=== PATIENT | male | born 1980 | race Caucasian/White ===

== ENCOUNTER 2017-02-17 16:31 | Inpatient (IN) ==
[2017-02-17] MEDS ORDERED: NITROGLYCERIN 1 GM OINT.TOP TD ONE (17:23)
--- NOTE | 2017-02-17 17:31 | Emergency Department Note ---
SOB HPI - General Source: patient Mode of arrival: ambulatory Limitations: no limitations - History of Present Illness Associated symptoms: Reports: cough. Denies: chest pain, pain with inspiration , fever, lower extremity pain, nausea/vomiting, syncope Treatment prior to arrival: none <Marianela Corea - Last Filed: 02/17/17 17:29> <Cortez Moore - Last Filed: 02/17/17 18:30> - General Chief Complaint: Shortness of Breath/Dyspnea Stated Complaint: Shortness of breath Time Seen by Provider: 02/17/17 16:36 - History of Present Illness 36-year-old male presents with shortness of breath for 2-3 weeks. Also reports a 25 pound weight gain over the last 3 weeks. States he thinks he may be in congestive heart failure. Has had an episode similar to this and what she was in congestive heart failure. He is a known brittle diabetic. He also has a history of renal failure. States his last labs were checked back in November. No recent lab work no fever or chills. He does report a productive cough with greenish sputum at times. This has been going on for several weeks as well. No fever or chills. No nausea, vomiting, or diarrhea. Sitting or laying does not seem to make a difference in his breathing. He does get more short of breath with any exertion. States this is normal for him but it is much worse than normal usual over the last few weeks. No home treatments. (Marianela Corea) - Related Data Home Medications Medication Instructions Recorded Confirmed aspirin 81 mg chewable tablet 81 mg PO QDAY 05/27/15 01/05/17 cholecalciferol (vitamin D3) 5,000 5,000 unit PO QDAY cap 05/27/15 01/05/17 unit capsule cholestyramine (with sugar) 4 gram 4 g PO .QD each 05/27/15 01/05/17 oral powder lactase 4,500 unit tablet 4,500 unit PO QAC PRN 05/27/15 01/05/17 cyanocobalamin (vit B-12) 5,000 1,000 mcg SUBLINGUAL QDAY tab 06/18/15 01/05/17 mcg sublingual tablet salmon oil-omega-3 fatty acids 1,000 cap PO .QD cap 06/18/15 01/05/17 1,000 mg-200 mg capsule sitagliptin 100 mg tablet 100 mg PO QDAY 01/21/16 01/05/17 insulin aspart 100 unit/mL 50 unit SUB-Q TID ml 01/05/17 01/05/17 subcutaneous solution Previous Rx's Medication Instructions Recorded atorvastatin 20 mg tablet 20 mg PO QDAY #90 tab 06/18/15 blood pressure test kit-large cuff See Dose Instructions .ROUTE 06/18/15 .MEDSUPPLY #1 each True Metrix Glucose Meter See Dose Instructions .ROUTE 12/16/15 .MEDSUPPLY #1 each NS True Metrix Glucose Test Strip See Dose Instructions .ROUTE 12/16/15 .MEDSUPPLY #100 each NS insulin detemir 100 unit/mL 86 unit SUB-Q BID #50 ml 02/27/16 subcutaneous solution fluoxetine 40 mg capsule 40 mg PO DAILY #60 cap 03/30/16 insulin syringe-needle U-100 1 mL See Dose Instructions .ROUTE 04/09/16 31 gauge x 11/10" .MEDSUPPLY #200 each amlodipine 2.5 mg tablet 2.5 mg PO QDAY #30 tab 07/31/16 carvedilol 12.5 mg tablet 12.5 mg PO BID #180 tab 09/03/16 metolazone 2.5 mg tablet 2.5 mg PO QOD #15 tab 10/29/16 losartan 25 mg tablet 25 mg PO QDAY #30 tab 12/14/16 furosemide 40 mg tablet 40 mg PO BID 30 Days 01/06/17 Allergies Allergy/AdvReac Type Severity Reaction Status Date / Time Amoxicillin Allergy Unknown Swelling, Verified 02/17/17 16:34 Rash Review of Systems All systems ED: reviewed and negative except as stated. <Marianela Corea - Last Filed: 02/17/17 17:29> Past Medical History - Past Medical History Medical history: Reports: CHF, diabetes, hyperlipidemia, hypertension, renal disease, other (Morbid obesity,severe obstructive sleep apnea. Edema. Hyperkalemia.) Surgical history ED: Reports: other (Status post BKA, right leg) Psychiatric history: Reports: depression - Social History smoking status: Unknown if ever smoked Alcohol use: Reports: None Drug use: Reports: none <Marianela Corea - Last Filed: 02/17/17 17:29> Physical Exam - General Limitations: no limitations General appearance: alert, in no apparent distress, other (Speaking 4-5 words at a time) - Head Head exam: atraumatic, normocephalic, normal inspection - Eye Eye exam: Present: normal appearance. Absent: conjunctival injection - ENT ENT exam: normal exam, normal oropharynx, mucous membranes moist, TM's normal bilaterally, normal external ear exam - Neck Neck exam: Present: normal inspection, trachea midline. Absent: tenderness, lymphadenopathy - Chest Chest inspection: Present: normal inspection, symmetric chest wall rise - Respiratory Respiratory exam: Present: other (Breath sounds diminished in the bases bilaterally otherwise clear throughout). Absent: respiratory distress, wheezes , accessory muscle use - Cardiovascular Cardiovascular exam: Present: regular rate - Abdominal Exam Abdominal exam: Present: soft, normal bowel sounds, other (Morbid obesity). Absent: distention, tenderness, guarding - Extremities Exam Extremities exam: Present: other (Right below the knee amputation. The left foot does have 1+ edema with mild redness in the skin is dry and flaky. He states this is chronic.) - Neurological Exam Neurological exam: Present: alert, oriented X3 - Psychiatric Psychiatric exam: Present: normal affect, normal mood - Skin Skin exam: Present: warm, dry, intact, normal color <Marianela Corea - Last Filed: 02/17/17 17:29> Course <Marianela Corea - Last Filed: 02/17/17 17:29> <Cortez Moore - Last Filed: 02/17/17 18:30> - Reevaluation(s) Reevaluation #1: Seen with our practitioner. His lungs reveal basilar crackles, his O2 sats are borderline, he is requiring oxygen and labs are pending at this time. Impression CHF on the basis of morbid obesity, diabetes and cardiomyopathy. Blood pressure slightly improved with nitroglycerin. (Cortez Moore) Vital Signs Temperature 98.0 F 02/17/17 16:31 Pulse Rate 90 02/17/17 16:31 Respiratory Rate 24 H 02/17/17 16:31 Blood Pressure 161/92 02/17/17 16:31 Pulse Oximetry (%) 94 02/17/17 16:31 Temperature 98.0 F 02/17/17 16:31 Pulse Rate 90 02/17/17 16:31 Respiratory Rate 24 H 02/17/17 16:31 Blood Pressure 161/92 02/17/17 16:31 Pulse Oximetry (%) 88 L 02/17/17 17:03 Shortness of Breath/Dyspnea - Lab Data Lab results reviewed: Yes I reviewed the patient's lab results. Result diagrams: 02/17/17 17:07 02/17/17 17:07 - Radiology Data Radiology results reviewed: Yes I reviewed the patient's radiology results. <Marianela Corea - Last Filed: 02/17/17 17:29> - Lab Data Result diagrams: 02/17/17 17:07 02/17/17 17:07 <Cortez Moore - Last Filed: 02/17/17 18:30> - MDM Narrative Medical decision making narrative: Impression his CHF, cardiomyopathy. Hypoxemia secondary to hypertension. On his hospital admission, oxygen diuretics, diabetic management. Discussed with Dr. Yepez (Cortez Moore) - Lab Data Lab Results 02/17/17 02/17/17 02/17/17 Range/Units 17:07 17:07 17:07 WBC 8.0 (4.5-11.0) K/mcL RBC 4.54 (4.50-5.90) M/mcL Hgb 13.1 L (13.5-16.5) g/dL Hct 39.7 L (41.0-55.0) % MCV 87.6 (80.0-100.0) fL MCH 28.9 (26.0-34.0) pg MCHC 33.0 (31.0-36.0) g/dL RDW 14.5 (11.5-14.5) % Plt Count 132 L (140-440) K/mcL MPV 9.6 (7.4-10.4) fL Gran % 69.3 (38.0-78.0) % Lymph % (Auto) 14.9 L (15.5-49.0) % Powell % (Auto) 7.6 (1.0-12.0) % Eos % (Auto) 8.0 H (0.0-7.0) % Baso % (Auto) 0.2 (0.0-2.0) % Gran # 5.5 (1.8-8.0) K/mcL Lymph # (Auto) 1.2 L (1.5-4.8) K/mcL Powell # (Auto) 0.6 (0.1-0.9) K/mcL Eos # (Auto) 0.6 (0.0-0.7) K/mcL Baso # (Auto) 0 (0.0-0.3) K/mcL Sodium 138 (133-145) mmol/L Potassium 5.7 H (3.3-5.1) mmol/L Chloride 103 (96-108) mmol/L Carbon Dioxide 21 L (22-30) mmol/L Anion Gap 14.0 (8-16) BUN 31 H (6-20) mg/dl Creatinine 1.6 H (0.7-1.2) mg/dl GFR Calculation 54 Glucose 160 H (70-105) mg/dL Calcium 8.7 (8.6-10.4) mg/dl Total Bilirubin 0.2 (0.0-1.0) mg/dL AST 17 (0-37) U/l ALT 18 (0-40) U/l Alkaline Phosphatase 124 H (39-117) U/L Troponin T 0.02 (0-0.03) ng/ml NT-Pro-B Natriuret Pep 538.8 H (0-125) pg/ml Total Protein 6.9 (5.9-8.4) gm/dL Albumin 3.4 (3.2-5.2) gm/dL Globulin 3.5 (2.2-3.7) gm/dL Albumin/Globulin Ratio 1.0 (1.0-2.3) Disposition <Marianela Corea - Last Filed: 02/17/17 17:29> Pt seen by TOOL REPAIRER/PA only: No <Cortez Moore - Last Filed: 02/17/17 18:30> Clinical Impression: Hyperkalemia, Chronic kidney disease, stage III (moderate), Diabetes mellitus, type II, insulin dependent, Congestive heart failure Disposition: Xfer As Inpt ([facility]) Condition: Fair Referrals: Nery Santos MD [Primary Care Provider] -
[2017-02-17 17:32] LABS: Basophils # (Auto) 0 K/mcL (0.0-0.3); Basophils % (Auto) 0.2 % (0.0-2.0); Eosinophils # (Auto) 0.6 K/mcL (0.0-0.7); Granulocytes % (Auto) 69.3 % (38.0-78.0); Lymphocytes # (Auto) 1.2 K/mcL (1.5-4.8); Lymphocytes % (Auto) 14.9 % (15.5-49.0); Mean Cell Volume 87.6 fL (80.0-100.0); Mean Corpuscular Hemoglobin 28.9 pg (26.0-34.0); Monocytes # (Auto) 0.6 K/mcL (0.1-0.9); Monocytes % (Auto) 7.6 % (1.0-12.0); Platelet Count 132 K/mcL (140-440); RBC 4.54 M/mcL (4.50-5.90); Red Cell Distribution Width 14.5 % (11.5-14.5)
--- NOTE | 2017-02-17 17:33 | XRay Report ---
CLINICAL INFORMATION: Shortness of breath COMPARISON: 06/07/2015 FINDINGS: Film taken with portable technique and lordotic positioning and slight rotation accentuates the heart size which may be borderline enlarged. Pulmonary vessels are slightly distended. No definite edema. There is minor atelectasis in the right base. No effusions. IMPRESSION: Mild CHF or volume overload. Please correlate with serologic evidence of CHF Interpreted and Authenticated by: Daniele Landis 02/17/17
[2017-02-17 17:53] LABS: ALT/SGPT 18 U/l (0-40); Albumin 3.4 gm/dL (3.2-5.2); Alkaline Phosphatase 124 U/L (39-117); Blood Urea Nitrogen 31 mg/dl (6-20); proBNP 538.8 pg/ml (0-125)
--- NOTE | 2017-02-17 19:10 | Internal Med History&Physical ---
Medical - H&P: HPI Patient information: Note initiated : 02/17/17 at 7:05 pm Patient: Johnson Pedraza a 36 y/o M admitted on for Shortness of breath. History of present illness: Mr. Pedraza is a 36 year old with a history of type 2 diabetes, chronic kidney disease, heart failure, who notes that he has had increasing shortness of breath for the last 2-3 weeks, as well as a 25 pound weight gain, and worsening dyspnea on exertion. Dyspnea increased markedly over the last 2-3 days. The patient does not notice orthopnea, but wears BiPAP at night. He says he has been coughing clear phlegm up for the last 2-3 days. His chest is felt a little tight. ER evaluation is suggestive of CHF exacerbation. Otherwise he denies fever or chills, headaches or dizziness, new eye or ear symptoms, sore throat, swollen glands, overt chest pain or palpitations, abdominal pain, vomiting or constipation. He does have somewhat chronic intermittent diarrhea. He denies dysuria. Medical History Abnormal ANCA test Congestive heart failure (Acute) Micturition syncope (Acute) Chronic kidney disease, stage III (moderate) (Chronic) most recent s.creat is 1.6 which equals to egfr of 54ml/min per CKD EPI equation s.creat was 1.2 in 02/2015, it seems to be fluctuating between 1.6-1.8 for the last few mths He has overt proteinuria he does have atypical ANCA titer that is positive, I will repeat this and we will refer to rheumatology if persistent Depression (Chronic) 2012 Edema (Chronic) Hyperkalemia (Chronic) Hyperlipidemia (Chronic) Hypertension, essential (Chronic) Hypertensive renal disease (Chronic) Morbid obesity (Chronic) Diabetes mellitus type 1 (Inactive) 1999 Surgical History Amputation of right lower extremity below knee (Chronic) 2012 H/O amputation of lesser toe (Chronic) 2010 middle left toe Medication List Clindamycin 300 mg p.o. every 6 hours, was started today by his dentist amlodipine 2.5 mg/Benzapril 10 mg 1 daily aspirin 81 mg PO QDAY? atorvastatin 20 mg PO QDAY carvedilol 12.5 mg PO BID cholecalciferol (vitamin D3) 5,000 units PO QDAY cholestyramine (with sugar) 4 grams PO .QD cyanocobalamin (vit B-12) 1,000 mcg Sublingual QDAY fluoxetine 40 mg PO DAILY furosemide 40 mg PO BID 30 days insulin aspart (Novolog) 50 units Sub-Q TID insulin detemir 86 units (0.86 mL) Sub-Q BID lactase 4,500 units PO QAC PRN losartan 25 mg PO QDAY metolazone 2.5 mg PO QOD? salmon oil-omega-3 fatty acids 1,000-200 mg 1,000 caps PO .QD sitagliptin (Januvia) 100 mg PO QDAY Hesperus 5/325 1-2 every 4 hours as needed Allergies/Adverse Reactions Amoxicillin Allergy (Unknown, Verified 09/23/16 07:57) Swelling, Rash silver, topical Family History Mother Arthritis Seizure Disorder of thyroid Father Diabetes mellitus Essential hypertension Myocardial Infarction Cerebrovascular accident (CVA) Sister Migraine Disorder of thyroid Social History marital status: single smoking status: Never smoker alcohol intake frequency: does not drink substance use type: does not use Medical - H&P: Meds Home Medications Medication Instructions Recorded Confirmed Type cholestyramine (with sugar) 4 gram 4 g PO .QD each 05/27/15 02/17/17 History oral powder atorvastatin 20 mg tablet 20 mg PO QDAY #90 tab 06/18/15 02/17/17 Rx sitagliptin 100 mg tablet 100 mg PO QDAY 01/21/16 02/17/17 History insulin detemir 100 unit/mL 86 unit SUB-Q BID #50 ml 02/27/16 02/17/17 Rx subcutaneous solution fluoxetine 40 mg capsule 40 mg PO DAILY #60 cap 03/30/16 02/17/17 Rx carvedilol 12.5 mg tablet 12.5 mg PO BID #180 tab 09/03/16 02/17/17 Rx losartan 25 mg tablet 25 mg PO QDAY #30 tab 12/14/16 02/17/17 Rx insulin aspart 100 unit/mL 50 unit SUB-Q TID ml 01/05/17 02/17/17 History subcutaneous solution furosemide 40 mg tablet 40 mg PO BID 30 Days 01/06/17 02/17/17 Rx Clindamycin HCl 300 mg PO Q6H 02/17/17 02/17/17 History HYDROcodone/APAP 5/325MG [Hesperus 1 - 2 tab PO Q4HP PRN 02/17/17 02/17/17 History 5/325Mg] amLODIPine BESYLATE/BENAZEPRIL 1 each PO DAILY 02/17/17 02/17/17 History [Amlodipine-Benazepril 2.5-10] Allergies Allergy/AdvReac Type Severity Reaction Status Date / Time Amoxicillin Allergy Unknown Swelling, Verified 02/17/17 16:34 Rash Medical - H&P: Exam - Constitutional Vitals: Temp Pulse Resp BP Pulse Ox 98.0 F 90 24 H 161/92 88 L 02/17/17 16:31 02/17/17 16:31 02/17/17 16:31 02/17/17 16:31 02/17/17 17:03 On exam, this is a very pleasant, morbidly obese, white male in no acute distress. O2 saturation was 88% on room air, and 95% on 2 L nasal cannula. Blood pressure 143/103 Head: Normocephalic, atraumatic. Eyes: PERRLA, EOMI, anicteric. Ears: TMs and canals are clear. Pharynx: Is markedly crowded. Dentition is poor, with numerous cavities. Posterior pharynx is not well seen. Neck: Has a very thick circumference. No JVD, thyromegaly, bruits, lymphadenopathy is noted. Cardiac exam: Shows regular rate and rhythm with normal S1 and S2, without murmurs rubs or gallops. Lungs: Appear clear to auscultation, with rare crackles. No accessory muscle use is noted. No wheezes or rhonchi are noted. Abdomen: Is very large and protuberant, with large pannus. There is no obvious mass. There is no obvious tenderness, guarding, rebound. Extremities: There is a right lower extremity BKA, stump appears to be in good condition. Left lower extremity: Shows a very callused foot with dry scaly skin, and some of the calluses are cracked. There is some areas of redness as well, and possible tinea pedis. neurologic exam: Is grossly nonfocal. Medical - H&P: Reslt - Labs CBC & Chem 7: 02/17/17 17:07 02/17/17 17:07 Labs: Short CBC 02/17/17 Range/Units 17:07 WBC 8.0 (4.5-11.0) K/mcL Hgb 13.1 L (13.5-16.5) g/dL Hct 39.7 L (41.0-55.0) % Plt Count 132 L (140-440) K/mcL BMP 02/17/17 17:07 Sodium 138 Potassium 5.7 H Chloride 103 Carbon Dioxide 21 L BUN 31 H Creatinine 1.6 H Glucose 160 H Calcium 8.7 Cardiac Enzymes 02/17/17 Range/Units 17:07 Troponin T 0.02 (0-0.03) ng/ml Liver Function 02/17/17 Range/Units 17:07 Total Bilirubin 0.2 (0.0-1.0) mg/dL AST 17 (0-37) U/l ALT 18 (0-40) U/l Alkaline Phosphatase 124 H (39-117) U/L Albumin 3.4 (3.2-5.2) gm/dL BNP is elevated at 538 Troponin is normal at 0.02 next Chest x-ray shows mild CHF, and borderline cardiomegaly. EKG shows normal sinus rhythm at a rate of about 90, left axis deviation, but otherwise appears normal without obvious acute ischemia. January 31, 2016: Echocardiogram: Suboptimal study. Mild to moderate four- chamber enlargement with mild concentric LVH and mild global LV systolic dysfunction. Ejection fraction 45-50%. Medical - H&P: A/P (1) Diabetes mellitus, type II, insulin dependent Current visit: Yes Status: Chronic (2) Severe obstructive sleep apnea Current visit: No Status: Chronic (3) Congestive heart failure Current visit: Yes Status: Acute (4) Hypertensive renal disease Problem details: Current visit: No Status: Chronic (5) Morbid obesity Current visit: No Status: Chronic - Narrative A/P Narrative: #1. Cardiac. -Patient presents with increasing shortness of breath and edema, consistent with CHF exacerbation. He reports a 20 pound weight gain. Admit to telemetry. IV Lasix for diuresis. Monitor electrolytes. Continue benazepril, amlodipine, losartan, Lasix, Coreg D-dimer is elevated. I will need to verify with nephrology whether we should consider doing a lung scan to rule out PE. 2. Pulmonary. -Obstructive sleep apnea. Resume at bedtime BiPAP 3. Endocrine. -Type 2 diabetes. Accu-Cheks and insulin sliding scale. Continue sitagliptin, insulin detemir, Humalog with meals. Continue atorvastatin, losartan. Patient should probably also be on aspirin. 4. Psychiatric. Depression. Continue fluoxetine. 5. CODE STATUS: Full code. Patient reports his mother, Nicholas, will act as his POA 6. DVT prophylaxis: Subcu heparin. 7. Renal. Continue follow-up with nephrology. Continue current blood pressure medications. Work on diabetes control, weight control, treat sleep apnea. Monitor renal function. Consult nephrology if this does not improve. 8. Hypertension. Continue amlodipine and Benzapril, losartan, Lasix, Coreg . 9. Chronic pain. Continue Hesperus as needed. 10. Hyperlipidemia. Continue cholestyramine 11. Infectious disease. Patient's dentist just started him on clindamycin, presumably for tooth infection. He has chronically poor dentition, and she is discussing referral to an oral surgeon with him. This visit took approximately 60 minutes, to review the patient's old records, review his case with the ER MD, review current test results, interview and examine him, and write orders.
[2017-02-17] MEDS ORDERED: ALBUTEROL SULFATE 2.5 MG/3 ML NEBULIZER NEB PRN (19:43)
[2017-02-17] MEDS ORDERED: NITROGLYCERIN 0.4 MG TAB.SUBL SL PRN (19:43)
[2017-02-17] MEDS ORDERED: DEXTROSE 50% 50 ML VIAL IV PRN (19:43)
[2017-02-17] MEDS ORDERED: ONDANSETRON 4 MG/2 ML VIAL IV PRN (19:43)
[2017-02-17] MEDS ORDERED: DOCUSATE SODIUM 100 MG CAPSULE PO PRN (19:43)
[2017-02-17] MEDS ORDERED: MAGNESIUM HYDROXIDE 30 ML ORAL.SUSP PO PRN (19:43)
[2017-02-17] MEDS ORDERED: DEXTROSE 31 GM ORAL.SUSP PO PRN (19:43)
[2017-02-17] MEDS ORDERED: ACETAMINOPHEN 325 MG TABLET PO PRN (19:43)
[2017-02-17] MEDS ORDERED: NALOXONE HCL 0.4 MG/ML VIAL IV PRN (19:43)
[2017-02-17] MEDS: CLINDAMYCIN 150 MG CAPSULE PO SCH (22:25)
[2017-02-17] MEDS: INSULIN LISPRO 1 UNIT/0.01 ML UNIT SQ SCH (22:26)
[2017-02-17] MEDS: HEPARIN 5,000 UNIT/ML VIAL SQ SCH (22:26)
[2017-02-17] MEDS: INSULIN GLARGINE, HUMAN 1 UNIT/0.01 ML SQ SCH (22:26)
[2017-02-17] MEDS: ATORVASTATIN 20 MG TABLET PO SCH (22:27)
[2017-02-17] MEDS: FUROSEMIDE 100 MG/10 ML VIAL IV SCH (22:27)
[2017-02-18 05:03] LABS: Basophils # (Auto) 0 K/mcL (0.0-0.3); Basophils % (Auto) 0.2 % (0.0-2.0); Eosinophils # (Auto) 0.6 K/mcL (0.0-0.7); Eosinophils % (Auto) 7.2 % (0.0-7.0); Granulocytes % (Auto) 65.6 % (38.0-78.0); Lymphocytes # (Auto) 1.5 K/mcL (1.5-4.8); Lymphocytes % (Auto) 17.3 % (15.5-49.0); Mean Cell Volume 87.9 fL (80.0-100.0); Mean Corpuscular HGB Conc 32.6 g/dL (31.0-36.0); Mean Corpuscular Hemoglobin 28.7 pg (26.0-34.0); Monocytes # (Auto) 0.8 K/mcL (0.1-0.9); Monocytes % (Auto) 9.7 % (1.0-12.0); Platelet Count 135 K/mcL (140-440); RBC 4.61 M/mcL (4.50-5.90)
[2017-02-18 05:20] LABS: ALT/SGPT 17 U/l (0-40); Albumin 3.4 gm/dL (3.2-5.2); Alkaline Phosphatase 121 U/L (39-117); Bilirubin,Direct < 0.2 mg/dL (0.0-0.3); Blood Urea Nitrogen 31 mg/dl (6-20); Gamma Glutamyl Transpeptidase 34 U/L (8-61); Magnesium 1.9 mg/dL (1.6-2.5); Uric Acid 9.5 mg/dL (2.5-8.0)
[2017-02-18] MEDS: INSULIN LISPRO 1 UNIT/0.01 ML UNIT SQ SCH ×7 (07:58→20:50)
[2017-02-18] MEDS: CHOLESTYRAMINE/ASPARTAME 4 GM POWD.PACK PO SCH (07:59)
[2017-02-18] MEDS: INSULIN GLARGINE, HUMAN 1 UNIT/0.01 ML SQ SCH ×2 (07:59→20:49)
[2017-02-18] MEDS: CARVEDILOL 12.5 MG TABLET PO SCH ×2 (07:59→17:13)
[2017-02-18] MEDS ORDERED: [UNRECOGNIZED DRUG - OTHER] PO SCH (09:00)
[2017-02-18] MEDS ORDERED: AMLODIPINE BESYLATE PO SCH (09:00)
[2017-02-18] MEDS ORDERED: BENAZEPRIL PO SCH (09:00)
[2017-02-18] MEDS: FUROSEMIDE 100 MG/10 ML VIAL IV SCH ×2 (09:39→20:48)
[2017-02-18] MEDS: HEPARIN 5,000 UNIT/ML VIAL SQ SCH ×2 (09:39→20:49)
[2017-02-18] MEDS: CLINDAMYCIN 150 MG CAPSULE PO SCH ×4 (09:40→20:49)
[2017-02-18] MEDS: LOSARTAN 25 MG TABLET PO SCH (09:41)
[2017-02-18] MEDS: sitaGLIPtin 100 MG TABLET PO SCH (09:41)
[2017-02-18] MEDS: amLODIPine 5 MG TABLET PO SCH (09:41)
[2017-02-18] MEDS: FLUoxetine HCL 20 MG CAPSULE PO SCH (09:41)
[2017-02-18] MEDS: LISINOPRIL 10 MG TABLET PO SCH (09:41)
--- NOTE | 2017-02-18 11:02 | Internal Med Progress Note ---
Medical - PN: Subj Patient information: Note initiated : 02/18/17 at 11:02 am Patient: Johnson Pedraza 36 y/o M admitted on 02/17/17 for Shortness of Breath/ CHF Exacerbation. Interval history: February 17, 2017: History of present illness: Mr. Pedraza is a 36 year old with a history of type 2 diabetes, chronic kidney disease, heart failure, who notes that he has had increasing shortness of breath for the last 2-3 weeks, as well as a 25 pound weight gain, and worsening dyspnea on exertion. Dyspnea increased markedly over the last 2-3 days. The patient does not notice orthopnea, but wears BiPAP at night. He says he has been coughing clear phlegm up for the last 2-3 days. His chest is felt a little tight. ER evaluation is suggestive of CHF exacerbation. Otherwise he denies fever or chills, headaches or dizziness, new eye or ear symptoms, sore throat, swollen glands, overt chest pain or palpitations, abdominal pain, vomiting or constipation. He does have somewhat chronic intermittent diarrhea. He denies dysuria. February 18: Today, the patient says he feels a little bit better. He thinks he has a little bit less dyspnea with exertion, but is a bit equivocal. He denies current fever or chills, cough, chest pain or palpitations. He has mild dyspnea with minimal exertion. He denies abdominal pain, nausea or vomiting, diarrhea or constipation or dysuria. He admits he does not get a great deal of exercise. 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 He has never looked into doing upper body workouts at the gym, or exercising in a pool. He also has never discussed gastric bypass with anyone, in spite of his numerous illnesses related to morbid obesity. - Constitutional Vitals: Vital Signs Temp Pulse Resp BP Pulse Ox 99.2 F H 82 22 142/97 94 02/18/17 04:00 02/18/17 04:00 02/18/17 04:00 02/18/17 04:00 02/18/17 04:00 Period Temp Pulse Resp BP Sys/Harris Pulse Ox Last 24 Hr 98.0 F-99.2 F 82-87 18-29 142-143/86-103 92-96 Intake and Output 02/17/17 02/18/17 02/18/17 21:59 05:59 13:59 Intake Total 200 / 200 Output Total 1550 / 1550 Balance -1350 / -1350 Weight 411 lb 6.4 oz Intake & Output: Intake & Output 02/17/17 02/18/17 02/18/17 21:59 05:59 13:59 Intake Total 200 / 200 Output Total 1550 / 1550 Balance -1350 / -1350 Weight 411 lb 6.4 oz Intake: Oral 200 / 200 Output: Void Amount 1550 / 1550 Blood pressures ranging from 145-150/92-101. O2 saturations 98% on room air Intake and output shows he has diuresed about 1350 mL overnight. Neck is supple without obvious JVD. Cardiac exam shows regular rate and rhythm. Lungs have decreased breath sounds at the bases, but otherwise no obvious rales , rhonchi, wheezes. Abdomen remains markedly obese, but soft and nontender. Extremities show just a trace edema. Right BKA stump looks fine. Left foot is heavily callused, and has some rash around the lateral edges of his foot as well. Neurologic exam is grossly nonfocal. Medical - PN: Obj Da - Labs CBC & Chem 7: 02/18/17 03:44 02/18/17 03:44 Labs: Abnormal Lab Results 02/18/17 02/18/17 03:44 03:44 Hgb 13.2 L Hct 40.5 L RDW 15.0 H Plt Count 135 L Eos % (Auto) 7.2 H Potassium 5.4 H BUN 31 H Creatinine 1.5 H Glucose 244 H Uric Acid 9.5 H Alkaline Phosphatase 121 H Triglycerides 359 H February 17: BNP is elevated at 538 Troponin is normal at 0.02 CBC shows a white blood cell count of 8000, hemoglobin 13, hematocrit 39.7, platelets 132,000, differential shows 1200 lymphocytes, normal granulocyte count Chemistry panel: Sodium 138, potassium 5.7, chloride 103, CO2 21, BUN 31, creatinine 1.6, glucose 160, hemoglobin A1c 9% Chest x-ray shows mild CHF, and borderline cardiomegaly. EKG shows normal sinus rhythm at a rate of about 90, left axis deviation, but otherwise appears normal without obvious acute ischemia. January 31, 2016: Echocardiogram: Suboptimal study. Mild to moderate four- chamber enlargement with mild concentric LVH and mild global LV systolic dysfunction. Ejection fraction 45-50%. Meds: Medications Acetaminophen (Tylenol) 650 mg PO Q6HP PRN PRN Reason: PAIN/FEVER > 101 Hydrocodone Bitart/Acetaminophen (Pavo 5/325mg) 1 - 2 tab PO Q4HP PRN PRN Reason: Pain Albuterol Sulfate (Ventolin) 2.5 mg NEB Q4HRT PRN PRN Reason: Shortness Of Breath Or Wheezing Amlodipine Besylate (Norvasc) 2.5 mg PO DAILY [facility] Last Admin: 02/18/17 09:41 Dose: 2.5 mg Atorvastatin Calcium (Lipitor) 20 mg PO HS [facility] Last Admin: 02/17/17 22:27 Dose: 20 mg Carvedilol (Coreg) 12.5 mg PO BIDCC [facility] Last Admin: 02/18/17 07:59 Dose: 12.5 mg Cholestyramine Resin (Questran Light) 4 gm PO DAILY@0700 [facility] Last Admin: 02/18/17 07:59 Dose: 4 gm Clindamycin HCl (Cleocin) 300 mg PO QID [facility] Last Admin: 02/18/17 09:40 Dose: 300 mg Dextrose (Dextrose 50%) 0 ml IV UD PRN PRN Reason: Hypoglycemia Diagnostic Test (Pha) (Accu-Chek) 1 each FS ACHS [facility] Last Admin: 02/18/17 07:57 Dose: 1 each Docusate Sodium (Colace) 100 mg PO BID PRN PRN Reason: Constipation Fluoxetine HCl (Prozac) 40 mg PO DAILY [facility] Last Admin: 02/18/17 09:41 Dose: 40 mg Furosemide (Lasix) 60 mg IV Q12 [facility] Last Admin: 02/18/17 09:39 Dose: 60 mg Glucose (Insta-Glucose) 15 gm PO PRN PRN PRN Reason: Hypoglycemia Heparin Sodium (Porcine) (Heparin) 5,000 unit SQ Q12 [facility] Last Admin: 02/18/17 09:39 Dose: 5,000 unit Insulin Glargine (Lantus) 89 unit SQ BID [facility] Last Admin: 02/18/17 07:59 Dose: 89 unit Insulin Human Lispro (Humalog) 0 unit SQ ACHS [facility] PRN Reason: Protocol Last Admin: 02/18/17 07:59 Dose: 4 unit Insulin Human Lispro (Humalog) 50 unit SQ TIDAC [facility] Last Admin: 02/18/17 07:58 Dose: 50 unit Lisinopril (Zestril) 10 mg PO DAILY [facility] Last Admin: 02/18/17 09:41 Dose: 10 mg Losartan Potassium (Cozaar) 25 mg PO QDAY [facility] Last Admin: 02/18/17 09:41 Dose: 25 mg Magnesium Hydroxide (Milk Of Magnesia) 30 ml PO DAILYP PRN PRN Reason: Constipation Naloxone HCl (Narcan) 0.1 mg IV Q2MIN PRN PRN Reason: Opiate Reversal Nitroglycerin (Nitrostat) 0.4 mg SL Q5M PRN PRN Reason: Chest Pain Ondansetron HCl (Zofran) 4 mg IV Q4HP PRN PRN Reason: Nausea And Vomiting Sitagliptin Phosphate (Januvia) 100 mg PO QDAY [facility] Last Admin: 02/18/17 09:41 Dose: 100 mg Medical - PN: A/P - Time Spent With Patient Total time spent is greater than 50% in coordination of care (as documented) at patient's floor/unit and/or counseling patient: Greater than 35 minutes (1) Diabetes mellitus, type II, insulin dependent Status: Chronic Current Visit: Yes (2) Severe obstructive sleep apnea Status: Chronic Current Visit: No (3) Congestive heart failure Status: Acute Current Visit: Yes (4) Hypertensive renal disease Problem details: Status: Chronic Current Visit: No (5) Morbid obesity Status: Chronic Current Visit: No - Narrative A/P Narrative: #1. Cardiac. -Patient presents with increasing shortness of breath and edema, consistent with CHF exacerbation. He reports a 20 pound weight gain. Admitted to telemetry. IV Lasix for diuresis. Monitor electrolytes. He is responding nicely to IV Lasix. Continue benazepril, amlodipine, losartan, Lasix, Coreg D-dimer is elevated. I will need to verify with nephrology whether we should consider doing a lung scan to rule out PE. 2. Pulmonary. -Obstructive sleep apnea. Resume at bedtime BiPAP 3. Endocrine. -Type 2 diabetes. This appears poorly controlled. Accu-Cheks today are ranging from 81-284. Hemoglobin A1c is quite elevated. Accu-Cheks and insulin sliding scale. Continue sitagliptin, insulin detemir, Humalog with meals. Continue atorvastatin, losartan. Patient should probably also be on aspirin. This patient definitely needs to work on exercise and weight loss. -His remaining foot is heavily callused, and at increased risk for diabetes complications. I have requested a podiatry consult with Dr. Fabian. 4. Psychiatric. Depression. Continue fluoxetine. 5. CODE STATUS: Full code. Patient reports his mother, Nicholas, will act as his POA 6. DVT prophylaxis: Subcu heparin. 7. Renal. Continue follow-up with nephrology. Continue current blood pressure medications. Work on diabetes control, weight control, treat sleep apnea. Monitor renal function. Consult nephrology if this does not improve. 8. Hypertension. Continue amlodipine and Benzapril, losartan, Lasix, Coreg . 9. Chronic pain. Continue Pavo as needed. 10. Hyperlipidemia. Continue cholestyramine 11. Infectious disease. Patient's dentist just started him on clindamycin, presumably for tooth infection. He has chronically poor dentition, and she is discussing referral to an oral surgeon with him. He does have low-grade fevers overnight. Continue clindamycin. He will need to follow-up with his dentist as soon as possible after discharge. 12. Morbid obesity. The patient says no one has ever discussed possible gastric bypass surgery with him, but clearly that is something he should consider. Due to his extreme obesity, he has developed sleep apnea, chronic heart disease, chronic kidney disease, and poor diabetes control. He should work more closely with the dietitian, to achieve weight loss and glucose control. He should be referred to a gastric surgeon to discuss the possibility of weight loss surgery. He should find a way to exercise. We discussed exploring options at the aquatic center, as he can either take classes such as water aerobics, or just walk in a pool for an hour a day, to increase his calorie burn. Approximately 40 minutes was spent today, reviewing patient's test results, interviewing and examining him, reviewing plan of care with staff, and writing orders. Medical - PN: Qual - VTE Deep Vein Thrombosis/Pulmonary Embolism Present on Admission: No
--- NOTE | 2017-02-18 12:40 | EKG Interpretations ---
EKG DATE: 02/17/2017 at 4:44 p.m. INTERPRETATION: 1. Normal sinus rhythm. 2. Slow R-wave progression across the precordial leads. 3. No prior tracing for comparison. RMF:[email or web address] Job ID: [id number] Doc ID: [id number] Matt Villareal DO
[2017-02-18] MEDS: HYDROcodone/APAP 5/325MG TABLET PO PRN ×2 (14:09→18:38)
[2017-02-18] MEDS: ATORVASTATIN 20 MG TABLET PO SCH (20:49)
[2017-02-19] MEDS: HYDROcodone/APAP 5/325MG TABLET PO PRN (02:47)
[2017-02-19 05:51] LABS: Basophils # (Auto) 0 K/mcL (0.0-0.3); Basophils % (Auto) 0.5 % (0.0-2.0); Eosinophils # (Auto) 0.8 K/mcL (0.0-0.7); Eosinophils % (Auto) 8.6 % (0.0-7.0); Granulocytes % (Auto) 64.1 % (38.0-78.0); Lymphocytes # (Auto) 1.8 K/mcL (1.5-4.8); Lymphocytes % (Auto) 18.8 % (15.5-49.0); Mean Cell Volume 87.9 fL (80.0-100.0); Mean Corpuscular HGB Conc 32.9 g/dL (31.0-36.0); Mean Corpuscular Hemoglobin 28.9 pg (26.0-34.0); Monocytes # (Auto) 0.7 K/mcL (0.1-0.9); Platelet Count 156 K/mcL (140-440); RBC 4.79 M/mcL (4.50-5.90); Red Cell Distribution Width 15.1 % (11.5-14.5)
[2017-02-19 06:18] LABS: ALT/SGPT 20 U/l (0-40); Albumin 3.7 gm/dL (3.2-5.2); Albumin/Globulin Ratio 1.1 (1.0-2.3); Alkaline Phosphatase 128 U/L (39-117); Bilirubin,Direct < 0.2 mg/dL (0.0-0.3); Blood Urea Nitrogen 35 mg/dl (6-20); Gamma Glutamyl Transpeptidase 33 U/L (8-61); Magnesium 1.8 mg/dL (1.6-2.5); Uric Acid 10.5 mg/dL (2.5-8.0)
[2017-02-19] MEDS: CHOLESTYRAMINE/ASPARTAME 4 GM POWD.PACK PO SCH (07:55)
[2017-02-19] MEDS: CARVEDILOL 12.5 MG TABLET PO SCH (07:55)
[2017-02-19] MEDS: INSULIN GLARGINE, HUMAN 1 UNIT/0.01 ML SQ SCH (08:06)
[2017-02-19] MEDS: INSULIN LISPRO 1 UNIT/0.01 ML UNIT SQ SCH ×4 (08:07→11:36)
[2017-02-19] MEDS ORDERED: FUROSEMIDE 20 MG TABLET PO SCH (09:00)
[2017-02-19] MEDS: sitaGLIPtin 100 MG TABLET PO SCH (09:21)
[2017-02-19] MEDS: FLUoxetine HCL 20 MG CAPSULE PO SCH (09:21)
[2017-02-19] MEDS: CLINDAMYCIN 150 MG CAPSULE PO SCH ×2 (09:21→13:18)
[2017-02-19] MEDS: amLODIPine 5 MG TABLET PO SCH (09:22)
[2017-02-19] MEDS: LISINOPRIL 10 MG TABLET PO SCH (09:22)
[2017-02-19] MEDS: HEPARIN 5,000 UNIT/ML VIAL SQ SCH (09:22)
[2017-02-19] MEDS: LOSARTAN 25 MG TABLET PO SCH (09:23)
--- NOTE | 2017-02-19 09:51 | Orthopedic Consult Note ---
History of Present Illness - HPI Patient information: Note initiated : 02/19/17 at 9:49 am Service Date, if different from initiated Date: [] Patient: Johnson Pedraza 36 y/o M admitted on 02/17/17 for Shortness of Breath/ CHF Exacerbation. Chief Complaint: [] Consult date: 02/19/17 Requesting physician: Catalina Cornelius Consult reason: other (severe foot infection with callusing and fissuring of the left extremity) Review of Systems Constitutional: fatigue, lethargy, weakness Nose, mouth and throat: neck pain Breasts: no as per HPI, no change in shape, no mass, no pain, no nipple discharge, no skin changes, no swelling, no other Cardiovascular: dyspnea on exertion, leg edema, leg ulcers, pedal edema Respiratory: dyspnea Musculoskeletal: left: ankle pain, ankle stiffness, ankle swelling, foot pain, foot stiffness, foot swelling, knee pain, knee stiffness, knee swelling Integumentary: erythema, non-healing lesions, pruritus, rash, skin ulcer, wounds Medications and Allergies Home Medications Medication Instructions Recorded Confirmed Type cholestyramine (with sugar) 4 gram 4 g PO .QD each 05/27/15 02/17/17 History oral powder atorvastatin 20 mg tablet 20 mg PO QDAY #90 tab 06/18/15 02/17/17 Rx sitagliptin 100 mg tablet 100 mg PO QDAY 01/21/16 02/17/17 History insulin detemir 100 unit/mL 86 unit SUB-Q BID #50 ml 02/27/16 02/17/17 Rx subcutaneous solution fluoxetine 40 mg capsule 40 mg PO DAILY #60 cap 03/30/16 02/17/17 Rx carvedilol 12.5 mg tablet 12.5 mg PO BID #180 tab 09/03/16 02/17/17 Rx losartan 25 mg tablet 25 mg PO QDAY #30 tab 12/14/16 02/17/17 Rx insulin aspart 100 unit/mL 50 unit SUB-Q TID ml 01/05/17 02/17/17 History subcutaneous solution furosemide 40 mg tablet 40 mg PO BID 30 Days 01/06/17 02/17/17 Rx Clindamycin HCl 300 mg PO Q6H 02/17/17 02/17/17 History HYDROcodone/APAP 5/325MG [[place] 1 - 2 tab PO Q4HP PRN 02/17/17 02/17/17 History 5/325Mg] amLODIPine BESYLATE/BENAZEPRIL 1 each PO DAILY 02/17/17 02/17/17 History [Amlodipine-Benazepril 2.5-10] Allergies Allergy/AdvReac Type Severity Reaction Status Date / Time Amoxicillin Allergy Intermediate Swelling, Verified 02/17/17 21:37 Rash Physical Examination - Ankle & Foot left Ankle appearance: swelling, erythema, abrasion Assessment and Plan (1) Diabetes mellitus, type II, insulin dependent skin infection type II diabetic, likely fungal/bacterial infection. We'll try antifungals with minor debridement of skin during stay in hospital Status: Chronic Priority: Medium
--- NOTE | 2017-02-19 11:41 | Discharge Summary ---
Medical - DS: Prov Patient information: Note initiated : 02/19/17 at 11:41 am Patient: Johnson Pedraza 36 y/o M admitted on 02/17/17 for Shortness of Breath/ CHF Exacerbation. Date of admission: 02/17/17 19:33 Discharge date: 02/19/17 Primary care physician: Neyr Santos Admitting clinician: Catalina Cornelius Consults: 02/18/17 17:09 Consult to Physician [CONS] Routine Comment: Consulting Provider: Miguel Fabian Reason For Exam: Physician to Consult Attending physician on discharge: Catalina Cornelius Medical - DS: Meds - Discharge Medications Prescriptions: Furosemide [Lasix] 60 mg PO BID #60 tablet Active and Home Medications: Discharge medications: Increase Lasix to 60 mg twice a day Weigh daily, and go back to 40 mg twice daily once her weight is back to the baseline of around 400 pounds. (20 pounds less than current) cholestyramine (with sugar) 4 gram oral powder 4 g PO .QD each ] atorvastatin 20 mg tablet 20 mg PO QDAY sitagliptin 100 mg tablet 100 mg PO QDAY insulin detemir 86 unit SUB-Q BID fluoxetine 40 mg capsule 40 mg PO DAILY carvedilol 12.5 mg tablet 12.5 mg PO BID losartan 25 mg tablet 25 mg PO QDAY insulin aspart 50 unit SUB-Q TID CC Clindamycin HCl 300 mg PO Q6H 02/17/17 HYDROcodone/APAP 5/325MG [[place] 5/325Mg] 1 - 2 tab PO Q4HP PRN amLODIPine BESYLATE/BENAZEPRIL [Amlodipine-Benazepril 2.5-10] 1 each PO DAILY Previous home Medications: cholestyramine (with sugar) 4 gram oral powder 4 g PO .QD each 05/27/15 [ History Confirmed 02/17/17 Last Taken Unknown] atorvastatin 20 mg tablet 20 mg PO QDAY #90 tab 06/18/15 [Rx Confirmed 02/17/17 Last Taken Unknown] sitagliptin 100 mg tablet 100 mg PO QDAY 01/21/16 [History Confirmed 02/17/17 Last Taken Unknown] insulin detemir 100 unit/mL subcutaneous solution 86 unit SUB-Q BID #50 ml 02/26 [Rx Confirmed 02/17/17 Last Taken Unknown] fluoxetine 40 mg capsule 40 mg PO DAILY #60 cap 03/30/16 [Rx Confirmed 02/17/17 Last Taken Unknown] carvedilol 12.5 mg tablet 12.5 mg PO BID #180 tab 09/03/16 [Rx Confirmed Last Taken Unknown] losartan 25 mg tablet 25 mg PO QDAY #30 tab 12/14/16 [Rx Confirmed 02/17/17 Last Taken Unknown] insulin aspart 100 unit/mL subcutaneous solution 50 unit SUB-Q TID ml 01/05/17 [History Confirmed 02/17/17 Last Taken Unknown] furosemide 40 mg tablet 40 mg PO BID 30 Days 01/06/17 [Rx Confirmed 02/17/17 Last Taken Unknown] Clindamycin HCl 300 mg PO Q6H 02/17/17 [History Confirmed 02/17/17 Last Taken Unknown] HYDROcodone/APAP 5/325MG [[place] 5/325Mg] 1 - 2 tab PO Q4HP PRN 02/17/17 [ History Confirmed 02/17/17 Last Taken Unknown] amLODIPine BESYLATE/BENAZEPRIL [Amlodipine-Benazepril 2.5-10] 1 each PO DAILY [History Confirmed 02/17/17 Last Taken Unknown] Medical - DS: Hosp Hospital course: Mr. Pedraza is a 36 year old M February 17, 2017: History of present illness: Mr. Pedraza is a 36 year old with a history of type 2 diabetes, chronic kidney disease, heart failure, who notes that he has had increasing shortness of breath for the last 2-3 weeks, as well as a 25 pound weight gain, and worsening dyspnea on exertion. Dyspnea increased markedly over the last 2-3 days. The patient does not notice orthopnea, but wears BiPAP at night. He says he has been coughing clear phlegm up for the last 2-3 days. His chest is felt a little tight. ER evaluation is suggestive of CHF exacerbation. Otherwise he denies fever or chills, headaches or dizziness, new eye or ear symptoms, sore throat, swollen glands, overt chest pain or palpitations, abdominal pain, vomiting or constipation. He does have somewhat chronic intermittent diarrhea. He denies dysuria. February 18: Today, the patient says he feels a little bit better. He thinks he has a little bit less dyspnea with exertion, but is a bit equivocal. He denies current fever or chills, cough, chest pain or palpitations. He has mild dyspnea with minimal exertion. He denies abdominal pain, nausea or vomiting, diarrhea or constipation or dysuria. He admits he does not get a great deal of exercise. 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 He has never looked into doing upper body workouts at the gym, or exercising in a pool. He also has never discussed gastric bypass with anyone, in spite of his numerous illnesses related to morbid obesity. February 19: Hospital course: The patient has been receiving 60 mg of Lasix IV every 12 hours. He diuresed 1350 mL on day 1, and 2800 mL on day 2. He feels his shortness of breath is improved, and that we can probably continue further diuresis at home. otherwise, he denies fever chills, headaches or dizziness, chest pain or palpitations, abdominal pain, nausea or vomiting, dysuria. He does have chronic intermittent diarrhea. Exam: Neck is supple without obvious JVD. Cardiac exam shows regular rate and rhythm. Lungs have decreased breath sounds at the bases, but otherwise no obvious rales , rhonchi, wheezes. Abdomen remains markedly obese, but soft and nontender. Extremities show just a trace edema. Right BKA stump looks fine. Left foot is heavily callused, and has some rash around the lateral edges of his foot as well. Neurologic exam is grossly nonfocal. A/P Narrative: #1. Cardiac. -Patient presents with increasing shortness of breath and edema, consistent with CHF exacerbation. He reports a 20 pound weight gain. Admitted to telemetry. Patient is diuresed at least 4 L so far, and symptoms are improved. We have changed him to oral Lasix, 60 mg twice a day. He is asked to weigh himself every morning, after voiding, and keep a weight diary. He is to take this with him to every follow-up appointment. Continue benazepril, amlodipine, losartan, Lasix, Coreg 2. Pulmonary. -Obstructive sleep apnea. Resume at bedtime BiPAP 3. Endocrine. -Type 2 diabetes. This appears poorly controlled. Accu-Cheks today are ranging from 81-203. Hemoglobin A1c is quite elevated. The patient did have one pre-dinner glucose of 81, so his 50 units of lisinopril was held at that time. He is advised to check glucose before every meal and at bedtime, and to adjust his insulin dose downward, or hold until after the meal, if blood glucose is less than 100. Continue sitagliptin, insulin detemir, Humalog with meals. Continue atorvastatin, losartan. Patient should probably also be on aspirin. This patient definitely needs to work on exercise and weight loss. -His remaining foot is heavily callused, and at increased risk for diabetes complications. Dr. Fabian of podiatry saw him, and thinks that his left foot likely has chronic bacterial and fungal infection. He suggested minor debridement and ongoing antifungal cream to keep the foot and callus soft. He should follow-up with podiatry and dermatology as an outpatient. 4. Psychiatric. Depression. Continue fluoxetine. 5. CODE STATUS: Full code. Patient reports his mother, Nicholas, will act as his POA 6. DVT prophylaxis: Subcu heparin. 7. Renal. Continue follow-up with nephrology. Continue current blood pressure medications. Work on diabetes control, weight control, treat sleep apnea. Monitor renal function. 8. Hypertension. Continue amlodipine and Benzapril, losartan, Lasix, Coreg . 9. Chronic pain. Continue [place] as needed. 10. Hyperlipidemia. Continue cholestyramine 11. Infectious disease. Patient's dentist just started him on clindamycin, presumably for tooth infection. He has chronically poor dentition, and she is discussing referral to an oral surgeon with him. He does have low-grade fevers overnight. Continue clindamycin. He will need to follow-up with his dentist as soon as possible after discharge. 12. Morbid obesity. The patient says no one has ever discussed possible gastric bypass surgery with him, but clearly that is something he should consider. Due to his extreme obesity, he has developed sleep apnea, chronic heart disease, chronic kidney disease, and poor diabetes control. He should work more closely with the dietitian, to achieve weight loss and glucose control. He should be referred to a gastric surgeon to discuss the possibility of weight loss surgery. He should find a way to exercise. We discussed exploring options at the aquatic center, as he can either take classes such as water aerobics, or just walk in a pool for an hour a day, to increase his calorie burn. Today's visit is taken approximately 40 minutes, to review his test results, interview and examine him, review plan of care with nursing staff and with our team, and write orders. Discharge diagnosis: CHF exacerbation. Morbid obesity. Type 2 diabetes. - Time Spent with Patient Total time spent providing and/or coordinating discharge services: Medical - DS: Exam - Constitutional Vitals: Vital Signs Temp Pulse Pulse Resp BP BP Pulse Ox 02/19/17 08:00 97.5 F 16 120/77 94 02/19/17 03:52 97.4 F 73 18 132/86 93 02/19/17 00:00 97.0 F 70 22 127/83 94 02/18/17 23:12 78 20 93 02/18/17 20:00 97.9 F 77 18 120/82 92 02/18/17 16:00 97.8 F 83 22 145/101 98 02/18/17 12:00 97.5 F 74 18 150/96 91 Intake and Output 02/18/17 02/19/17 02/19/17 21:59 05:59 13:59 Intake Total 710 / 710 720 / 720 Output Total 3301 / 3301 950 / 950 Balance -2591 / -2591 -230 / -230 Intake: Oral 710 / 710 720 / 720 Output: Void Amount 3300 / 3300 950 / 950 # of times incontinent of 1 / 1 urine Other: Meal Lunch Percent of Meal Consumed 100% # Voids 3 # Bowel Movements 1 Weight 388 lb 14.4 oz Medical - DS: Data Labs on day of discharge: Labs from last 24 hours 02/19/17 02/19/17 03:33 03:33 WBC 9.3 RBC 4.79 Hgb 13.8 Hct 42.1 MCV 87.9 MCH 28.9 MCHC 32.9 RDW 15.1 H Plt Count 156 MPV 10.6 H Gran % 64.1 Lymph % (Auto) 18.8 Dickenson % (Auto) 8.0 Eos % (Auto) 8.6 H Baso % (Auto) 0.5 Gran # 6.0 Lymph # (Auto) 1.8 Dickenson # (Auto) 0.7 Eos # (Auto) 0.8 H Baso # (Auto) 0 Sodium 138 Potassium 4.3 Chloride 99 Carbon Dioxide 25 Anion Gap 14.0 BUN 35 H Creatinine 1.7 H GFR Calculation 50 Glucose 156 H Uric Acid 10.5 H Calcium 9.0 Phosphorus 4.4 Magnesium 1.8 Total Bilirubin 0.4 Direct Bilirubin < 0.2 GGT 33 AST 22 ALT 20 Alkaline Phosphatase 128 H Lactate Dehydrogenase 236 Total Protein 7.2 Albumin 3.7 Globulin 3.5 Albumin/Globulin Ratio 1.1 Triglycerides 384 H February 17: BNP is elevated at 538 Troponin is normal at 0.02 CBC shows a white blood cell count of 8000, hemoglobin 13, hematocrit 39.7, platelets 132,000, differential shows 1200 lymphocytes, normal granulocyte count Chemistry panel: Sodium 138, potassium 5.7, chloride 103, CO2 21, BUN 31, creatinine 1.6, glucose 160, hemoglobin A1c 9% Chest x-ray shows mild CHF, and borderline cardiomegaly. EKG shows normal sinus rhythm at a rate of about 90, left axis deviation, but otherwise appears normal without obvious acute ischemia. January 31, 2016: Echocardiogram: Suboptimal study. Mild to moderate four- chamber enlargement with mild concentric LVH and mild global LV systolic dysfunction. Ejection fraction 45-50%. Medical - DS: A/P - Patient/Caregiver Discharge Instructions Activity: increase activity as tolerated Diet: Renal/Consistent Carbs Additional Instructions: 1. Congestive heart failure. Please increase your furosemide/Lasix from 40 mg to 60 mg twice a day. Please weigh yourself every morning, after emptying your bladder, and keep a weight diary. Please take this to all doctor's appointments. Notify your doctor, once you have lost the 20 pounds that you gained recently. Please follow-up with either your primary care physician or your division toll wire chief this coming week, so they can recheck labs in weight. 2. Morbid obesity. Your weight is clearly impacting your overall health, the status of your diabetes, your heart and your kidneys. Please discuss with your primary care physician whether it would be appropriate to refer you to a gastric surgeon to consider gastric bypass or other weight loss surgery. 3. Left foot chronic infection. Please follow-up with podiatry and/or dermatology. 4. Possible tooth infection. Continue clindamycin, and ordered by her dentist. Follow-up with an oral surgeon to consider removal of your bad teeth. #5. Diabetes. Please be sure to check your blood sugars before meals and bedtime. Hold your mealtime insulin, or decrease dose, her blood glucoses that are much less than 100, or at least check your blood sugar again an hour after meal. Consider taking a baby aspirin each day, to lower your risk of heart attack and stroke. Discharge medications: Increase Lasix to 60 mg twice a day Weigh daily, and go back to 40 mg twice daily once her weight is back to the baseline of around 400 pounds. (20 pounds less than current) cholestyramine (with sugar) 4 gram oral powder 4 g PO .QD each ] atorvastatin 20 mg tablet 20 mg PO QDAY sitagliptin 100 mg tablet 100 mg PO QDAY insulin detemir 86 unit SUB-Q BID fluoxetine 40 mg capsule 40 mg PO DAILY carvedilol 12.5 mg tablet 12.5 mg PO BID losartan 25 mg tablet 25 mg PO QDAY insulin aspart 50 unit SUB-Q TID CC Clindamycin HCl 300 mg PO Q6H 02/17/17 HYDROcodone/APAP 5/325MG [[place] 5/325Mg] 1 - 2 tab PO Q4HP PRN amLODIPine BESYLATE/BENAZEPRIL [Amlodipine-Benazepril 2.5-10] 1 each PO DAILY Prescriptions: Furosemide [Lasix] 60 mg PO BID #60 tablet - Problem Maintenance (1) Diabetes mellitus, type II, insulin dependent Status: Chronic (2) Severe obstructive sleep apnea Status: Chronic (3) Congestive heart failure Status: Acute (4) Hypertensive renal disease Status: Chronic Comment: (5) Morbid obesity Status: Chronic - Follow up Plan Follow up with: Nery Santos MD [Primary Care Provider] - 02/23/17 9:45 am Disposition: Home, Self-Care Prognosis: Good Rehab Potential: Good Overall status at discharge: patient is progressing back to baseline Medical - DS: Qual - VTE Deep Vein Thrombosis/Pulmonary Embolism Present on Admission: No
== END 2017-02-19 14:20 | disposition home or self-care (01) | DRG 292 ==
LOC: ED 16:31 → ICU 19:33
PROVIDERS: ADMIT Internal Medicine; ATTEND Internal Medicine

== ENCOUNTER 2017-04-21 09:03 | Inpatient (IN) ==
[2017-04-21] MEDS ORDERED: FUROSEMIDE 100 MG/10 ML VIAL IV ONE (09:19)
[2017-04-21] MEDS ORDERED: ALBUTEROL SULFATE 5 MG/ML NEB SOLUTION BOTTLE NEB ONE ×2 (09:19→09:40)
[2017-04-21] MEDS ORDERED: CALCIUM CHLORIDE 1,000 MG/10 ML SYRINGE IV ONE (09:19)
[2017-04-21] MEDS ORDERED: DEXTROSE 50% 50 ML VIAL IV ONE ×2 (09:19→14:45)
[2017-04-21] MEDS ORDERED: INSULIN REGULAR, HUMAN 1 UNIT/0.01 ML UNIT IV ONE ×2 (09:19→14:31)
[2017-04-21] MEDS ORDERED: 0.9 % SODIUM CHLORIDE 1,000 ML IV ONE ×2 (09:37→13:01)
[2017-04-21] MEDS ORDERED: SODIUM POLYSTYRENE SULFONATE 15 GM/60 ML SUSPENSION ONE (09:40)
--- NOTE | 2017-04-21 09:52 | Emergency Department Note ---
Recheck HPI - General Source: patient, RN notes reviewed Mode of arrival: other <Raj Mendez - Last Filed: 04/21/17 11:19> - General Source: patient, old records reviewed Mode of arrival: other Limitations: no limitations <Paulie Mejia - Last Filed: 04/21/17 13:04> - General Chief Complaint: Recheck/Abnormal Lab/Rx Stated Complaint: Elevated potassium Time Seen by Provider: 04/21/17 09:17 - History of Present Illness HPI Narrative: This is a 37 year old male that is coming into the ER today for abnormally high pottasium levels and a registered elevated heart rate ranging from 140s to 150s. He originally came to [facility] yesterday to be schedule for debridement and lavage of his right foot with which he is also taking antibiotics for. Patient denies fever, chills, chest pain, shortness of breath, loss of vision, nausea, or vomiting. He does state he is having diarrhea, loose stools. No blood. Patient does have a complex medical hx. Since he was 18 years old he has been diagnosed with diabetes. He is being [place] Alexy vance [facility] has a left amputation below he left knee and toes amputated from his left foot. Currently he is being seen by Dr. Mcknight for his foot related issues. Patient has a known history of kidney disease for a least 2-3 years and is currently seeing a property investor. (Raj Mendez) 37-year-old type II diabetic with above-noted history. Additional history is that he sees Dr. Delgado here for nephrology-baseline creatinine around 1.9-2. Brought over from preop secondary to elevated potassium. Asymptomatic. Current antibiotics include ertapenem and daptomycin (Paulie Mejia) - Related Data Home Medications Medication Instructions Recorded Confirmed cholestyramine (with sugar) 4 gram 4 g PO .QD each 05/27/15 04/20/17 oral powder sitagliptin 100 mg tablet 100 mg PO QDAY 01/21/16 04/20/17 amLODIPine BESYLATE/BENAZEPRIL 1 each PO DAILY 02/17/17 04/21/17 [Amlodipine-Benazepril 2.5-10] Insulin Aspart [Novolog] 100 units SQ PRN PRN 04/20/17 04/20/17 Insulin Detemir [Levemir] 86 units SQ BID 04/20/17 04/20/17 DAPTOmycin [Cubicin] mg IV DAILY 04/21/17 Ertapenem [INVanz] gm IV Q24H 04/21/17 Previous Rx's Medication Instructions Recorded fluoxetine 40 mg capsule 40 mg PO DAILY #60 cap 03/30/16 carvedilol 12.5 mg tablet 12.5 mg PO BID #180 tab 09/03/16 Accu-Chek 1 each FS ACHS strip 02/19/17 Acetaminophen [Tylenol] 650 mg PO Q6HP PRN tablet 02/19/17 Furosemide [Lasix] 60 mg PO BID #60 tablet 02/19/17 Allergies Allergy/AdvReac Type Severity Reaction Status Date / Time Amoxicillin Allergy Intermediate Swelling, Verified 04/21/17 09:07 Rash Review of Systems All systems ED: reviewed and negative except as stated. <Paulie Mejia - Last Filed: 04/21/17 13:04> Past Medical History - Past Medical History Medical history: Reports: CHF, diabetes, hyperlipidemia, hypertension, renal disease, other Surgical history ED: Reports: orthopedic, other Psychiatric history: Reports: depression - Social History smoking status: Never smoker Alcohol use: Reports: None Drug use: Reports: none <Raj Mendez - Last Filed: 04/21/17 11:19> - Past Medical History Attestation: Yes: The following information was validated with the patient. Medical history: Reports: diabetes (Type II), other Surgical history ED: Reports: orthopedic, other (Right below-knee amputation, left lateral two toe amputation) Psychiatric history: Reports: depression - Social History smoking status: Never smoker <Paulie Mejia - Last Filed: 04/21/17 13:04> Physical Exam - General Limitations: physical limitation General appearance: alert, obese - Head Head exam: atraumatic, normocephalic - Eye Eye exam: Present: normal appearance, PERRL, EOMI - ENT ENT exam: normal exam - Neck Neck exam: Present: normal inspection - Chest Chest inspection: Present: normal inspection, symmetric chest wall rise - Respiratory Respiratory exam: Present: normal lung sounds bilaterally - Cardiovascular Cardiovascular exam: Present: regular rate, normal heart sounds - Abdominal Exam Abdominal exam: Present: soft - Expanded Lower Extremity Exam Lower leg exam: Present: other (right amputation below the knee. left amputation of digits on the left foot. left foot crusted, edematous) Foot/toe exam: Present: amputation (amputation of 4th and 5th left digits) - Back Exam Back exam: Present: normal inspection - Neurological Exam Neurological exam: Present: alert, oriented X3 - Skin Skin exam: Present: warm, intact <Raj Mendez - Last Filed: 04/21/17 11:19> <Paulie Mejia - Last Filed: 04/21/17 13:04> O2 saturation remained above 90% blood pressure was WNL Pulse on monitor revealed tachycardia but physical exam and EKG findings presented normal parameters. (Raj Mendez) Obese male in no acute distress resting comfortably able to answer questions appropriately. Poor hygiene. Normocephalic atraumatic. Conjunctive are clear sclerae nonicteric. No nasal discharge or congestion. Oropharynx pink and moist. Neck is supple without lymphadenopathy thyromegaly. Heart is regular rate and rhythm no murmur appreciated. Lungs clear to auscultation bilaterally without wheezes rales rhonchi or respiratory distress. Abdomen soft nontender nondistended. Right below the knee amputation. Lateral to toe amputation on the left. There is some discoloration of the bandage from this area as well. I did not actually look at his wound site as he is previously been diagnosed with osteomyelitis and has known need for debridement already scheduled by Dr. Zamora. There is some flaky desquamation going on at that right foot as well. Alert oriented. No dysarthria ataxia or tremor. (Paulie Mejia) Vital Signs Temperature 97.8 F 04/21/17 09:04 Pulse Rate 132 H 04/21/17 09:04 Respiratory Rate 15 04/21/17 09:04 Blood Pressure 114/60 04/21/17 09:04 Pulse Oximetry (%) 97 04/21/17 09:04 Temperature 97.8 F 04/21/17 09:04 Pulse Rate 84 04/21/17 12:47 Respiratory Rate 22 04/21/17 12:23 Blood Pressure 110/74 04/21/17 12:46 Pulse Oximetry (%) 95 04/21/17 12:47 Recheck/Abnormal Lab/Rx - Lab Data Result diagrams: 04/21/17 09:21 04/21/17 09:21 <YovaniRaj marcus - Last Filed: 04/21/17 11:19> - Lab Data Lab results reviewed: Yes I reviewed the patient's lab results. Result diagrams: 04/21/17 09:21 04/21/17 09:21 - Radiology Data Radiology results reviewed: Yes I reviewed the patient's radiology results. - EKG Data EKG attestation: Yes I reviewed and interpreted this EKG. <Paulie Mejia - Last Filed: 04/21/17 13:04> - Lab Data Lab Results 04/21/17 04/21/17 04/21/17 Range/Units 09:21 09:21 09:21 WBC 8.6 (4.5-11.0) K/mcL RBC 3.96 L (4.50-5.90) M/mcL Hgb 10.9 L (13.5-16.5) g/dL Hct 33.4 L (41.0-55.0) % POC Hct (41.0-55.0) % MCV 84.3 (80.0-100.0) fL MCH 27.7 (26.0-34.0) pg MCHC 32.8 (31.0-36.0) g/dL RDW 15.3 H (11.5-14.5) % Plt Count 106 L (140-440) K/mcL MPV 10.0 (7.4-10.4) fL Gran % 71.6 (38.0-78.0) % Lymph % (Auto) 16.2 (15.5-49.0) % [place] % (Auto) 6.5 (1.0-12.0) % Eos % (Auto) 5.2 (0.0-7.0) % Baso % (Auto) 0.5 (0.0-2.0) % Gran # 6.2 (1.8-8.0) K/mcL Lymph # (Auto) 1.4 L (1.5-4.8) K/mcL [place] # (Auto) 0.6 (0.1-0.9) K/mcL Eos # (Auto) 0.4 (0.0-0.7) K/mcL Baso # (Auto) 0 (0.0-0.3) K/mcL VBG Lactic Acid (0.5-2.2) mmol/L POC Sodium (133-145) mmol/L Sodium 138 (133-145) mmol/L POC Potassium (3.3-5.1) mmol/L Potassium 6.9 H* (3.3-5.1) mmol/L POC Chloride (96-108) mmol/L Chloride 105 (96-108) mmol/L Carbon Dioxide 21 L (22-30) mmol/L POC Total CO2 (22-30) mmol/L Anion Gap 12.0 (8-16) POC BUN (6-20) mg/dl BUN 62 H (6-20) mg/dl Creatinine 3.5 H (0.7-1.2) mg/dl POC Creatinine (0.7-1.2) mg/dl GFR Calculation 21 Glucose 213 H (70-105) mg/dL POC Glucose (70-105) mg/dL Calcium 8.9 (8.6-10.4) mg/dl POC WB Ioniz Calcium (1.16-1.32) mmol/L Phosphorus 4.1 (2.7-4.5) mg/dL Magnesium 1.8 (1.6-2.5) mg/dL Total Bilirubin 0.3 (0.0-1.0) mg/dL AST 24 (0-37) U/l ALT 21 (0-40) U/l Alkaline Phosphatase 134 H (39-117) U/L NT-Pro-B Natriuret Pep 342.5 H (0-125) pg/ml Total Protein 6.8 (5.9-8.4) gm/dL Albumin 3.3 (3.2-5.2) gm/dL Globulin 3.5 (2.2-3.7) gm/dL Albumin/Globulin Ratio 0.9 L (1.0-2.3) Urine Color Urine Appearance Urine pH (5.0-9.0) Ur Specific [place] (1.000-1.035) Urine Protein (NEG) mg/dL Urine Glucose (UA) (NEG) mg/dL Urine Ketones (NEG) mg/dL Urine Occult Blood (<0.03) mg/dL Urine Nitrate (NEG) Urine Bilirubin (NEG) mg/dL Urine Urobilinogen (NEG) mg/dL Ur Leukocyte Esterase (NEG) /uL Urine RBC (0-1) /hpf Urine WBC (0-4) /hpf Ur Squamous Epith Cells (0-4) /hpf Ur Transition Epith Cell (0-2) /hpf Urine Bacteria (0) /hpf Hyaline Casts (0-2) /lpf Urine Mucus (0) /hpf Ur Culture Indicated? 04/21/17 04/21/17 04/21/17 Range/Units 11:05 11:21 11:54 WBC (4.5-11.0) K/mcL RBC (4.50-5.90) M/mcL Hgb (13.5-16.5) g/dL Hct (41.0-55.0) % POC Hct 34.0 L (41.0-55.0) % MCV (80.0-100.0) fL MCH (26.0-34.0) pg MCHC (31.0-36.0) g/dL RDW (11.5-14.5) % Plt Count (140-440) K/mcL MPV (7.4-10.4) fL Gran % (38.0-78.0) % Lymph % (Auto) (15.5-49.0) % [place] % (Auto) (1.0-12.0) % Eos % (Auto) (0.0-7.0) % Baso % (Auto) (0.0-2.0) % Gran # (1.8-8.0) K/mcL Lymph # (Auto) (1.5-4.8) K/mcL [place] # (Auto) (0.1-0.9) K/mcL Eos # (Auto) (0.0-0.7) K/mcL Baso # (Auto) (0.0-0.3) K/mcL VBG Lactic Acid 1.8 (0.5-2.2) mmol/L POC Sodium 142 (133-145) mmol/L Sodium (133-145) mmol/L POC Potassium 5.6 H (3.3-5.1) mmol/L Potassium (3.3-5.1) mmol/L POC Chloride 112 H (96-108) mmol/L Chloride (96-108) mmol/L Carbon Dioxide (22-30) mmol/L POC Total CO2 21 L (22-30) mmol/L Anion Gap (8-16) POC BUN 58 H (6-20) mg/dl BUN (6-20) mg/dl Creatinine (0.7-1.2) mg/dl POC Creatinine 3.8 H (0.7-1.2) mg/dl GFR Calculation Glucose (70-105) mg/dL POC Glucose 208 H (70-105) mg/dL Calcium (8.6-10.4) mg/dl POC WB Ioniz Calcium 1.29 (1.16-1.32) mmol/L Phosphorus (2.7-4.5) mg/dL Magnesium (1.6-2.5) mg/dL Total Bilirubin (0.0-1.0) mg/dL AST (0-37) U/l ALT (0-40) U/l Alkaline Phosphatase (39-117) U/L NT-Pro-B Natriuret Pep (0-125) pg/ml Total Protein (5.9-8.4) gm/dL Albumin (3.2-5.2) gm/dL Globulin (2.2-3.7) gm/dL Albumin/Globulin Ratio (1.0-2.3) Urine Color Straw Urine Appearance Clear Urine pH 5.0 (5.0-9.0) Ur Specific [place] 1.010 (1.000-1.035) Urine Protein Neg (NEG) mg/dL Urine Glucose (UA) 50 A (NEG) mg/dL Urine Ketones Neg (NEG) mg/dL Urine Occult Blood 0.2 A (<0.03) mg/dL Urine Nitrate Neg (NEG) Urine Bilirubin Neg (NEG) mg/dL Urine Urobilinogen Neg (NEG) mg/dL Ur Leukocyte Esterase Neg (NEG) /uL Urine RBC 12 H (0-1) /hpf Urine WBC < 1 (0-4) /hpf Ur Squamous Epith Cells 1 (0-4) /hpf Ur Transition Epith Cell < 1 (0-2) /hpf Urine Bacteria 0 (0) /hpf Hyaline Casts 5 H (0-2) /lpf Urine Mucus Few (0) /hpf Ur Culture Indicated? No - Radiology Data Chest x-ray 2 views of the chest showed no acute findings (Paulie Mejia) - EKG Data EKG results narrative: EKG #1 shows a rate of 76 with a long CO left axis deviation some mildly peaked T waves. His rhythm strip showed what look like bigeminy with tachycardia so repeated this EKG several minutes later thinking that perhaps his rhythm had changed. However EKG #2 essentially shows the same thing with a rate of 76-no evidence of ischemia (Paulie Mejia) Disposition <Raj Mendez - Last Filed: 04/21/17 11:19> Pt seen by AMBULANCE ASSISTANT/PA only: No <Paulie Mejia - Last Filed: 04/21/17 13:04> Clinical Impression: Hyperkalemia, Foot ulcer due to secondary DM, Acute kidney injury Summary: this is a stable presenting patient with elevated K levels. 1.) Order EKG 2.) Order Labs 3.) Order meds. 3.) Order IV fluids. Recheck patient. (Raj Mendez) Addendum to above by attending. Reviewed patient's previous labs on admission. As above we started IV fluids, ordered labs, x-ray and EKG. See studies noted above. Because of his hyperkalemia we immediately started the hyperglycemia protocol including calcium gluconate, Kayexalate, furosemide, albuterol-see orders. Because he is requiring both debridement of his osteomyelitis as well as hyperkalemia he will likely be admitted. After treatment is potassium went down to 5.6 from 6.9. However creatinine remained elevated-his urine was not indicative of a urinary tract infection D/w Dr. Liz, hospitalist-he agreed to accept patient for further inpatient evaluation and management. Dr. Delgado is already aware of this patient. Dr. Zamora is also already aware of this patient (Paulie Mejia) Disposition: Xfer As Inpt ([facility]) Condition: Serious Referrals: Nery Santos MD [Primary Care Provider] -
--- NOTE | 2017-04-21 10:38 | XRay Report ---
HISTORY: Reason for Exam:hyperkalemia FINDINGS: The lungs are clear normally expanded. The heart appears borderline enlarged on the AP view. There is a magnification on this projection. No pulmonary vascular congestion or pleural effusion are present. PICC line remains well-positioned. There has been no significant change since 04/20/17. IMPRESSION: Normal chest. Interpreted and Authenticated by: Travis العلي 04/21/17
[2017-04-21 11:05] LABS: ALT/SGPT 21 U/l (0-40); Albumin 3.3 gm/dL (3.2-5.2); Albumin/Globulin Ratio 0.9 (1.0-2.3); Alkaline Phosphatase 134 U/L (39-117); Basophils # (Auto) 0 K/mcL (0.0-0.3); Basophils % (Auto) 0.5 % (0.0-2.0); Blood Urea Nitrogen 62 mg/dl (6-20); Eosinophils # (Auto) 0.4 K/mcL (0.0-0.7); Eosinophils % (Auto) 5.2 % (0.0-7.0); Granulocytes % (Auto) 71.6 % (38.0-78.0); Lymphocytes # (Auto) 1.4 K/mcL (1.5-4.8); Lymphocytes % (Auto) 16.2 % (15.5-49.0); Magnesium 1.8 mg/dL (1.6-2.5); Mean Cell Volume 84.3 fL (80.0-100.0); Mean Corpuscular HGB Conc 32.8 g/dL (31.0-36.0); Mean Corpuscular Hemoglobin 27.7 pg (26.0-34.0); Monocytes # (Auto) 0.6 K/mcL (0.1-0.9); Monocytes % (Auto) 6.5 % (1.0-12.0); Platelet Count 106 K/mcL (140-440); RBC 3.96 M/mcL (4.50-5.90); Red Cell Distribution Width 15.3 % (11.5-14.5)
[2017-04-21 12:03] LABS: Appearance,Urine CLEAR; Bacteria,Urine 0 /hpf (0); Bilirubin,Urine NEG (NEG); Color,Urine STRAW; Glucose,Urine (UA) 50 mg/dL (NEG); Leukocyte Esterase,Urine NEG /uL (NEG); Mucus,Urine FEW /hpf (0); Nitrate,Urine NEG (NEG); Protein,Urine NEG (NEG); Urine Blood 0.2 mg/dL (<0.03); Urine Hyaline Cast 5 /lpf (0-2); Urine RBC 12 /hpf (0-1); Urine Squamous Epithelial Cell 1 /hpf (0-4); Urine Transitional Epi Cells < 1 /hpf (0-2); Urine WBC < 1 /hpf (0-4); Urobilinogen,Urine NEG (NEG)
[2017-04-21] MEDS ORDERED: ACETAMINOPHEN 325 MG TABLET PO PRN (14:31)
[2017-04-21] MEDS ORDERED: DEXTROSE 50% 50 ML SYRINGE IV ONE (14:31)
[2017-04-21] MEDS ORDERED: MAGNESIUM HYDROXIDE 30 ML ORAL.SUSP PO PRN (14:31)
[2017-04-21] MEDS ORDERED: IPRATROPIUM/ALBUTEROL 3 ML AMPUL.NEB NEB PRN (14:31)
[2017-04-21] MEDS ORDERED: NALOXONE HCL 0.4 MG/ML VIAL IV PRN (14:31)
[2017-04-21] MEDS ORDERED: HYDROcodone/APAP 5/325MG TABLET PO PRN (14:31)
[2017-04-21] MEDS ORDERED: ONDANSETRON 4 MG/2 ML VIAL IV PRN (14:31)
[2017-04-21] MEDS ORDERED: SODIUM POLYSTYRENE SULFONATE 15 GM/60 ML SUSPENSION PO ONE (14:31)
[2017-04-21] MEDS: 0.9 % SODIUM CHLORIDE 1,000 ML IV SCH ×3 (15:00→21:21)
--- NOTE | 2017-04-21 17:28 | Internal Med History&Physical ---
Medical - H&P: HPI Patient information: Note initiated : 04/21/17 at 5:18 pm Service Date, if different from initiated Date: [] Patient: Johnson Pedraza a 37 y/o M admitted on 04/21/17 for Elevated Potassium. Chief Complaint: [] History of present illness: Mr. Pedraza is a 37 year old Male with h/o Dm, CKd, presents to ER from same day surgery for abnormal labs patient has h/o DM and left left osteomyelitis, the patient was recently seen in [facility] and had an left 5th toe amputation on 25 march, he was later placed on daily daptomycin, levofloxacin, and invanz by a infectious disease nurse practioner for MSSA staph and strep. (I am not sure if subsequent cultures grew any other pathogen, but we are trying to obtain bone biopsy cultures) The patient also had pneumonia while in the hospital The patient after discharge noted that the site of wound was not improving and he was therefore seen in the wound clinic, Dr Hernandez had planned to take the patient for wound debridement in the OR however his lab was abnormal with creat of 3.0 and potassium of 6.9. The patient also had some peaked t waves in the ER , he was aggressively treated by ER physician and his K came down to 5.6, the patient was admitted to the hospital for further management The patient admits to some diarrhea and denies any other complaint. All systems: reviewed and no additional remarkable complaints except as stated ( as per HPI,) Medical - H&P: PMH Medical history: Medical History (Last Reviewed 01/05/17 @ 09:50 by Tiffany Delgado MD) Micturition syncope (Acute) Foot ulcer due to secondary DM (Acute) Acute kidney injury (Acute) Chronic kidney disease, stage III (moderate) (Acute) Abnormal ANCA test (Acute) Diabetes mellitus, type II, insulin dependent (Chronic) Severe obstructive sleep apnea (Chronic) Congestive heart failure (Acute) Hypertensive renal disease (Chronic) Edema (Chronic) Chronic kidney disease, stage III (moderate) (Chronic) Depression (Chronic) Morbid obesity (Chronic) Hypertension, essential (Chronic) Hyperlipidemia (Chronic) Hyperkalemia (Chronic) Diabetes mellitus type 1 (Inactive) Surgical history: Past Surgical History (Last Reviewed 01/05/17 @ 09:50 by Tiffany Delgado MD) H/O amputation of lesser toe (Chronic) Amputation of right lower extremity below knee (Chronic) Pertinent family history: Family History (Last Reviewed 01/05/17 @ 09:50 by Tiffany Delgado MD) Mother Arthritis Seizure Disorder of thyroid Father Diabetes mellitus Essential hypertension Myocardial Infarction Cerebrovascular accident (CVA) Sister Migraine Disorder of thyroid Medical - H&P: Meds Home Medications Medication Instructions Recorded Confirmed Type cholestyramine (with sugar) 4 gram 4 g PO .QD each 05/27/15 04/20/17 History oral powder sitagliptin 100 mg tablet 100 mg PO QDAY 01/21/16 04/20/17 History fluoxetine 40 mg capsule 40 mg PO DAILY #60 cap 03/30/16 04/20/17 Rx carvedilol 12.5 mg tablet 12.5 mg PO BID #180 tab 09/03/16 04/21/17 Rx amLODIPine BESYLATE/BENAZEPRIL 1 each PO DAILY 02/17/17 04/21/17 History [Amlodipine-Benazepril 2.5-10] Accu-Chek 1 each FS ACHS strip 02/19/17 04/20/17 Rx Acetaminophen [Tylenol] 650 mg PO Q6HP PRN tablet 02/19/17 04/20/17 Rx Furosemide [Lasix] 60 mg PO BID #60 tablet 02/19/17 04/20/17 Rx Insulin Aspart [Novolog] 100 units SQ PRN PRN 04/20/17 04/20/17 History Insulin Detemir [Levemir] 86 units SQ BID 04/20/17 04/20/17 History DAPTOmycin [Cubicin] mg IV DAILY 04/21/17 History Ertapenem [INVanz] gm IV Q24H 04/21/17 History Allergies Allergy/AdvReac Type Severity Reaction Status Date / Time Amoxicillin Allergy Intermediate Swelling, Verified 04/21/17 09:07 Rash Medical - H&P: Exam - Constitutional Vitals: Temp Pulse Resp BP Pulse Ox 97.9 F 78 18 109/63 97 04/21/17 16:00 04/21/17 16:00 04/21/17 16:00 04/21/17 16:00 04/21/17 16:00 Exam: GENERAL: The patient is a well-developed, well-nourished in no apparent distress. Is alert and oriented x3. VITAL SIGNS: Reviewed and as noted elsewhere. HEENT: Head is normocephalic and atraumatic. Extraocular muscles are intact. Pupils are equal, round, and reactive to light. Nares appeared normal. Mouth appears any without lesions. Mucous membranes are moist. NECK: Normal to inspection, Supple, No lymphadenopathy or thyromegaly. LUNGS: Air entry equal on both sides, no wheezing, crackles or rhonchi noted. No accessory muscles of respiration HEART: Regular rate and rhythm normal, S1 and S2 heard, no Gallop, S3 or Rub Noted, No Gross murmur heard. ABDOMEN: Soft, nontender, and nondistended. Positive bowel sounds. No hepatosplenomegaly was noted. EXTREMITIES: No cyanosis, clubbing, rash, lesions or edema. left BKA< right leg in bandage, absent 5th toe. NEUROLOGIC: Cranial nerves II through XII are grossly intact. Motor and Sensory System Grossly Intact PSYCHIATRIC: Normal affect, Normal Mood. Appropriate Behavior. SKIN: No ulceration or wounds noted, No jaundice, No rash noted. Medical - H&P: Reslt - Labs CBC & Chem 7: 04/21/17 09:21 04/21/17 09:21 Labs: Short CBC 04/21/17 Range/Units 09:21 WBC 8.6 (4.5-11.0) K/mcL Hgb 10.9 L (13.5-16.5) g/dL Hct 33.4 L (41.0-55.0) % Plt Count 106 L (140-440) K/mcL BMP 04/21/17 09:21 Sodium 138 Potassium 6.9 H* Chloride 105 Carbon Dioxide 21 L BUN 62 H Creatinine 3.5 H Glucose 213 H Calcium 8.9 Liver Function 04/21/17 Range/Units 09:21 Total Bilirubin 0.3 (0.0-1.0) mg/dL AST 24 (0-37) U/l ALT 21 (0-40) U/l Alkaline Phosphatase 134 H (39-117) U/L Albumin 3.3 (3.2-5.2) gm/dL Urine 04/21/17 Range/Units 11:21 Urine Color Straw Urine Appearance Clear Urine pH 5.0 (5.0-9.0) Ur Specific [place] 1.010 (1.000-1.035) Urine Protein Neg (NEG) mg/dL Urine Glucose (UA) 50 A (NEG) mg/dL Medical - H&P: A/P - Narrative A/P Narrative: A/P Acute Hyperkalemia Acute on chr renal failure Osteomyelitis of the left foot Anemia Thrombocytopenia Diabetes type 2 uncontrolled, on insulin congestive heart failure diarrhea Plan Admit to tele AGgresively treat K medically, kayexalate, insulin dextroes, repeat labs, iv fluids and lasix given in ER. check stool for cdiff Nephrology following Get urine studies and lytes and urine eosinophils renal sonogram IV invanz for mssa and strep infection, I do not see need for daptomycin or oral levofloxacin in thsi patient givne his culture repots. will obtain bone biopsy cultures clinical euvolemic anemia due to chr infection, no bleeding reported low platelets due to infection>? bone marrow suppression from antibiotics. DVT hep sq Full code Medical - H&P: Qual - Stroke Symptom Onset Unknown: No - VTE Deep Vein Thrombosis/Pulmonary Embolism Present on Admission: No Social History - Social History marital status: single - Tobacco smoking status: Never smoker - Alcohol alcohol intake frequency: does not drink - Substance use substance use type: does not use
[2017-04-21 17:44] LABS: ALT/SGPT 17 U/l (0-40); Alkaline Phosphatase 118 U/L (39-117); Bilirubin,Direct < 0.2 mg/dL (0.0-0.3); Blood Urea Nitrogen 53 mg/dl (6-20); Gamma Glutamyl Transpeptidase 26 U/L (8-61); Magnesium 1.6 mg/dL (1.6-2.5); Uric Acid 8.7 mg/dL (2.5-8.0)
--- NOTE | 2017-04-21 17:48 | Ultrasound Report ---
History: Renal failure Findings: The right kidney measures 6.0 x 6.1 x 12.7 cm and the left measures 5.6 x 6.1 x 12.6 cm. Renal parenchyma appears normal in thickness and echogenicity. There is no evidence of mass, cyst, calculus or hydronephrosis. Doppler shows good blood flow to both kidneys. Doppler also demonstrates flow of urine through both ureters into the bladder. The bladder is moderately distended and contains 583 cc of urine. There are unable to visualize prostate. Post void image was acquired. The spleen is moderately enlarged. Measures 17.7 cm length and has an estimated volume of 912 cc. The Splenomegaly is a new finding since the prior CT done on 08/15/15. Impression: Anatomically normal kidneys Moderate splenomegaly Interpreted and Authenticated by: Travis العلي 04/21/17
[2017-04-21] MEDS ORDERED: PHYTONADIONE 5 MG TABLET PO ONE (18:32)
--- NOTE | 2017-04-21 19:28 | Nephrology Consult Note ---
History of Present Illness - Reason for Consult Patient information: Note initiated : 04/21/17 at 7:19 pm Service Date, if different from initiated Date: [] Patient: Johnson Pedraza a 37 y/o M admitted on 04/21/17 for Elevated Potassium. Chief Complaint: [] Consult date: 04/21/17 hyperkalemia Requesting physician: Jose Liz - Chief Complaint hyperkalemia - History of Present Illness Patient is a 37 y/o pleasant white male with PMH of HTN, DM type 2, CKD and other medical issues who is admitted with hyperkalemia Patient was scheduled for elective procedure, debridement of his left LE wound, he was found to have severe hyperkalemia and worsening of his renal function and hence his procedure was cancelled and he was sent to ER. Patient recently was hospitalised at [facility] for PNA, LE wound and has been on multiple antibiotics including levofloxacin, daptomycin and invanz for his LE wound. He has been doing well since discharge he denies fever, chills no new GI symptoms, has chronic diarrhea no worsening LE edema states DM control has been good denies dizziness, SOB, CP no new urinary symptoms denies using NSAIDS patient had K of 6.9 when rechecked in ER, he was treated with hyperkalemia protocol and since then his K has improved Review of Systems All systems PM: reviewed and no additional remarkable complaints except as stated (as in HPI) Past History Past medical history: HTN DM type 2 CKD from diabetic kidney disease recurrent hyperkalemia morbid obesity ANTHONY dyslipidemia Atypical ANCA positive Past surgical history: right BKA Past family history: not pertinent Past social history: denies addictions lives with his family in [place] Medications and Allergies Home Medications Medication Instructions Recorded Confirmed Type cholestyramine (with sugar) 4 gram 4 g PO .QD each 05/27/15 04/20/17 History oral powder sitagliptin 100 mg tablet 100 mg PO QDAY 01/21/16 04/20/17 History fluoxetine 40 mg capsule 40 mg PO DAILY #60 cap 03/30/16 04/20/17 Rx carvedilol 12.5 mg tablet 12.5 mg PO BID #180 tab 09/03/16 04/21/17 Rx amLODIPine BESYLATE/BENAZEPRIL 1 each PO DAILY 02/17/17 04/21/17 History [Amlodipine-Benazepril 2.5-10] Accu-Chek 1 each FS ACHS strip 02/19/17 04/20/17 Rx Acetaminophen [Tylenol] 650 mg PO Q6HP PRN tablet 02/19/17 04/20/17 Rx Furosemide [Lasix] 60 mg PO BID #60 tablet 02/19/17 04/20/17 Rx Insulin Aspart [Novolog] 100 units SQ PRN PRN 04/20/17 04/20/17 History Insulin Detemir [Levemir] 86 units SQ BID 04/20/17 04/20/17 History DAPTOmycin [Cubicin] mg IV DAILY 04/21/17 History Ertapenem [INVanz] gm IV Q24H 04/21/17 History Allergies Allergy/AdvReac Type Severity Reaction Status Date / Time Amoxicillin Allergy Intermediate Swelling, Verified 04/21/17 09:07 Rash Exam - Vital Signs Vital signs: Temp Pulse Resp BP Pulse Ox 97.9 F 78 18 109/63 97 04/21/17 16:00 04/21/17 16:00 04/21/17 16:00 04/21/17 16:00 04/21/17 16:00 - General Appearance General appearance: obese, chronically ill EENT: mucous membranes moist Neck: no JVD Respiratory: clear Cardiology: no rub, no edema, normal S1, normal S2 Gastrointestinal: no tenderness Integumentary: no rash, warm and dry Neurologic: no focal deficit Musculoskeletal: no erythema, no cyanosis Psychiatric: mood/affect appropriate Results - Lab Results 04/21/17 09:21 04/21/17 16:50 Most recent lab results Calcium 8.3 mg/dl (8.6-10.4) L 04/21/17 16:50 Phosphorus 3.2 mg/dL (2.7-4.5) 04/21/17 16:50 Magnesium 1.6 mg/dL (1.6-2.5) 04/21/17 16:50 Assessment and Plan (1) Acute on chronic renal failure acute on chronic renal failure UA with no WBC, no proteinuria, only has microscopic hematuria which is chronic CK not elevated, dapto can cause rhabdomyolysis likely etiology is ATN from infection/sepsis and low normal BP, was hypotensive at presentation Renal function is improving with IVF Hyperkalemia has resolved with treatment would recommend holding ACEI/ARB dose meds to egfr avoid nephrotoxic meds will follow the work up already ordered by Dr Liz Thank you for giving me an opportunity to participate in Mr Pedraza's medical care , appreciate it Status: Acute (2) Hyperkalemia Status: Chronic
[2017-04-21] MEDS ORDERED: SODIUM POLYSTYRENE SULFONATE 15 GM/60 ML SUSPENSION PO SCH (21:00)
[2017-04-21] MEDS ORDERED: FAMOTIDINE 20 MG TABLET PO SCH (21:00)
[2017-04-21] MEDS: HEPARIN 5,000 UNIT/ML VIAL SQ SCH (21:15)
[2017-04-21] MEDS: ERTAPENEM 1 GM in 0.9 % SODIUM CHLORIDE 50 ML IV SCH (21:16)
[2017-04-22] MEDS: 0.9 % SODIUM CHLORIDE 1,000 ML IV SCH ×4 (01:33→17:37)
[2017-04-22 05:59] LABS: Appearance,Urine CLEAR; Bacteria,Urine 0 /hpf (0); Bilirubin,Urine NEG (NEG); Color,Urine YELLOW; Glucose,Urine (UA) 50 mg/dL (NEG); Leukocyte Esterase,Urine 25 /uL (NEG); Mucus,Urine FEW /hpf (0); Nitrate,Urine NEG (NEG); Protein,Urine NEG (NEG); Specific Gravity,Urine 1.015 (1.000-1.035); Urine Blood 0.03 mg/dL (<0.03); Urine Hyaline Cast 4 /lpf (0-2); Urine RBC < 1 /hpf (0-1); Urine Squamous Epithelial Cell 2 /hpf (0-4); Urine Transitional Epi Cells < 1 /hpf (0-2); Urine WBC 1 /hpf (0-4); Urobilinogen,Urine NEG (NEG)
[2017-04-22 06:00] LABS: Basophils # (Auto) 0 K/mcL (0.0-0.3); Basophils % (Auto) 0.6 % (0.0-2.0); Eosinophils # (Auto) 0.5 K/mcL (0.0-0.7); Granulocytes % (Auto) 57.8 % (38.0-78.0); Lymphocytes # (Auto) 1.9 K/mcL (1.5-4.8); Lymphocytes % (Auto) 27.4 % (15.5-49.0); Mean Cell Volume 84.8 fL (80.0-100.0); Mean Corpuscular HGB Conc 32.8 g/dL (31.0-36.0); Mean Corpuscular Hemoglobin 27.8 pg (26.0-34.0); Monocytes # (Auto) 0.5 K/mcL (0.1-0.9); Monocytes % (Auto) 7.2 % (1.0-12.0); Platelet Count 110 K/mcL (140-440); RBC 3.68 M/mcL (4.50-5.90); Red Cell Distribution Width 15.6 % (11.5-14.5)
[2017-04-22 06:19] LABS: ALT/SGPT 23 U/l (0-40); Albumin 3.2 gm/dL (3.2-5.2); Albumin/Globulin Ratio 1.1 (1.0-2.3); Alkaline Phosphatase 123 U/L (39-117); Bilirubin,Direct < 0.2 mg/dL (0.0-0.3); Blood Urea Nitrogen 51 mg/dl (6-20); Gamma Glutamyl Transpeptidase 28 U/L (8-61); Magnesium 1.6 mg/dL (1.6-2.5); Uric Acid 9.3 mg/dL (2.5-8.0)
--- NOTE | 2017-04-22 08:37 | General Surgery Consult Note ---
History of Present Illness Patient information: Note initiated : 04/22/17 at 8:31 am Service Date, if different from initiated Date: [] Patient: Johnson Pedraza 37 y/o M admitted on 04/21/17 for Elevated Potassium. Chief Complaint: [] Consult date: 04/22/17 Requesting physician: Jose Liz (Wound care ) History of present illness: Patient is well known to staff at this institution and wound clinic. Multiple medical problems, Morbid obesity, IDDM ,Right BKA and LEFT foot 5 th toe open amputation. Stalled open post operative wound and needs OR debridement, tissue biopsies including bone biopsy to rule out osteomyelitis. His scheduled surgery was cancelled yesterday, due to abnormal labs and deteriorating renal functions. Since admission, abnormal lab values have been corrected with treatment and patient was seen by drop hammer set up operator Dr. Delgado. I discussed this case with Dr. Liz, Hospitalist Physician, Will proceed with OR debridement today. Medications and Allergies Home Medications Medication Instructions Recorded Confirmed Type cholestyramine (with sugar) 4 gram 4 g PO .QD each 05/27/15 04/20/17 History oral powder sitagliptin 100 mg tablet 100 mg PO QDAY 01/21/16 04/20/17 History fluoxetine 40 mg capsule 40 mg PO DAILY #60 cap 03/30/16 04/20/17 Rx carvedilol 12.5 mg tablet 12.5 mg PO BID #180 tab 09/03/16 04/21/17 Rx amLODIPine BESYLATE/BENAZEPRIL 1 each PO DAILY 02/17/17 04/21/17 History [Amlodipine-Benazepril 2.5-10] Accu-Chek 1 each FS ACHS strip 02/19/17 04/20/17 Rx Acetaminophen [Tylenol] 650 mg PO Q6HP PRN tablet 02/19/17 04/20/17 Rx Furosemide [Lasix] 60 mg PO BID #60 tablet 02/19/17 04/20/17 Rx Insulin Aspart [Novolog] 100 units SQ PRN PRN 04/20/17 04/20/17 History Insulin Detemir [Levemir] 86 units SQ BID 04/20/17 04/20/17 History DAPTOmycin [Cubicin] mg IV DAILY 04/21/17 History Ertapenem [INVanz] gm IV Q24H 04/21/17 History Allergies Allergy/AdvReac Type Severity Reaction Status Date / Time Amoxicillin Allergy Intermediate Swelling, Verified 04/21/17 09:07 Rash Exam Temp Pulse Resp BP Pulse Ox 98.2 F 86 18 118/76 93 04/22/17 04:00 04/22/17 04:00 04/22/17 04:00 04/22/17 04:00 04/22/17 04:00 - General physical appearance well developed, no distress, no pain, other (Morbidly obese) - Eyes PERRL, normal ocular movement - ENT normal pinna, normal nares, normal mucosa, no hearing loss, no congestion - Head Head exam IM: Present: atraumatic, normal inspection, normocephalic - Neck no masses, no bruits, trachea midline, no lymphadectomy, no venous distension - Cardiovascular Cardiovascular exam IM: Present: normal rate and rhythm - Respiratory normal expansion, normal respiratory effort, clear to auscultation - Abdomen Abdomen: Present: soft, non tender, bowel sounds - Integumentary Present: other (OPEN wound left foot lateral aspect , s/p partial amputation 5 th toe) - Neurologic Present: other (NO acute neurological deficits. Moves all extremities. OPEN wound Left foot. Diabetic neuropathy. ) - Musculoskeletal Present: other (Right BKA and OPEn left foot post operative wound.Toe amputation , ) - Psychiatric Present: oriented to time, oriented to person, oriented to place, speech is normal, memory intact Results - Labs 04/22/17 04:56 04/22/17 04:56 Abnormal lab results 04/21/17 04/21/17 04/21/17 Range/Units 09:21 09:21 09:21 RBC 3.96 L (4.50-5.90) M/mcL Hgb 10.9 L (13.5-16.5) g/dL Hct 33.4 L (41.0-55.0) % POC Hct (41.0-55.0) % RDW 15.3 H (11.5-14.5) % Plt Count 106 L (140-440) K/mcL MPV (7.4-10.4) fL Lymph # (Auto) 1.4 L (1.5-4.8) K/mcL POC Potassium (3.3-5.1) mmol/L Potassium 6.9 H* (3.3-5.1) mmol/L POC Chloride (96-108) mmol/L Carbon Dioxide 21 L (22-30) mmol/L POC Total CO2 (22-30) mmol/L POC BUN (6-20) mg/dl BUN 62 H (6-20) mg/dl Creatinine 3.5 H (0.7-1.2) mg/dl POC Creatinine (0.7-1.2) mg/dl Glucose 213 H (70-105) mg/dL POC Glucose (70-105) mg/dL Uric Acid (2.5-8.0) mg/dL Calcium (8.6-10.4) mg/dl Alkaline Phosphatase 134 H (39-117) U/L NT-Pro-B Natriuret Pep 342.5 H (0-125) pg/ml Albumin (3.2-5.2) gm/dL Albumin/Globulin Ratio 0.9 L (1.0-2.3) Triglycerides (<150) mg/dl Urine Glucose (UA) (NEG) mg/dL Urine Occult Blood (<0.03) mg/dL Ur Leukocyte Esterase (NEG) /uL Urine RBC (0-1) /hpf Hyaline Casts (0-2) /lpf 04/21/17 04/21/17 04/21/17 Range/Units 11:05 11:21 16:50 RBC (4.50-5.90) M/mcL Hgb (13.5-16.5) g/dL Hct (41.0-55.0) % POC Hct 34.0 L (41.0-55.0) % RDW (11.5-14.5) % Plt Count (140-440) K/mcL MPV (7.4-10.4) fL Lymph # (Auto) (1.5-4.8) K/mcL POC Potassium 5.6 H (3.3-5.1) mmol/L Potassium (3.3-5.1) mmol/L POC Chloride 112 H (96-108) mmol/L Carbon Dioxide 21 L (22-30) mmol/L POC Total CO2 21 L (22-30) mmol/L POC BUN 58 H (6-20) mg/dl BUN 53 H (6-20) mg/dl Creatinine 2.9 H (0.7-1.2) mg/dl POC Creatinine 3.8 H (0.7-1.2) mg/dl Glucose 195 H (70-105) mg/dL POC Glucose 208 H (70-105) mg/dL Uric Acid 8.7 H (2.5-8.0) mg/dL Calcium 8.3 L (8.6-10.4) mg/dl Alkaline Phosphatase 118 H (39-117) U/L NT-Pro-B Natriuret Pep (0-125) pg/ml Albumin 3.0 L (3.2-5.2) gm/dL Albumin/Globulin Ratio (1.0-2.3) Triglycerides 224 H (<150) mg/dl Urine Glucose (UA) 50 A (NEG) mg/dL Urine Occult Blood 0.2 A (<0.03) mg/dL Ur Leukocyte Esterase (NEG) /uL Urine RBC 12 H (0-1) /hpf Hyaline Casts 5 H (0-2) /lpf 04/22/17 04/22/17 04/22/17 Range/Units 04:56 04:56 04:56 RBC 3.68 L (4.50-5.90) M/mcL Hgb 10.2 L (13.5-16.5) g/dL Hct 31.2 L (41.0-55.0) % POC Hct (41.0-55.0) % RDW 15.6 H (11.5-14.5) % Plt Count 110 L (140-440) K/mcL MPV 10.5 H (7.4-10.4) fL Lymph # (Auto) (1.5-4.8) K/mcL POC Potassium (3.3-5.1) mmol/L Potassium (3.3-5.1) mmol/L POC Chloride (96-108) mmol/L Carbon Dioxide (22-30) mmol/L POC Total CO2 (22-30) mmol/L POC BUN (6-20) mg/dl BUN 51 H (6-20) mg/dl Creatinine 2.5 H (0.7-1.2) mg/dl POC Creatinine (0.7-1.2) mg/dl Glucose 184 H (70-105) mg/dL POC Glucose (70-105) mg/dL Uric Acid 9.3 H (2.5-8.0) mg/dL Calcium 8.5 L (8.6-10.4) mg/dl Alkaline Phosphatase 123 H (39-117) U/L NT-Pro-B Natriuret Pep (0-125) pg/ml Albumin (3.2-5.2) gm/dL Albumin/Globulin Ratio (1.0-2.3) Triglycerides 262 H (<150) mg/dl Urine Glucose (UA) 50 A (NEG) mg/dL Urine Occult Blood 0.03 A (<0.03) mg/dL Ur Leukocyte Esterase 25 A (NEG) /uL Urine RBC (0-1) /hpf Hyaline Casts 4 H (0-2) /lpf Diabetes panel 04/21/17 04/21/17 04/22/17 Range/Units 09:21 16:50 04:56 Sodium 138 139 139 (133-145) mmol/L Potassium 6.9 H* 4.8 4.9 (3.3-5.1) mmol/L Chloride 105 108 107 (96-108) mmol/L Carbon Dioxide 21 L 21 L 22 (22-30) mmol/L BUN 62 H 53 H 51 H (6-20) mg/dl Creatinine 3.5 H 2.9 H 2.5 H (0.7-1.2) mg/dl Glucose 213 H 195 H 184 H (70-105) mg/dL Calcium 8.9 8.3 L 8.5 L (8.6-10.4) mg/dl AST 24 19 31 (0-37) U/l ALT 21 17 23 (0-40) U/l Alkaline Phosphatase 134 H 118 H 123 H (39-117) U/L Total Protein 6.8 6.1 6.2 (5.9-8.4) gm/dL Albumin 3.3 3.0 L 3.2 (3.2-5.2) gm/dL Triglycerides 224 H 262 H (<150) mg/dl Calcium panel 04/21/17 04/21/17 04/22/17 Range/Units 09:21 16:50 04:56 Calcium 8.9 8.3 L 8.5 L (8.6-10.4) mg/dl Phosphorus 4.1 3.2 3.8 (2.7-4.5) mg/dL Albumin 3.3 3.0 L 3.2 (3.2-5.2) gm/dL Pituitary panel 04/21/17 04/21/17 04/22/17 Range/Units 09:21 16:50 04:56 Sodium 138 139 139 (133-145) mmol/L Potassium 6.9 H* 4.8 4.9 (3.3-5.1) mmol/L Chloride 105 108 107 (96-108) mmol/L Carbon Dioxide 21 L 21 L 22 (22-30) mmol/L BUN 62 H 53 H 51 H (6-20) mg/dl Creatinine 3.5 H 2.9 H 2.5 H (0.7-1.2) mg/dl Glucose 213 H 195 H 184 H (70-105) mg/dL Calcium 8.9 8.3 L 8.5 L (8.6-10.4) mg/dl Adrenal panel 04/21/17 04/21/17 04/22/17 Range/Units 09:21 16:50 04:56 Sodium 138 139 139 (133-145) mmol/L Potassium 6.9 H* 4.8 4.9 (3.3-5.1) mmol/L Chloride 105 108 107 (96-108) mmol/L Carbon Dioxide 21 L 21 L 22 (22-30) mmol/L BUN 62 H 53 H 51 H (6-20) mg/dl Creatinine 3.5 H 2.9 H 2.5 H (0.7-1.2) mg/dl Glucose 213 H 195 H 184 H (70-105) mg/dL Calcium 8.9 8.3 L 8.5 L (8.6-10.4) mg/dl Total Bilirubin 0.3 0.2 0.3 (0.0-1.0) mg/dL AST 24 19 31 (0-37) U/l ALT 21 17 23 (0-40) U/l Alkaline Phosphatase 134 H 118 H 123 H (39-117) U/L Total Protein 6.8 6.1 6.2 (5.9-8.4) gm/dL Albumin 3.3 3.0 L 3.2 (3.2-5.2) gm/dL All other labs normal. Assessment and Plan (1) Sepsis affecting skin Assessment: Electrolyte imbalance corrected, Patient cleared for procedure. Plan: OR debridement, pulse lavage irrigation and tissue / bone biopsies. Spoke with patient at length about indication, risks , benefits and complications of the procedure and alternative treatments. All questions answered. Informed consent obtained for surgery / procedure. Status: Acute Priority: Medium
[2017-04-22] MEDS ORDERED: DEXTROSE 50% 50 ML VIAL IV PRN ×3 (09:45→15:33)
[2017-04-22] MEDS ORDERED: MAGNESIUM SULFATE 2 GM/50 ML BAG IV ONE (09:45)
[2017-04-22] MEDS ORDERED: DEXTROSE 31 GM ORAL.SUSP PO PRN ×3 (09:45→15:33)
[2017-04-22] MEDS: INSULIN LISPRO 1 UNIT/0.01 ML UNIT SQ SCH ×5 (10:05→20:59)
[2017-04-22] MEDS: HEPARIN 5,000 UNIT/ML VIAL SQ SCH ×2 (10:06→20:59)
--- NOTE | 2017-04-22 11:26 | Internal Med Progress Note ---
Medical - PN: Subj Patient information: Note initiated : 04/22/17 at 11:22 am Service Date, if different from initiated Date: [] Patient: Johnson Pedraza a 37 y/o M admitted on 04/21/17 for Elevated Potassium. Chief Complaint: [] Interval history: Mr. Pedraza is a 37 year old Male with h/o Dm, CKd, presents to ER from same day surgery for abnormal labs patient has h/o DM and left left osteomyelitis, the patient was recently seen in [facility] and had an left 5th toe amputation on 25 march, he was later placed on daily daptomycin, levofloxacin, and invanz by a infectious disease nurse practioner for MSSA staph and strep. (I am not sure if subsequent cultures grew any other pathogen, but we are trying to obtain bone biopsy cultures) The patient also had pneumonia while in the hospital The patient after discharge noted that the site of wound was not improving and he was therefore seen in the wound clinic, Dr Hernandez had planned to take the patient for wound debridement in the OR however his lab was abnormal with creat of 3.0 and potassium of 6.9. The patient also had some peaked t waves in the ER , he was aggressively treated by ER physician and his K came down to 5.6, the patient was admitted to the hospital for further management The patient admits to some diarrhea and denies any other complaint. April 22 Patient seen examined, no acute overnight events repeat labs are ok K improved patient has no compliaints to go for debridement by Dr Hernandez today On invanz only for now, given no e/o MRSA on cultures and no e/o pseudomonas, Discussed with Dr Hernandez the need for new set of cultures to guide antibiotic therapy. Discussed with patient need for good wound care and if needed placement to [facility] , patient not so keen on going up to LTAC Appreciate nehprology input, renal function in improving, renal sonogram is normal. Pertinent ROS: Denies headache, dizziness Denies chest pain, palpitations Denies cough or shortness of breath Denies abdominal pain, nausea or vomiting. - Constitutional Vitals: Vital Signs Temp Pulse Resp BP Pulse Ox 98.2 F 86 18 118/76 93 04/22/17 04:00 04/22/17 04:00 04/22/17 04:00 04/22/17 04:00 04/22/17 04:00 Period Temp Pulse Resp BP Sys/Harris Pulse Ox Last 24 Hr 97.8 F-98.7 F 78-102 16-23 95-119/61-77 90-97 Intake and Output 04/21/17 04/22/17 04/22/17 21:59 05:59 13:59 Intake Total 2200 / 2200 1170 / 1170 1000 / 1000 Output Total 700 / 700 Balance 2200 / 2200 470 / 470 1000 / 1000 Weight 379 lb 8 oz Intake & Output: Intake & Output 04/21/17 04/22/17 04/22/17 21:59 05:59 13:59 Intake Total 2200 / 2200 1170 / 1170 1000 / 1000 Output Total 700 / 700 Balance 2200 / 2200 470 / 470 1000 / 1000 Weight 379 lb 8 oz Intake: IV 2000 / 2000 1050 / 1050 1000 / 1000 Sodium Chloride 0.9% 1,000 ml @ 1000 / 1000 1000 / 1000 1000 / 1000 150 mls/hr IV .Q6H40M [facility] Rx#: [id number] INVanz 1 GM In Sodium Chloride 50 / 50 0.9% 50 ml @ 100 mls/hr IV Q24H [facility] Rx#:[id number] Oral 200 / 200 120 / 120 Output: Void Amount 700 / 700 Other: # Bowel Movements 1 Exam: Constitutional; Afebrile, cooperative, alert, not in distress. morbidly obese Eyes- No icterus, , No periorbital swelling Ears- Ext ear normal, hearing normal to conversation. Neck- Midline trachea, supple Respiratory system: Air Entry equal on both sides, No crackles or wheezing, no rhonchi. CVS- Rate rhythm regular, S1,S2 heard, no gallop, no rub. Abdomen- Soft nontender abdomen, no organomegaly, no tenderness, no guarding or rigidity, CHILD SPECIALIST- AOOx3, moving all extremities, no gross focal deficit noted. right bka, left 5th toe amputation (in dressing) Medical - PN: Obj Da - Labs CBC & Chem 7: 04/22/17 04:56 04/22/17 04:56 Labs: Abnormal Lab Results 04/22/17 04/22/17 04/22/17 04:56 04:56 04:56 RBC 3.68 L Hgb 10.2 L Hct 31.2 L POC Hct RDW 15.6 H Plt Count 110 L MPV 10.5 H Lymph # (Auto) POC Potassium Potassium POC Chloride Carbon Dioxide POC Total CO2 POC BUN BUN 51 H Creatinine 2.5 H POC Creatinine Glucose 184 H POC Glucose Uric Acid 9.3 H Calcium 8.5 L Alkaline Phosphatase 123 H NT-Pro-B Natriuret Pep Albumin Albumin/Globulin Ratio Triglycerides 262 H Urine Glucose (UA) 50 A Urine Occult Blood 0.03 A Ur Leukocyte Esterase 25 A Urine RBC Hyaline Casts 4 H 04/21/17 04/21/17 04/21/17 16:50 11:21 11:05 RBC Hgb Hct POC Hct 34.0 L RDW Plt Count MPV Lymph # (Auto) POC Potassium 5.6 H Potassium POC Chloride 112 H Carbon Dioxide 21 L POC Total CO2 21 L POC BUN 58 H BUN 53 H Creatinine 2.9 H POC Creatinine 3.8 H Glucose 195 H POC Glucose 208 H Uric Acid 8.7 H Calcium 8.3 L Alkaline Phosphatase 118 H NT-Pro-B Natriuret Pep Albumin 3.0 L Albumin/Globulin Ratio Triglycerides 224 H Urine Glucose (UA) 50 A Urine Occult Blood 0.2 A Ur Leukocyte Esterase Urine RBC 12 H Hyaline Casts 5 H 04/21/17 04/21/17 04/21/17 09:21 09:21 09:21 RBC 3.96 L Hgb 10.9 L Hct 33.4 L POC Hct RDW 15.3 H Plt Count 106 L MPV Lymph # (Auto) 1.4 L POC Potassium Potassium 6.9 H* POC Chloride Carbon Dioxide 21 L POC Total CO2 POC BUN BUN 62 H Creatinine 3.5 H POC Creatinine Glucose 213 H POC Glucose Uric Acid Calcium Alkaline Phosphatase 134 H NT-Pro-B Natriuret Pep 342.5 H Albumin Albumin/Globulin Ratio 0.9 L Triglycerides Urine Glucose (UA) Urine Occult Blood Ur Leukocyte Esterase Urine RBC Hyaline Casts Meds: Medications Acetaminophen (Tylenol) 650 mg PO Q6HP PRN PRN Reason: PAIN/FEVER > 101 Hydrocodone Bitart/Acetaminophen (Eustace 5/325mg) 1 tab PO Q4HP PRN PRN Reason: Pain Albuterol/Ipratropium (Duoneb) 3 ml NEB Q6HRT PRN PRN Reason: Shortness Of Breath Or Wheezing Dextrose (Dextrose 50%) 0 ml IV UD PRN PRN Reason: Hypoglycemia Diagnostic Test (Pha) (Accu-Chek) 1 each FS ACHS [facility] Last Admin: 04/22/17 09:57 Dose: 1 each Famotidine (Pepcid) 20 mg PO HS [facility] Last Admin: 04/21/17 21:15 Dose: 20 mg Glucose (Insta-Glucose) 15 gm PO PRN PRN PRN Reason: Hypoglycemia Heparin Sodium (Porcine) (Heparin) 5,000 unit SQ Q12 [facility] Last Admin: 04/22/17 10:06 Dose: Not Given Sodium Chloride (Sodium Chloride 0.9%) 1,000 mls @ 150 mls/hr IV .Q6H40M [facility] Stop: 04/22/17 17:10 Last Admin: 04/22/17 10:06 Dose: 150 mls/hr Ertapenem 1 gm/ Sodium (Chloride) 50 mls @ 100 mls/hr IV Q24H [facility] Last Infusion: 04/21/17 23:00 Dose: Infused Insulin Human Lispro (Humalog) 0 unit SQ ACHS [facility] PRN Reason: Protocol Last Admin: 04/22/17 10:05 Dose: Not Given Magnesium Hydroxide (Milk Of Magnesia) 30 ml PO DAILYP PRN PRN Reason: Constipation Naloxone HCl (Narcan) 0.1 mg IV Q2MIN PRN PRN Reason: Opiate Reversal Ondansetron HCl (Zofran) 4 mg IV Q4HP PRN PRN Reason: Nausea And Vomiting Medical - PN: A/P - Time Spent With Patient Total time spent is greater than 50% in coordination of care (as documented) at patient's floor/unit and/or counseling patient: - Narrative A/P Narrative: A/P Acute Hyperkalemia- resolved Acute on chr renal failure- creat trending down, ATN ? ua has few rbc but no protein, nephrology following, Renal sonogram neg, may need Urology consult as outpatient. CTIVP not done due to renal failruie Osteomyelitis of the left foot- s/p amputation, not sure if there is new focus of infection in the bone. I am not sure if we need intermediate card tender antibiotics if the osteomyelitis has been surgically removed by podiatry. Discussed with Dr Hernandez to determine if bone involvement is still present as well as repeat tissue cultures to guide antibiotic therapy. Given previous cx are neg for mrsa and pseudomonas, IV invanz should suffice. No indication for daptomycin/ levofloxacin. Anemia/ Thrombocytopenia: Hb stable, platelets stable, due infection , renal failure, chr diseae, monitor for now, outpatient workup. Diabetes type 2 uncontrolled, on insulin- monitor glucose. congestive heart failure- h/o right sided chf ? clinically euvolemic for now. diarrhea - cdiff neg, antibiotic associated. Ok to xfer to med surg status after the procedurel Morbid obesity- WIll need intervention to help loose weight, PCP to follow Medical - PN: Qual - Stroke Symptom Onset Unknown: No - VTE Deep Vein Thrombosis/Pulmonary Embolism Present on Admission: No
[2017-04-22] MEDS ORDERED: MIDAZOLAM 2 MG/2 ML VIAL IV ONE (12:20)
[2017-04-22] MEDS ORDERED: GENTAMICIN SULFATE 800 MG/20 ML VIAL IR ONE (12:33)
[2017-04-22] MEDS ORDERED: CLINDAMYCIN 600 MG/4 ML VIAL IR ONE (12:33)
[2017-04-22] MEDS ORDERED: BACITRACIN 50,000 UNIT VIAL IR ONE (12:33)
[2017-04-22] MEDS ORDERED: LIDOCAINE 1% 20 ML, BUPIVACAINE 0.5% 20 ML SQ ONE (13:11)
--- NOTE | 2017-04-22 13:30 | Brief Operative Note ---
Date of procedure: 04/22/17 Pre-op diagnosis: Sepsis DFU Hoffman 3 LEFT partial toe amputations Lateral foot Post-op diagnosis: same Procedure: OR Surgical Debridement, tissue cultures and bone biopsies. Pulse lavage irrigation Grafts/Implants: No Anesthesia: MAC Findings: DFU Hoffman 3, s/p Left lateral partial foot and metatarsal amputation Wound dimensions. 9 x 5 x 2 CM Tunnelling @ 6 O'clock for 5 CM Tunnelling @ 12 O'clock for 3 CM Tunnelling at 3 O'clock for 5 CM Complications: none Surgeon: Wilfrid Zamora Estimated blood loss (cc): 20 Specimens Removed/Pathology: other (Tissue cultures and Bone Biopsies for ruling out osteomyelitis.) Condition: stable Disposition: floor (OPeration was well tolerated.)
[2017-04-22] MEDS: ERTAPENEM 1 GM in 0.9 % SODIUM CHLORIDE 50 ML IV SCH (13:51)
[2017-04-22] MEDS ORDERED: HYDROcodone/APAP 5/325MG TABLET PO PRN ×2 (14:00→15:33)
[2017-04-22] MEDS ORDERED: ACETAMINOPHEN 325 MG TABLET PO PRN ×2 (14:00→15:33)
[2017-04-22] MEDS ORDERED: IPRATROPIUM/ALBUTEROL 3 ML AMPUL.NEB NEB PRN ×2 (14:00→15:33)
[2017-04-22] MEDS ORDERED: ONDANSETRON 4 MG/2 ML VIAL IV PRN ×2 (14:00→15:33)
[2017-04-22] MEDS ORDERED: MAGNESIUM HYDROXIDE 30 ML ORAL.SUSP PO PRN ×2 (14:00→15:33)
[2017-04-22] MEDS ORDERED: 0.9 % SODIUM CHLORIDE 1,000 ML IV SCH ×2 (14:00→15:33)
[2017-04-22] MEDS ORDERED: NALOXONE HCL 0.4 MG/ML VIAL IV PRN ×2 (14:00→15:33)
--- NOTE | 2017-04-22 16:41 | General Surgery Progress Note ---
Subjective Patient reports: feels better, other Narrative: Note initiated : 04/22/17 at 4:38 pm Service Date, if different from initiated Date: [] Patient: Johnson Pedraza a 37 y/o M admitted on 04/21/17 for Elevated Potassium/ Hyperkalemia, Osteomyelitis. Chief Complaint: []Post OP Note: Patient now in room 126, MedSurg Floor Resting comfortably. No complaints. Dressing left foot is CDI Objective Temp Pulse Resp BP Pulse Ox 97.9 F 72 18 110/81 93 04/22/17 11:31 04/22/17 11:31 04/22/17 11:31 04/22/17 11:31 04/22/17 11:31 AVSS No changes in SOLE / Dressings Left foot CDI - Additional Data Intake & Output - Last 24 hours: Intake & Output 04/20/17 04/21/17 04/22/17 04/23/17 05:59 05:59 05:59 05:59 Intake Total 4370 / 4370 1335 / 1335 Output Total 700 / 700 750 / 750 Balance 3670 / 3670 585 / 585 Weight 379 lb 8 oz - Labs 04/22/17 04:56 04/22/17 04:56 Diabetes panel 04/21/17 04/22/17 Range/Units 16:50 04:56 Sodium 139 139 (133-145) mmol/L Potassium 4.8 4.9 (3.3-5.1) mmol/L Chloride 108 107 (96-108) mmol/L Carbon Dioxide 21 L 22 (22-30) mmol/L BUN 53 H 51 H (6-20) mg/dl Creatinine 2.9 H 2.5 H (0.7-1.2) mg/dl Glucose 195 H 184 H (70-105) mg/dL Calcium 8.3 L 8.5 L (8.6-10.4) mg/dl AST 19 31 (0-37) U/l ALT 17 23 (0-40) U/l Alkaline Phosphatase 118 H 123 H (39-117) U/L Total Protein 6.1 6.2 (5.9-8.4) gm/dL Albumin 3.0 L 3.2 (3.2-5.2) gm/dL Triglycerides 224 H 262 H (<150) mg/dl Calcium panel 04/21/17 04/22/17 Range/Units 16:50 04:56 Calcium 8.3 L 8.5 L (8.6-10.4) mg/dl Phosphorus 3.2 3.8 (2.7-4.5) mg/dL Albumin 3.0 L 3.2 (3.2-5.2) gm/dL Pituitary panel 04/21/17 04/22/17 Range/Units 16:50 04:56 Sodium 139 139 (133-145) mmol/L Potassium 4.8 4.9 (3.3-5.1) mmol/L Chloride 108 107 (96-108) mmol/L Carbon Dioxide 21 L 22 (22-30) mmol/L BUN 53 H 51 H (6-20) mg/dl Creatinine 2.9 H 2.5 H (0.7-1.2) mg/dl Glucose 195 H 184 H (70-105) mg/dL Calcium 8.3 L 8.5 L (8.6-10.4) mg/dl Adrenal panel 04/21/17 04/22/17 Range/Units 16:50 04:56 Sodium 139 139 (133-145) mmol/L Potassium 4.8 4.9 (3.3-5.1) mmol/L Chloride 108 107 (96-108) mmol/L Carbon Dioxide 21 L 22 (22-30) mmol/L BUN 53 H 51 H (6-20) mg/dl Creatinine 2.9 H 2.5 H (0.7-1.2) mg/dl Glucose 195 H 184 H (70-105) mg/dL Calcium 8.3 L 8.5 L (8.6-10.4) mg/dl Total Bilirubin 0.2 0.3 (0.0-1.0) mg/dL AST 19 31 (0-37) U/l ALT 17 23 (0-40) U/l Alkaline Phosphatase 118 H 123 H (39-117) U/L Total Protein 6.1 6.2 (5.9-8.4) gm/dL Albumin 3.0 L 3.2 (3.2-5.2) gm/dL Assessment and Plan (1) Sepsis affecting skin Status: Acute Current Visit: Yes - Time Spent With Patient Total time spent is greater than 50% in coordination of care (as documented) at patient's floor/unit and/or counseling patient: Assessment: Satisfactory Post Operative Progress. Plan: Continue current treatment. less than 15 minutes
--- NOTE | 2017-04-22 16:46 | Operative Note ---
DATE OF OPERATION: 04/22/2017 PREOPERATIVE DIAGNOSES: Sepsis syndrome. Diabetic foot ulcer, Hoffman 3. Status post left partial foot amputation lateral anterior at the level of metatarsal base fifth toe and fourth toe. POSTOPERATIVE DIAGNOSES: Sepsis syndrome. Diabetic foot ulcer, Hoffman 3. Status post left partial foot amputation lateral anterior at the level of metatarsal base fifth toe and fourth toe. OPERATION: Surgical debridement, tissue cultures. Bone biopsies for ruling out osteomyelitis. Pulse lavage irrigation. ANESTHESIA: Local with MAC. SURGEON: Wilfrid Zamora M.D. WOUND DIMENSIONS: Hoffman 3 ulcer left anterior lateral foot wound dimensions 9 x 5 x 2 cm. Tunneling at 6 o'clock for 5 cm, tunneling at 12 o'clock for 3 cm, and tunneling at 3 o'clock for 5 cm. COMPLICATIONS: None. ESTIMATED BLOOD LOSS: About 20 mL. COUNTS: All counts of swabs, instruments and needles was reported to be correct. PROCEDURE NOTE: After obtaining informed consent, patient was taken to the operating room. Intravenous sedation analgesia was provided by the air deodorizer servicer. Timeout was called. The site was identified. The patient has had a previous right below knee amputation in the past. The left lower limb was widely cleaned, prepped and draped in the standard fashion. Preoperative photograph was taken. This patient's toenails are grossly dystrophic. This also is contributing to the patient's sepsis syndrome in a significant way. We first proceeded to debride the wound. We used a #7 sharp curet and the wound base was debrided. The wound edges and the soft callus around the margin was excised with sharp Metzenbaum scissors and a pickup with teeth. Later we used a 15 scalpel blade to further tangentially excise the wound margins until all the nonviable tissue was excised down to the level of the deep fascia and until healthy backbleeding was obtained from the surrounding tissues. At this point, a deep tissue sample was taken for culture and sensitivity. This was at the superior end of the wound at 6 o'clock position. A portion of the amputation site stump was also palpated and this bone biopsy was obtained with rongeur. It was sent separately in formalin for further tissue diagnosis and ruling out osteomyelitis. We now copiously irrigated this area with 3 liters of normal saline containing 50,000 units of bacitracin solution, 80 mg of gentamicin, and 600 mg of clindamycin solution. Towards completion the field was dry, and there was bright red bleeding noted from the wound edges and depth. Hemostasis was achieved with pressure and elevation. We applied a large Xeroform gauze at this site and reinforced this with AMD gauze and Kerlix bandage. The sharp, deformed, grossly dystrophic and onychogryphosis fungal toenails were trimmed. The space between the digits was also cleaned thoroughly. This whole field was dried. Dry gauze pieces were left between the toes. Later the whole dressing was held in place with Kerlix bandage, reinforced with ABD pad, Kerlix bandage, Coban and Alexei wrap in a spiral fashion from the forefoot up to the lower leg. This was a modified football dressing. Estimated blood loss was 20 mL. Count of all swabs, instruments and needles was reported to be correct. He recovered from operation uneventfully. He was taken back to his room in stable condition. Postoperatively, I saw this patient in his room at ICU. He is progressing well. I reviewed the postoperative orders with the nursing staff. VD:mellisa Job ID: [id number] Doc ID: [id number] Wilfrid Zamora MD
[2017-04-22] MEDS ORDERED: INSULIN LISPRO 1 UNIT/0.01 ML UNIT SQ SCH (17:00)
[2017-04-22] MEDS: FAMOTIDINE 20 MG TABLET PO SCH (20:59)
[2017-04-22] MEDS ORDERED: FAMOTIDINE 20 MG TABLET PO SCH (21:00)
[2017-04-22] MEDS ORDERED: HEPARIN 5,000 UNIT/ML VIAL SQ SCH (21:00)
[2017-04-23] MEDS: 0.9 % SODIUM CHLORIDE 1,000 ML IV SCH ×2 (05:54→20:32)
[2017-04-23] MEDS: INSULIN LISPRO 1 UNIT/0.01 ML UNIT SQ SCH ×4 (07:30→20:26)
[2017-04-23] MEDS ORDERED: ERTAPENEM 1 GM in 0.9 % SODIUM CHLORIDE 50 ML IV SCH (09:00)
[2017-04-23] MEDS: ERTAPENEM 1 GM in 0.9 % SODIUM CHLORIDE 50 ML IV SCH (09:28)
[2017-04-23] MEDS: HEPARIN 5,000 UNIT/ML VIAL SQ SCH ×2 (09:29→21:34)
[2017-04-23] MEDS ORDERED: CASPOFUNGIN ACETATE 70 MG in 0.9 % SODIUM CHLORIDE 250 ML IV ONE (11:20)
[2017-04-23] MEDS: INSULIN GLARGINE, HUMAN 1 UNIT/0.01 ML SQ SCH ×2 (12:05→20:25)
--- NOTE | 2017-04-23 13:15 | Surgical Pathology Report ---
HISTOLOGY SPECIMEN MICROSCOPIC DIAGNOSIS BONE, LEFT FIFTH TOE, AMPUTATION SITE, BIOPSY: -- LAMELLAR AND WOVEN BONE WITH REMOTE HEMORRHAGE AND FIBROPLASIA. (SEE COMMENT) -- NO EVIDENCE OF OSTEOMYELITIS. (ACP:sln) COMMENT: The patient's history of recently diagnosed chronic osteomyelitis involving the left fifth toe amputation is noted ([id number], 03/25/2017). The current biopsy has lamellar and woven bone with prominent fibroplasia and remote hemorrhage. No evidence of persistent osteomyelitis is identified. PROCEDURAL IMPRESSION Rule out osteomyelitis. GROSS DESCRIPTION Received in formalin labeled with the patient information, are four firm gonzales pieces of tissue from 0.3 to 1.0 cm. One has a small amount of attached possible skin that measures 0.5 x 0.3 x 0.1 cm. Entirely submitted - one cassette, following light decalcification. (SCB:[email or web address]) Electronically Signed by: Zaid العلي M.D.
--- NOTE | 2017-04-23 14:43 | Internal Med Progress Note ---
Medical - PN: Subj Patient information: Note initiated : 04/23/17 at 2:40 pm Service Date, if different from initiated Date: [] Patient: Johnson Pedraza a 37 y/o M admitted on 04/21/17 for Elevated Potassium/ Hyperkalemia, Osteomyelitis. Chief Complaint: [] Interval history: Mr. Pedraza is a 37 year old Male with h/o Dm, CKd, presents to ER from same day surgery for abnormal labs patient has h/o DM and left left osteomyelitis, the patient was recently seen in [facility] and had an left 5th toe amputation on 25 march, he was later placed on daily daptomycin, levofloxacin, and invanz by a infectious disease nurse practioner for MSSA staph and strep. (I am not sure if subsequent cultures grew any other pathogen, but we are trying to obtain bone biopsy cultures) The patient also had pneumonia while in the hospital The patient after discharge noted that the site of wound was not improving and he was therefore seen in the wound clinic, Dr Hernandez had planned to take the patient for wound debridement in the OR however his lab was abnormal with creat of 3.0 and potassium of 6.9. The patient also had some peaked t waves in the ER , he was aggressively treated by ER physician and his K came down to 5.6, the patient was admitted to the hospital for further management The patient admits to some diarrhea and denies any other complaint. April 22 Patient seen examined, no acute overnight events repeat labs are ok K improved patient has no compliaints to go for debridement by Dr Hernandez today On invanz only for now, given no e/o MRSA on cultures and no e/o pseudomonas, Discussed with Dr Hernandez the need for new set of cultures to guide antibiotic therapy. Discussed with patient need for good wound care and if needed placement to [facility] , patient not so keen on going up to LTAC Appreciate nehprology input, renal function in improving, renal sonogram is normal. April 23 Patient seen examined no acute overnight events glucose running high, but otherwise pt doing well pt has janett gabralta growing, from deep tissue culture, the patient bone and marrow biopsy pending. Patient is started on caspofungin The patient will need infectious disease consult to evaluate fungal infection of a Diabetic wound renal fucntion is improving but still not at baseline. patient needs IV ongoing IV fluids as well as microbiolgoy results to come back to determine the duration and type of antibiotics. Pertinent ROS: Denies headache, dizziness Denies chest pain, palpitations Denies cough or shortness of breath Denies abdominal pain, nausea or vomiting. - Constitutional Vitals: Vital Signs Temp Pulse Resp BP Pulse Ox 98.0 F 89 18 153/93 98 04/23/17 11:57 04/23/17 07:33 04/23/17 11:57 04/23/17 11:57 04/23/17 11:57 Period Temp Pulse Resp BP Sys/Harris Pulse Ox Last 24 Hr 97.1 F-98.3 F 82-89 16-22 106-153/67-93 92-100 Intake and Output 04/23/17 04/23/17 04/23/17 05:59 13:59 21:59 Intake Total 1571 / 1571 890 / 890 Output Total 101 / 101 Balance 1571 / 1571 789 / 789 Weight 375 lb 8 oz Patient Weight 04/24/17 05:59 Weight 375 lb 8 oz Intake & Output: Intake & Output 04/23/17 04/23/17 04/23/17 05:59 13:59 21:59 Intake Total 1571 / 1571 890 / 890 Output Total 101 / 101 Balance 1571 / 1571 789 / 789 Weight 375 lb 8 oz Intake: IV 921 / 921 50 / 50 Sodium Chloride 0.9% 1,000 ml @ 921 / 921 75 mls/hr IV .[id number] [facility] Rx#: [id number] INVanz 1 GM In Sodium Chloride 50 / 50 0.9% 50 ml @ 100 mls/hr IV DAILY [facility] Rx#:[id number] Oral 650 / 650 840 / 840 Output: Void Amount 100 / 100 # of times incontinent of urine 1 / Other: Meal 1/2 sandwich Lunch Percent of Meal Consumed 100% 100% Feeding Ability Independent Independent # Bowel Movements 1 Exam: Constitutional; Afebrile, cooperative, alert, not in distress. morbidly obese Eyes- No icterus, , No periorbital swelling Ears- Ext ear normal, hearing normal to conversation. Neck- Midline trachea, supple Respiratory system: Air Entry equal on both sides, No crackles or wheezing, no rhonchi. CVS- Rate rhythm regular, S1,S2 heard, no gallop, no rub. Abdomen- Soft nontender abdomen, no organomegaly, no tenderness, no guarding or rigidity, [employer]- AOOx3, moving all extremities, no gross focal deficit noted. Extremity: RIght leg amputation, left leg in dressing. Medical - PN: Obj Da - Labs CBC & Chem 7: 04/22/17 04:56 04/22/17 04:56 Labs: Abnormal Lab Results 04/22/17 04/22/17 04/22/17 09:10 04:56 04:56 RBC Hgb Hct POC Hct RDW Plt Count MPV Lymph # (Auto) PT 14.6 H POC Potassium Potassium POC Chloride Carbon Dioxide POC Total CO2 POC BUN BUN 51 H Creatinine 2.5 H POC Creatinine Glucose 184 H POC Glucose Uric Acid 9.3 H Calcium 8.5 L Alkaline Phosphatase 123 H NT-Pro-B Natriuret Pep Albumin Albumin/Globulin Ratio Triglycerides 262 H Urine Glucose (UA) 50 A Urine Occult Blood 0.03 A Ur Leukocyte Esterase 25 A Urine RBC Hyaline Casts 4 H 04/22/17 04/21/17 04/21/17 04:56 16:50 11:21 RBC 3.68 L Hgb 10.2 L Hct 31.2 L POC Hct RDW 15.6 H Plt Count 110 L MPV 10.5 H Lymph # (Auto) PT POC Potassium Potassium POC Chloride Carbon Dioxide 21 L POC Total CO2 POC BUN BUN 53 H Creatinine 2.9 H POC Creatinine Glucose 195 H POC Glucose Uric Acid 8.7 H Calcium 8.3 L Alkaline Phosphatase 118 H NT-Pro-B Natriuret Pep Albumin 3.0 L Albumin/Globulin Ratio Triglycerides 224 H Urine Glucose (UA) 50 A Urine Occult Blood 0.2 A Ur Leukocyte Esterase Urine RBC 12 H Hyaline Casts 5 H 04/21/17 04/21/17 04/21/17 11:05 09:21 09:21 RBC Hgb Hct POC Hct 34.0 L RDW Plt Count MPV Lymph # (Auto) PT POC Potassium 5.6 H Potassium 6.9 H* POC Chloride 112 H Carbon Dioxide 21 L POC Total CO2 21 L POC BUN 58 H BUN 62 H Creatinine 3.5 H POC Creatinine 3.8 H Glucose 213 H POC Glucose 208 H Uric Acid Calcium Alkaline Phosphatase 134 H NT-Pro-B Natriuret Pep 342.5 H Albumin Albumin/Globulin Ratio 0.9 L Triglycerides Urine Glucose (UA) Urine Occult Blood Ur Leukocyte Esterase Urine RBC Hyaline Casts 04/21/17 09:21 RBC 3.96 L Hgb 10.9 L Hct 33.4 L POC Hct RDW 15.3 H Plt Count 106 L MPV Lymph # (Auto) 1.4 L PT POC Potassium Potassium POC Chloride Carbon Dioxide POC Total CO2 POC BUN BUN Creatinine POC Creatinine Glucose POC Glucose Uric Acid Calcium Alkaline Phosphatase NT-Pro-B Natriuret Pep Albumin Albumin/Globulin Ratio Triglycerides Urine Glucose (UA) Urine Occult Blood Ur Leukocyte Esterase Urine RBC Hyaline Casts Meds: Medications Acetaminophen (Tylenol) 650 mg PO Q6HP PRN PRN Reason: PAIN/FEVER > 101 Hydrocodone Bitart/Acetaminophen ([place] 5/325mg) 1 tab PO Q4HP PRN PRN Reason: Pain Albuterol/Ipratropium (Duoneb) 3 ml NEB Q6HRT PRN PRN Reason: Shortness Of Breath Or Wheezing Dextrose (Dextrose 50%) 0 ml IV UD PRN PRN Reason: Hypoglycemia Diagnostic Test (Pha) (Accu-Chek) 1 each FS ACHS [facility] Last Admin: 04/23/17 11:43 Dose: 1 each Famotidine (Pepcid) 20 mg PO HS [facility] Last Admin: 04/22/17 20:59 Dose: 20 mg Glucose (Insta-Glucose) 15 gm PO PRN PRN PRN Reason: Hypoglycemia Heparin Sodium (Porcine) (Heparin) 5,000 unit SQ Q12 [facility] Last Admin: 04/23/17 09:29 Dose: 5,000 unit Heparin Sodium (Porcine) (Heparin Flush) 2 ml IV Q12 [facility] Ertapenem 1 gm/ Sodium (Chloride) 50 mls @ 100 mls/hr IV DAILY [facility] Last Infusion: 04/23/17 10:09 Dose: Infused Sodium Chloride (Sodium Chloride 0.9%) 1,000 mls @ 75 mls/hr IV .[id number] [facility] Stop: 04/24/17 09:29 Last Admin: 04/23/17 05:54 Dose: 75 mls/hr Caspofungin 50 mg/ Sodium (Chloride) 250 mls @ 250 mls/hr IV DAILY [facility] Insulin Glargine (Lantus) 40 unit SQ BID [facility] Last Admin: 04/23/17 12:05 Dose: 40 unit Insulin Human Lispro (Humalog) 0 unit SQ ACHS [facility] PRN Reason: Protocol Last Admin: 04/23/17 11:44 Dose: 4 unit Magnesium Hydroxide (Milk Of Magnesia) 30 ml PO DAILYP PRN PRN Reason: Constipation Naloxone HCl (Narcan) 0.1 mg IV Q2MIN PRN PRN Reason: Opiate Reversal Ondansetron HCl (Zofran) 4 mg IV Q4HP PRN PRN Reason: Nausea And Vomiting Medical - PN: A/P - Time Spent With Patient Total time spent is greater than 50% in coordination of care (as documented) at patient's floor/unit and/or counseling patient: - Narrative A/P Narrative: A/P Acute Hyperkalemia- resolved Acute on chr renal failure- creat improving but not at baseline, continue IV fluids, renal usg is negative. Osteomyelitis of the left foot- s/p amputation, not sure if there is new focus of infection in the bone? vs just the surrounding tissue, await cultures and sensitivities, plan as per Dr Hernandez Janett wound infectino: Deep tissue biopsy in the OR appears to heavy growth of janett, IV caspofungin started, dressing plan changed by Surgery, plan to review if he is candidate for higher center. Likely will need NIACH placement. continue IV invanz, hold off on dapto and levoflox as previous cx have no mrsa or pseudomonas growing. Anemia/ Thrombocytopenia: Hb stable, platelets stable, due infection , renal failure, chr disease, monitor for now, outpatient workup. Diabetes type 2 uncontrolled, on insulin- levels high, start on lanuts 40 bid, takes 86 bid at home? continue sliding scale insulin. congestive heart failure- h/o right sided chf ? clinically euvolemic for now. diarrhea - cdiff neg, antibiotic associated. Morbid obesity- WIll need intervention to help loose weight, PCP to follow DVT hep sq full code Medical - PN: Qual - Stroke Symptom Onset Unknown: No - VTE Deep Vein Thrombosis/Pulmonary Embolism Present on Admission: No
--- NOTE | 2017-04-23 14:44 | General Surgery Progress Note ---
Subjective Patient reports: feels better, other (Patient had an uneventful night. Still NOT able toget OOB or move about independently, RIGHT BKA and Total NWB of left foot ( Site of surgery )) Narrative: Note initiated : 04/23/17 at 2:38 pm Service Date, if different from initiated Date: [] Patient: Johnson Pedraza 37 y/o M admitted on 04/21/17 for Elevated Potassium/ Hyperkalemia, Osteomyelitis. Chief Complaint: [] Objective Temp Pulse Resp BP Pulse Ox 98.0 F 89 18 153/93 98 04/23/17 11:57 04/23/17 07:33 04/23/17 11:57 04/23/17 11:57 04/23/17 11:57 AVSS, No changes SOLE. Hemodynamically stable. No changes in SOLE. Left foot wound dressings are clean, dry and intact. Lab results: Bone Biopsy: Negative for osteomyelitis. Deep wound soft tissue adjacent to bone biopsy is POSITIVE for Janett glabrata, HEAVY GROWTH. Routine blood work results noted. Spoke at length with Dr. Liz, Hospitalist Physician, and Virgen ARCHULETAsoftware manager. - Additional Data Intake & Output - Last 24 hours: Intake & Output 04/21/17 04/22/17 04/23/17 04/24/17 05:59 05:59 05:59 05:59 Intake Total 4370 / 4370 2906 / 2906 890 / 890 Output Total 700 / 700 750 / 750 101 / 101 Balance 3670 / 3670 2156 / 2156 789 / 789 Weight 379 lb 8 oz 375 lb 8 oz 375 lb 8 oz - Labs 04/22/17 04:56 04/22/17 04:56 Assessment and Plan (1) Sepsis affecting skin Status: Acute Current Visit: Yes - Narrative A/P Narrative: Assessment: Post Operative Day # 2. Progressing well from surgery point of view. NEEDS : Physical Therapy Consult for ambulation of wheel chair mobility Discussed with Dr. Liz, about antimicrobial therapy , Anti fungal regimen. AGREE with Hospitalist's recommendation for dedicated INFECTIOUS DISEASE Specialist consult. I spoke with patient about the possibility of transfer to [facility] or similar facility for I D consult. Additionally, Physical Therapy Evaluation for assistance with mobility guidance. Plan: Will change primary post surgical dressings on 04/24/2017, Later make recommendations for LOCAL wound care treatment. - Time Spent With Patient Total time spent is greater than 50% in coordination of care (as documented) at patient's floor/unit and/or counseling patient: 25 - 35 minutes
[2017-04-23] MEDS: FAMOTIDINE 20 MG TABLET PO SCH (20:25)
[2017-04-24 06:30] LABS: Basophils # (Auto) 0 K/mcL (0.0-0.3); Basophils % (Auto) 0.6 % (0.0-2.0); Eosinophils # (Auto) 0.5 K/mcL (0.0-0.7); Eosinophils % (Auto) 7.2 % (0.0-7.0); Granulocytes % (Auto) 62.8 % (38.0-78.0); Lymphocytes # (Auto) 1.5 K/mcL (1.5-4.8); Lymphocytes % (Auto) 22.7 % (15.5-49.0); Mean Corpuscular HGB Conc 33.6 g/dL (31.0-36.0); Mean Corpuscular Hemoglobin 28.2 pg (26.0-34.0); Monocytes # (Auto) 0.4 K/mcL (0.1-0.9); Monocytes % (Auto) 6.7 % (1.0-12.0); Platelet Count 110 K/mcL (140-440); RBC 3.58 M/mcL (4.50-5.90); Red Cell Distribution Width 15.7 % (11.5-14.5)
[2017-04-24 06:39] LABS: ALT/SGPT 19 U/l (0-40); Alkaline Phosphatase 123 U/L (39-117); Bilirubin,Direct < 0.2 mg/dL (0.0-0.3); Blood Urea Nitrogen 24 mg/dl (6-20); Gamma Glutamyl Transpeptidase 27 U/L (8-61); Magnesium 1.7 mg/dL (1.6-2.5); Uric Acid 6.9 mg/dL (2.5-8.0)
[2017-04-24] MEDS: CHOLESTYRAMINE/ASPARTAME 4 GM POWD.PACK PO SCH ×2 (08:08→19:14)
[2017-04-24] MEDS ORDERED: INSULIN GLARGINE, HUMAN 1 UNIT/0.01 ML SQ SCH (09:30)
[2017-04-24] MEDS: CARVEDILOL 6.25 MG TABLET PO SCH ×2 (09:44→17:13)
[2017-04-24] MEDS: HEPARIN 5,000 UNIT/ML VIAL SQ SCH ×2 (09:44→22:08)
[2017-04-24] MEDS: FLUoxetine HCL 20 MG CAPSULE PO SCH (09:44)
[2017-04-24] MEDS: INSULIN LISPRO 1 UNIT/0.01 ML UNIT SQ SCH ×4 (09:45→21:29)
[2017-04-24] MEDS: CASPOFUNGIN ACETATE 50 MG in 0.9 % SODIUM CHLORIDE 250 ML IV SCH (09:49)
[2017-04-24] MEDS: ERTAPENEM 1 GM in 0.9 % SODIUM CHLORIDE 50 ML IV SCH (09:56)
[2017-04-24] MEDS: INSULIN GLARGINE, HUMAN 1 UNIT/0.01 ML SQ SCH ×2 (10:18→21:29)
--- NOTE | 2017-04-24 11:47 | General Surgery Progress Note ---
Subjective Patient reports: no new complaints Narrative: Note initiated : 04/24/17 at 11:40 am Service Date, if different from initiated Date: [] Patient: Johnson Pedraza a 37 y/o M admitted on 04/21/17 for Elevated Potassium/ Hyperkalemia, Osteomyelitis. Chief Complaint: []P O Day # 2. s/p debridement of LEFT foot amputation site Patient had a comfortable night. I saw him this morning with Dr. Liz, Hospitalist Physician. Objective Temp Pulse Resp BP Pulse Ox 97.0 F 76 20 154/102 95 04/24/17 06:37 04/24/17 04:00 04/24/17 06:37 04/24/17 06:47 04/24/17 06:37 AVSS No changes SOLE. L/E. Dressings taken down. LEFT foot wound is clean. NO drainage and NO odor. Lab results K is normal and Creatinine in 1.4. Change of medications and starting of antifungal treatment was noted, Spoke with patient about the complexity of medical issues and LACK of availability of Medical speciality consultants her locally, Would recommend referral to [facility] at this time. Will take care of his wound related treatments after all consults / evaluations and treatment plans are discussed and finalized. - Additional Data Intake & Output - Last 24 hours: Intake & Output 04/22/17 04/23/17 04/24/17 04/25/17 05:59 05:59 05:59 05:59 Intake Total 4370 / 4370 2906 / 2906 3135 / 3135 170 / 170 Output Total 700 / 700 750 / 750 101 / 101 Balance 3670 / 3670 2156 / 2156 3034 / 3034 170 / 170 Weight 379 lb 8 oz 375 lb 8 oz 375 lb 8 oz - Labs 04/24/17 04:30 04/24/17 04:30 Diabetes panel 04/24/17 Range/Units 04:30 Sodium 138 (133-145) mmol/L Potassium 4.3 (3.3-5.1) mmol/L Chloride 105 (96-108) mmol/L Carbon Dioxide 24 (22-30) mmol/L BUN 24 H (6-20) mg/dl Creatinine 1.4 H (0.7-1.2) mg/dl Glucose 224 H (70-105) mg/dL Calcium 8.7 (8.6-10.4) mg/dl AST 22 (0-37) U/l ALT 19 (0-40) U/l Alkaline Phosphatase 123 H (39-117) U/L Total Protein 6.1 (5.9-8.4) gm/dL Albumin 3.0 L (3.2-5.2) gm/dL Triglycerides 334 H (<150) mg/dl Calcium panel 04/24/17 Range/Units 04:30 Calcium 8.7 (8.6-10.4) mg/dl Phosphorus 2.9 (2.7-4.5) mg/dL Albumin 3.0 L (3.2-5.2) gm/dL Pituitary panel 04/24/17 Range/Units 04:30 Sodium 138 (133-145) mmol/L Potassium 4.3 (3.3-5.1) mmol/L Chloride 105 (96-108) mmol/L Carbon Dioxide 24 (22-30) mmol/L BUN 24 H (6-20) mg/dl Creatinine 1.4 H (0.7-1.2) mg/dl Glucose 224 H (70-105) mg/dL Calcium 8.7 (8.6-10.4) mg/dl Adrenal panel 04/24/17 Range/Units 04:30 Sodium 138 (133-145) mmol/L Potassium 4.3 (3.3-5.1) mmol/L Chloride 105 (96-108) mmol/L Carbon Dioxide 24 (22-30) mmol/L BUN 24 H (6-20) mg/dl Creatinine 1.4 H (0.7-1.2) mg/dl Glucose 224 H (70-105) mg/dL Calcium 8.7 (8.6-10.4) mg/dl Total Bilirubin 0.2 (0.0-1.0) mg/dL AST 22 (0-37) U/l ALT 19 (0-40) U/l Alkaline Phosphatase 123 H (39-117) U/L Total Protein 6.1 (5.9-8.4) gm/dL Albumin 3.0 L (3.2-5.2) gm/dL Assessment and Plan (1) Sepsis affecting skin Status: Acute Current Visit: Yes - Time Spent With Patient Total time spent is greater than 50% in coordination of care (as documented) at patient's floor/unit and/or counseling patient: Assessment: Satisfactory progress from wound care surgery and debridement point of view. Plan: Daily dressing changes with GCB solution . Discussed with KATHE Mon Sgree with recommendations of and Case Management. For transfer to [facility] when arrangements completed. 25 - 35 minutes
--- NOTE | 2017-04-24 14:42 | Internal Med Progress Note ---
Medical - PN: Subj Patient information: Note initiated : 04/24/17 at 2:40 pm Service Date, if different from initiated Date: [] Patient: Johnson Pedraza a 37 y/o M admitted on 04/21/17 for Elevated Potassium/ Hyperkalemia, Osteomyelitis. Chief Complaint: [] Interval history: Mr. Pedraza is a 37 year old Male with h/o Dm, CKd, presents to ER from same day surgery for abnormal labs patient has h/o DM and left left osteomyelitis, the patient was recently seen in [facility] and had an left 5th toe amputation on 25 march, he was later placed on daily daptomycin, levofloxacin, and invanz by a infectious disease nurse practioner for MSSA staph and strep. (I am not sure if subsequent cultures grew any other pathogen, but we are trying to obtain bone biopsy cultures) The patient also had pneumonia while in the hospital The patient after discharge noted that the site of wound was not improving and he was therefore seen in the wound clinic, Dr Hernandez had planned to take the patient for wound debridement in the OR however his lab was abnormal with creat of 3.0 and potassium of 6.9. The patient also had some peaked t waves in the ER , he was aggressively treated by ER physician and his K came down to 5.6, the patient was admitted to the hospital for further management The patient admits to some diarrhea and denies any other complaint. April 22 Patient seen examined, no acute overnight events repeat labs are ok K improved patient has no compliaints to go for debridement by Dr Hernandez today On invanz only for now, given no e/o MRSA on cultures and no e/o pseudomonas, Discussed with Dr Hernandez the need for new set of cultures to guide antibiotic therapy. Discussed with patient need for good wound care and if needed placement to [facility] , patient not so keen on going up to LTAC Appreciate nehprology input, renal function in improving, renal sonogram is normal. April 23 Patient seen examined no acute overnight events glucose running high, but otherwise pt doing well pt has janett gabralta growing, from deep tissue culture, the patient bone and marrow biopsy pending. Patient is started on caspofungin The patient will need infectious disease consult to evaluate fungal infection of a Diabetic wound renal fucntion is improving but still not at baseline. patient needs IV ongoing IV fluids as well as microbiolgoy results to come back to determine the duration and type of antibiotics. April 24 patient seen exained,no acute overnight events microbiolgy shows heavy growth of fungus from deep tissue on iv caspofungin plan for d[facility] renal functin much better now, creat is 1.4 glucose high, incrsae dose of sliding scale insulin, resume home dosing of levemir, verified he takes 86 units bid. Selected Entries 04/23/17 17:04 04/23/17 20:28 04/24/17 08:08 Finger Stick Blood Glucose 227 H 222 H 277 H 04/24/17 12:22 Finger Stick Blood Glucose 273 H Pertinent ROS: Denies headache, dizziness Denies chest pain, palpitations Denies cough or shortness of breath Denies abdominal pain, nausea or vomiting. - Constitutional Vitals: Vital Signs Temp Pulse Resp BP Pulse Ox 97.7 F 76 20 163/91 94 04/24/17 12:00 04/24/17 04:00 04/24/17 12:00 04/24/17 12:00 04/24/17 12:00 Period Temp Pulse Resp BP Sys/Harris Pulse Ox Last 24 Hr 97.0 F-98.2 F 76-85 16-20 124-169/73-108 90-97 Intake and Output 04/24/17 04/24/17 04/24/17 05:59 13:59 21:59 Intake Total 575 / 575 390 / 390 Balance 575 / 575 390 / 390 Intake & Output: Intake & Output 04/24/17 04/24/17 04/24/17 05:59 13:59 21:59 Intake Total 575 / 575 390 / 390 Balance 575 / 575 390 / 390 Intake: IV 50 / 50 INVanz 1 GM In Sodium Chloride 50 / 50 0.9% 50 ml @ 100 mls/hr IV DAILY [facility] Rx#:[id number] Oral 575 / 575 340 / 340 Other: Meal Lunch Percent of Meal Consumed 100% Feeding Ability Independent # Voids 1 # Bowel Movements 1 Exam: Constitutional; Afebrile, cooperative, alert, not in distress. Eyes- No icterus, , No periorbital swelling Ears- Ext ear normal, hearing normal to conversation. Neck- Midline trachea, supple Respiratory system: Air Entry equal on both sides, No crackles or wheezing, no rhonchi. CVS- Rate rhythm regular, S1,S2 heard, no gallop, no rub. 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 Medical - PN: Obj Da - Labs CBC & Chem 7: 04/24/17 04:30 04/24/17 04:30 Labs: Abnormal Lab Results 04/24/17 04/24/17 04/22/17 04:30 04:30 09:10 RBC 3.58 L Hgb 10.1 L Hct 30.1 L RDW 15.7 H Plt Count 110 L MPV Eos % (Auto) 7.2 H PT 14.6 H Carbon Dioxide BUN 24 H Creatinine 1.4 H Glucose 224 H Uric Acid Calcium Alkaline Phosphatase 123 H Albumin 3.0 L Triglycerides 334 H Urine Glucose (UA) Urine Occult Blood Ur Leukocyte Esterase Hyaline Casts 04/22/17 04/22/17 04/22/17 04:56 04:56 04:56 RBC 3.68 L Hgb 10.2 L Hct 31.2 L RDW 15.6 H Plt Count 110 L MPV 10.5 H Eos % (Auto) PT Carbon Dioxide BUN 51 H Creatinine 2.5 H Glucose 184 H Uric Acid 9.3 H Calcium 8.5 L Alkaline Phosphatase 123 H Albumin Triglycerides 262 H Urine Glucose (UA) 50 A Urine Occult Blood 0.03 A Ur Leukocyte Esterase 25 A Hyaline Casts 4 H 04/21/17 16:50 RBC Hgb Hct RDW Plt Count MPV Eos % (Auto) PT Carbon Dioxide 21 L BUN 53 H Creatinine 2.9 H Glucose 195 H Uric Acid 8.7 H Calcium 8.3 L Alkaline Phosphatase 118 H Albumin 3.0 L Triglycerides 224 H Urine Glucose (UA) Urine Occult Blood Ur Leukocyte Esterase Hyaline Casts Meds: Medications Acetaminophen (Tylenol) 650 mg PO Q6HP PRN PRN Reason: PAIN/FEVER > 101 Hydrocodone Bitart/Acetaminophen ([place] 5/325mg) 1 tab PO Q4HP PRN PRN Reason: Pain Albuterol/Ipratropium (Duoneb) 3 ml NEB Q6HRT PRN PRN Reason: Shortness Of Breath Or Wheezing Carvedilol (Coreg) 6.25 mg PO BIDCC [facility] Last Admin: 04/24/17 09:44 Dose: 6.25 mg Cholestyramine Resin (Questran Light) 4 gm PO BID@0700,1900 [facility] Last Admin: 04/24/17 08:08 Dose: 4 gm Dextrose (Dextrose 50%) 0 ml IV UD PRN PRN Reason: Hypoglycemia Diagnostic Test (Pha) (Accu-Chek) 1 each FS ACHS [facility] Last Admin: 04/24/17 12:22 Dose: 1 each Famotidine (Pepcid) 20 mg PO HS [facility] Last Admin: 04/23/17 20:25 Dose: 20 mg Fluoxetine HCl (Prozac) 40 mg PO DAILY [facility] Last Admin: 04/24/17 09:44 Dose: 40 mg Glucose (Insta-Glucose) 15 gm PO PRN PRN PRN Reason: Hypoglycemia Heparin Sodium (Porcine) (Heparin) 5,000 unit SQ Q12 [facility] Last Admin: 04/24/17 09:44 Dose: 5,000 unit Heparin Sodium (Porcine) (Heparin Flush) 2 ml IV Q12 [facility] Last Admin: 04/24/17 10:30 Dose: 2 ml Ertapenem 1 gm/ Sodium (Chloride) 50 mls @ 100 mls/hr IV DAILY [facility] Last Infusion: 04/24/17 10:33 Dose: Infused Caspofungin 50 mg/ Sodium (Chloride) 250 mls @ 250 mls/hr IV DAILY [facility] Last Admin: 04/24/17 09:49 Dose: 250 mls/hr Gentamicin Sulfate 40 mg/Clindamycin Phosphate 300 mg/Bacitracin 25,000 unit/ Sodium Chloride 503 mls @ 0 mls/hr IRR BID [facility] PRN Reason: As Directed Insulin Glargine (Lantus) 60 unit SQ BID [facility] Last Admin: 04/24/17 09:44 Dose: 60 unit Insulin Human Lispro (Humalog) 0 unit SQ ACHS [facility] PRN Reason: Protocol Last Admin: 04/24/17 12:27 Dose: 4 unit Magnesium Hydroxide (Milk Of Magnesia) 30 ml PO DAILYP PRN PRN Reason: Constipation Naloxone HCl (Narcan) 0.1 mg IV Q2MIN PRN PRN Reason: Opiate Reversal Ondansetron HCl (Zofran) 4 mg IV Q4HP PRN PRN Reason: Nausea And Vomiting Medical - PN: A/P - Time Spent With Patient Total time spent is greater than 50% in coordination of care (as documented) at patient's floor/unit and/or counseling patient: - Narrative A/P Narrative: A/P Acute Hyperkalemia- resolved Acute on chr renal failure- creat improving but not at baseline, continue IV fluids, creat is 1.4, renal sonogram is neg Osteomyelitis of the left foot- s/p amputation, not sure if there is new focus of infection in the bone? vs just the surrounding tissue, await cultures and sensitivities, plan as per Dr Hernandez, Janett wound infectino: Deep tissue biopsy in the OR appears to heavy growth of janett, IV caspofungin started, dressing plan changed by Surgery, plan to review if he is candidate for higher center. Likely will need [facility] placement. continue IV invanz, hold off on dapto and levoflox as previous cx have no mrsa or pseudomonas growing. Anemia/ Thrombocytopenia: Hb stable, platelets stable, due infection , renal failure, chr disease, monitor for now, outpatient workup. Diabetes type 2 uncontrolled, on insulin- increrase lantus dose, and place on high dose sliding scale as he takes this at home. congestive heart failure- h/o right sided chf ? clinically euvolemic for now. diarrhea - cdiff neg, antibiotic associated. Morbid obesity- WIll need intervention to help loose weight, PCP to follow DVT hep sq full code Medical - PN: Qual - Stroke Symptom Onset Unknown: No - VTE Deep Vein Thrombosis/Pulmonary Embolism Present on Admission: No
[2017-04-24] MEDS: GENTAMICIN SULFATE 40 MG, CLINDAMYCIN 300 MG, BACITRACIN 25,000 UNIT in SODIUM CHLORIDE... IRR SCH (21:15)
[2017-04-24] MEDS: FAMOTIDINE 20 MG TABLET PO SCH (21:30)
[2017-04-25 05:19] LABS: Basophils # (Auto) 0 K/mcL (0.0-0.3); Basophils % (Auto) 0.5 % (0.0-2.0); Eosinophils # (Auto) 0.5 K/mcL (0.0-0.7); Eosinophils % (Auto) 6.5 % (0.0-7.0); Granulocytes % (Auto) 62.1 % (38.0-78.0); Lymphocytes # (Auto) 1.7 K/mcL (1.5-4.8); Lymphocytes % (Auto) 24.1 % (15.5-49.0); Mean Cell Volume 83.6 fL (80.0-100.0); Mean Corpuscular HGB Conc 33.8 g/dL (31.0-36.0); Mean Corpuscular Hemoglobin 28.3 pg (26.0-34.0); Monocytes # (Auto) 0.5 K/mcL (0.1-0.9); Monocytes % (Auto) 6.8 % (1.0-12.0); Platelet Count 122 K/mcL (140-440); RBC 3.72 M/mcL (4.50-5.90); Red Cell Distribution Width 15.6 % (11.5-14.5)
[2017-04-25 05:54] LABS: ALT/SGPT 18 U/l (0-40); Albumin 3.1 gm/dL (3.2-5.2); Alkaline Phosphatase 133 U/L (39-117); Bilirubin,Direct < 0.2 mg/dL (0.0-0.3); Blood Urea Nitrogen 18 mg/dl (6-20); Gamma Glutamyl Transpeptidase 27 U/L (8-61); Magnesium 1.7 mg/dL (1.6-2.5); Uric Acid 6.7 mg/dL (2.5-8.0)
[2017-04-25] MEDS: INSULIN LISPRO 1 UNIT/0.01 ML UNIT SQ SCH ×4 (07:26→21:57)
[2017-04-25] MEDS: CHOLESTYRAMINE/ASPARTAME 4 GM POWD.PACK PO SCH ×2 (07:26→19:01)
[2017-04-25] MEDS: INSULIN GLARGINE, HUMAN 1 UNIT/0.01 ML SQ SCH ×2 (09:10→21:57)
[2017-04-25] MEDS: HEPARIN 5,000 UNIT/ML VIAL SQ SCH ×2 (09:10→21:57)
[2017-04-25] MEDS: ERTAPENEM 1 GM in 0.9 % SODIUM CHLORIDE 50 ML IV SCH (09:10)
[2017-04-25] MEDS: FLUoxetine HCL 20 MG CAPSULE PO SCH (09:11)
[2017-04-25] MEDS: CARVEDILOL 6.25 MG TABLET PO SCH ×2 (09:11→17:27)
[2017-04-25] MEDS: CASPOFUNGIN ACETATE 50 MG in 0.9 % SODIUM CHLORIDE 250 ML IV SCH (09:47)
--- NOTE | 2017-04-25 10:47 | Internal Med Progress Note ---
Medical - PN: Subj Patient information: Note initiated : 04/25/17 at 10:44 am Service Date, if different from initiated Date: [] Patient: Johnson Pedraza a 37 y/o M admitted on 04/21/17 for Elevated Potassium/ Hyperkalemia, Osteomyelitis. Chief Complaint: [] Interval history: Mr. Pedraza is a 37 year old Male with h/o Dm, CKd, presents to ER from same day surgery for abnormal labs patient has h/o DM and left left osteomyelitis, the patient was recently seen in [facility] and had an left 5th toe amputation on 25 march, he was later placed on daily daptomycin, levofloxacin, and invanz by a infectious disease nurse practioner for MSSA staph and strep. (I am not sure if subsequent cultures grew any other pathogen, but we are trying to obtain bone biopsy cultures) The patient also had pneumonia while in the hospital The patient after discharge noted that the site of wound was not improving and he was therefore seen in the wound clinic, Dr Hernandez had planned to take the patient for wound debridement in the OR however his lab was abnormal with creat of 3.0 and potassium of 6.9. The patient also had some peaked t waves in the ER , he was aggressively treated by ER physician and his K came down to 5.6, the patient was admitted to the hospital for further management The patient admits to some diarrhea and denies any other complaint. April 22 Patient seen examined, no acute overnight events repeat labs are ok K improved patient has no compliaints to go for debridement by Dr Hernandez today On invanz only for now, given no e/o MRSA on cultures and no e/o pseudomonas, Discussed with Dr Hernandez the need for new set of cultures to guide antibiotic therapy. Discussed with patient need for good wound care and if needed placement to [facility] , patient not so keen on going up to LTAC Appreciate nehprology input, renal function in improving, renal sonogram is normal. April 23 Patient seen examined no acute overnight events glucose running high, but otherwise pt doing well pt has janett gabralta growing, from deep tissue culture, the patient bone and marrow biopsy pending. Patient is started on caspofungin The patient will need infectious disease consult to evaluate fungal infection of a Diabetic wound renal fucntion is improving but still not at baseline. patient needs IV ongoing IV fluids as well as microbiolgoy results to come back to determine the duration and type of antibiotics. April 24 patient seen exained,no acute overnight events microbiolgy shows heavy growth of fungus from deep tissue on iv caspofungin plan for d/c to [facility] on wednesday renal functin much better now, creat is 1.4 glucose high, incrsae dose of sliding scale insulin, resume home dosing of levemir, verified he takes 86 units bid. April 25 patient seen examined no acute overnight events glucose this AM is better pt has no complaints I reviewed the case with Dr Fernandez, at [facility] who graciously accepted to care for the patient. Patient aware of the plan of care continue invanz and caspofungin. Selected Entries 04/24/17 12:22 04/24/17 16:30 04/24/17 20:58 Finger Stick Blood Glucose 273 H 195 H 254 H 04/25/17 07:25 Finger Stick Blood Glucose 108 Pertinent ROS: Denies headache, dizziness Denies chest pain, palpitations Denies cough or shortness of breath Denies abdominal pain, nausea or vomiting. - Constitutional Vitals: Vital Signs Temp Pulse Resp BP Pulse Ox 96.4 F L 67 20 127/76 97 04/25/17 06:25 04/25/17 04:00 04/25/17 06:25 04/25/17 06:25 04/25/17 06:25 Period Temp Pulse Resp BP Sys/Harris Pulse Ox Last 24 Hr 96.4 F-97.9 F 67-84 18-20 120-163/76-97 90-97 Intake and Output 04/24/17 04/25/17 04/25/17 21:59 05:59 13:59 Intake Total 840 / 840 300 / 300 210 / 210 Output Total 900 / 900 Balance -60 / -60 300 / 300 210 / 210 Weight 380 lb Intake & Output: Intake & Output 04/24/17 04/25/17 04/25/17 21:59 05:59 13:59 Intake Total 840 / 840 300 / 300 210 / 210 Output Total 900 / 900 Balance -60 / -60 300 / 300 210 / 210 Weight 380 lb Intake: Oral 840 / 840 300 / 300 210 / 210 Output: Void Amount 900 / 900 Other: Meal Dinner Breakfast Percent of Meal Consumed 100% 100% # Voids 1 3 # Bowel Movements 1 1 # of times incontinent of 1 Bowels Exam: Constitutional; Afebrile, cooperative, alert, not in distress. Eyes- No icterus, , No periorbital swelling Ears- Ext ear normal, hearing normal to conversation. Neck- Midline trachea, supple Respiratory system: Air Entry equal on both sides, No crackles or wheezing, no rhonchi. CVS- Rate rhythm regular, S1,S2 heard, no gallop, no rub. 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 Medical - PN: Obj Da - Labs CBC & Chem 7: 04/25/17 04:15 04/25/17 04:15 Labs: Abnormal Lab Results 04/25/17 04/25/17 04/24/17 04:15 04:15 04:30 RBC 3.72 L Hgb 10.5 L Hct 31.1 L RDW 15.6 H Plt Count 122 L Eos % (Auto) PT BUN 24 H Creatinine 1.5 H 1.4 H Glucose 122 H 224 H Alkaline Phosphatase 133 H 123 H Albumin 3.1 L 3.0 L Triglycerides 301 H 334 H 04/24/17 04/22/17 04:30 09:10 RBC 3.58 L Hgb 10.1 L Hct 30.1 L RDW 15.7 H Plt Count 110 L Eos % (Auto) 7.2 H PT 14.6 H BUN Creatinine Glucose Alkaline Phosphatase Albumin Triglycerides Meds: Medications Acetaminophen (Tylenol) 650 mg PO Q6HP PRN PRN Reason: PAIN/FEVER > 101 Hydrocodone Bitart/Acetaminophen (Catherine 5/325mg) 1 tab PO Q4HP PRN PRN Reason: Pain Albuterol/Ipratropium (Duoneb) 3 ml NEB Q6HRT PRN PRN Reason: Shortness Of Breath Or Wheezing Carvedilol (Coreg) 6.25 mg PO BIDCC [facility] Last Admin: 04/25/17 09:11 Dose: 6.25 mg Cholestyramine Resin (Questran Light) 4 gm PO BID@0700,1900 [facility] Last Admin: 04/25/17 07:26 Dose: 4 gm Dextrose (Dextrose 50%) 0 ml IV UD PRN PRN Reason: Hypoglycemia Diagnostic Test (Pha) (Accu-Chek) 1 each FS ACHS [facility] Last Admin: 04/25/17 07:25 Dose: 1 each Famotidine (Pepcid) 20 mg PO HS [facility] Last Admin: 04/24/17 21:30 Dose: 20 mg Fluoxetine HCl (Prozac) 40 mg PO DAILY [facility] Last Admin: 04/25/17 09:11 Dose: 40 mg Glucose (Insta-Glucose) 15 gm PO PRN PRN PRN Reason: Hypoglycemia Heparin Sodium (Porcine) (Heparin) 5,000 unit SQ Q12 [facility] Last Admin: 04/25/17 09:10 Dose: 5,000 unit Heparin Sodium (Porcine) (Heparin Flush) 2 ml IV Q12 [facility] Last Admin: 04/25/17 09:11 Dose: 2 ml Ertapenem 1 gm/ Sodium (Chloride) 50 mls @ 100 mls/hr IV DAILY [facility] Last Admin: 04/25/17 09:10 Dose: 100 mls/hr Caspofungin 50 mg/ Sodium (Chloride) 250 mls @ 250 mls/hr IV DAILY [facility] Last Admin: 04/25/17 09:47 Dose: 250 mls/hr Gentamicin Sulfate 40 mg/Clindamycin Phosphate 300 mg/Bacitracin 25,000 unit/ Sodium Chloride 503 mls @ 0 mls/hr IRR BID [facility] PRN Reason: As Directed Last Admin: 04/24/17 21:15 Dose: 2 mls/hr Insulin Glargine (Lantus) 80 unit SQ BID [facility] Last Admin: 04/25/17 09:10 Dose: 80 unit Insulin Human Lispro (Humalog) 0 unit SQ ACHS [facility] PRN Reason: Protocol Last Admin: 04/25/17 07:26 Dose: Not Given Magnesium Hydroxide (Milk Of Magnesia) 30 ml PO DAILYP PRN PRN Reason: Constipation Naloxone HCl (Narcan) 0.1 mg IV Q2MIN PRN PRN Reason: Opiate Reversal Ondansetron HCl (Zofran) 4 mg IV Q4HP PRN PRN Reason: Nausea And Vomiting Medical - PN: A/P - Time Spent With Patient Total time spent is greater than 50% in coordination of care (as documented) at patient's floor/unit and/or counseling patient: - Narrative A/P Narrative: A/P Acute Hyperkalemia- resolved Acute on chr renal failure- creat near baseline, d/c ivf, pt tolerating po well , creat is 1.5, renal sonogram is neg Osteomyelitis of the left foot- s/p amputation, not sure if there is new focus of infection in the bone? vs just the surrounding tissue, await cultures and sensitivities, plan as per Dr Hernandez, Janett wound infectino: Deep tissue biopsy in the OR appears to heavy growth of janett, IV caspofungin started, dressing plan changed by Surgery, plan to review if he is candidate for [facility]. case discussed with [facility], Dr Fernandez accepted the patient. continue IV invanz, hold off on dapto and levoflox as previous cx have no mrsa or pseudomonas growing. future abx as per ID eval. Anemia/ Thrombocytopenia: Hb stable, platelets stable, due infection , renal failure, chr disease, monitor for now, outpatient workup. Diabetes type 2 uncontrolled, on insulin, glucose normal thiss AM monitor. congestive heart failure- h/o right sided chf ? clinically euvolemic for now. diarrhea - cdiff neg, antibiotic associated. on cholestyramine. Morbid obesity- WIll need intervention to help loose weight, PCP to follow DVT hep sq full code Medical - PN: Qual - Stroke Symptom Onset Unknown: No - VTE Deep Vein Thrombosis/Pulmonary Embolism Present on Admission: No
[2017-04-25] MEDS: GENTAMICIN SULFATE 40 MG, CLINDAMYCIN 300 MG, BACITRACIN 25,000 UNIT in SODIUM CHLORIDE... IRR SCH ×2 (13:00→21:58)
[2017-04-25] MEDS: FAMOTIDINE 20 MG TABLET PO SCH (21:57)
[2017-04-26 06:07] LABS: Basophils # (Auto) 0 K/mcL (0.0-0.3); Basophils % (Auto) 0.6 % (0.0-2.0); Eosinophils # (Auto) 0.5 K/mcL (0.0-0.7); Eosinophils % (Auto) 6.1 % (0.0-7.0); Granulocytes % (Auto) 70.6 % (38.0-78.0); Lymphocytes # (Auto) 1.5 K/mcL (1.5-4.8); Lymphocytes % (Auto) 16.8 % (15.5-49.0); Mean Cell Volume 84.3 fL (80.0-100.0); Mean Corpuscular HGB Conc 33.3 g/dL (31.0-36.0); Mean Corpuscular Hemoglobin 28.1 pg (26.0-34.0); Monocytes # (Auto) 0.5 K/mcL (0.1-0.9); Monocytes % (Auto) 5.9 % (1.0-12.0); Platelet Count 130 K/mcL (140-440); RBC 3.79 M/mcL (4.50-5.90); Red Cell Distribution Width 15.7 % (11.5-14.5)
[2017-04-26 06:26] LABS: ALT/SGPT 16 U/l (0-40); Albumin 3.1 gm/dL (3.2-5.2); Alkaline Phosphatase 126 U/L (39-117); Bilirubin,Direct < 0.2 mg/dL (0.0-0.3); Blood Urea Nitrogen 17 mg/dl (6-20); Gamma Glutamyl Transpeptidase 26 U/L (8-61); Magnesium 1.6 mg/dL (1.6-2.5)
--- NOTE | 2017-04-26 06:56 | Discharge Summary ---
Medical - DS: Prov Patient information: Note initiated : 04/26/17 at 6:53 am Service Date, if different from initiated Date: [] Patient: Johnson Pedraza 37 y/o M admitted on 04/21/17 for Elevated Potassium/ Hyperkalemia, Osteomyelitis. Chief Complaint: [] Date of admission: 04/21/17 14:20 Discharge date: 04/26/17 Primary care physician: Nery Santos Admitting clinician: Jose Liz Consults: 04/21/17 12:55 Consult to Physician [CONS] Stat Comment: Consulting Provider: Jose Liz Reason For Exam: Physician to Consult Discharging clinician: Jose Liz Medical - DS: Meds - Discharge Medications Active and Home Medications: Home Medications cholestyramine (with sugar) 4 gram oral powder 4 g PO BID each 05/27/15 [ History Confirmed 04/24/17 Last Taken 04/20/17 17:00] sitagliptin 100 mg tablet 100 mg PO QDAY 01/21/16 [History Confirmed 04/24/17 Last Taken 04/20/17 08:00] fluoxetine 40 mg capsule 40 mg PO DAILY #60 cap 03/30/16 [Rx Confirmed 04/24/17 Last Taken 04/20/17 08:00] Insulin Aspart [Novolog] units SQ PRN PRN 04/20/17 [History Confirmed 04/20/17 Last Taken 04/20/17] Insulin Detemir [Levemir] 86 units SQ BID 04/20/17 [History Confirmed 04/24/17 Last Taken 04/20/17] DAPTOmycin [Cubicin] mg IV DAILY 04/21/17 [History Last Taken Unknown] Ertapenem [INVanz] gm IV Q24H 04/21/17 [History Last Taken Unknown] Accu-Chek 1 each FS AC 04/23/17 [History Confirmed 04/23/17 Last Taken 04/20/17] Carvedilol [Coreg] 6.25 mg PO BID 04/23/17 [History Confirmed 04/23/17 Last Taken 04/20/17] Furosemide [Lasix] 40 mg PO BID 04/23/17 [History Confirmed 04/23/17 Last Taken 04/20/17] Aspirin [Adult Low Dose Aspirin EC] 81 mg PO DAILY 04/24/17 [History Confirmed 04/24/17 Last Taken Unknown] Levofloxacin [Levaquin] 750 mg PO DAILY 04/24/17 [History Confirmed 04/24/17 Last Taken Unknown] amLODIPine BESYLATE/BENAZEPRIL [Amlodipine-Benazepril 2.5-10] 1 tab PO DAILY [History Confirmed 04/24/17 Last Taken Unknown] Medical - DS: Hosp Hospital course: Mr. Pedraza is a 37 year old MMrAureliano Pedraza is a 37 year old Male with h/o Dm, CKd, presents to ER from same day surgery for abnormal labs, patient has h/o DM and left left osteomyelitis, the patient was recently seen in [facility] and had an left 5th toe amputation on 25 March, he was later placed on daily daptomycin, levofloxacin, and invanz by a infectious disease nurse practicer for MSSA staph and strep. The patient also had pneumonia while in the hospital The patient after discharge noted that the site of wound was not improving and he was therefore seen in the wound clinic, Dr Hernandez had planned to take the patient for wound debridement in the OR however his lab was abnormal with creat of 3.0 and potassium of 6.9. The patient also had some peaked t waves in the ER , he was aggressively treated by ER physician and his K came down to 5.6, the patient was admitted to the hospital for further management. Acute Kidney Injury on CKD- Creat was elevated on presentation, responded well ti IV fluids, patient creat is 1.5 on discharge, renal sonogram was reported normal Hyperkalemia- Due to patients use of Benazapril, he should avoid ARTURO inhibitors as he is very prone to hyperkalemia, this has been reviewed by his door liner helper multiple times, will add arturo inhibitors to his allergy list Chr diarrhea: Cdiff neg, likely antibiotic related. DM- on levemir and humalog, glucose controlled by lantus 80units bid and sliding scale insulin while inpatient here. Diabetic Wound, h/o Osteomyelitis: The patient is s/p amputatin, with non healing wound, He was taken to the OR by wound care, deep tissue biopsy taken and bone biopsy taken. The patients tissue biopsy was positive for Janett Gabralta, he was therefore started on caspofungin. His bone biopsy was neg for osteomyelitis. The patient at this needs aggressive wound care, IV antibiotics as well as anti fungal agents, He also would benefit from an infectious disease consult to determine the duration of treatment. He was presented to [facility] facility for further care and was accepted. I reviewed the case with Dr Fernandez, who graciously accepted the patient. Discharge diagnosis: Fungal Cellulitis. / Diabetic wound. - Time Spent with Patient Total time spent providing and/or coordinating discharge services: Greater than 30 minutes Medical - DS: Exam - Constitutional Vitals: Vital Signs Temp Pulse Resp BP Pulse Ox 04/26/17 06:26 97.1 F 20 157/101 92 04/26/17 03:45 97.5 F 70 12 108/70 95 04/26/17 00:00 16 123/74 95 04/25/17 20:00 98.3 F 74 16 128/80 97 04/25/17 15:59 96.7 F L 20 141/91 96 04/25/17 11:14 97.5 F 20 133/79 97 Intake and Output 04/25/17 04/26/17 04/26/17 21:59 05:59 13:59 Intake Total 1160 / 1160 0 / 0 Output Total 900 / 900 850 / 850 Balance 260 / 260 -850 / -850 Intake: Oral 1160 / 1160 0 / 0 Output: Void Amount 900 / 900 850 / 850 Other: Meal Dinner Percent of Meal Consumed 100% Weight 378 lb Additional comments: Constitutional; Afebrile, cooperative, alert, not in distress. Eyes- No icterus, , No periorbital swelling Ears- Ext ear normal, hearing normal to conversation. Neck- Midline trachea, supple Respiratory system: Air Entry equal on both sides, No crackles or wheezing, no rhonchi. CVS- Rate rhythm regular, S1,S2 heard, no gallop, no rub. Abdomen- Soft nontender abdomen, no organomegaly, no tenderness, no guarding or rigidity, SHEARER OPERATOR- AOOx3, moving all extremities, no gross focal deficit noted. Medical - DS: Data Labs on day of discharge: Labs from last 24 hours 04/26/17 04/26/17 04:30 04:30 WBC 8.6 RBC 3.79 L Hgb 10.6 L Hct 32.0 L MCV 84.3 MCH 28.1 MCHC 33.3 RDW 15.7 H Plt Count 130 L MPV 9.8 Gran % 70.6 Lymph % (Auto) 16.8 [place] % (Auto) 5.9 Eos % (Auto) 6.1 Baso % (Auto) 0.6 Gran # 6.1 Lymph # (Auto) 1.5 [place] # (Auto) 0.5 Eos # (Auto) 0.5 Baso # (Auto) 0 Sodium 141 Potassium 3.8 Chloride 106 Carbon Dioxide 25 Anion Gap 10.0 BUN 17 Creatinine 1.5 H GFR Calculation 58 Glucose 153 H Uric Acid 7.0 Calcium 8.8 Phosphorus 3.2 Magnesium 1.6 Total Bilirubin 0.2 Direct Bilirubin < 0.2 GGT 26 AST 17 ALT 16 Alkaline Phosphatase 126 H Lactate Dehydrogenase 174 Total Protein 6.2 Albumin 3.1 L Globulin 3.1 Albumin/Globulin Ratio 1.0 Triglycerides 345 H Preliminary micro results at discharge 04/22/17 12:50 Wound Culture - Preliminary Wound - Deep Yeast Janett glabrata 04/22/17 12:48 Anaerobic Culture - Preliminary Wound - Deep Medical - DS: A/P - Patient/Caregiver Discharge Instructions Activity: increase activity as tolerated Diet: Consistent Carbohydrate - Follow up Plan Disposition: Xfer [facility] Prognosis: Fair Rehab Potential: Fair I certify that the patient requires SNF services: No Overall status at discharge: patient is not back to baseline Medical - DS: Qual - VTE Deep Vein Thrombosis/Pulmonary Embolism Present on Admission: No
[2017-04-26] MEDS: ERTAPENEM 1 GM in 0.9 % SODIUM CHLORIDE 50 ML IV SCH (07:00)
[2017-04-26] MEDS: CARVEDILOL 6.25 MG TABLET PO SCH (07:10)
[2017-04-26] MEDS: HEPARIN 5,000 UNIT/ML VIAL SQ SCH (07:10)
[2017-04-26] MEDS: FLUoxetine HCL 20 MG CAPSULE PO SCH (07:12)
[2017-04-26] MEDS: INSULIN GLARGINE, HUMAN 1 UNIT/0.01 ML SQ SCH (07:15)
[2017-04-26] MEDS: CASPOFUNGIN ACETATE 50 MG in 0.9 % SODIUM CHLORIDE 250 ML IV SCH (07:30)
[2017-04-26] MEDS: INSULIN LISPRO 1 UNIT/0.01 ML UNIT SQ SCH (07:36)
[2017-04-26] MEDS: GENTAMICIN SULFATE 40 MG, CLINDAMYCIN 300 MG, BACITRACIN 25,000 UNIT in SODIUM CHLORIDE... IRR SCH (08:00)
[2017-04-26] MEDS: CHOLESTYRAMINE/ASPARTAME 4 GM POWD.PACK PO SCH (08:10)
== END 2017-04-26 08:15 | DRG 463 ==
LOC: ED 09:03 → ICU 14:10 → MEDSUR 04-22 13:52
PROVIDERS: ADMIT Internal Medicine; ATTEND Internal Medicine

== ENCOUNTER 2018-04-01 23:43 | Inpatient (IN) ==
--- NOTE | 2018-04-02 00:40 | Emergency Department Note ---
SOB HPI - General Chief Complaint: Shortness of Breath/Dyspnea Stated Complaint: SOB Time Seen by Provider: 04/02/18 00:03 Source: patient Mode of arrival: other Limitations: no limitations - History of Present Illness The patient is a 38-year-old male with a history of hypertension, type 2 diabetes, obesity, chronic kidney disease stage III and congestive heart failure who presents today with complaint of shortness of breath. He was found to be sent on room air. He reports that in the past couple of days he's noticed an increasingly difficult time doing small things without being winded. He reports that today he went out to his car and had to sit for 5 minutes to catch his breath. He has had a nonproductive cough and reports that he's been sweating a lot. Has not checked his temperature. He denies any chills, nausea or vomiting. She does endorse a decreased appetite which is abnormal for him. He reports that most of his family is ill right now. MD Complaint: shortness of breath Onset (ago): week(s) (1) - Related Data Home Medications Medication Instructions Recorded Confirmed cholestyramine (with sugar) 4 gram 4 g PO BID each 05/27/15 04/02/18 oral powder Accu-Chek 1 each FS AC 04/23/17 01/26/18 Aspirin [Adult Low Dose Aspirin EC] 81 mg PO DAILY 04/24/17 04/02/18 insulin glargine (U-100) 100 75 unit SUB-Q BID ml 06/09/17 04/02/18 unit/mL subcutaneous solution insulin NPH isophane U-100 human See Label Instructions SUB-Q TID 01/26/1804/02 100 unit/mL subcutaneous suspension PRN ml ascorbic acid (vitamin C) 1,000 mg 1 g PO QDAY tab 03/08/18 04/02/18 tablet ferrous sulfate 325 mg (65 mg 325 mg PO QDAY tab 03/08/18 04/02/18 iron) tablet zinc gluconate 100 mg tablet 240 mg PO QDAY tab 03/08/18 03/08/18 Previous Rx's Medication Instructions Recorded fluoxetine 40 mg capsule 40 mg PO DAILY #60 cap 03/30/16 carvedilol 12.5 mg tablet 12.5 mg PO BID #180 tab 12/06/17 losartan 25 mg tablet 25 mg PO QDAY 30 Days #30 tab 01/10/18 furosemide 20 mg tablet 40 mg PO BID #120 tab 02/10/18 cholecalciferol (vitamin D3) 2,000 2,000 unit PO QDAY #30 cap 03/08/18 unit capsule Allergies Allergy/AdvReac Type Severity Reaction Status Date / Time Amoxicillin Allergy Intermediate Swelling, Verified 04/01/18 23:49 Rash ARTURO Inhibitors AdvReac Severe Other Verified 04/01/18 23:49 silver-containing garments Allergy Mild Redness of Uncoded 03/08/18 13:59 Skin Review of Systems All systems ED: reviewed and negative except as stated. Past Medical History - Past Medical History Attestation: Yes: The following information was validated with the patient. Medical history: Reports: CHF, DM, hypertension, obesity, renal disease (stage 3 ), other Psychiatric history: Reports: depression Surgical history ED: Reports: orthopedic, other (Right below-knee amputation, left lateral two toe amputation) - Social History smoking status: Never smoker Alcohol use: Reports: None Drug use: Reports: none Physical Exam Limitations: no limitations, other (morbid obesity) General appearance: alert, in no apparent distress Head: atraumatic ENT: normal exam Neck: Present: normal inspection Chest: Present: normal inspection Respiratory: Present: other (poor air movement in the bases, particularly in the LLL, no wheezes appreciated, no accessory muscle use) Cardiovascular: Present: regular rate, normal rhythm Abdominal: Present: soft, normal bowel sounds Extremities: Present: other (right lower leg prosthesis) Neurological: Present: alert, oriented X3 Psychiatric: Present: normal affect, normal mood Skin: Present: warm, dry Course Course Narrative: On arrival to the emergency room the patient's oxygen was 82%. He was put on 4 L nasal cannula and his oxygen increased to 89% and then into the 90s from there. He was decreased to 2 L nasal cannula and his oxygen has remained over 90. EKG was obtained which I reviewed personally and did not appreciate any ST segment elevation or arrhythmia. Lab work was ordered including CBC, CMP, pro- calcitonin, BNP. Vital Signs Temperature 97.3 F 04/01/18 23:44 Respiratory Rate 26 H 04/01/18 23:44 Blood Pressure 123/74 04/01/18 23:44 Pulse Oximetry (%) 82 L 04/01/18 23:44 Temperature 97.3 F 04/01/18 23:44 Pulse Rate 80 04/02/18 01:16 Respiratory Rate 26 H 04/02/18 01:16 Blood Pressure 111/81 04/02/18 01:16 Pulse Oximetry (%) 92 04/02/18 01:16 Shortness of Breath/Dyspnea - MDM Narrative Medical decision making narrative: I repeated the chest x-ray which appears to show a mildly enlarged heart but similar to prior chest x-rays. He does have blunting of the right costophrenic angle. I do believe he has an infiltrate in the right mid to lower lung field. Propulsid told and returned at 1.0. Blood cultures were obtained. His troponin did come back at 0.05 with elevated myoglobin however his BNP is 5000 and I believe he has demand ischemia causing his slightly elevated cardiac enzymes. He was started on Levaquin IV and given Lasix 20 mg IV. He is requiring 3 L of oxygen via nasal cannula to maintain his oxygen level above 90. I spoke to the hospitalist who graciously agreed to accept this patient. - Lab Data Lab results reviewed: Yes I reviewed the patient's lab results. Result diagrams: 04/01/18 23:50 04/01/18 23:50 Lab Results 04/01/18 04/01/18 04/02/18 Range/Units 23:50 23:50 00:00 WBC 15.7 H (4.5-11.0) K/mcL RBC 4.68 (4.50-5.90) M/mcL Hgb 12.6 L (13.5-16.5) g/dL Hct 39.7 L (41.0-55.0) % MCV 84.9 (80.0-100.0) fL MCH 26.9 (26.0-34.0) pg MCHC 31.8 (31.0-36.0) g/dL RDW 15.3 H (11.5-14.5) % Plt Count 173 (140-440) K/mcL MPV 10.8 H (7.4-10.4) fL Gran % 87.3 H (38.0-78.0) % Lymph % (Auto) 5.6 L (15.5-49.0) % [place] % (Auto) 6.6 (1.0-12.0) % Eos % (Auto) 0.5 (0.0-7.0) % Baso % (Auto) 0 (0.0-2.0) % Gran # 13.7 H (1.8-8.0) K/mcL Lymph # (Auto) 0.9 L (1.5-4.8) K/mcL [place] # (Auto) 1.0 H (0.1-0.9) K/mcL Eos # (Auto) 0.1 (0.0-0.7) K/mcL Baso # (Auto) 0 (0.0-0.3) K/mcL Sodium 130 L (133-145) mmol/L Potassium 5.6 H (3.3-5.1) mmol/L Chloride 94 L (96-108) mmol/L Carbon Dioxide 19 L (22-30) mmol/L Anion Gap 17.0 H (8-16) BUN 70 H (6-20) mg/dl Creatinine 3.6 H (0.7-1.2) mg/dl GFR Calculation 20 Glucose 276 H (70-105) mg/dL Calcium 8.1 L (8.6-10.4) mg/dl Total Bilirubin 0.3 (0.0-1.0) mg/dL AST 38 H (0-37) U/l ALT 31 (0-40) U/l Alkaline Phosphatase 147 H (39-117) U/L Total Creatine Kinase (24-195) IU/L CK-MB (CK-2) (0-4.9) ng/ml Myoglobin (28-72) ng/ml Troponin T (0-0.03) ng/ml NT-Pro-B Natriuret Pep 5344.0 H (0-125) pg/ml Total Protein 6.5 (5.9-8.4) gm/dL Albumin 3.3 (3.2-5.2) gm/dL Globulin 3.2 (2.2-3.7) gm/dL Albumin/Globulin Ratio 1.0 (1.0-2.3) Procalcitonin 1.00 (<0.10) ng/mL 04/02/18 04/02/18 Range/Units 00:00 00:00 WBC (4.5-11.0) K/mcL RBC (4.50-5.90) M/mcL Hgb (13.5-16.5) g/dL Hct (41.0-55.0) % MCV (80.0-100.0) fL MCH (26.0-34.0) pg MCHC (31.0-36.0) g/dL RDW (11.5-14.5) % Plt Count (140-440) K/mcL MPV (7.4-10.4) fL Gran % (38.0-78.0) % Lymph % (Auto) (15.5-49.0) % [place] % (Auto) (1.0-12.0) % Eos % (Auto) (0.0-7.0) % Baso % (Auto) (0.0-2.0) % Gran # (1.8-8.0) K/mcL Lymph # (Auto) (1.5-4.8) K/mcL [place] # (Auto) (0.1-0.9) K/mcL Eos # (Auto) (0.0-0.7) K/mcL Baso # (Auto) (0.0-0.3) K/mcL Sodium (133-145) mmol/L Potassium (3.3-5.1) mmol/L Chloride (96-108) mmol/L Carbon Dioxide (22-30) mmol/L Anion Gap (8-16) BUN (6-20) mg/dl Creatinine (0.7-1.2) mg/dl GFR Calculation Glucose (70-105) mg/dL Calcium (8.6-10.4) mg/dl Total Bilirubin (0.0-1.0) mg/dL AST (0-37) U/l ALT (0-40) U/l Alkaline Phosphatase (39-117) U/L Total Creatine Kinase 224 H (24-195) IU/L CK-MB (CK-2) 4.0 (0-4.9) ng/ml Myoglobin 207 H (28-72) ng/ml Troponin T 0.05 H* (0-0.03) ng/ml NT-Pro-B Natriuret Pep (0-125) pg/ml Total Protein (5.9-8.4) gm/dL Albumin (3.2-5.2) gm/dL Globulin (2.2-3.7) gm/dL Albumin/Globulin Ratio (1.0-2.3) Procalcitonin (<0.10) ng/mL Disposition Pt seen by VENDING MANAGER/PA only: No Clinical Impression: Community acquired pneumonia, CHF exacerbation, Hyperkalemia, Chronic kidney disease, stage III (moderate) Disposition: Xfer As Inpt ([facility]) Referrals: Nery Santos MD [Primary Care Provider] -
[2018-04-02 01:34] LABS: Basophils # (Auto) 0 K/mcL (0.0-0.3); Basophils % (Auto) 0 % (0.0-2.0); Eosinophils # (Auto) 0.1 K/mcL (0.0-0.7); Eosinophils % (Auto) 0.5 % (0.0-7.0); Granulocytes % (Auto) 87.3 % (38.0-78.0); Lymphocytes # (Auto) 0.9 K/mcL (1.5-4.8); Lymphocytes % (Auto) 5.6 % (15.5-49.0); Mean Cell Volume 84.9 fL (80.0-100.0); Mean Corpuscular HGB Conc 31.8 g/dL (31.0-36.0); Mean Corpuscular Hemoglobin 26.9 pg (26.0-34.0); Monocytes % (Auto) 6.6 % (1.0-12.0); Platelet Count 173 K/mcL (140-440); RBC 4.68 M/mcL (4.50-5.90); Red Cell Distribution Width 15.3 % (11.5-14.5)
[2018-04-02] MEDS ORDERED: LEVOFLOXACIN 750 MG TABLET PO ONE (01:37)
[2018-04-02] MEDS ORDERED: FUROSEMIDE 20 MG/2 ML VIAL IV ONE ×3 (01:42→05:23)
[2018-04-02 01:54] LABS: ALT/SGPT 31 U/l (0-40); Albumin 3.3 gm/dL (3.2-5.2); Alkaline Phosphatase 147 U/L (39-117); Blood Urea Nitrogen 70 mg/dl (6-20)
[2018-04-02] MEDS ORDERED: ONDANSETRON 4 MG/2 ML VIAL IV PRN (03:28)
[2018-04-02] MEDS ORDERED: CEFEPIME 1 GM VIAL IV SCH (03:28)
[2018-04-02] MEDS ORDERED: VANCOMYCIN PER PHARMACY IV ONE (03:28)
[2018-04-02] MEDS ORDERED: DEXTROSE 50% 50 ML VIAL IV PRN (03:28)
[2018-04-02] MEDS ORDERED: VANCOMYCIN 1,500 MG in 0.9 % SODIUM CHLORIDE 500 ML IV ONE (03:28)
[2018-04-02] MEDS ORDERED: DEXTROSE 31 GM ORAL.SUSP PO PRN (03:28)
[2018-04-02] MEDS ORDERED: NALOXONE HCL 0.4 MG/ML VIAL IV PRN (03:28)
[2018-04-02] MEDS ORDERED: ACETAMINOPHEN 325 MG TABLET PO PRN (03:28)
[2018-04-02] MEDS ORDERED: HYDROcodone/APAP 5/325MG TABLET PO PRN (03:28)
[2018-04-02] MEDS: 0.9 % SODIUM CHLORIDE 10 ML SYRINGE IV SCH ×5 (05:15→21:19)
[2018-04-02 05:49] LABS: Appearance,Urine CLEAR; Bacteria,Urine 0 /hpf (0); Bilirubin,Urine NEG (NEG); Color,Urine YELLOW; Glucose,Urine (UA) NEGATIVE (NEG); Leukocyte Esterase,Urine NEG /uL (NEG); Mucus,Urine FEW /hpf (0); Protein,Urine 30 mg/dL (NEG); Specific Gravity,Urine 1.017 (1.000-1.035); Urine Blood NEG mg/dL (<0.03); Urine Hyaline Cast 20 /lpf (0-2); Urine RBC 1 /hpf (0-1); Urine Squamous Epithelial Cell < 1 /hpf (0-4); Urine WBC 0 /hpf (0-4); Urobilinogen,Urine NEG (NEG)
[2018-04-02 07:08] LABS: Basophils # (Auto) 0 K/mcL (0.0-0.3); Basophils % (Auto) 0.3 % (0.0-2.0); Eosinophils # (Auto) 0.1 K/mcL (0.0-0.7); Eosinophils % (Auto) 0.5 % (0.0-7.0); Granulocytes % (Auto) 84.2 % (38.0-78.0); Lymphocytes # (Auto) 1.2 K/mcL (1.5-4.8); Lymphocytes % (Auto) 8.6 % (15.5-49.0); Mean Cell Volume 85.3 fL (80.0-100.0); Mean Corpuscular HGB Conc 32.1 g/dL (31.0-36.0); Mean Corpuscular Hemoglobin 27.4 pg (26.0-34.0); Monocytes # (Auto) 0.9 K/mcL (0.1-0.9); Monocytes % (Auto) 6.4 % (1.0-12.0); Platelet Count 163 K/mcL (140-440); RBC 4.59 M/mcL (4.50-5.90); Red Cell Distribution Width 15.1 % (11.5-14.5)
[2018-04-02] MEDS ORDERED: VANCOMYCIN PER PHARMACY IV SCH (07:30)
[2018-04-02] MEDS: IPRATROPIUM/ALBUTEROL 3 ML AMPUL.NEB NEB SCH ×3 (07:34→18:45)
[2018-04-02 07:50] LABS: ALT/SGPT 28 U/l (0-40); Albumin 2.9 gm/dL (3.2-5.2); Albumin/Globulin Ratio 0.7 (1.0-2.3); Alkaline Phosphatase 146 U/L (39-117); Bilirubin,Direct < 0.2 mg/dL (0.0-0.3); Blood Urea Nitrogen 74 mg/dl (6-20); Gamma Glutamyl Transpeptidase 38 U/L (8-61)
[2018-04-02] MEDS: CHOLESTYRAMINE/ASPARTAME 4 GM POWD.PACK PO SCH ×2 (08:04→19:00)
[2018-04-02] MEDS: INSULIN LISPRO 1 UNIT/0.01 ML UNIT SQ SCH ×4 (08:04→21:15)
--- NOTE | 2018-04-02 08:12 | XRay Report ---
CLINICAL INFORMATION: dyspnea COMPARISON: 04/21/2017 FINDINGS: The heart is borderline enlarged. Mediastinum is unremarkable. Pulmonary vessels are mildly congested and there is moderate peribronchovascular edema. Small bibasilar infiltrate is noted. IMPRESSION: Moderate CHF Small bibasilar infiltrates Suggest: Two view upright chest x-ray following diuretic trial. This patient's large size and semirecumbent positioning results in suboptimal inspiratory result which makes assessment more difficult. Interpreted and Authenticated by: Daniele Landis 04/02/18
[2018-04-02] MEDS: FLUoxetine HCL 20 MG CAPSULE PO SCH (09:01)
[2018-04-02] MEDS: CARVEDILOL 12.5 MG TABLET PO SCH ×2 (09:01→21:18)
[2018-04-02] MEDS: ASPIRIN 81 MG TAB.CHEW PO SCH (09:02)
[2018-04-02] MEDS: HEPARIN 5,000 UNIT/ML VIAL SQ SCH ×2 (09:02→21:18)
[2018-04-02] MEDS: FUROSEMIDE 40 MG/4 ML VIAL IV SCH ×2 (09:02→21:18)
[2018-04-02] MEDS: INSULIN GLARGINE, HUMAN 1 UNIT/0.01 ML SQ SCH ×2 (09:03→21:18)
--- NOTE | 2018-04-02 14:42 | Internal Med History&Physical ---
Medical - H&P: HPI Patient information: Note initiated : 04/02/18 at 2:37 pm Service Date, if different from initiated Date: [] Patient: Johnson Pedraza a 38 y/o M admitted on 04/02/18 for Shortness of breath. Chief Complaint: [] History of present illness: Mr. Pedraza is a 38 year old M with h/o DM, CKD, chf, presents to the emergency room today for evaluation of cough that has been going on for the last 1 week. The patient was at his usual baseline health status, he developed a cough approximately a week ago that has progressively worsened, cough is with sputum production greenish to brownish sputum. No blood in sputum. This is associated with progressive shortness of breath. Patient also notes that he has gained weight. He has recently been off antibiotics for his lower extremity wound infection. The patient over the last 24 hours had worsening of his shortness of breath and therefore he came to the ER for further evaluation. The patient notes he has paroxysmal nocturnal dyspnea, decreased effort tolerance notes his effort tolerance is decreased by approximately 50%. He denies any chest pain or chest tightness. Denies any GI or complaints denies any headache palpitations. Denies any fever or chills but admits to being weak. The patient in the emergency room was afebrile temperature 97.3, heart rate 91, blood pressure 123 x 74 he was hypoxic on presentation 82% on room air which improved with 2 L of nasal cannula. The WBC count was elevated at 15,000, hemoglobin was 12.6, platelets 173. Chemistry showed sodium of 130, potassium 5.6, bicarbonate 19, creatinine is 3.6 BUN 70 glucose at 276. Chest x-ray showed moderate CHF, bibasilar infiltrates. EKG shows sinus tachycardia with left axis T wave inversions in V1 V2, low voltage. No significant change from the EKG done in November this year. 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) On home oxygen therapy (Chronic) Cataract, nuclear sclerotic, both eyes (Chronic) Depression, major, recurrent, moderate (Chronic) Obesity hypoventilation syndrome (Chronic) Dependent edema (Chronic) CHF with right heart failure (Chronic) Xerosis of skin (Chronic) 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, left eye (Chronic) 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, right eye (Chronic) Type 2 diabetes mellitus with polyneuropathy (Chronic) DM (diabetes mellitus), type 2 with peripheral vascular complications (Chronic) Diabetic ulcer of left foot (Chronic) Acute osteomyelitis of left foot (Chronic) Diabetic foot ulcer (Chronic) Diabetic neuropathy (Chronic) Type 2 diabetes mellitus with renal complication (Chronic) Type 2 diabetes mellitus with neurological complications (Chronic) ANTHONY (obstructive sleep apnea) (Chronic) Tinea pedis (Chronic) Hypertensive heart and chronic kidney disease with heart failure and stage 1 through stage 4 chronic kidney disease, or unspecified chronic kidney disease ( Chronic) Heart failure, unspecified (Chronic) 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) 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) 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) Tinea unguium (Chronic) Surgical operation with anastomosis, bypass or graft as the cause of abnormal reaction of the patient, or of later complication, without mention of misadventure at the time of the procedure (Chronic) Other complications of skin graft (allograft) (autograft) (Chronic) Non-pressure chronic ulcer of other part of left foot with necrosis of bone ( Chronic) Type 2 diabetes mellitus with foot ulcer (Chronic) Proteinuria (Chronic) Cellulitis of left lower limb (Chronic) Cough (Chronic) Cataracts, bilateral (Chronic) Obesity (Chronic) Anemia (Chronic) Other specified conditions influencing health status (Chronic) Abrasion (Chronic) Superficial injury of foot and toes (Chronic) Other specified disorder of skin (Chronic) Dermatomycosis, unspecified (Chronic) Ulcer of other part of foot (Chronic) Ulcer of lower limb (Chronic) Chronic ulcer of skin (Chronic) Contact dermatitis and other eczema, due to unspecified cause (Chronic) Sec DM wo cmp nt st uncn (Chronic) Micturition syncope (Acute) Chronic kidney disease, stage III (moderate) (Acute) Abnormal ANCA test (Acute) Congestive heart failure (Acute) Hypertensive renal disease (Chronic) Edema (Chronic) Chronic kidney disease, stage III (moderate) (Chronic) Depression (Chronic) Morbid obesity (Chronic) Hypertension, essential (Chronic) Hyperlipidemia (Chronic) Hyperkalemia (Chronic) Diabetes mellitus type 1 (Inactive) Surgical history: Past Surgical History (Last Reviewed 03/08/18 @ 14:18 by Tiffany Delgado MD) H/O amputation of lesser toe (Chronic) Amputation of right lower extremity below knee (Chronic) Lower limb amputation status (Chronic 03/26/17) Lower limb amputation, below knee (Chronic 12/28/12) Status post nail surgery (Chronic 05/20/16) Pertinent family history: Family History (Last Reviewed 03/08/18 @ 14:18 by Tiffany Delgado MD) Mother Arthritis Seizure Disorder of thyroid Diabetes mellitus Tuberculosis Vision problems Father Diabetes mellitus Essential hypertension Myocardial Infarction Cerebrovascular accident (CVA) Heart disease Kidney disease Tuberculosis High cholesterol Sister Migraine Disorder of thyroid Family/Other Tuberculosis Medical - H&P: Meds Home Medications Medication Instructions Recorded Confirmed Type cholestyramine (with sugar) 4 gram 4 g PO BID each 05/27/15 04/02/18 History oral powder fluoxetine 40 mg capsule 40 mg PO DAILY #60 cap 03/30/16 04/02/18 Rx Accu-Chek 1 each FS AC 04/23/17 04/02/18 History Aspirin [Adult Low Dose Aspirin EC] 81 mg PO DAILY 04/24/17 04/02/18 History insulin glargine (U-100) 100 75 unit SUB-Q BID ml 06/09/17 04/02/18 History unit/mL subcutaneous solution carvedilol 12.5 mg tablet 12.5 mg PO BID #180 tab 12/06/17 04/02/18 Rx losartan 25 mg tablet 25 mg PO QDAY 30 Days #30 tab 01/10/18 04/02/18 Rx insulin NPH isophane U-100 human See Label Instructions SUB-Q TID 01/26/1804/02 History 100 unit/mL subcutaneous suspension PRN ml furosemide 20 mg tablet 40 mg PO BID #120 tab 02/10/18 04/02/18 Rx ascorbic acid (vitamin C) 1,000 mg 1 g PO QDAY tab 03/08/18 04/02/18 History tablet cholecalciferol (vitamin D3) 2,000 2,000 unit PO QDAY #30 cap 03/08/18 04/02/18 Rx unit capsule ferrous sulfate 325 mg (65 mg 325 mg PO QDAY tab 03/08/18 04/02/18 History iron) tablet zinc gluconate 100 mg tablet 240 mg PO QDAY tab 03/08/18 03/08/18 History Allergies Allergy/AdvReac Type Severity Reaction Status Date / Time Amoxicillin Allergy Intermediate Swelling, Verified 04/01/18 23:49 Rash ARTURO Inhibitors AdvReac Severe Other Verified 04/01/18 23:49 silver-containing garments AdvReac Mild Redness of Uncoded 04/02/18 04:43 Skin Medical - H&P: Exam - Constitutional Vitals: Temp Pulse Resp BP Pulse Ox 98.0 F 75 22 132/80 95 04/02/18 12:10 04/02/18 07:36 04/02/18 12:10 04/02/18 12:10 04/02/18 12:10 Exam: GENERAL: The patient is a well-developed, well-nourished in no apparent distress. Is alert and oriented x3. Morbidly obese VITAL SIGNS: Reviewed and as noted elsewhere. HEENT: Head is normocephalic and atraumatic. Extraocular muscles are intact. Pupils are equal, round, and reactive to light. Nares appeared normal. Mouth appears any without lesions. Mucous membranes are moist. NECK: Normal to inspection, Supple, No lymphadenopathy or thyromegaly. LUNGS: Air entry equal on both sides, no wheezing, patient has bilateral crackles up to mid lungs . No accessory muscles of respiration HEART: Regular rate and rhythm normal, S1 and S2 heard, no Gallop, S3 or Rub Noted, No Gross murmur heard. ABDOMEN: Soft, nontender, and nondistended. Positive bowel sounds. No hepatosplenomegaly was noted. Large pannus EXTREMITIES: No cyanosis, clubbing, rash, lesions or edema. Right BKA NEUROLOGIC: Cranial nerves II through XII are grossly intact. Motor and Sensory System Grossly Intact PSYCHIATRIC: Normal affect, Normal Mood. Appropriate Behavior. SKIN: No ulceration or wounds noted, No jaundice, No rash noted. Medical - H&P: Reslt - Labs CBC & Chem 7: 04/02/18 06:14 04/02/18 06:14 Labs: Short CBC 04/01/18 04/02/18 Range/Units 23:50 06:14 WBC 15.7 H 14.2 H (4.5-11.0) K/mcL Hgb 12.6 L 12.6 L (13.5-16.5) g/dL Hct 39.7 L 39.1 L (41.0-55.0) % Plt Count 173 163 (140-440) K/mcL BMP 04/01/18 04/02/18 23:50 06:14 Sodium 130 L 131 L Potassium 5.6 H 4.8 Chloride 94 L 97 Carbon Dioxide 19 L 19 L BUN 70 H 74 H Creatinine 3.6 H 3.3 H Glucose 276 H 172 H Calcium 8.1 L 8.7 Cardiac Enzymes 04/02/18 04/02/18 Range/Units 00:00 00:00 Total Creatine Kinase 224 H (24-195) IU/L CK-MB (CK-2) 4.0 (0-4.9) ng/ml Troponin T 0.05 H* (0-0.03) ng/ml Liver Function 04/01/18 04/02/18 Range/Units 23:50 06:14 Total Bilirubin 0.3 0.3 (0.0-1.0) mg/dL Direct Bilirubin < 0.2 (0.0-0.3) mg/dL GGT 38 (8-61) U/L AST 38 H 27 (0-37) U/l ALT 31 28 (0-40) U/l Alkaline Phosphatase 147 H 146 H (39-117) U/L Albumin 3.3 2.9 L (3.2-5.2) gm/dL Urine 04/02/18 Range/Units 05:00 Urine Color Yellow Urine Appearance Clear Urine pH 5.0 (5.0-9.0) Ur Specific [place] 1.017 (1.000-1.035) Urine Protein 30 A (NEG) mg/dL Urine Glucose (UA) Negative (NEG) mg/dL Medical - H&P: A/P - Narrative A/P Narrative: A/P Health care associated Pneumonia Acute hypoxic Respiratory failure Acute Systolic congestive heart failure Hyperkalemia Acute on Chronic Renal failure Anemia chronic DM type 1 with Hyperglycemia Chr wound S/p BKA Morbid Obesity HTN/HLD/Neuropathy Plan Admit to tele IV antibiotics vanco and c efepime, h/o recent abx for lower extremity wound. cultues, blood and sputum sent, await result repeat K this AM is normal IV lasix 40bid, kirkpatrick in place, monitor urine output ssi for g lucose control JOSE A likely cardio renal syndrome Resume home medications as appropriate DVT hep sq diet Carb consisent, renal, cardiac, fluid restriction to 2000ml Fulll c ode Medical - H&P: Qual - VTE Deep Vein Thrombosis/Pulmonary Embolism Present on Admission: No Social History - Social History marital status: single occupational status: disabled - Tobacco smoking status: Never smoker - Alcohol alcohol intake frequency: does not drink - Substance use substance use type: does not use
[2018-04-03] MEDS: IPRATROPIUM/ALBUTEROL 3 ML AMPUL.NEB NEB SCH ×4 (00:09→18:20)
[2018-04-03 04:35] LABS: Basophils # (Auto) 0 K/mcL (0.0-0.3); Basophils % (Auto) 0.2 % (0.0-2.0); Eosinophils # (Auto) 0.3 K/mcL (0.0-0.7); Eosinophils % (Auto) 2.2 % (0.0-7.0); Lymphocytes # (Auto) 1.3 K/mcL (1.5-4.8); Lymphocytes % (Auto) 9.9 % (15.5-49.0); Mean Cell Volume 85.6 fL (80.0-100.0); Mean Corpuscular HGB Conc 32.4 g/dL (31.0-36.0); Mean Corpuscular Hemoglobin 27.7 pg (26.0-34.0); Monocytes # (Auto) 0.9 K/mcL (0.1-0.9); Monocytes % (Auto) 6.7 % (1.0-12.0); Platelet Count 193 K/mcL (140-440); RBC 4.53 M/mcL (4.50-5.90); Red Cell Distribution Width 15.3 % (11.5-14.5)
[2018-04-03 04:53] LABS: Vancomycin,Random 7.8 ug/mL
[2018-04-03 04:57] LABS: ALT/SGPT 23 U/l (0-40); Albumin/Globulin Ratio 0.8 (1.0-2.3); Alkaline Phosphatase 135 U/L (39-117); Bilirubin,Direct < 0.2 mg/dL (0.0-0.3); Blood Urea Nitrogen 70 mg/dl (6-20); Gamma Glutamyl Transpeptidase 31 U/L (8-61); Uric Acid 12.9 mg/dL (2.5-8.0)
[2018-04-03] MEDS: 0.9 % SODIUM CHLORIDE 10 ML SYRINGE IV SCH ×6 (05:59→21:26)
[2018-04-03] MEDS: CHOLESTYRAMINE/ASPARTAME 4 GM POWD.PACK PO SCH ×2 (07:12→22:52)
[2018-04-03] MEDS: INSULIN LISPRO 1 UNIT/0.01 ML UNIT SQ SCH ×4 (07:43→21:22)
[2018-04-03] MEDS: CEFEPIME 1 GM VIAL IV SCH (08:23)
[2018-04-03] MEDS ORDERED: VANCOMYCIN 1,500 MG in 0.9 % SODIUM CHLORIDE 500 ML IV ONE (09:00)
[2018-04-03] MEDS: FLUoxetine HCL 20 MG CAPSULE PO SCH (09:40)
[2018-04-03] MEDS: ASPIRIN 81 MG TAB.CHEW PO SCH (09:40)
[2018-04-03] MEDS: HEPARIN 5,000 UNIT/ML VIAL SQ SCH ×2 (09:40→21:27)
[2018-04-03] MEDS: FUROSEMIDE 40 MG/4 ML VIAL IV SCH ×2 (09:40→21:23)
[2018-04-03] MEDS: CARVEDILOL 12.5 MG TABLET PO SCH ×2 (09:40→21:23)
[2018-04-03] MEDS: INSULIN GLARGINE, HUMAN 1 UNIT/0.01 ML SQ SCH ×2 (09:41→21:23)
--- NOTE | 2018-04-03 13:55 | Internal Med Progress Note ---
Medical - PN: Subj Patient information: Note initiated : 04/03/18 at 1:53 pm Service Date, if different from initiated Date: [] Patient: Johnson Pedraza a 38 y/o M admitted on 04/02/18 for Shortness of breath. Chief Complaint: [] Interval history: Mr. Pedraza is a 38 year old M with h/o DM, CKD, chf, presents to the emergency room today for evaluation of cough that has been going on for the last 1 week. The patient was at his usual baseline health status, he developed a cough approximately a week ago that has progressively worsened, cough is with sputum production greenish to brownish sputum. No blood in sputum. This is associated with progressive shortness of breath. Patient also notes that he has gained weight. He has recently been off antibiotics for his lower extremity wound infection. The patient over the last 24 hours had worsening of his shortness of breath and therefore he came to the ER for further evaluation. The patient notes he has paroxysmal nocturnal dyspnea, decreased effort tolerance notes his effort tolerance is decreased by approximately 50%. He denies any chest pain or chest tightness. Denies any GI or complaints denies any headache palpitations. Denies any fever or chills but admits to being weak. The patient in the emergency room was afebrile temperature 97.3, heart rate 91, blood pressure 123 x 74 he was hypoxic on presentation 82% on room air which improved with 2 L of nasal cannula. The WBC count was elevated at 15,000, hemoglobin was 12.6, platelets 173. Chemistry showed sodium of 130, potassium 5.6, bicarbonate 19, creatinine is 3.6 BUN 70 glucose at 276. Chest x-ray showed moderate CHF, bibasilar infiltrates. EKG shows sinus tachycardia with left axis T wave inversions in V1 V2, low voltage. No significant change from the EKG done in November this year. 04/03 Patient seen and examined, no acute overnight events, no events on telemetry, sitting comfortably in bed tolerating p.o. diet well. He is -1900 mL since admission. Notes that his cough is better his breathing is better. He still not at baseline. Continue antibiotics and diuretics for now. Pertinent ROS: Denies headache, dizziness Denies chest pain, palpitations improving cough and shortness of breath Denies abdominal pain, nausea or vomiting. - Constitutional Vitals: Vital Signs Temp Pulse Resp BP Pulse Ox 97.8 F 79 16 131/87 93 04/03/18 11:43 04/03/18 13:30 04/03/18 13:30 04/03/18 11:43 04/03/18 13:30 Period Temp Pulse Resp BP Sys/Harris Pulse Ox Last 24 Hr 97.2 F-99.4 F 71-84 16-28 128-170/83-105 92-97 Intake and Output 04/02/18 04/03/18 04/03/18 21:59 05:59 13:59 Intake Total 340 / 340 420 / 420 Output Total 750 / 750 800 / 800 2700 / 2700 Balance -750 / -750 -460 / -460 -2280 / -2280 Weight 388 lb Intake & Output: Intake & Output 04/02/18 04/03/18 04/03/18 21:59 05:59 13:59 Intake Total 340 / 340 420 / 420 Output Total 750 / 750 800 / 800 2700 / 2700 Balance -750 / -750 -460 / -460 -2280 / -2280 Weight 388 lb Intake: Oral 340 / 340 420 / 420 Output: Urine Catheter Amount 750 / 750 800 / 800 2700 / 2700 Other: Meal Lunch Percent of Meal Consumed 100% Feeding Ability Independent Urine Appearance Clear Clear Clear Uretheral (Kirkpatrick) Clear Urine Color Bright Yellow Bright Yellow Uretheral (Kirkpatrick) Pale Bright Yellow Urine Odor Normal Normal Exam: Constitutional; Afebrile, cooperative, alert, not in distress. Eyes- No icterus, , No periorbital swelling Ears- Ext ear normal, hearing normal to conversation. Neck- Midline trachea, supple Respiratory system: Air Entry equal on both sides, improved crackles from yesterday CVS- Rate rhythm regular, S1,S2 heard, no gallop, no rub. 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 Medical - PN: Obj Da - Labs CBC & Chem 7: 04/03/18 03:04 04/03/18 03:40 Labs: Abnormal Lab Results 04/03/18 04/03/18 04/02/18 03:40 03:04 06:14 WBC 13.6 H Hgb 12.6 L Hct 38.8 L RDW 15.3 H MPV Gran % 81.0 H Lymph % (Auto) 9.9 L Gran # 11.0 H Lymph # (Auto) 1.3 L [place] # (Auto) Sodium 131 L Potassium Chloride Carbon Dioxide 21 L 19 L Anion Gap 17.0 H BUN 70 H 74 H Creatinine 2.8 H 3.3 H Glucose 185 H 172 H Uric Acid 12.9 H 12.0 H Calcium AST Alkaline Phosphatase 135 H 146 H Lactate Dehydrogenase 274 H Total Creatine Kinase Myoglobin Troponin T NT-Pro-B Natriuret Pep Albumin 3.0 L 2.9 L Globulin 3.9 H 4.3 H Albumin/Globulin Ratio 0.8 L 0.7 L Triglycerides 163 H Urine Protein Hyaline Casts 04/02/18 04/02/18 04/02/18 06:14 05:00 00:00 WBC 14.2 H Hgb 12.6 L Hct 39.1 L RDW 15.1 H MPV Gran % 84.2 H Lymph % (Auto) 8.6 L Gran # 12.0 H Lymph # (Auto) 1.2 L [place] # (Auto) Sodium Potassium Chloride Carbon Dioxide Anion Gap BUN Creatinine Glucose Uric Acid Calcium AST Alkaline Phosphatase Lactate Dehydrogenase Total Creatine Kinase Myoglobin Troponin T 0.05 H* NT-Pro-B Natriuret Pep Albumin Globulin Albumin/Globulin Ratio Triglycerides Urine Protein 30 A Hyaline Casts 20 H 04/02/18 04/01/18 04/01/18 00:00 23:50 23:50 WBC 15.7 H Hgb 12.6 L Hct 39.7 L RDW 15.3 H MPV 10.8 H Gran % 87.3 H Lymph % (Auto) 5.6 L Gran # 13.7 H Lymph # (Auto) 0.9 L [place] # (Auto) 1.0 H Sodium 130 L Potassium 5.6 H Chloride 94 L Carbon Dioxide 19 L Anion Gap 17.0 H BUN 70 H Creatinine 3.6 H Glucose 276 H Uric Acid Calcium 8.1 L AST 38 H Alkaline Phosphatase 147 H Lactate Dehydrogenase Total Creatine Kinase 224 H Myoglobin 207 H Troponin T NT-Pro-B Natriuret Pep 5344.0 H Albumin Globulin Albumin/Globulin Ratio Triglycerides Urine Protein Hyaline Casts Meds: Medications Acetaminophen (Tylenol) 650 mg PO Q6HP PRN PRN Reason: PAIN/FEVER > 101 Hydrocodone Bitart/Acetaminophen ([place] 5/325mg) 1 tab PO Q4HP PRN PRN Reason: pain not controlled w/ tylenol Last Admin: 04/02/18 19:00 Dose: 1 tab Albuterol/Ipratropium (Duoneb) 3 ml NEB Q6HRT [facility] Last Admin: 04/03/18 13:26 Dose: 3 ml Aspirin (Aspirin) 81 mg PO DAILY [facility] Last Admin: 04/03/18 09:40 Dose: 81 mg Carvedilol (Coreg) 12.5 mg PO BID [facility] Last Admin: 04/03/18 09:40 Dose: 12.5 mg Cefepime HCl (Maxipime) 1 gm IV DAILY [facility] Last Admin: 04/03/18 08:23 Dose: 1 gm Cholestyramine Resin (Questran Light) 4 gm PO BID@0700,1900 [facility] Last Admin: 04/03/18 07:12 Dose: 4 gm Dextrose (Dextrose 50%) 0 ml IV UD PRN PRN Reason: Hypoglycemia Diagnostic Test (Pha) (Accu-Chek) 1 each FS [facility] Last Admin: 04/03/18 11:38 Dose: 1 each Fluoxetine HCl (Prozac) 40 mg PO DAILY [facility] Last Admin: 04/03/18 09:40 Dose: 40 mg Furosemide (Lasix) 40 mg IV BID [facility] Last Admin: 04/03/18 09:40 Dose: 40 mg Glucose (Insta-Glucose) 15 gm PO PRN PRN PRN Reason: Hypoglycemia Heparin Sodium (Porcine) (Heparin) 5,000 unit SQ Q12 [facility] Last Admin: 04/03/18 09:40 Dose: 5,000 unit Insulin Glargine (Lantus) 75 unit SQ BID [facility] Last Admin: 04/03/18 09:41 Dose: 75 unit Insulin Human Lispro (Humalog) 0 unit SQ [facility]; Protocol Last Admin: 04/03/18 11:41 Dose: 1 unit Naloxone HCl (Narcan) 0.1 mg IV Q2MIN PRN PRN Reason: Opiate Reversal Ondansetron HCl (Zofran) 4 mg IV Q4HP PRN PRN Reason: Nausea And Vomiting Sodium Chloride (Saline Flush) 10 ml IV Q8 [facility] Last Admin: 04/03/18 09:40 Dose: 10 ml Vancomycin HCl (Vancomycin Per Pharmacy) 1 order IV UD [facility] Medical - PN: A/P - Time Spent With Patient Total time spent is greater than 50% in coordination of care (as documented) at patient's floor/unit and/or counseling patient: - Narrative A/P Narrative: A/P Health care associated Pneumonia Acute hypoxic Respiratory failure Acute Systolic congestive heart failure Hyperkalemia Acute on Chronic Renal failure Anemia chronic DM type 1 with Hyperglycemia Chr wound S/p BKA Morbid Obesity HTN/HLD/Neuropathy Plan monitor on tele IV antibiotics vanco and cefepime, h/o recent abx for lower extremity wound. cultures, blood and sputum sent, await result K is stable, IV lasix 40bid, kirkpatrick in place, neg 1905 since yesterday, ssi for g lucose control, glucose level acceptable today, will adjsut insulin if goes up again. JOSE A likely cardio renal syndrome, renal function is improving with diuresis. Resume home medications as appropriate DVT hep sq diet Carb consisent, renal, cardiac, fluid restriction to 2000ml Fulll code Medical - PN: Qual - VTE Deep Vein Thrombosis/Pulmonary Embolism Present on Admission: No
[2018-04-04] MEDS: IPRATROPIUM/ALBUTEROL 3 ML AMPUL.NEB NEB SCH ×4 (00:48→19:00)
[2018-04-04 05:32] LABS: Basophils # (Auto) 0 K/mcL (0.0-0.3); Basophils % (Auto) 0.3 % (0.0-2.0); Eosinophils # (Auto) 0.4 K/mcL (0.0-0.7); Eosinophils % (Auto) 3.6 % (0.0-7.0); Granulocytes % (Auto) 77.5 % (38.0-78.0); Lymphocytes # (Auto) 1.4 K/mcL (1.5-4.8); Lymphocytes % (Auto) 11.3 % (15.5-49.0); Mean Cell Volume 85.1 fL (80.0-100.0); Mean Corpuscular HGB Conc 32.1 g/dL (31.0-36.0); Mean Corpuscular Hemoglobin 27.3 pg (26.0-34.0); Monocytes # (Auto) 0.9 K/mcL (0.1-0.9); Monocytes % (Auto) 7.3 % (1.0-12.0); Platelet Count 219 K/mcL (140-440); RBC 4.75 M/mcL (4.50-5.90); Red Cell Distribution Width 15.3 % (11.5-14.5)
[2018-04-04] MEDS: 0.9 % SODIUM CHLORIDE 10 ML SYRINGE IV SCH ×5 (05:57→21:10)
[2018-04-04 06:12] LABS: ALT/SGPT 24 U/l (0-40); Albumin 3.1 gm/dL (3.2-5.2); Albumin/Globulin Ratio 0.8 (1.0-2.3); Alkaline Phosphatase 136 U/L (39-117); Bilirubin,Direct < 0.2 mg/dL (0.0-0.3); Blood Urea Nitrogen 65 mg/dl (6-20); Gamma Glutamyl Transpeptidase 33 U/L (8-61); Uric Acid 13.8 mg/dL (2.5-8.0)
[2018-04-04] MEDS ORDERED: BENZONATATE 100 MG CAPSULE PO PRN (07:31)
[2018-04-04] MEDS: CHOLESTYRAMINE/ASPARTAME 4 GM POWD.PACK PO SCH ×2 (07:35→19:25)
[2018-04-04] MEDS: INSULIN LISPRO 1 UNIT/0.01 ML UNIT SQ SCH ×4 (07:44→21:20)
--- NOTE | 2018-04-04 08:17 | XRay Report ---
CLINICAL INFORMATION: chf follow up COMPARISON: 04/02/2018 FINDINGS: Moderate cardiomegaly is decreased slightly. Mediastinum unremarkable. Pulmonary vessels decrease in caliber and are now only mildly distended. Interstitial edema has improved. Small bibasilar infiltrates are unchanged IMPRESSION: Near complete resolution in CHF Small patchy bibasilar infiltrates - stable Interpreted and Authenticated by: Daniele Landis 04/04/18
[2018-04-04] MEDS: CARVEDILOL 12.5 MG TABLET PO SCH ×2 (09:05→21:02)
[2018-04-04] MEDS: ASPIRIN 81 MG TAB.CHEW PO SCH (09:05)
[2018-04-04] MEDS: FLUoxetine HCL 20 MG CAPSULE PO SCH (09:06)
[2018-04-04] MEDS: HEPARIN 5,000 UNIT/ML VIAL SQ SCH ×2 (09:06→21:00)
[2018-04-04] MEDS: CEFEPIME 1 GM VIAL IV SCH (09:06)
[2018-04-04] MEDS: FUROSEMIDE 40 MG/4 ML VIAL IV SCH ×2 (09:06→21:05)
[2018-04-04] MEDS: INSULIN GLARGINE, HUMAN 1 UNIT/0.01 ML SQ SCH ×2 (09:07→21:01)
--- NOTE | 2018-04-04 10:01 | Internal Med Progress Note ---
Medical - PN: Subj Patient information: Note initiated : 04/04/18 at 9:59 am Service Date, if different from initiated Date: [] Patient: Johnson Pedraza a 38 y/o M admitted on 04/02/18 for Shortness of breath. Chief Complaint: [] Interval history: Mr. Pedraza is a 38 year old M with h/o DM, CKD, chf, presents to the emergency room today for evaluation of cough that has been going on for the last 1 week. The patient was at his usual baseline health status, he developed a cough approximately a week ago that has progressively worsened, cough is with sputum production greenish to brownish sputum. No blood in sputum. This is associated with progressive shortness of breath. Patient also notes that he has gained weight. He has recently been off antibiotics for his lower extremity wound infection. The patient over the last 24 hours had worsening of his shortness of breath and therefore he came to the ER for further evaluation. The patient notes he has paroxysmal nocturnal dyspnea, decreased effort tolerance notes his effort tolerance is decreased by approximately 50%. He denies any chest pain or chest tightness. Denies any GI or complaints denies any headache palpitations. Denies any fever or chills but admits to being weak. The patient in the emergency room was afebrile temperature 97.3, heart rate 91, blood pressure 123 x 74 he was hypoxic on presentation 82% on room air which improved with 2 L of nasal cannula. The WBC count was elevated at 15,000, hemoglobin was 12.6, platelets 173. Chemistry showed sodium of 130, potassium 5.6, bicarbonate 19, creatinine is 3.6 BUN 70 glucose at 276. Chest x-ray showed moderate CHF, bibasilar infiltrates. EKG shows sinus tachycardia with left axis T wave inversions in V1 V2, low voltage. No significant change from the EKG done in November this year. 04/03 Patient seen and examined, no acute overnight events, no events on telemetry, sitting comfortably in bed tolerating p.o. diet well. He is -1900 mL since admission. Notes that his cough is better his breathing is better. He still not at baseline. Continue antibiotics and diuretics for now. 04/04 Patient seen and examined, no acute overnight events, patient is -559 0 mL since admission. Repeat chest x-ray shows resolved CHF. Still has bibasilar infiltrates. Patient feels his breathing is better however still has some cough especially when he takes deep breaths. He is still on 2-3 L of oxygen. Plan is to wean it off as tolerated. Pertinent ROS: Denies headache, dizziness Denies chest pain, palpitations improving cough and shortness of breath Denies abdominal pain, nausea or vomiting. - Constitutional Vitals: Vital Signs Temp Pulse Resp BP Pulse Ox 97.2 F 88 22 148/82 90 04/04/18 07:44 04/04/18 07:49 04/04/18 07:49 04/04/18 07:44 04/04/18 09:30 Period Temp Pulse Resp BP Sys/Harris Pulse Ox Last 24 Hr 96.9 F-97.8 F 75-88 16-24 131-149/82-100 90-100 Intake and Output 04/03/18 04/04/18 04/04/18 21:59 05:59 13:59 Intake Total 480 / 480 300 / 300 540 / 540 Output Total 1100 / 1100 2125 / 2125 Balance -620 / -620 -1825 / -1825 540 / 540 Weight 377 lb Intake & Output: Intake & Output 04/03/18 04/04/18 04/04/18 21:59 05:59 13:59 Intake Total 480 / 480 300 / 300 540 / 540 Output Total 1100 / 1100 2125 / 2125 Balance -620 / -620 -1825 / -1825 540 / 540 Weight 377 lb Intake: Oral 480 / 480 300 / 300 540 / 540 Output: Urine Catheter Amount 1100 / 1100 2125 / 2125 Other: Meal Dinner Breakfast Percent of Meal Consumed 100% 100% Feeding Ability Independent Independent Urine Appearance Clear Clear Uretheral (Kirkpatrick) Clear Urine Color Pale Pale Uretheral (Kirkpatrick) Dark Yellow Urine Odor Normal Exam: Constitutional; Afebrile, cooperative, alert, not in distress. Eyes- No icterus, , No periorbital swelling Ears- Ext ear normal, hearing normal to conversation. Neck- Midline trachea, supple Respiratory system: Air Entry equal on both sides, No crackles or wheezing, no rhonchi. (crackles resolved) CVS- Rate rhythm regular, S1,S2 heard, no gallop, no rub. Abdomen- Soft nontender abdomen, no organomegaly, no tenderness, no guarding or rigidity, CYCLE COUNTER- AOOx3, moving all extremities, no gross focal deficit noted. Medical - PN: Obj Da - Labs CBC & Chem 7: 04/04/18 03:32 04/04/18 03:32 Labs: Abnormal Lab Results 04/04/18 04/04/18 04/03/18 03:32 03:32 03:40 WBC 12.4 H Hgb 12.9 L Hct 40.4 L RDW 15.3 H MPV Gran % Lymph % (Auto) 11.3 L Gran # 9.6 H Lymph # (Auto) 1.4 L Boyd # (Auto) Sodium Potassium Chloride Carbon Dioxide 20 L 21 L Anion Gap 18.0 H 17.0 H BUN 65 H 70 H Creatinine 2.2 H 2.8 H Glucose 156 H 185 H Uric Acid 13.8 H 12.9 H Calcium AST Alkaline Phosphatase 136 H 135 H Lactate Dehydrogenase 272 H Total Creatine Kinase Myoglobin Troponin T NT-Pro-B Natriuret Pep Albumin 3.1 L 3.0 L Globulin 4.1 H 3.9 H Albumin/Globulin Ratio 0.8 L 0.8 L Triglycerides 183 H 163 H Urine Protein Hyaline Casts 04/03/18 04/02/18 04/02/18 03:04 06:14 06:14 WBC 13.6 H 14.2 H Hgb 12.6 L 12.6 L Hct 38.8 L 39.1 L RDW 15.3 H 15.1 H MPV Gran % 81.0 H 84.2 H Lymph % (Auto) 9.9 L 8.6 L Gran # 11.0 H 12.0 H Lymph # (Auto) 1.3 L 1.2 L Boyd # (Auto) Sodium 131 L Potassium Chloride Carbon Dioxide 19 L Anion Gap BUN 74 H Creatinine 3.3 H Glucose 172 H Uric Acid 12.0 H Calcium AST Alkaline Phosphatase 146 H Lactate Dehydrogenase 274 H Total Creatine Kinase Myoglobin Troponin T NT-Pro-B Natriuret Pep Albumin 2.9 L Globulin 4.3 H Albumin/Globulin Ratio 0.7 L Triglycerides Urine Protein Hyaline Casts 04/02/18 04/02/18 04/02/18 05:00 00:00 00:00 WBC Hgb Hct RDW MPV Gran % Lymph % (Auto) Gran # Lymph # (Auto) Boyd # (Auto) Sodium Potassium Chloride Carbon Dioxide Anion Gap BUN Creatinine Glucose Uric Acid Calcium AST Alkaline Phosphatase Lactate Dehydrogenase Total Creatine Kinase 224 H Myoglobin 207 H Troponin T 0.05 H* NT-Pro-B Natriuret Pep Albumin Globulin Albumin/Globulin Ratio Triglycerides Urine Protein 30 A Hyaline Casts 20 H 04/01/18 04/01/18 23:50 23:50 WBC 15.7 H Hgb 12.6 L Hct 39.7 L RDW 15.3 H MPV 10.8 H Gran % 87.3 H Lymph % (Auto) 5.6 L Gran # 13.7 H Lymph # (Auto) 0.9 L Boyd # (Auto) 1.0 H Sodium 130 L Potassium 5.6 H Chloride 94 L Carbon Dioxide 19 L Anion Gap 17.0 H BUN 70 H Creatinine 3.6 H Glucose 276 H Uric Acid Calcium 8.1 L AST 38 H Alkaline Phosphatase 147 H Lactate Dehydrogenase Total Creatine Kinase Myoglobin Troponin T NT-Pro-B Natriuret Pep 5344.0 H Albumin Globulin Albumin/Globulin Ratio Triglycerides Urine Protein Hyaline Casts Meds: Medications Acetaminophen (Tylenol) 650 mg PO Q6HP PRN PRN Reason: PAIN/FEVER > 101 Hydrocodone Bitart/Acetaminophen ([place] 5/325mg) 1 tab PO Q4HP PRN PRN Reason: pain not controlled w/ tylenol Last Admin: 04/02/18 19:00 Dose: 1 tab Albuterol/Ipratropium (Duoneb) 3 ml NEB Q6HRT [facility] Last Admin: 04/04/18 07:42 Dose: 3 ml Aspirin (Aspirin) 81 mg PO DAILY [facility] Last Admin: 04/04/18 09:05 Dose: 81 mg Benzonatate (Tessalon) 200 mg PO TIDP PRN PRN Reason: Cough Last Admin: 04/04/18 07:54 Dose: 200 mg Carvedilol (Coreg) 12.5 mg PO BID [facility] Last Admin: 04/04/18 09:05 Dose: 12.5 mg Cefepime HCl (Maxipime) 1 gm IV DAILY [facility] Last Admin: 04/04/18 09:06 Dose: 1 gm Cholestyramine Resin (Questran Light) 4 gm PO BID@0700,1900 [facility] Last Admin: 04/04/18 07:35 Dose: 4 gm Dextrose (Dextrose 50%) 0 ml IV UD PRN PRN Reason: Hypoglycemia Diagnostic Test (Pha) (Accu-Chek) 1 each FS [facility] Last Admin: 04/04/18 07:43 Dose: 1 each Fluoxetine HCl (Prozac) 40 mg PO DAILY [facility] Last Admin: 04/04/18 09:06 Dose: 40 mg Furosemide (Lasix) 40 mg IV BID [facility] Last Admin: 04/04/18 09:06 Dose: 40 mg Glucose (Insta-Glucose) 15 gm PO PRN PRN PRN Reason: Hypoglycemia Heparin Sodium (Porcine) (Heparin) 5,000 unit SQ Q12 [facility] Last Admin: 04/04/18 09:06 Dose: 5,000 unit Insulin Glargine (Lantus) 75 unit SQ BID [facility] Last Admin: 04/04/18 09:07 Dose: 75 unit Insulin Human Lispro (Humalog) 0 unit SQ [facility]; Protocol Last Admin: 04/04/18 07:44 Dose: Not Given Naloxone HCl (Narcan) 0.1 mg IV Q2MIN PRN PRN Reason: Opiate Reversal Ondansetron HCl (Zofran) 4 mg IV Q4HP PRN PRN Reason: Nausea And Vomiting Sodium Chloride (Saline Flush) 10 ml IV Q8 [facility] Last Admin: 04/04/18 09:06 Dose: 10 ml Vancomycin HCl (Vancomycin Per Pharmacy) 1 [place] [facility] [place] - PN: A/P - Time Spent With Patient Total time spent is greater than 50% in coordination of care (as documented) at patient's floor/unit and/or counseling patient: - Narrative A/P Narrative: A/P Health care associated Pneumonia Acute hypoxic Respiratory failure Acute Systolic congestive heart failure Hyperkalemia- resolved Acute on Chronic Renal failure/ cardio renal syndrome. Anemia chronic- stable DM type 1 with Hyperglycemia Chr wound- dressing change tomorrow S/p BKA Morbid Obesity HTN/HLD/Neuropathy Plan xfer to med surg status IV antibiotics vanco and cefepime, h/o recent abx for lower extremity wound. cultures, blood and sputum sent, await result, neg growth so far. wean off oxygen as tolerated Creat is trending down, 2.8 today, BUN trending down. IV lasix 40bid, kirkpatrick in place, neg [id number] since admission ssi for g lucose control, glucose level acceptable today, will adjsut insulin if goes up again. Resume home medications as appropriate DVT hep sq diet Carb consisent, renal, cardiac, fluid restriction to 2000ml Fulll code Anticipate d/c once off oxygen. Medical - PN: Qual - VTE Deep Vein Thrombosis/Pulmonary Embolism Present on Admission: No
[2018-04-04] MEDS: VANCOMYCIN 1,500 MG in 0.9 % SODIUM CHLORIDE 500 ML IV SCH (11:15)
[2018-04-04] MEDS ORDERED: ONDANSETRON 4 MG/2 ML VIAL IV PRN (11:45)
[2018-04-04] MEDS ORDERED: ACETAMINOPHEN 325 MG TABLET PO PRN (11:45)
[2018-04-04] MEDS ORDERED: NALOXONE HCL 0.4 MG/ML VIAL IV PRN (11:45)
[2018-04-04] MEDS ORDERED: HYDROcodone/APAP 5/325MG TABLET PO PRN (11:45)
[2018-04-04] MEDS ORDERED: DEXTROSE 31 GM ORAL.SUSP PO PRN (11:45)
[2018-04-04] MEDS ORDERED: DEXTROSE 50% 50 ML VIAL IV PRN (11:45)
[2018-04-04] MEDS ORDERED: VANCOMYCIN PER PHARMACY IV SCH (11:45)
[2018-04-04] MEDS: BENZONATATE 100 MG CAPSULE PO PRN (21:23)
[2018-04-05] MEDS: IPRATROPIUM/ALBUTEROL 3 ML AMPUL.NEB NEB SCH ×4 (01:08→18:57)
[2018-04-05] MEDS: 0.9 % SODIUM CHLORIDE 10 ML SYRINGE IV SCH ×3 (02:10→21:49)
[2018-04-05 06:23] LABS: Basophils # (Auto) 0 K/mcL (0.0-0.3); Basophils % (Auto) 0.2 % (0.0-2.0); Eosinophils # (Auto) 0.5 K/mcL (0.0-0.7); Eosinophils % (Auto) 3.6 % (0.0-7.0); Lymphocytes # (Auto) 1.4 K/mcL (1.5-4.8); Lymphocytes % (Auto) 10.3 % (15.5-49.0); Mean Cell Volume 85.1 fL (80.0-100.0); Mean Corpuscular HGB Conc 32.2 g/dL (31.0-36.0); Mean Corpuscular Hemoglobin 27.4 pg (26.0-34.0); Monocytes # (Auto) 0.9 K/mcL (0.1-0.9); Monocytes % (Auto) 6.9 % (1.0-12.0); Platelet Count 231 K/mcL (140-440); RBC 4.71 M/mcL (4.50-5.90); Red Cell Distribution Width 15.3 % (11.5-14.5)
[2018-04-05 06:44] LABS: ALT/SGPT 20 U/l (0-40); Albumin 2.6 gm/dL (3.2-5.2); Albumin/Globulin Ratio 0.6 (1.0-2.3); Alkaline Phosphatase 134 U/L (39-117); Bilirubin,Direct < 0.2 mg/dL (0.0-0.3); Blood Urea Nitrogen 58 mg/dl (6-20); Gamma Glutamyl Transpeptidase 32 U/L (8-61)
[2018-04-05] MEDS: CHOLESTYRAMINE/ASPARTAME 4 GM POWD.PACK PO SCH ×2 (07:29→18:52)
[2018-04-05] MEDS: BENZONATATE 100 MG CAPSULE PO PRN ×2 (07:52→19:44)
[2018-04-05] MEDS: INSULIN LISPRO 1 UNIT/0.01 ML UNIT SQ SCH ×4 (07:52→20:47)
[2018-04-05] MEDS: ASPIRIN 81 MG TAB.CHEW PO SCH (10:08)
[2018-04-05] MEDS: FLUoxetine HCL 20 MG CAPSULE PO SCH (10:08)
[2018-04-05] MEDS: CARVEDILOL 12.5 MG TABLET PO SCH ×2 (10:08→20:17)
[2018-04-05] MEDS: HEPARIN 5,000 UNIT/ML VIAL SQ SCH ×2 (10:09→20:17)
[2018-04-05] MEDS: INSULIN GLARGINE, HUMAN 1 UNIT/0.01 ML SQ SCH ×2 (10:10→20:19)
[2018-04-05] MEDS: CEFEPIME 1 GM VIAL IV SCH (11:20)
[2018-04-05] MEDS: VANCOMYCIN 1,500 MG in 0.9 % SODIUM CHLORIDE 500 ML IV SCH (11:20)
[2018-04-05] MEDS: FUROSEMIDE 40 MG/4 ML VIAL IV SCH ×2 (11:20→21:49)
--- NOTE | 2018-04-05 12:57 | Internal Med Progress Note ---
Medical - PN: Subj Patient information: Note initiated : 04/05/18 at 12:56 pm Service Date, if different from initiated Date: [] Patient: Johnson Pedraza a 38 y/o M admitted on 04/02/18 for Shortness of Breath/ Pneumonia. Chief Complaint: [] Interval history: Mr. Pedraza is a 38 year old M with h/o DM, CKD, chf, presents to the emergency room today for evaluation of cough that has been going on for the last 1 week. The patient was at his usual baseline health status, he developed a cough approximately a week ago that has progressively worsened, cough is with sputum production greenish to brownish sputum. No blood in sputum. This is associated with progressive shortness of breath. Patient also notes that he has gained weight. He has recently been off antibiotics for his lower extremity wound infection. The patient over the last 24 hours had worsening of his shortness of breath and therefore he came to the ER for further evaluation. The patient notes he has paroxysmal nocturnal dyspnea, decreased effort tolerance notes his effort tolerance is decreased by approximately 50%. He denies any chest pain or chest tightness. Denies any GI or complaints denies any headache palpitations. Denies any fever or chills but admits to being weak. The patient in the emergency room was afebrile temperature 97.3, heart rate 91, blood pressure 123 x 74 he was hypoxic on presentation 82% on room air which improved with 2 L of nasal cannula. The WBC count was elevated at 15,000, hemoglobin was 12.6, platelets 173. Chemistry showed sodium of 130, potassium 5.6, bicarbonate 19, creatinine is 3.6 BUN 70 glucose at 276. Chest x-ray showed moderate CHF, bibasilar infiltrates. EKG shows sinus tachycardia with left axis T wave inversions in V1 V2, low voltage. No significant change from the EKG done in November this year. 04/03 Patient seen and examined, no acute overnight events, no events on telemetry, sitting comfortably in bed tolerating p.o. diet well. He is -1900 mL since admission. Notes that his cough is better his breathing is better. He still not at baseline. Continue antibiotics and diuretics for now. 04/04 Patient seen and examined, no acute overnight events, patient is -559 0 mL since admission. Repeat chest x-ray shows resolved CHF. Still has bibasilar infiltrates. Patient feels his breathing is better however still has some cough especially when he takes deep breaths. He is still on 2-3 L of oxygen. Plan is to wean it off as tolerated. 04/05 Pt seen examined, no acute overnight issues, tolerating po diet well, neg [id number] since admission. Patient still on 2 L oxygen feels better, jackson not use oxygen at baseline Pertinent ROS: Denies headache, dizziness Denies chest pain, palpitations Denies cough or shortness of breath Denies abdominal pain, nausea or vomiting. - Constitutional Vitals: Vital Signs Temp Pulse Resp BP Pulse Ox 97.8 F 85 24 H 121/83 91 04/05/18 07:56 04/05/18 07:56 04/05/18 07:56 04/05/18 07:56 04/05/18 10:49 Period Temp Pulse Resp BP Sys/Harris Pulse Ox Last 24 Hr 97.6 F-98.4 F 79-85 16-28 121-154/76-101 89-94 Intake and Output 04/04/18 04/05/18 04/05/18 21:59 05:59 13:59 Intake Total 1100 / 1100 480 / 480 180 / 180 Output Total 1600 / 1600 Balance 1100 / 1100 -1120 / -1120 180 / 180 Weight 379 lb Intake & Output: Intake & Output 04/04/18 04/05/18 04/05/18 21:59 05:59 13:59 Intake Total 1100 / 1100 480 / 480 180 / 180 Output Total 1600 / 1600 Balance 1100 / 1100 -1120 / -1120 180 / 180 Weight 379 lb Intake: IV 500 / 500 Vancomycin 1,500 mg In Sodium 500 / 500 Chloride 0.9% 500 ml @ 333.3 mls/hr IV DAILY [facility] Rx#: [id number] Oral 600 / 600 480 / 480 180 / 180 Output: Urine Catheter Amount 1600 / 1600 Other: Urine Appearance Clear Uretheral (Kirkpatrick) Clear Clear Urine Color Straw Uretheral (Kirkpatrick) Pale Dark Yellow Urine Odor Normal Exam: Constitutional; Afebrile, cooperative, alert, not in distress. Respiratory system: Air Entry equal on both sides, No crackles or wheezing, no rhonchi. CVS- Rate rhythm regular, S1,S2 heard, no gallop, no rub. Abdomen- Soft nontender abdomen, no organomegaly, no tenderness, no guarding or rigidity, SPECTACLE TRUER- AOOx3, moving all extremities, no gross focal deficit noted. Medical - PN: Obj Da - Labs CBC & Chem 7: 04/05/18 04:50 04/05/18 04:50 Labs: Abnormal Lab Results 04/05/18 04/05/18 04/04/18 04:50 04:50 03:32 WBC 13.1 H Hgb 12.9 L Hct 40.1 L RDW 15.3 H Gran % 79.0 H Lymph % (Auto) 10.3 L Gran # 10.4 H Lymph # (Auto) 1.4 L Carbon Dioxide 20 L 20 L Anion Gap 18.0 H BUN 58 H 65 H Creatinine 1.9 H 2.2 H Glucose 160 H 156 H Uric Acid 13.0 H 13.8 H Alkaline Phosphatase 134 H 136 H Lactate Dehydrogenase 313 H 272 H Albumin 2.6 L 3.1 L Globulin 4.4 H 4.1 H Albumin/Globulin Ratio 0.6 L 0.8 L Triglycerides 184 H 183 H 04/04/18 04/03/18 04/03/18 03:32 03:40 03:04 WBC 12.4 H 13.6 H Hgb 12.9 L 12.6 L Hct 40.4 L 38.8 L RDW 15.3 H 15.3 H Gran % 81.0 H Lymph % (Auto) 11.3 L 9.9 L Gran # 9.6 H 11.0 H Lymph # (Auto) 1.4 L 1.3 L Carbon Dioxide 21 L Anion Gap 17.0 H BUN 70 H Creatinine 2.8 H Glucose 185 H Uric Acid 12.9 H Alkaline Phosphatase 135 H Lactate Dehydrogenase Albumin 3.0 L Globulin 3.9 H Albumin/Globulin Ratio 0.8 L Triglycerides 163 H Meds: Medications Acetaminophen (Tylenol) 650 mg PO Q6HP PRN PRN Reason: PAIN/FEVER > 101 Hydrocodone Bitart/Acetaminophen ([place] 5/325mg) 1 tab PO Q4HP PRN PRN Reason: pain not controlled w/ tylenol Albuterol/Ipratropium (Duoneb) 3 ml NEB Q6HRT [facility] Last Admin: 04/05/18 07:40 Dose: 3 ml Aspirin (Aspirin) 81 mg PO DAILY [facility] Last Admin: 10/09/18 10:08 Dose: 81 mg Benzonatate (Tessalon) 200 mg PO TIDP PRN PRN Reason: Cough Last Admin: 04/05/18 07:52 Dose: 200 mg Carvedilol (Coreg) 12.5 mg PO BID [facility] Last Admin: 04/05/18 10:08 Dose: 12.5 mg Cefepime HCl (Maxipime) 1 gm IV DAILY [facility] Last Admin: 04/05/18 11:20 Dose: 1 gm Cholestyramine Resin (Questran Light) 4 gm PO BID@0700,1900 [facility] Last Admin: 04/05/18 07:29 Dose: 4 gm Dextrose (Dextrose 50%) 0 ml IV UD PRN PRN Reason: Hypoglycemia Diagnostic Test (Pha) (Accu-Chek) 1 each FS [facility] Last Admin: 04/05/18 11:24 Dose: 1 each Fluoxetine HCl (Prozac) 40 mg PO DAILY [facility] Last Admin: 04/05/18 10:08 Dose: 40 mg Furosemide (Lasix) 40 mg IV BID [facility] Last Admin: 04/05/18 11:20 Dose: 40 mg Glucose (Insta-Glucose) 15 gm PO PRN PRN PRN Reason: Hypoglycemia Heparin Sodium (Porcine) (Heparin) 5,000 unit SQ Q12 [facility] Last Admin: 04/05/18 10:09 Dose: 5,000 unit Vancomycin HCl 1,500 mg/ (Sodium Chloride) 500 mls @ 333.3 mls/hr IV DAILY [facility] Last Admin: 04/05/18 11:20 Dose: 333 mls/hr Insulin Glargine (Lantus) 75 unit SQ BID [facility] Last Admin: 04/05/18 10:10 Dose: 75 unit Insulin Human Lispro (Humalog) 0 unit SQ [facility]; Protocol Last Admin: 04/05/18 11:41 Dose: 3 unit Naloxone HCl (Narcan) 0.1 mg IV Q2MIN PRN PRN Reason: Opiate Reversal Ondansetron HCl (Zofran) 4 mg IV Q4HP PRN PRN Reason: Nausea And Vomiting Sodium Chloride (Saline Flush) 10 ml IV Q8 [facility] Last Admin: 04/05/18 07:32 Dose: 10 ml Vancomycin HCl (Vancomycin Per Pharmacy) 1 [place] [facility] [place] - PN: A/P - Time Spent With Patient Total time spent is greater than 50% in coordination of care (as documented) at patient's floor/unit and/or counseling patient: - Narrative A/P Narrative: A/P Health care associated Pneumonia Acute hypoxic Respiratory failure Acute Systolic congestive heart failure Hyperkalemia- resolved Acute on Chronic Renal failure/ cardio renal syndrome. Anemia chronic- stable DM type 1 with Hyperglycemia Chr wound- dressing change tomorrow S/p BKA Morbid Obesity HTN/HLD/Neuropathy Plan IV antibiotics vanco and cefepime, h/o recent abx for lower extremity wound. cultures, blood and sputum sent, await result, neg growth so far. wean off oxygen as tolerated, still on 2 L , aggressive pulmonary toilet. Creat is trending down, 1.9 today, BUN trending down. IV lasix 40bid, kirkpatrick in place, neg [id number] since admission ssi for glucose control, glucose level above goal, on lantus 75 bid, low dose ssi, will change this to medium scale ssi. Resume home medications as appropriate DVT hep sq diet Carb consistent, renal, cardiac, fluid restriction to 2000ml Fulll code Anticipate d/c once off oxygen. Medical - PN: Qual - VTE Deep Vein Thrombosis/Pulmonary Embolism Present on Admission: No
--- NOTE | 2018-04-05 16:25 | Internal Med Progress Note ---
Medical - PN: Subj Patient information: Note initiated : 04/05/18 at 4:23 pm Service Date, if different from initiated Date: [] Patient: Johnson Pedraza a 38 y/o M admitted on 04/02/18 for Shortness of Breath/ Pneumonia. Chief Complaint: [] Interval history: Mr. Pedraza is a 38 year old M with h/o DM, CKD, chf, presents to the emergency room today for evaluation of cough that has been going on for the last 1 week. The patient was at his usual baseline health status, he developed a cough approximately a week ago that has progressively worsened, cough is with sputum production greenish to brownish sputum. No blood in sputum. This is associated with progressive shortness of breath. Patient also notes that he has gained weight. He has recently been off antibiotics for his lower extremity wound infection. The patient over the last 24 hours had worsening of his shortness of breath and therefore he came to the ER for further evaluation. The patient notes he has paroxysmal nocturnal dyspnea, decreased effort tolerance notes his effort tolerance is decreased by approximately 50%. He denies any chest pain or chest tightness. Denies any GI or complaints denies any headache palpitations. Denies any fever or chills but admits to being weak. The patient in the emergency room was afebrile temperature 97.3, heart rate 91, blood pressure 123 x 74 he was hypoxic on presentation 82% on room air which improved with 2 L of nasal cannula. The WBC count was elevated at 15,000, hemoglobin was 12.6, platelets 173. Chemistry showed sodium of 130, potassium 5.6, bicarbonate 19, creatinine is 3.6 BUN 70 glucose at 276. Chest x-ray showed moderate CHF, bibasilar infiltrates. EKG shows sinus tachycardia with left axis T wave inversions in V1 V2, low voltage. No significant change from the EKG done in November this year. 04/03 Patient seen and examined, no acute overnight events, no events on telemetry, sitting comfortably in bed tolerating p.o. diet well. He is -1900 mL since admission. Notes that his cough is better his breathing is better. He still not at baseline. Continue antibiotics and diuretics for now. 04/04 Patient seen and examined, no acute overnight events, patient is -559 0 mL since admission. Repeat chest x-ray shows resolved CHF. Still has bibasilar infiltrates. Patient feels his breathing is better however still has some cough especially when he takes deep breaths. He is still on 2-3 L of oxygen. Plan is to wean it off as tolerated. 04/05 Pt seen examined, no acute overnight issues, tolerating po diet well, neg [id number] since admission. Patient still on 2 L oxygen feels better, jackson not use oxygen at baseline 04/06 - Constitutional Vitals: Vital Signs Temp Pulse Resp BP Pulse Ox 97.7 F 79 20 141/84 92 04/05/18 13:12 04/05/18 13:20 04/05/18 13:20 04/05/18 13:12 04/05/18 15:32 Period Temp Pulse Resp BP Sys/Harris Pulse Ox Last 24 Hr 97.7 F-98.4 F 79-85 16-28 121-154/76-99 89-92 Intake and Output 04/05/18 04/05/18 04/05/18 05:59 13:59 21:59 Intake Total 480 / 480 300 / 300 1100 / 1100 Output Total 1600 / 1600 Balance -1120 / -1120 300 / 300 1100 / 1100 Intake & Output: Intake & Output 04/05/18 04/05/18 04/05/18 05:59 13:59 21:59 Intake Total 480 / 480 300 / 300 1100 / 1100 Output Total 1600 / 1600 Balance -1120 / -1120 300 / 300 1100 / 1100 Intake: IV 500 / 500 Vancomycin 1,500 mg In Sodium 500 / 500 Chloride 0.9% 500 ml @ 333.3 mls/hr IV DAILY [facility] Rx#: [id number] Oral 480 / 480 300 / 300 600 / 600 Output: Urine Catheter Amount 1600 / 1600 Other: Meal Breakfast Lunch Percent of Meal Consumed 100% 100% Feeding Ability Independent Urine Appearance Clear Uretheral (Kirkpatrick) Clear Urine Color Straw Uretheral (Kirkpatrick) Dark Yellow Urine Odor Normal Stool Size Small Stool Color Brown Stool Consistency Formed # Bowel Movements 1 Exam: General: Alert, Awake, No acute Distress HEENT: EOMI, CV: RRR, No murmurs, normal s1/s2 Pulm: Clear b/l, no wheezing/rhonchi/rales Abd: soft, nontender, +BS x4 Ext: no clubbing/cyanosis/edema Neuro: Alert, no focal deficits, moves all extremities Skin: warm/dry Medical - PN: Obj Da - Labs CBC & Chem 7: 04/05/18 04:50 04/05/18 04:50 Labs: Abnormal Lab Results 04/05/18 04/05/18 04/04/18 04:50 04:50 03:32 WBC 13.1 H Hgb 12.9 L Hct 40.1 L RDW 15.3 H Gran % 79.0 H Lymph % (Auto) 10.3 L Gran # 10.4 H Lymph # (Auto) 1.4 L Carbon Dioxide 20 L 20 L Anion Gap 18.0 H BUN 58 H 65 H Creatinine 1.9 H 2.2 H Glucose 160 H 156 H Uric Acid 13.0 H 13.8 H Alkaline Phosphatase 134 H 136 H Lactate Dehydrogenase 313 H 272 H Albumin 2.6 L 3.1 L Globulin 4.4 H 4.1 H Albumin/Globulin Ratio 0.6 L 0.8 L Triglycerides 184 H 183 H 04/04/18 04/03/18 04/03/18 03:32 03:40 03:04 WBC 12.4 H 13.6 H Hgb 12.9 L 12.6 L Hct 40.4 L 38.8 L RDW 15.3 H 15.3 H Gran % 81.0 H Lymph % (Auto) 11.3 L 9.9 L Gran # 9.6 H 11.0 H Lymph # (Auto) 1.4 L 1.3 L Carbon Dioxide 21 L Anion Gap 17.0 H BUN 70 H Creatinine 2.8 H Glucose 185 H Uric Acid 12.9 H Alkaline Phosphatase 135 H Lactate Dehydrogenase Albumin 3.0 L Globulin 3.9 H Albumin/Globulin Ratio 0.8 L Triglycerides 163 H Meds: Medications Acetaminophen (Tylenol) 650 mg PO Q6HP PRN PRN Reason: PAIN/FEVER > 101 Hydrocodone Bitart/Acetaminophen ([place] 5/325mg) 1 tab PO Q4HP PRN PRN Reason: pain not controlled w/ tylenol Albuterol/Ipratropium (Duoneb) 3 ml NEB Q6HRT [facility] Last Admin: 04/05/18 13:21 Dose: 3 ml Aspirin (Aspirin) 81 mg PO DAILY [facility] Last Admin: 04/05/18 10:08 Dose: 81 mg Benzonatate (Tessalon) 200 mg PO TIDP PRN PRN Reason: Cough Last Admin: 04/05/18 07:52 Dose: 200 mg Carvedilol (Coreg) 12.5 mg PO BID [facility] Last Admin: 04/05/18 10:08 Dose: 12.5 mg Cefepime HCl (Maxipime) 1 gm IV DAILY [facility] Last Admin: 04/05/18 11:20 Dose: 1 gm Cholestyramine Resin (Questran Light) 4 gm PO BID@0700,1900 [facility] Last Admin: 04/05/18 07:29 Dose: 4 gm Dextrose (Dextrose 50%) 0 ml IV UD PRN PRN Reason: Hypoglycemia Diagnostic Test (Pha) (Accu-Chek) 1 each FS ACHS [facility] Last Admin: 04/05/18 11:24 Dose: 1 each Fluoxetine HCl (Prozac) 40 mg PO DAILY [facility] Last Admin: 04/05/18 10:08 Dose: 40 mg Furosemide (Lasix) 40 mg IV BID [facility] Last Admin: 04/05/18 11:20 Dose: 40 mg Glucose (Insta-Glucose) 15 gm PO PRN PRN PRN Reason: Hypoglycemia Heparin Sodium (Porcine) (Heparin) 5,000 unit SQ Q12 [facility] Last Admin: 04/05/18 10:09 Dose: 5,000 unit Vancomycin HCl 1,500 mg/ (Sodium Chloride) 500 mls @ 333.3 mls/hr IV DAILY [facility] Last Infusion: 04/05/18 15:31 Dose: Infused Insulin Glargine (Lantus) 75 unit SQ BID [facility] Last Admin: 04/05/18 10:10 Dose: 75 unit Insulin Human Lispro (Humalog) 0 unit SQ [facility]; Protocol Naloxone HCl (Narcan) 0.1 mg IV Q2MIN PRN PRN Reason: Opiate Reversal Ondansetron HCl (Zofran) 4 mg IV Q4HP PRN PRN Reason: Nausea And Vomiting Sodium Chloride (Saline Flush) 10 ml IV Q8 [facility] Last Admin: 04/05/18 07:32 Dose: 10 ml Vancomycin HCl (Vancomycin Per Pharmacy) 1 order IV [facility] Medical - PN: A/P - Time Spent With Patient Total time spent is greater than 50% in coordination of care (as documented) at patient's floor/unit and/or counseling patient: - Narrative A/P Narrative: A: *Health care associated Pneumonia: *Acute Systolic congestive heart failure: -good diuresis *Acute hypoxic Respiratory failure: 2/2 above -now on 1L NC *Hyperkalemia: resolved *Acute on Chronic Renal failure/ cardio renal syndrome: *Anemia chronic: stable *DM I w/Hyperglycemia *Chr wound: per wound care *S/p BKA *Morbid Obesity *HTN/HLD/Neuropathy Plan: -IV antibiotics vanco and cefepime, h/o recent abx for lower extremity wound. cultures, blood and sputum sent, await result, neg growth so far. -fluid restrict -wean off oxygen as tolerated aggressive pulmonary toilet. -Creat is trending down, 1.9 today, BUN trending down. -IV lasix 40bid, kirkpatrick in place, neg [id number] since admission -ssi for glucose control, on lantus 75 bid, -Resume home medications as appropriate -ppx: hep sq Fulll code Anticipate d/c once off oxygen. Medical - PN: Qual - VTE Deep Vein Thrombosis/Pulmonary Embolism Present on Admission: No
[2018-04-06] MEDS: IPRATROPIUM/ALBUTEROL 3 ML AMPUL.NEB NEB SCH ×2 (00:43→07:05)
[2018-04-06] MEDS: BENZONATATE 100 MG CAPSULE PO PRN (00:45)
[2018-04-06 06:06] LABS: Basophils # (Auto) 0.1 K/mcL (0.0-0.3); Basophils % (Auto) 0.5 % (0.0-2.0); Eosinophils # (Auto) 0.6 K/mcL (0.0-0.7); Eosinophils % (Auto) 4.5 % (0.0-7.0); Granulocytes % (Auto) 74.3 % (38.0-78.0); Lymphocytes # (Auto) 1.8 K/mcL (1.5-4.8); Lymphocytes % (Auto) 14.5 % (15.5-49.0); Mean Cell Volume 84.5 fL (80.0-100.0); Mean Corpuscular HGB Conc 32.8 g/dL (31.0-36.0); Mean Corpuscular Hemoglobin 27.7 pg (26.0-34.0); Monocytes # (Auto) 0.8 K/mcL (0.1-0.9); Monocytes % (Auto) 6.2 % (1.0-12.0); Platelet Count 228 K/mcL (140-440); RBC 4.66 M/mcL (4.50-5.90); Red Cell Distribution Width 15.1 % (11.5-14.5)
[2018-04-06 06:51] LABS: ALT/SGPT 18 U/l (0-40); Albumin/Globulin Ratio 0.8 (1.0-2.3); Alkaline Phosphatase 120 U/L (39-117); Bilirubin,Direct < 0.2 mg/dL (0.0-0.3); Blood Urea Nitrogen 54 mg/dl (6-20); Gamma Glutamyl Transpeptidase 30 U/L (8-61); Uric Acid 13.6 mg/dL (2.5-8.0)
--- NOTE | 2018-04-06 07:01 | Internal Med Progress Note ---
Medical - PN: Subj Patient information: Note initiated : 04/06/18 at 6:55 am Service Date, if different from initiated Date: [] Patient: Johnson Pedraza a 38 y/o M admitted on 04/02/18 for Shortness of Breath/ Pneumonia. Chief Complaint: [] Interval history: Mr. Pedraza is a 38 year old M with h/o DM, CKD, chf, presents to the emergency room today for evaluation of cough that has been going on for the last 1 week. The patient was at his usual baseline health status, he developed a cough approximately a week ago that has progressively worsened, cough is with sputum production greenish to brownish sputum. No blood in sputum. This is associated with progressive shortness of breath. Patient also notes that he has gained weight. He has recently been off antibiotics for his lower extremity wound infection. The patient over the last 24 hours had worsening of his shortness of breath and therefore he came to the ER for further evaluation. The patient notes he has paroxysmal nocturnal dyspnea, decreased effort tolerance notes his effort tolerance is decreased by approximately 50%. He denies any chest pain or chest tightness. Denies any GI or complaints denies any headache palpitations. Denies any fever or chills but admits to being weak. The patient in the emergency room was afebrile temperature 97.3, heart rate 91, blood pressure 123 x 74 he was hypoxic on presentation 82% on room air which improved with 2 L of nasal cannula. The WBC count was elevated at 15,000, hemoglobin was 12.6, platelets 173. Chemistry showed sodium of 130, potassium 5.6, bicarbonate 19, creatinine is 3.6 BUN 70 glucose at 276. Chest x-ray showed moderate CHF, bibasilar infiltrates. EKG shows sinus tachycardia with left axis T wave inversions in V1 V2, low voltage. No significant change from the EKG done in November this year. 04/03 Patient seen and examined, no acute overnight events, no events on telemetry, sitting comfortably in bed tolerating p.o. diet well. He is -1900 mL since admission. Notes that his cough is better his breathing is better. He still not at baseline. Continue antibiotics and diuretics for now. 04/04 Patient seen and examined, no acute overnight events, patient is -559 0 mL since admission. Repeat chest x-ray shows resolved CHF. Still has bibasilar infiltrates. Patient feels his breathing is better however still has some cough especially when he takes deep breaths. He is still on 2-3 L of oxygen. Plan is to wean it off as tolerated. 04/05 Pt seen examined, no acute overnight issues, tolerating po diet well, neg [id number] since admission. Patient still on 2 L oxygen feels better, jackosn not use oxygen at baseline 04/06 slept ok, no overnight events. Was on room air yesterday afternoon. And was and ambulated okay on room air. But this morning he did ambulate with PT and walked rapidly and did not desaturate. Patient reports minimal cough minimal shortness of breath overall much improved. Occasional headache. Review of Systems: denies fever/chills/nausea/vomiting/chest or abdominal pain/diarrhea. Otherwise see above. - Constitutional Vitals: Vital Signs Temp Pulse Resp BP Pulse Ox 97.5 F 74 24 H 137/97 93 04/06/18 04:00 04/06/18 04:00 04/06/18 04:00 04/06/18 04:00 04/06/18 04:00 Period Temp Pulse Resp BP Sys/Harris Pulse Ox Last 24 Hr 97.5 F-98.7 F 74-87 16-28 121-141/83-97 87-93 Intake and Output 04/05/18 04/06/18 04/06/18 21:59 05:59 13:59 Intake Total 1940 / 1940 240 / 240 Output Total 1150 / 1150 1400 / 1400 Balance 790 / 790 -1160 / -1160 Weight 170.778 kg Intake & Output: Intake & Output 04/05/18 04/06/18 04/06/18 21:59 05:59 13:59 Intake Total 1940 / 1940 240 / 240 Output Total 1150 / 1150 1400 / 1400 Balance 790 / 790 -1160 / -1160 Weight 170.778 kg Intake: IV 500 / 500 Vancomycin 1,500 mg In Sodium 500 / 500 Chloride 0.9% 500 ml @ 333.3 mls/hr IV DAILY [facility] Rx#: [id number] Oral 1440 / 1440 240 / 240 Output: Urine Catheter Amount 1150 / 1150 1400 / 1400 Other: Meal Dinner Percent of Meal Consumed 100% Feeding Ability Independent Urine Appearance Clear Uretheral (Kirkpatrick) Clear Urine Color Straw Uretheral (Kirkpatrick) Straw Urine Odor Normal Stool Size Small Stool Color Brown Stool Consistency Formed Normal for Patient # Bowel Movements 1 1 Exam: General: Alert, Awake, No acute Distress HEENT: EOMI, CV: RRR, No murmurs, normal s1/s2 Pulm: some rhonchi on the left which cleared with cough, no wheezing Abd: soft, nontender, +BS x4, obese Ext: no clubbing/cyanosis/edema, BKA Neuro: Alert, no focal deficits, moves all extremities Skin: warm/dry Medical - PN: Obj Da - Labs CBC & Chem 7: 04/06/18 04:41 04/06/18 04:41 Labs: Abnormal Lab Results 04/06/18 04/06/18 04/05/18 04:41 04:41 04:50 WBC 12.4 H Hgb 12.9 L Hct 39.4 L RDW 15.1 H Gran % Lymph % (Auto) 14.5 L Gran # 9.2 H Lymph # (Auto) Carbon Dioxide 20 L Anion Gap BUN 54 H 58 H Creatinine 1.9 H 1.9 H Glucose 140 H 160 H Uric Acid 13.6 H 13.0 H Alkaline Phosphatase 120 H 134 H Lactate Dehydrogenase 262 H 313 H Albumin 3.0 L 2.6 L Globulin 3.9 H 4.4 H Albumin/Globulin Ratio 0.8 L 0.6 L Triglycerides 194 H 184 H 04/05/18 04/04/18 04/04/18 04:50 03:32 03:32 WBC 13.1 H 12.4 H Hgb 12.9 L 12.9 L Hct 40.1 L 40.4 L RDW 15.3 H 15.3 H Gran % 79.0 H Lymph % (Auto) 10.3 L 11.3 L Gran # 10.4 H 9.6 H Lymph # (Auto) 1.4 L 1.4 L Carbon Dioxide 20 L Anion Gap 18.0 H BUN 65 H Creatinine 2.2 H Glucose 156 H Uric Acid 13.8 H Alkaline Phosphatase 136 H Lactate Dehydrogenase 272 H Albumin 3.1 L Globulin 4.1 H Albumin/Globulin Ratio 0.8 L Triglycerides 183 H Meds: Medications Acetaminophen (Tylenol) 650 mg PO Q6HP PRN PRN Reason: PAIN/FEVER > 101 Hydrocodone Bitart/Acetaminophen ([place] 5/325mg) 1 tab PO Q4HP PRN PRN Reason: pain not controlled w/ tylenol Albuterol/Ipratropium (Duoneb) 3 ml NEB Q6HRT [facility] Last Admin: 04/06/18 00:43 Dose: 3 ml Aspirin (Aspirin) 81 mg PO DAILY [facility] Last Admin: 04/05/18 10:08 Dose: 81 mg Benzonatate (Tessalon) 200 mg PO TIDP PRN PRN Reason: Cough Last Admin: 04/06/18 00:45 Dose: 200 mg Carvedilol (Coreg) 12.5 mg PO BID [facility] Last Admin: 04/05/18 20:17 Dose: 12.5 mg Cefepime HCl (Maxipime) 1 gm IV DAILY [facility] Last Admin: 04/05/18 11:20 Dose: 1 gm Cholestyramine Resin (Questran Light) 4 gm PO BID@0700,1900 [facility] Last Admin: 04/05/18 18:52 Dose: 4 gm Dextrose (Dextrose 50%) 0 ml IV UD PRN PRN Reason: Hypoglycemia Diagnostic Test (Pha) (Accu-Chek) 1 each FS ACHS [facility] Last Admin: 04/05/18 20:21 Dose: 1 each Fluoxetine HCl (Prozac) 40 mg PO DAILY [facility] Last Admin: 04/05/18 10:08 Dose: 40 mg Furosemide (Lasix) 40 mg IV BID [facility] Last Admin: 04/05/18 21:49 Dose: 40 mg Glucose (Insta-Glucose) 15 gm PO PRN PRN PRN Reason: Hypoglycemia Heparin Sodium (Porcine) (Heparin) 5,000 unit SQ Q12 [facility] Last Admin: 04/05/18 20:17 Dose: 5,000 unit Vancomycin HCl 1,500 mg/ (Sodium Chloride) 500 mls @ 333.3 mls/hr IV DAILY [facility] Last Infusion: 04/05/18 15:31 Dose: Infused Insulin Glargine (Lantus) 75 unit SQ BID [facility] Last Admin: 04/05/18 20:19 Dose: 75 unit Insulin Human Lispro (Humalog) 0 unit SQ ACHS [facility]; Protocol Last Admin: 04/05/18 20:47 Dose: 6 unit Naloxone HCl (Narcan) 0.1 mg IV Q2MIN PRN PRN Reason: Opiate Reversal Ondansetron HCl (Zofran) 4 mg IV Q4HP PRN PRN Reason: Nausea And Vomiting Sodium Chloride (Saline Flush) 10 ml IV Q8 [facility] Last Admin: 04/05/18 21:49 Dose: 10 ml Vancomycin HCl (Vancomycin Per Pharmacy) 1 order IV [facility] [place] Medical - PN: A/P - Time Spent With Patient Total time spent is greater than 50% in coordination of care (as documented) at patient's floor/unit and/or counseling patient: - Narrative A/P Narrative: A: *Health care associated Pneumonia: *Acute Systolic (50%) congestive heart failure on chronic CHF: -good diuresis *Acute hypoxic Respiratory failure: 2/2 above -now on 1L NC *Hyperkalemia: resolved *Acute on Chronic Renal failure III/ cardio renal syndrome: stable *Anemia chronic: stable *DM I w/Hyperglycemia: *Chr wound: per wound care *S/p BKA: *Morbid Obesity *HTN/HLD/Neuropathy Plan: -IV antibiotics vanco and cefepime, h/o recent abx for lower extremity wound. cultures, blood and sputum sent, await result, neg growth so far. -fluid restrict -wean off oxygen as tolerated aggressive pulmonary toilet. -ambulate -IV lasix bid to qd, kirkpatrick in place, -ssi for glucose control, on lantus 75 bid, -Resume home medications as appropriate -f/u outpt with Cardiology -ppx: hep sq Fulll code Anticipate d/c once off oxygen (he did require oxygen upon d/c last year when he was in for PNA) Medical - PN: Qual - VTE Deep Vein Thrombosis/Pulmonary Embolism Present on Admission: No
[2018-04-06] MEDS ORDERED: IPRATROPIUM/ALBUTEROL 3 ML AMPUL.NEB NEB PRN (07:48)
[2018-04-06] MEDS: CHOLESTYRAMINE/ASPARTAME 4 GM POWD.PACK PO SCH ×2 (07:51→19:43)
[2018-04-06] MEDS: INSULIN LISPRO 1 UNIT/0.01 ML UNIT SQ SCH ×4 (07:51→21:18)
[2018-04-06] MEDS: 0.9 % SODIUM CHLORIDE 10 ML SYRINGE IV SCH ×3 (07:52→21:07)
[2018-04-06] MEDS: FLUoxetine HCL 20 MG CAPSULE PO SCH (09:45)
[2018-04-06] MEDS: FUROSEMIDE 40 MG/4 ML VIAL IV SCH (09:45)
[2018-04-06] MEDS: HEPARIN 5,000 UNIT/ML VIAL SQ SCH ×2 (09:45→21:03)
[2018-04-06] MEDS: INSULIN GLARGINE, HUMAN 1 UNIT/0.01 ML SQ SCH ×2 (09:45→21:05)
[2018-04-06] MEDS: CEFEPIME 1 GM VIAL IV SCH (09:45)
[2018-04-06] MEDS: CARVEDILOL 12.5 MG TABLET PO SCH ×2 (09:45→21:03)
[2018-04-06] MEDS: ASPIRIN 81 MG TAB.CHEW PO SCH (09:45)
[2018-04-06] MEDS: VANCOMYCIN 1,500 MG in 0.9 % SODIUM CHLORIDE 500 ML IV SCH (11:18)
--- NOTE | 2018-04-06 14:00 | Discharge Summary ---
Medical - DS: Prov Patient information: Note initiated : 04/06/18 at 1:54 pm Service Date, if different from initiated Date: [] Patient: Johnson Pedraza 38 y/o M admitted on 04/02/18 for Shortness of Breath/ Pneumonia. Chief Complaint: [] Date of admission: 04/02/18 03:26 Discharge date: 04/07/18 Primary care physician: Nery Santos Medical - DS: Meds - Discharge Medications Prescriptions: Cefdinir 300 mg PO BID #4 capsule Active and Home Medications: Home Medications cholestyramine (with sugar) 4 gram oral powder 4 g PO BID each 05/27/15 [ History Confirmed 04/02/18 Last Taken 04/01/18] fluoxetine 40 mg capsule 40 mg PO DAILY #60 cap 03/30/16 [Rx Confirmed 04/02/18 Last Taken 04/01/18] Accu-Chek 1 each FS AC 04/23/17 [History Confirmed 04/02/18 Last Taken 12/07/17] Aspirin [Adult Low Dose Aspirin EC] 81 mg PO DAILY 04/24/17 [History Confirmed 04/02/18 Last Taken 04/01/18] insulin glargine (U-100) 100 unit/mL subcutaneous solution 75 unit SUB-Q BID ml 06/09/17 [History Confirmed 04/02/18 Last Taken 04/01/18] carvedilol 12.5 mg tablet 12.5 mg PO BID #180 tab 12/06/17 [Rx Confirmed Last Taken 04/01/18] losartan 25 mg tablet 25 mg PO QDAY 30 Days #30 tab 01/10/18 [Rx Confirmed 04/02 Last Taken 04/01/18] insulin NPH isophane U-100 human 100 unit/mL subcutaneous suspension See Label Instructions SUB-Q TID PRN ml 01/26/18 [History Confirmed 04/02/18 Last Taken 04/01/18 12:00] furosemide 20 mg tablet 40 mg PO BID #120 tab 02/10/18 [Rx Confirmed 04/02/18 Last Taken 04/01/18] ascorbic acid (vitamin C) 1,000 mg tablet 1 g PO QDAY tab 03/08/18 [History Confirmed 04/02/18 Last Taken 04/01/18] cholecalciferol (vitamin D3) 2,000 unit capsule 2,000 unit PO QDAY #30 cap 03/08 [Rx Confirmed 04/02/18 Last Taken 04/01/18] ferrous sulfate 325 mg (65 mg iron) tablet 325 mg PO QDAY tab 03/08/18 [ History Confirmed 04/02/18 Last Taken 04/01/18] zinc gluconate 100 mg tablet 240 mg PO QDAY tab 03/08/18 [History Confirmed 05/15 Last Taken Unknown] Medical - DS: Hosp Hospital course: Mr. Pedraza is a 38 year old M Mr. Pedraza is a 38 year old M with h/o DM, CKD, chf, presents to the emergency room today for evaluation of cough that has been going on for the last 1 week. The patient was at his usual baseline health status, he developed a cough approximately a week ago that has progressively worsened, cough is with sputum production greenish to brownish sputum. No blood in sputum. This is associated with progressive shortness of breath. Patient also notes that he has gained weight. He has recently been off antibiotics for his lower extremity wound infection. The patient over the last 24 hours had worsening of his shortness of breath and therefore he came to the ER for further evaluation. The patient notes he has paroxysmal nocturnal dyspnea, decreased effort tolerance notes his effort tolerance is decreased by approximately 50%. He denies any chest pain or chest tightness. Denies any GI or complaints denies any headache palpitations. Denies any fever or chills but admits to being weak. The patient in the emergency room was afebrile temperature 97.3, heart rate 91, blood pressure 123 x 74 he was hypoxic on presentation 82% on room air which improved with 2 L of nasal cannula. The WBC count was elevated at 15,000, hemoglobin was 12.6, platelets 173. Chemistry showed sodium of 130, potassium 5.6, bicarbonate 19, creatinine is 3.6 BUN 70 glucose at 276. Chest x-ray showed moderate CHF, bibasilar infiltrates. EKG shows sinus tachycardia with left axis T wave inversions in V1 V2, low voltage. No significant change from the EKG done in November this year. 04/03 Patient seen and examined, no acute overnight events, no events on telemetry, sitting comfortably in bed tolerating p.o. diet well. He is -1900 mL since admission. Notes that his cough is better his breathing is better. He still not at baseline. Continue antibiotics and diuretics for now. 04/04 Patient seen and examined, no acute overnight events, patient is -559 0 mL since admission. Repeat chest x-ray shows resolved CHF. Still has bibasilar infiltrates. Patient feels his breathing is better however still has some cough especially when he takes deep breaths. He is still on 2-3 L of oxygen. Plan is to wean it off as tolerated. 04/05 Pt seen examined, no acute overnight issues, tolerating po diet well, neg [id number] since admission. Patient still on 2 L oxygen feels better, jackson not use oxygen at baseline 04/06 slept ok, no overnight events. Was on room air yesterday afternoon. And was and ambulated okay on room air. But this morning he did ambulate with PT and walked rapidly and did not desaturate. Patient reports minimal cough minimal shortness of breath overall much improved. Occasional headache. Adequate oxygen at rest but typically will need oxygen when he walks and exerts himself. He did need oxygen last year after his discharge with pneumonia as well for a few weeks. Patient is feeling well feeling much better stable for discharge Discharge diagnosis: Pneumonia acute CHF acute respiratory failure AK I - Time Spent with Patient Total time spent providing and/or coordinating discharge services: Greater than 30 minutes Medical - DS: Exam - Constitutional Vitals: Vital Signs Temp Pulse Pulse Resp BP BP Pulse Ox 04/06/18 12:00 97.5 F 67 24 H 129/83 91 04/06/18 07:05 97.5 F 69 24 H 133/86 95 04/06/18 04:00 97.5 F 74 24 H 137/97 93 04/06/18 00:41 98.7 F 79 24 H 131/86 90 04/05/18 19:48 93 04/05/18 19:46 98.4 F 80 28 H 134/85 87 L 04/05/18 19:00 87 18 04/05/18 18:55 91 04/05/18 16:45 97.5 F 78 24 H 126/84 91 04/05/18 15:32 92 Intake and Output 04/05/18 04/06/18 04/06/18 21:59 05:59 13:59 Intake Total 1940 / 1940 240 / 240 360 / 360 Output Total 1150 / 1150 1400 / 1400 1300 / 1300 Balance 790 / 790 -1160 / -1160 -940 / -940 Intake: IV 500 / 500 Vancomycin 1,500 mg In Sodium 500 / 500 Chloride 0.9% 500 ml @ 333.3 mls/hr IV DAILY [facility] Rx#: [id number] Oral 1440 / 1440 240 / 240 360 / 360 Output: Urine Catheter Amount 1150 / 1150 1400 / 1400 1300 / 1300 Other: Meal Dinner Lunch Percent of Meal Consumed 100% 100% Feeding Ability Independent Independent Urine Appearance Clear Uretheral ([place]) Clear Clear Urine Color Straw Uretheral ([place]) Straw Bright Yellow Urine Odor Normal Stool Size Small Stool Color Brown Stool Consistency Formed Normal for Patient # Bowel Movements 1 1 Weight 170.778 kg Medical - DS: Data Labs on day of discharge: Labs from last 24 hours 04/06/18 04/06/18 04:41 04:41 WBC 12.4 H RBC 4.66 Hgb 12.9 L Hct 39.4 L MCV 84.5 MCH 27.7 MCHC 32.8 RDW 15.1 H Plt Count 228 MPV 8.7 Gran % 74.3 Lymph % (Auto) 14.5 L [place] % (Auto) 6.2 Eos % (Auto) 4.5 Baso % (Auto) 0.5 Gran # 9.2 H Lymph # (Auto) 1.8 [place] # (Auto) 0.8 Eos # (Auto) 0.6 Baso # (Auto) 0.1 Sodium 139 Potassium 4.3 Chloride 101 Carbon Dioxide 23 Anion Gap 15.0 BUN 54 H Creatinine 1.9 H GFR Calculation 43 Glucose 140 H Uric Acid 13.6 H Calcium 9.2 Phosphorus 3.9 Magnesium 2.0 Total Bilirubin 0.2 Direct Bilirubin < 0.2 GGT 30 AST 18 ALT 18 Alkaline Phosphatase 120 H Lactate Dehydrogenase 262 H Total Protein 6.9 Albumin 3.0 L Globulin 3.9 H Albumin/Globulin Ratio 0.8 L Triglycerides 194 H Preliminary micro results at discharge 04/02/18 06:14 Blood Culture - Preliminary Blood 04/02/18 02:30 Blood Culture - Preliminary Blood Medical - DS: A/P - Patient/Caregiver Discharge Instructions Activity: as per physical therapy Diet: Cardiac, Consistent Carbohydrate Additional Instructions: Referral to see cardiology for systolic heart failure 1-2-week Prescriptions: Cefdinir 300 mg PO BID #4 capsule - Follow up Plan Follow up with: Wilfrid Zamora MD [Physician] - (follow up at wound healing in 1 week as established pateint) Nery Santos MD [Primary Care Provider] - 04/07/18 9:30 am Disposition: Home, Self-Care Prognosis: Fair Rehab Potential: Fair Medical - DS: Qual - VTE Deep Vein Thrombosis/Pulmonary Embolism Present on Admission: No
[2018-04-06 15:16] LABS: proBNP 458.1 pg/ml (0-125)
[2018-04-07] MEDS: 0.9 % SODIUM CHLORIDE 10 ML SYRINGE IV SCH ×2 (05:29→12:23)
[2018-04-07] MEDS: BENZONATATE 100 MG CAPSULE PO PRN (05:34)
[2018-04-07 06:48] LABS: ALT/SGPT 18 U/l (0-40); Albumin/Globulin Ratio 0.7 (1.0-2.3); Alkaline Phosphatase 119 U/L (39-117); Bilirubin,Direct < 0.2 mg/dL (0.0-0.3); Blood Urea Nitrogen 49 mg/dl (6-20); Gamma Glutamyl Transpeptidase 33 U/L (8-61); Uric Acid 12.9 mg/dL (2.5-8.0)
--- NOTE | 2018-04-07 07:01 | XRay Report ---
CLINICAL INFORMATION: f/u pna/chf COMPARISON: 04/04/2018 FINDINGS: Mild cardiomegaly is unchanged. Mediastinum is unremarkable. Pulmonary vessels are normal. Moderate patchy infiltrate has developed in the left perihilar region. Moderate patchy bibasilar infiltrates show equivocal improvement. IMPRESSION: A patchy left upper lobe infiltrate - new. Patchy bibasilar infiltrates stable or perhaps minimally improved. Consider aspiration Interpreted and Authenticated by: Daniele Landis 04/07/18
[2018-04-07] MEDS: INSULIN LISPRO 1 UNIT/0.01 ML UNIT SQ SCH ×2 (07:05→11:26)
[2018-04-07] MEDS: CHOLESTYRAMINE/ASPARTAME 4 GM POWD.PACK PO SCH (07:09)
[2018-04-07] MEDS ORDERED: FUROSEMIDE 40 MG/4 ML VIAL IV SCH (09:00)
[2018-04-07] MEDS: ASPIRIN 81 MG TAB.CHEW PO SCH (09:42)
[2018-04-07] MEDS: FLUoxetine HCL 20 MG CAPSULE PO SCH (09:42)
[2018-04-07] MEDS: CARVEDILOL 12.5 MG TABLET PO SCH (09:42)
[2018-04-07] MEDS: HEPARIN 5,000 UNIT/ML VIAL SQ SCH (09:43)
[2018-04-07] MEDS: VANCOMYCIN 1,500 MG in 0.9 % SODIUM CHLORIDE 500 ML IV SCH (09:44)
[2018-04-07] MEDS: INSULIN GLARGINE, HUMAN 1 UNIT/0.01 ML SQ SCH (09:44)
[2018-04-07] MEDS: CEFEPIME 1 GM VIAL IV SCH (09:44)
== END 2018-04-07 15:40 | disposition home or self-care (01) | DRG 193 ==
LOC: ED 23:43 → ICU 04-02 03:26 → MEDSUR 04-04 18:22
PROVIDERS: ADMIT Internal Medicine; ATTEND Internal Medicine
CPT/HCPCS: 84145; 93306; 94761; 97161; 97167; 99223; 99231; A4340; A6197; J0692; J1644; J1815; J1817; J1940; J3370; J7040; J7620; J7620-GY

== ENCOUNTER 2020-12-25 22:26 | Observation (INO) ==
[2020-12-25 23:21] LABS: Basophils # (Auto) 0.08 K/mcL (0.00-0.20); Basophils % (Auto) 0.8 % (0.0-2.0); Eosinophils # (Auto) 0.07 K/mcL (0.00-0.70); Eosinophils % (Auto) 0.7 % (0.0-7.0); Hematocrit 58.9 % (41.0-55.0); Hemoglobin 19.4 g/dL (13.5-16.5); Lymphocytes # (Auto) 1.02 K/mcL (1.50-4.80); Lymphocytes % (Auto) 9.6 % (15.0-49.0); Mean Cell Volume 88.4 fL (80.0-100.0); Mean Corpuscular HGB Conc 32.9 g/dL (31.0-36.0); Mean Platelet Volume 12.1 fL (7.4-10.4); Monocytes # (Auto) 0.48 K/mcL (0.10-0.90); Monocytes % (Auto) 4.5 % (1.0-12.0); Neutrophils % (Auto) 84.4 % (38.0-78.0); Platelet Count 151 K/mcL (140-440); RBC 6.66 M/mcL (4.50-5.90); Red Cell Distribution Width 15.7 % (11.5-14.5); WBC 10.6 K/mcL (4.5-11.0)
--- NOTE | 2020-12-25 23:32 | EKG ---
[facility] Test Date: 2020-12-25 Pat Name: Johnson Pedraza Department: ED Room: Gender: Male [employer]: : 1980 Requested By: Sukhdeep Combs Order Number: [id number] Reading MD: Zay Trejo M.D. Measurements Intervals [place] Rate: 101 P: -23 VT: 184 QRS: 253 QRSD: 111 T: 62 QT: 340 QTc: 441 Interpretive Statements Sinus tachycardia LAD, consider left anterior fascicular block Consider anterior infarct Borderline ST depression, lateral leads Electronically Signed On 12-25-2020 23:32:43 PDT by Zay Trejo M.D. /[id number]
[2020-12-25 23:40] LABS: proBNP 510.5 pg/mL (<125.0)
--- NOTE | 2020-12-25 23:41 | Emergency Department Note ---
Weakness HPI General Chief complaint: Weakness Stated complaint: weakness Time Seen by Provider: 12/25/20 23:29 Source: patient Mode of arrival: wheelchair Limitations: physical limitation (Morbid obesity) History of Present Illness HPI Narrative: Narrative: Patient presents for evaluation of generalized weakness and worsening shortness of breath. The patient has an underlying history of dilated cardiomyopathy. The patient has congestive heart failure and takes Lasix 40 mg twice a day. His last echo in the medical record shows an EF of 45 to 50%. Patient reports over last 2 to 3 days he is have progressive worsening weakness. He also reports shortness of breath made worse with exertion. He reports a mild nonproductive cough. Denies fevers or chills. Denies sputum production. No nausea or vomiting. He denies any chest pain or chest tightness. No abdominal pain. Symptoms are constant. Made worse with exertion. Related Data Home Medications Medication Instructions Recorded Confirmed cholestyramine (with sugar) 4 gram 4 g PO BID each 05/27/15 10/25/20 oral powder Accu-Chek 1 each FS AC 04/23/17 10/25/20 aspirin 81 mg PO DAILY 04/24/17 10/25/20 insulin NPH isoph U-100 human 100 See Rx Instructions SUB-Q TID PRN 07/19/20 10/25/20 unit/mL subcutaneous suspension ml insulin glargine 100 unit/mL 40 unit SUB-Q BID ml 07/19/20 10/25/20 subcutaneous solution losartan 50 mg tablet 50 mg PO QDAY 10/25/20 10/25/20 Previous Rx's Medication Instructions Recorded fluoxetine 40 mg capsule 40 mg PO DAILY #60 cap 03/30/16 carvedilol 12.5 mg tablet 12.5 mg PO BID #180 tab 12/19/18 furosemide 40 mg tablet 40 mg PO BID #60 tab 07/02/20 empagliflozin 10 mg tablet 10 mg PO QAM #30 tab 10/25/20 Allergies Allergy/AdvReac Type Severity Reaction Status Date / Time Amoxicillin Allergy Intermediate Swelling, Verified 10/25/20 10:40 Rash ARTURO Inhibitors AdvReac Severe Other Verified 10/25/20 10:40 metformin AdvReac Intermediate Diarrhea Verified 10/25/20 11:45 silver-containing garments AdvReac Mild Redness of Uncoded 07/19/20 10:05 Skin Review of Systems ROS ROS Narrative: Narrative: All systems ED: reviewed and negative except as stated. 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) On home oxygen therapy (Chronic) Cataract, nuclear sclerotic, both eyes (Chronic) Depression, major, recurrent, moderate (Chronic) Obesity hypoventilation syndrome (Chronic) Dependent edema (Chronic) CHF with right heart failure (Chronic) Xerosis of skin (Chronic) 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, left eye (Chronic) 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, right eye (Chronic) Type 2 diabetes mellitus with polyneuropathy (Chronic) DM (diabetes mellitus), type 2 with peripheral vascular complications (Chronic) Diabetic ulcer of left foot (Chronic) Acute osteomyelitis of left foot (Chronic) Diabetic foot ulcer (Chronic) Diabetic neuropathy (Chronic) Type 2 diabetes mellitus with renal complication (Chronic) Type 2 diabetes mellitus with neurological complications (Chronic) ANTHONY (obstructive sleep apnea) (Chronic) Tinea pedis (Chronic) Hypertensive heart and chronic kidney disease with heart failure and stage 1 through stage 4 chronic kidney disease, or unspecified chronic kidney disease (Chronic) Heart failure, unspecified (Chronic) 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) MCFP (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 insulin (Chronic) 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) Tinea unguium (Chronic) Surgical operation with anastomosis, bypass or graft as the cause of abnormal reaction of the patient, or of later complication, without mention of misadventure at the time of the procedure (Chronic) Other complications of skin graft (allograft) (autograft) (Chronic) 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) Type 2 diabetes mellitus with foot ulcer (Chronic) Proteinuria (Chronic) Cellulitis of left lower limb (Chronic) Cough (Chronic) Cataracts, bilateral (Chronic) Obesity (Chronic) Anemia (Chronic) Other specified conditions influencing health status (Chronic) Abrasion (Chronic) Superficial injury of foot and toes (Chronic) Other specified disorder of skin (Chronic) Dermatomycosis, unspecified (Chronic) Ulcer of other part of foot (Chronic) Ulcer of lower limb (Chronic) Chronic ulcer of skin (Chronic) Contact dermatitis and other eczema, due to unspecified cause (Chronic) Sec DM wo cmp nt st uncn (Chronic) Micturition syncope (Acute) Foot ulcer due to secondary DM (Chronic) Acute kidney injury (Chronic) Acute on chronic renal failure (Chronic) Sepsis affecting skin (Chronic) Chronic kidney disease, stage III (moderate) (Acute) Abnormal ANCA test (Acute) Diabetes mellitus, type II, insulin dependent (Chronic) Severe obstructive sleep apnea (Chronic) Congestive heart failure (Acute) Hypertensive renal disease (Chronic) Edema (Chronic) Chronic kidney disease, stage III (moderate) (Chronic) H/O amputation of lesser toe (Chronic) Amputation of right lower extremity below knee (Chronic) Depression (Chronic) Morbid obesity (Chronic) Hypertension, essential (Chronic) Hyperlipidemia (Chronic) Hyperkalemia (Chronic) Medical History (Updated 12/26/20 @ 01:55 by Sukhdeep Combs MD) Abnormal ANCA test Abrasion Abrasion or friction burn without mention of injection Acquired absence of left foot Acquired absence of right leg below knee Acute osteomyelitis of left foot Amputation of right lower extremity below knee 2012 Anemia Cataract, nuclear sclerotic, both eyes Cataracts, bilateral Cellulitis of left lower limb CHF with right heart failure Chronic kidney disease, stage III (moderate) Best described as diabetic nephropathy Slowly progressive loss of GFR Chronic kidney disease, stage III (moderate) Chronic ulcer of skin Congestive heart failure Contact dermatitis and other eczema, due to unspecified cause Cough Dependent edema Depression 2013 Depression, major, recurrent, moderate Dermatomycosis, unspecified Diabetes mellitus type 1 2000 Diabetic foot ulcer Diabetic neuropathy Diabetic ulcer of left foot DM (diabetes mellitus), type 2 with peripheral vascular complications Edema Heart failure, unspecified Hyperkalemia Hyperlipidemia Hypertension, essential Hypertensive heart and chronic kidney disease with heart failure and stage 1 through stage 4 chronic kidney disease, or unspecified chronic kidney disease Stable GFR between 30 and 40 cc/min Nonnephrotic range proteinuria Hypertensive heart and kidney disease w/ CKD (chronic kidney disease) Blood pressure well controlled with current medications Hypertensive renal disease Hypoxia MCFP (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 aspirin MCFP (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 insulin Micturition syncope Morbid obesity Non-pressure chronic ulcer of other part of left foot with necrosis of bone Obesity Obesity hypoventilation syndrome On home oxygen therapy ANTHONY (obstructive sleep apnea) Other complications of skin graft (allograft) (autograft) Other specified conditions influencing health status Other specified disorder of skin Peripherally inserted central venous catheter in situ Productive cough Proteinuria Sec DM wo cmp nt st uncn Superficial injury of foot and toes Surgical operation with anastomosis, bypass or graft as the cause of abnormal reaction of the patient, or of later complication, without mention of misadventure at the time of the procedure Tinea pedis Tinea unguium Type 2 diabetes mellitus with diabetic chronic kidney disease Nonnephrotic range proteinuria on low-dose ARB suggests an element of diabetic renal disease Type 2 diabetes mellitus with foot ulcer Type 2 diabetes mellitus with neurological complications Type 2 diabetes mellitus with polyneuropathy Type 2 diabetes mellitus with renal complication 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, left eye 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, right eye Type 2 DM with CKD stage 3 and hypertension Patient's blood pressure well controlled with multiple medications. Goal BP 130/80 With his current diuresis his blood pressure is on the low side so I would reduce his losartan to 1/2 tablet once a day Ulcer of lower limb Ulcer of other part of foot Xerosis of skin Foot Surgical History H/O amputation of lesser toe 2010 middle left toe Lower limb amputation status (03/26/17) Third toe, left foot, 2012 Fourth/fifth toe amputation on left, 03/26/17 Lower limb amputation, below knee (12/28/12) Right Status post nail surgery (05/20/16) Toenail removal, left great and 4th, non permanent Family History Mother Arthritis Seizure Disorder of thyroid Diabetes mellitus Tuberculosis Vision problems Father Diabetes mellitus Essential hypertension Myocardial Infarction Cerebrovascular accident (CVA) Heart disease Kidney disease Tuberculosis High cholesterol Sister Migraine Disorder of thyroid Family/Other Tuberculosis Sibling, unspecified Social History Smoking Status: Never smoker Alcohol Intake Frequency: does not drink Substance Use: does not use Exam Narrative Narrative: Narrative: General Limitations: physical limitation (Morbid obesity) General appearance: Present alert and in no apparent distress Head Head: Present atraumatic, normocephalic and normal inspection Eye Eye: Present normal appearance and EOMI; Absent conjunctival injection ENT ENT: Present normal exam and mucous membranes moist Neck Neck: Present normal inspection and trachea midline Respiratory Respiratory: Present normal lung sounds bilaterally and rales/crackles (Crackles in the bases bilaterally); Absent respiratory distress Cardiovascular Cardiovascular: Present regular rate, normal rhythm and normal heart sounds Adbominal Abdominal: Present soft; Absent distention, tenderness, guarding and rebound Extremities Extremities: Present normal inspection; Absent tenderness Back Back: Present normal inspection; Absent tenderness Neurological Neurological: Present alert, oriented X3 and CN II-XII intact; Absent motor sensory deficit Psychiatric Psychiatric: Present normal affect and normal mood Skin Skin: Present warm (WNL) and dry; Absent rash Course Vital Signs Vital signs: Vital Signs Temperature 98.1 F 12/25/20 22:27 Pulse Rate 105 H 12/25/20 22:27 Respiratory Rate 18 12/25/20 22:27 Blood Pressure 151/97 12/25/20 22:27 Pulse Oximetry (%) 75 L 12/25/20 22:27 Temperature 98.1 F 12/25/20 22:27 Pulse Rate 94 H 12/26/20 01:03 Respiratory Rate 32 H 12/26/20 01:03 Blood Pressure 116/69 12/26/20 01:01 Pulse Oximetry (%) 94 12/26/20 01:03 [facility] Narrative Medical decision making narrative: Narrative: The patient presents for generalized weakness and shortness of breath. Clinically the patient has crackles in the bases and was noted to be hypoxic on room air. Chest x-ray did show some mild vascular congestion consistent with CHF exacerbation. The BNP is also slightly elevated. Patient's blood sugar was noted to be elevated at 468. The patient's CO2 is slightly diminished at 20. There is a mild anion gap at 17. The patient's BUN and creatinine is slightly increased from his baseline at 50 and 2.7. The patient's venous pH is normal. There are no ketones in the urine and the beta hydroxybutyrate is within normal limits. I do not see any evidence to suggest diabetic ketoacidosis. The patient's blood sugar was treated with IV insulin bolus. The patient CHF was treated with IV Lasix bolus. As the patient is hypoxic and his blood sugar is significantly elevated I believe he will benefit from admission for further optimization of his volume and blood sugar control. I have discussed the case with the admitting hospitalist, Dr. Uribe. We will admit to the medical floor Lab Data Lab results reviewed: Yes I reviewed the patient's lab results. Result diagrams: 12/25/20 22:38 12/25/20 22:38 Labs: Lab Results 12/25/20 12/25/20 12/25/20 Range/Units 22:31 22:38 22:38 WBC 10.6 (4.5-11.0) K/mcL RBC 6.66 H (4.50-5.90) M/mcL Hgb 19.4 H (13.5-16.5) g/dL Hct 58.9 H (41.0-55.0) % MCV 88.4 (80.0-100.0) fL MCH 29.1 (26.0-34.0) pg MCHC 32.9 (31.0-36.0) g/dL RDW 15.7 H (11.5-14.5) % Plt Count 151 (140-440) K/mcL MPV 12.1 H (7.4-10.4) fL Neut % (Auto) 84.4 H (38.0-78.0) % Lymph % (Auto) 9.6 L (15.0-49.0) % Grant % (Auto) 4.5 (1.0-12.0) % Eos % (Auto) 0.7 (0.0-7.0) % Baso % (Auto) 0.8 (0.0-2.0) % Lymph # (Auto) 1.02 L (1.50-4.80) K/mcL Grant # (Auto) 0.48 (0.10-0.90) K/mcL Eos # (Auto) 0.07 (0.00-0.70) K/mcL Baso # (Auto) 0.08 (0.00-0.20) K/mcL Absolute Neutrophils 8.93 H (1.80-8.00) K/mcL ABG Methemoglobin (0.4-1.5) % VBG pH (7.32-7.42) U VBG pCO2 (41.0-51.0) mmHg VBG pO2 (25.0-40.0) mmHg VBG HCO3 (24.0-28.0) mmol/L VBG Total CO2 (25.0-29.0) mmol/L VBG O2 Saturation (40.0-70.0) % VBG Base Excess (-2-3) Carboxyhemoglobin (0.0-1.5) % THgb Total Hemoglobin (13.5-16.5) gm/Dl Sodium 124 L (133-145) mmol/L Potassium 5.1 (3.3-5.1) mmol/L Chloride 87 L (96-108) mmol/L Carbon Dioxide 20 L (22-30) mmol/L Anion Gap 17.0 H (8.0-16.0) BUN 50 H (6-20) mg/dL Creatinine 2.7 H (0.7-1.2) mg/dL GFR Calculation 28 Glucose 468 H* (70-105) mg/dL Calcium 9.0 (8.6-10.4) mg/dL Total Bilirubin 0.5 (0.1-1.0) mg/dL AST 24 (<40) U/L ALT 17 (<40) U/L Alkaline Phosphatase 157 H (39-117) U/L Troponin T 0.03 H (<0.03) ng/mL NT-Pro-B Natriuret Pep 510.5 H (<125.0) pg/mL Total Protein 7.5 (5.9-8.4) gm/dL Albumin 3.9 (3.2-5.2) gm/dL Globulin 3.6 (2.2-3.7) gm/dL Albumin/Globulin Ratio 1.1 (1.0-2.3) Beta-Hydroxybutyrate (<0.27) mmol/L 12/26/20 12/26/20 Range/Units 00:28 00:28 WBC (4.5-11.0) K/mcL RBC (4.50-5.90) M/mcL Hgb (13.5-16.5) g/dL Hct (41.0-55.0) % MCV (80.0-100.0) fL MCH (26.0-34.0) pg MCHC (31.0-36.0) g/dL RDW (11.5-14.5) % Plt Count (140-440) K/mcL MPV (7.4-10.4) fL Neut % (Auto) (38.0-78.0) % Lymph % (Auto) (15.0-49.0) % Grant % (Auto) (1.0-12.0) % Eos % (Auto) (0.0-7.0) % Baso % (Auto) (0.0-2.0) % Lymph # (Auto) (1.50-4.80) K/mcL Grant # (Auto) (0.10-0.90) K/mcL Eos # (Auto) (0.00-0.70) K/mcL Baso # (Auto) (0.00-0.20) K/mcL Absolute Neutrophils (1.80-8.00) K/mcL ABG Methemoglobin 0.3 L (0.4-1.5) % VBG pH 7.36 (7.32-7.42) U VBG pCO2 37.2 L (41.0-51.0) mmHg VBG pO2 57.5 H (25.0-40.0) mmHg VBG HCO3 20.5 L (24.0-28.0) mmol/L VBG Total CO2 21.6 L (25.0-29.0) mmol/L VBG O2 Saturation 87.4 H (40.0-70.0) % VBG Base Excess -4 L (-2-3) Carboxyhemoglobin 3.4 H (0.0-1.5) % THgb Total Hemoglobin 19.2 H (13.5-16.5) gm/Dl Sodium (133-145) mmol/L Potassium (3.3-5.1) mmol/L Chloride (96-108) mmol/L Carbon Dioxide (22-30) mmol/L Anion Gap (8.0-16.0) BUN (6-20) mg/dL Creatinine (0.7-1.2) mg/dL GFR Calculation Glucose (70-105) mg/dL Calcium (8.6-10.4) mg/dL Total Bilirubin (0.1-1.0) mg/dL AST (<40) U/L ALT (<40) U/L Alkaline Phosphatase (39-117) U/L Troponin T (<0.03) ng/mL NT-Pro-B Natriuret Pep (<125.0) pg/mL Total Protein (5.9-8.4) gm/dL Albumin (3.2-5.2) gm/dL Globulin (2.2-3.7) gm/dL Albumin/Globulin Ratio (1.0-2.3) Beta-Hydroxybutyrate 0.22 (<0.27) mmol/L Radiology Data Radiology results reviewed: Yes I reviewed the patient's radiology results. EKG Data EKG #1: EKG attestation: Yes I reviewed and interpreted this EKG., Yes There are no EKG findings of acute coronary syndrome and Yes This EKG will be read by anger control counselor EKG results narrative: Normal sinus rhythm, rate 101, normal ST segment, no ectopy, normal QRS Rhythm Strip Data Rhythm Strip Rate: 100 Interpretation: Normal sinus rhythm Pulse Oximetry Data Pulse Ox %: 75 Interpretation: Room air, hypoxia Discharge Plan Patient/Caregiver Discharge Instructions Pt seen by DIRECTOR APPOINTMENT/PA only: No Clinical Impression: Congestive heart failure, Diabetes mellitus out of control Patient Disposition: Xfer As Inpt ([facility]) Follow up with: Nery Santos MD [Primary Care Provider] - Prescriptions: No Action carvedilol 12.5 mg tablet 12.5 mg PO BID Qty: 180 RF: 1 furosemide 40 mg tablet 40 mg PO BID Qty: 60 RF: 11 fluoxetine 40 MG capsule 40 mg PO DAILY Qty: 60 RF: 3 cholestyramine (with sugar) 4 gram powder 4 g PO BID RF: 0 Lantus U-100 Insulin 100 unit/mL solution 40 unit SUB-Q BID RF: 0 Novolin N NPH U-100 Insulin 100 unit/mL suspension See Rx Instructions SUB-Q TID PRN (Reason: Blood Sugar - High) RF: 0 losartan 50 mg tablet 50 mg PO QDAY RF: 0 empagliflozin 10 mg tablet 10 mg PO QAM Qty: 30 RF: 11 Accu-Chek 1 EACH strip 1 each FS AC RF: 0 aspirin 81 MG tablet,delayed release (DR/EC) 81 mg PO DAILY RF: 0
[2020-12-25 23:57] LABS: ALT/SGPT 17 U/L (<40); AST/SGOT 24 U/L (<40); Albumin 3.9 gm/dL (3.2-5.2); Albumin/Globulin Ratio 1.1 (1.0-2.3); Alkaline Phosphatase 157 U/L (39-117); Bilirubin,Total 0.5 mg/dL (0.1-1.0); Blood Urea Nitrogen 50 mg/dL (6-20); Carbon Dioxide 20 mmol/L (22-30); Chloride 87 mmol/L (96-108); Globulin 3.6 gm/dL (2.2-3.7); Glomerular Filtration Rate 28; Glucose 468 mg/dL (70-105)
[2020-12-25] MEDS ORDERED: INSULIN REGULAR, HUMAN 1 UNIT/0.01 ML UNIT IV ONE (23:58)
[2020-12-26 00:50] LABS: ABG Methemoglobin 0.3 % (0.4-1.5); Total Hemoglobin 19.2 gm/Dl (13.5-16.5); VBG Base Excess -4 (-2-3); VBG HCO3 20.5 mmol/L (24.0-28.0); VBG Oxygen Saturation 87.4 % (40.0-70.0); VBG PCO2 37.2 mmHg (41.0-51.0); VBG PH 7.36 U (7.32-7.42); VBG PO2 57.5 mmHg (25.0-40.0); VBG Total CO2 21.6 mmol/L (25.0-29.0)
[2020-12-26] MEDS ORDERED: FUROSEMIDE 100 MG/10 ML VIAL IV ONE (01:04)
--- NOTE | 2020-12-26 02:31 | XRay Report ---
CLINICAL INFORMATION: shortness of breath COMPARISON: 05/25/2020 FINDINGS: Heart is mildly enlarged. Mediastinum is unremarkable. Pulmonary vessels are mildly distended. There is mild bibasilar airspace disease likely atelectasis and no effusions. IMPRESSION: Mild CHF or volume overload. Interpreted and Authenticated by: Daniele Landis 12/26/20
[2020-12-26] MEDS ORDERED: DEXTROSE 50% 50 ML VIAL IV PRN ×2 (02:33→09:09)
[2020-12-26] MEDS ORDERED: DEXTROSE 31 GM ORAL.SUSP PO PRN ×2 (02:33→09:09)
[2020-12-26] MEDS: INSULIN LISPRO 1 UNIT/0.01 ML UNIT SQ SCH ×5 (04:21→20:33)
--- NOTE | 2020-12-26 09:03 | Internal Med History&Physical ---
HPI History of Present Illness Patient information: Note initiated : 12/26/20 at 9:03 am Service Date, if different from initiated Date: [] Patient: Johnson Pedraza a 40 y/o M admitted on 12/26/20 for Weakness. Chief Complaint: passing out, Dizziness History of present illness: Mr. Pedraza is a 40 year old male morbidly obese with BMI 52, dilated cardiomyopathy with ejection fraction 50%, CKD III, DM presented to emergency room with not feeling well and passing out few times for the past 1 to 2 days. Patient is state that his apartment has no before meals and he has been feeling weak and passing out few times. He denies chest pain but he has shortness of breath which is his baseline. Patient did not take his medication for 1 day because he was not feeling well. He denies nausea vomiting chills, orthopnea, PND. In emergency room patient had hyperglycemia with no DKA. His BNP is 500. Chest x-ray showed mild pulmonary congestion. 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) (Chronic) Productive cough (Chronic) Hypoxia (Chronic) Peripherally inserted central venous catheter in situ (Chronic) prison (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 aspirin (Chronic) On home oxygen therapy (Chronic) Cataract, nuclear sclerotic, both eyes (Chronic) Depression, major, recurrent, moderate (Chronic) Obesity hypoventilation syndrome (Chronic) Dependent edema (Chronic) CHF with right heart failure (Chronic) Xerosis of skin (Chronic) 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, left eye (Chronic) 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, right eye (Chronic) Type 2 diabetes mellitus with polyneuropathy (Chronic) DM (diabetes mellitus), type 2 with peripheral vascular complications (Chronic) Diabetic ulcer of left foot (Chronic) Acute osteomyelitis of left foot (Chronic) Diabetic foot ulcer (Chronic) Diabetic neuropathy (Chronic) Type 2 diabetes mellitus with renal complication (Chronic) Type 2 diabetes mellitus with neurological complications (Chronic) ANTHONY (obstructive sleep apnea) (Chronic) Tinea pedis (Chronic) Hypertensive heart and chronic kidney disease with heart failure and stage 1 through stage 4 chronic kidney disease, or unspecified chronic kidney disease (Chronic) Heart failure, unspecified (Chronic) 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) prison (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 insulin (Chronic) 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) Tinea unguium (Chronic) Surgical operation with anastomosis, bypass or graft as the cause of abnormal reaction of the patient, or of later complication, without mention of misadventure at the time of the procedure (Chronic) Other complications of skin graft (allograft) (autograft) (Chronic) 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) Type 2 diabetes mellitus with foot ulcer (Chronic) Proteinuria (Chronic) Cellulitis of left lower limb (Chronic) Cough (Chronic) Cataracts, bilateral (Chronic) Obesity (Chronic) Anemia (Chronic) Other specified conditions influencing health status (Chronic) Abrasion (Chronic) Superficial injury of foot and toes (Chronic) Other specified disorder of skin (Chronic) Dermatomycosis, unspecified (Chronic) Ulcer of other part of foot (Chronic) Ulcer of lower limb (Chronic) Chronic ulcer of skin (Chronic) Contact dermatitis and other eczema, due to unspecified cause (Chronic) Sec DM wo cmp nt st uncn (Chronic) Micturition syncope (Acute) Foot ulcer due to secondary DM (Chronic) Acute kidney injury (Chronic) Acute on chronic renal failure (Chronic) Sepsis affecting skin (Chronic) Chronic kidney disease, stage III (moderate) (Acute) Abnormal ANCA test (Acute) Diabetes mellitus, type II, insulin dependent (Chronic) Severe obstructive sleep apnea (Chronic) Congestive heart failure (Acute) Hypertensive renal disease (Chronic) Edema (Chronic) Chronic kidney disease, stage III (moderate) (Chronic) H/O amputation of lesser toe (Chronic) Amputation of right lower extremity below knee (Chronic) Depression (Chronic) Morbid obesity (Chronic) Hypertension, essential (Chronic) Hyperlipidemia (Chronic) Hyperkalemia (Chronic) Medical History Abnormal ANCA test Abrasion Abrasion or friction burn without mention of injection Acquired absence of left foot Acquired absence of right leg below knee Acute osteomyelitis of left foot Amputation of right lower extremity below knee 2012 Anemia Cataract, nuclear sclerotic, both eyes Cataracts, bilateral Cellulitis of left lower limb CHF with right heart failure Chronic kidney disease, stage III (moderate) Best described as diabetic nephropathy Slowly progressive loss of GFR Chronic kidney disease, stage III (moderate) Chronic ulcer of skin Congestive heart failure Contact dermatitis and other eczema, due to unspecified cause Cough Dependent edema Depression 2012 Depression, major, recurrent, moderate Dermatomycosis, unspecified Diabetes mellitus type 1 1999 Diabetic foot ulcer Diabetic neuropathy Diabetic ulcer of left foot DM (diabetes mellitus), type 2 with peripheral vascular complications Edema Heart failure, unspecified Hyperkalemia Hyperlipidemia Hypertension, essential Hypertensive heart and chronic kidney disease with heart failure and stage 1 through stage 4 chronic kidney disease, or unspecified chronic kidney disease Stable GFR between 30 and 40 cc/min Nonnephrotic range proteinuria Hypertensive heart and kidney disease w/ CKD (chronic kidney disease) Blood pressure well controlled with current medications Hypertensive renal disease Hypoxia roasterman (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 aspirin roasterman (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 insulin Micturition syncope Morbid obesity Non-pressure chronic ulcer of other part of left foot with necrosis of bone Obesity Obesity hypoventilation syndrome On home oxygen therapy ANTHONY (obstructive sleep apnea) Other complications of skin graft (allograft) (autograft) Other specified conditions influencing health status Other specified disorder of skin Peripherally inserted central venous catheter in situ Productive cough Proteinuria Sec DM wo cmp nt st uncn Superficial injury of foot and toes Surgical operation with anastomosis, bypass or graft as the cause of abnormal reaction of the patient, or of later complication, without mention of misadventure at the time of the procedure Tinea pedis Tinea unguium Type 2 diabetes mellitus with diabetic chronic kidney disease Nonnephrotic range proteinuria on low-dose ARB suggests an element of diabetic renal disease Type 2 diabetes mellitus with foot ulcer Type 2 diabetes mellitus with neurological complications Type 2 diabetes mellitus with polyneuropathy Type 2 diabetes mellitus with renal complication 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, left eye 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, right eye Type 2 DM with CKD stage 3 and hypertension Patient's blood pressure well controlled with multiple medications. Goal BP 130/80 With his current diuresis his blood pressure is on the low side so I would reduce his losartan to 1/2 tablet once a day Ulcer of lower limb Ulcer of other part of foot Xerosis of skin Foot Surgical History H/O amputation of lesser toe 2010 middle left toe Lower limb amputation status (03/26/17) Third toe, left foot, 2011 Fourth/fifth toe amputation on left, 03/26/17 Lower limb amputation, below knee (12/28/12) Right Status post nail surgery (05/20/16) Toenail removal, left great and 4th, non permanent Family History Mother Arthritis Seizure Disorder of thyroid Diabetes mellitus Tuberculosis Vision problems Father Diabetes mellitus Essential hypertension Myocardial Infarction Cerebrovascular accident (CVA) Heart disease Kidney disease Tuberculosis High cholesterol Sister Migraine Disorder of thyroid Family/Other Tuberculosis Sibling, unspecified Social History marital status: single occupational status: disabled alcohol intake frequency: does not drink substance use type: does not use MEDS/ALLERGIES Home Medications and Allergies Home Medications Medication Instructions Recorded Confirmed Type cholestyramine (with sugar) 4 gram 4 g PO BID each 05/27/15 12/26/20 History oral powder fluoxetine 40 mg capsule 40 mg PO DAILY #60 cap 03/30/16 10/25/20 Rx Accu-Chek 1 each FS AC 04/23/17 12/26/20 History aspirin 81 mg PO DAILY 04/24/17 10/25/20 History carvedilol 12.5 mg tablet 12.5 mg PO BID #180 tab 12/19/18 12/26/20 Rx furosemide 40 mg tablet 40 mg PO BID #60 tab 07/02/20 12/26/20 Rx insulin glargine 100 unit/mL 52 unit SUB-Q BID ml 07/19/20 12/26/20 History subcutaneous solution empagliflozin 10 mg tablet 10 mg PO QAM #30 tab 10/25/20 12/26/20 Rx losartan 50 mg tablet 50 mg PO QDAY 10/25/20 10/25/20 History insulin aspart U-100 [Novolog See Rx Instructions .ROUTE .COMPLEX 12/26/20 12/26/20 History Flexpen U-100 Insulin] losartan PO 12/26/20 History Allergies Allergy/AdvReac Type Severity Reaction Status Date / Time Amoxicillin Allergy Intermediate Swelling, Verified 10/25/20 10:40 Rash ARTURO Inhibitors AdvReac Severe Other Verified 10/25/20 10:40 metformin AdvReac Intermediate Diarrhea Verified 10/25/20 11:45 silver-containing garments AdvReac Mild Redness of Uncoded 07/19/20 10:05 Skin EXAM Constitutional Vitals: Temp Pulse Resp BP Pulse Ox 98.0 F 78 24 H 110/68 91 12/26/20 07:52 12/26/20 07:52 12/26/20 07:52 12/26/20 07:52 12/26/20 07:52 General appearance: cooperative, morbidly obese (BMI 53) and no acute distress Head Head exam: Present atraumatic, normal inspection and normocephalic Eye Eye exam: Present EOMI, normal appearance and PERRL Neck Neck exam: Present full ROM (No JVD) and normal inspection Respiratory Respiratory exam: Present normal respiratory exam and CTAB Cardiovascular Cardiovascular exam: Present normal rate and rhythm, +S1 and +S2; Absent diastolic murmur and systolic murmur GI/Abdominal GI/Abdominal exam: Present normal bowel sounds and soft; Absent hernia, mass, rebound and tenderness Extremities Exam Extremities exam: Present full ROM, normal capillary refill and normal inspection; Absent calf tenderness (Right BKA. Left 4th&5th Toe amputation) and joint swelling Back Exam Back exam: Present full ROM Neurological Exam Neurological exam: Present alert, CN II-XII intact, oriented X3 and reflexes normal Psychiatric Psychiatric exam: Present normal affect and normal mood Skin Skin exam: Present dry, normal color, rash (Maculopapular rash on the right thigh consistent with a heat rash) and warm DATA Data Completed and Pending Labs: Labs from last 24 hours 12/26/20 12/26/20 12/25/20 00:28 00:28 22:38 WBC RBC Hgb Hct MCV MCH MCHC RDW Plt Count MPV Neut % (Auto) Lymph % (Auto) Loup % (Auto) Eos % (Auto) Baso % (Auto) Lymph # (Auto) Loup # (Auto) Eos # (Auto) Baso # (Auto) Absolute Neutrophils ABG Methemoglobin 0.3 L VBG pH 7.36 VBG pCO2 37.2 L VBG pO2 57.5 H VBG HCO3 20.5 L VBG Total CO2 21.6 L VBG O2 Saturation 87.4 H VBG Base Excess -4 L Carboxyhemoglobin 3.4 H Total Hemoglobin 19.2 H Sodium 124 L Potassium 5.1 Chloride 87 L Carbon Dioxide 20 L Anion Gap 17.0 H BUN 50 H Creatinine 2.7 H GFR Calculation 28 Glucose 468 H* Calcium 9.0 Total Bilirubin 0.5 AST 24 ALT 17 Alkaline Phosphatase 157 H Troponin T NT-Pro-B Natriuret Pep 510.5 H Total Protein 7.5 Albumin 3.9 Globulin 3.6 Albumin/Globulin Ratio 1.1 Beta-Hydroxybutyrate 0.22 12/25/20 12/25/20 22:38 22:31 WBC 10.6 RBC 6.66 H Hgb 19.4 H Hct 58.9 H MCV 88.4 MCH 29.1 MCHC 32.9 RDW 15.7 H Plt Count 151 MPV 12.1 H Neut % (Auto) 84.4 H Lymph % (Auto) 9.6 L Loup % (Auto) 4.5 Eos % (Auto) 0.7 Baso % (Auto) 0.8 Lymph # (Auto) 1.02 L Loup # (Auto) 0.48 Eos # (Auto) 0.07 Baso # (Auto) 0.08 Absolute Neutrophils 8.93 H ABG Methemoglobin VBG pH VBG pCO2 VBG pO2 VBG HCO3 VBG Total CO2 VBG O2 Saturation VBG Base Excess Carboxyhemoglobin Total Hemoglobin Sodium Potassium Chloride Carbon Dioxide Anion Gap BUN Creatinine GFR Calculation Glucose Calcium Total Bilirubin AST ALT Alkaline Phosphatase Troponin T 0.03 H NT-Pro-B Natriuret Pep Total Protein Albumin Globulin Albumin/Globulin Ratio Beta-Hydroxybutyrate A/P Narrative A/P Narrative: 40 years old morbidly obese male with multiple chronic medical problem presented to emergency room with not feeling well and passing out for the past 2 days. Patient has no air-conditioning in his apartment and it has been hot over 100 degrees. # Passing out/Near syncope vs Syncope -Most likely due to volume depletion as a result of excessive heat. Patient has no air conditioning at his home -BUN/creatinine are worsening from his baseline -Hold diuretics and gently hydrate him since patient is a dry side. Follow BUN/creatinine #Chronic systolic/dilated cardiomyopathy with EF 50% -No signs or symptoms of exacerbation -Hold diuretics as above. Continue Coreg, aspirin #Acute on CKD III injury due to dehydration -Hold diuretics and gently hydrate and follow renal panel #Diabetic mellitus type II with hyperglycemia but no DKA -Gently hydrate. Resume insulin Lantus home dose plus sliding scale #Chronic hypoxic respiratory failure. At baseline # Morbid obesity with BMI 53. # HTN # Hx of R BKA # HLP # ANTHONY, OHS DVT prophylaxis: Lovenox 40 mg daily CODE STATUS: Full code Disposition: Observation. Possibly home in 1-2 days Time Spent With Patient Time: Total time spent is greater than 50% in coordination of care (as documented) at patient's floor/unit and/or counseling patient: QUALITY VTE Deep Vein Thrombosis/Pulmonary Embolism Present on Admission: No
[2020-12-26] MEDS ORDERED: ONDANSETRON 4 MG/2 ML VIAL IV PRN (09:04)
[2020-12-26] MEDS ORDERED: ONDANSETRON 4 MG ODT TABLET SL PRN (09:04)
[2020-12-26] MEDS ORDERED: ACETAMINOPHEN 325 MG TABLET PO PRN (09:04)
[2020-12-26] MEDS ORDERED: CALCIUM CARBONATE 500 MG TAB.CHEW CHEWED PRN (09:04)
[2020-12-26] MEDS ORDERED: FUROSEMIDE 40 MG/4 ML VIAL IV SCH (09:10)
[2020-12-26] MEDS ORDERED: NON FORMULARY MEDICATION 1 DOSE MISCELL (Insulin Aspart U-100 [Novolog Flexpen U-100 Insul SCH (09:15)
[2020-12-26] MEDS ORDERED: CARVEDILOL 6.25 MG TABLET PO SCH (09:20)
[2020-12-26] MEDS: POTASSIUM CHLORIDE 20 MEQ TABLET PO SCH (09:23)
[2020-12-26] MEDS: ENOXAPARIN 40 MG/0.4 ML SYRINGE SQ SCH (09:26)
[2020-12-26] MEDS: ASPIRIN 81 MG TAB.CHEW CHEWED SCH (09:27)
[2020-12-26] MEDS: INSULIN GLARGINE, HUMAN 1 UNIT/0.01 ML SQ SCH ×2 (10:38→20:33)
[2020-12-26] MEDS ORDERED: ACCU CHEK FS SCH (11:30)
[2020-12-26] MEDS: 0.9 % SODIUM CHLORIDE 1,000 ML IV SCH ×2 (13:22→22:48)
[2020-12-26] MEDS: 0.9 % SODIUM CHLORIDE 10 ML SYRINGE IV SCH ×2 (13:33→20:35)
[2020-12-26] MEDS: CARVEDILOL 12.5 MG TABLET PO SCH (16:50)
[2020-12-26] MEDS: CHOLESTYRAMINE/ASPARTAME 4 GM POWD.PACK PO SCH (19:24)
[2020-12-26] MEDS ORDERED: ZOLPIDEM 5 MG TABLET PO PRN (21:00)
[2020-12-27] MEDS: 0.9 % SODIUM CHLORIDE 10 ML SYRINGE IV SCH (06:30)
[2020-12-27] MEDS: CHOLESTYRAMINE/ASPARTAME 4 GM POWD.PACK PO SCH (07:13)
[2020-12-27] MEDS: INSULIN LISPRO 1 UNIT/0.01 ML UNIT SQ SCH ×2 (07:19→11:35)
[2020-12-27 07:20] LABS: Blood Urea Nitrogen 52 mg/dL (6-20); Calcium 8.1 mg/dL (8.6-10.4); Carbon Dioxide 26 mmol/L (22-30); Chloride 99 mmol/L (96-108); Glomerular Filtration Rate 35; Glucose 223 mg/dL (70-105)
[2020-12-27] MEDS: POTASSIUM CHLORIDE 20 MEQ TABLET PO SCH (07:44)
[2020-12-27] MEDS: CARVEDILOL 12.5 MG TABLET PO SCH (07:44)
[2020-12-27] MEDS: INSULIN GLARGINE, HUMAN 1 UNIT/0.01 ML SQ SCH (08:04)
[2020-12-27] MEDS: ENOXAPARIN 40 MG/0.4 ML SYRINGE SQ SCH (08:04)
[2020-12-27] MEDS: ASPIRIN 81 MG TAB.CHEW CHEWED SCH (08:05)
[2020-12-27] MEDS ORDERED: LOSARTAN 50 MG TABLET PO SCH (09:00)
--- NOTE | 2020-12-27 11:35 | Discharge Summary ---
Discharge Provider Provider Patient information: Note initiated : 12/27/20 at 11:29 am Service Date, if different from initiated Date: Patient: Johnson Pedraza 40 y/o M admitted on 12/26/20 for Weakness. Chief Complaint: Weakness , falls, dehydration Date of admission: 12/26/20 02:43 Discharge date: 12/27/20 Primary care physician: Nery Santos Consults: 12/26/20 07:20 Consult to Physician [CONS] Routine Comment: Consulting Provider: Humberto Uribe Reason For Exam: Physician to Consult Discharge Meds Discharge Medications Home Medications cholestyramine (with sugar) 4 gram oral powder 4 g PO BID each 05/27/15 [History Confirmed 12/26/20 Last Taken 12/25/20 08:00] Accu-Chek 1 each FS AC 04/23/17 [History Confirmed 12/26/20 Last Taken 12/25/20 08:00] aspirin 81 mg PO DAILY 04/24/17 [History Confirmed 10/25/20 Last Taken 04/01/18] carvedilol 12.5 mg tablet 12.5 mg PO BID #180 tab 12/19/18 [Rx Confirmed 12/26/20 Last Taken 12/25/20 08:00] furosemide 40 mg tablet 40 mg PO BID #60 tab 07/02/20 [Rx Confirmed 12/26/20 Last Taken 12/25/20 08:00] insulin glargine 100 unit/mL subcutaneous solution 52 unit SUB-Q BID ml 07/19/20 [History Confirmed 12/26/20 Last Taken 12/25/20 08:00] empagliflozin 10 mg tablet 10 mg PO QAM #30 tab 10/25/20 [Rx Confirmed 12/26/20 Last Taken 12/25/20 08:00] losartan 50 mg tablet 50 mg PO QDAY 10/25/20 [History Confirmed 10/25/20 Last Taken Unknown] insulin aspart U-100 [Novolog Flexpen U-100 Insulin] See Rx Instructions .ROUTE .COMPLEX 12/26/20 [History Confirmed 12/26/20 Last Taken 12/25/20 08:00] losartan PO 12/26/20 [History Last Taken 12/25/20 08:00] fluoxetine 40 mg PO DAILY #60 cap 12/27/20 [Rx Last Taken Unknown] COURSE Hospital Course Hospital course: 40 years old morbidly obese male with multiple chronic medical problem presented to emergency room with not feeling well and passing out for the past 2 days. Patient has no air-conditioning in his apartment and it has been hot over 100 degrees. # Passing out/Near syncope vs Syncope -Most likely due to volume depletion as a result of excessive heat & Lasix. Patient has no air conditioning at his home -BUN/creatinine are worsening from his baseline - Admit BUN/Cr 50/2.7, Discharge BUN/CR 52/2.2. His Baseline BUN/Cr ~ 45/2.1 -Patient is treated with gentle IV fluid. His symptoms completely resolved. He is able to ambulate with no assist. No dizziness. Vital signs stable #Chronic systolic/dilated cardiomyopathy with EF 50% -No signs or symptoms of exacerbation -Hold diuretics as above. Continue Coreg, aspirin -Resume Lasix 12/30/2020. I recommend lower dose of Lasix given patient's EF of 50%. Discussed with patient for outpatient follow-up and adjustment dose of Lasix #Acute on CKD III injury due to dehydration -Hold diuretics and gently hydrate and follow renal panel as above #Diabetic mellitus type II with hyperglycemia but no DKA -Resume insulin Lantus home dose plus sliding scale #Chronic hypoxic respiratory failure. Patient uses oxygen at home off and on. -Patient has home oxygen. # Morbid obesity with BMI 53. # HTN. Resume home medication # Hx of R BKA # HLP. Resume home medication # ANTHONY, OHS. Continue home oxygen therapy. Disposition: Patient discharged home Condition on discharge: Hemodynamically stable. Tolerated p.o. Discharge activity: As tolerated Discharge diet: Diabetic diet Discharge medication: See med reconciliation form Discharge follow-up: Primary care physician within 1 week for post hospital follow-up Discharge diagnosis: Near syncope due to dehydration and diuretics Time Spent with Patient Time attestation: Total time spent providing and/or coordinating discharge services: EXAM Constitutional Vitals: Temp Pulse Resp BP Pulse Ox 96.7 F L 74 20 115/76 97 12/27/20 07:17 12/27/20 07:17 12/27/20 07:17 12/27/20 07:17 12/27/20 07:17 Discharge Data Data Completed and Pending Labs on day of discharge: Labs from last 24 hours 12/27/20 05:10 Sodium 136 Potassium 4.3 Chloride 99 Carbon Dioxide 26 Anion Gap 11.0 BUN 52 H Creatinine 2.2 H GFR Calculation 35 Glucose 223 H Calcium 8.1 L Discharge Plan Patient/Caregiver Discharge Instructions Activity: increase activity as tolerated Diet: Low Sodium (2gm), Cardiac and Consistent Carbohydrate Instructions: Heart Failure (DC), Dehydration (DC), Syncope (DC), Low-Sodium Diet (DC) Activity Restrictions/Additional Instructions: Increase activity as tolerated. Low sodium, cardiac, consistent carbohydrate diet as tolerated. Drink plenty of fluids to stay hydrated. Your prescription has been called in to [facility] in [place]. Call your physician for sustained fever greater than 100.5, dizziness, increased shortness of breath or any questions/concerns. This discharge packet is provided to you to help keep you informed about your care. We want to ensure you get everything you need when you go home. You will also be receiving a call from us in a few days to follow up with you and see how you are doing since your discharge. This gives us a chance to listen to any concerns you maybe experiencing since you were discharged or any additional needs you may have, as well as providing us feedback on your care experience. We strive to always provide excellent care and thank you for your feedback and for choosing [facility]. Prescriptions: Continued carvedilol 12.5 mg tablet 12.5 mg PO BID Qty: 180 RF: 1 furosemide 40 mg tablet 40 mg PO BID Qty: 60 RF: 11 cholestyramine (with sugar) 4 gram powder 4 g PO BID RF: 0 Lantus U-100 Insulin 100 unit/mL solution 52 unit SUB-Q BID RF: 0 losartan 50 mg tablet 50 mg PO QDAY RF: 0 empagliflozin 10 mg tablet 10 mg PO QAM Qty: 30 RF: 11 Accu-Chek 1 EACH strip 1 each FS AC RF: 0 aspirin 81 MG tablet,delayed release (DR/EC) 81 mg PO DAILY RF: 0 losartan 50 mg tablet PO RF: 0 insulin aspart U-100 [Novolog Flexpen U-100 Insulin] 100 unit/mL (3 mL) insulin pen See Rx Instructions .ROUTE .COMPLEX RF: 0 fluoxetine 40 MG capsule 40 mg PO DAILY Qty: 60 RF: 3 Follow Up Plan Follow up with: Nery Santos MD [Primary Care Provider] - 01/09/21 10:00 am (Post hospital follow up in 1-2 weeks) Patient Disposition: Home, Self-Care Care Plan Goals: Resume Lasix and Kcl 12/30/20. Discharge Orders: Discharge Order (Routine); Ordered 12/27/20 Ordered By: Humberto QUESADA VTE Deep Vein Thrombosis/Pulmonary Embolism Present on Admission: No
== END 2020-12-27 14:25 | disposition home or self-care (01) ==
LOC: ED 22:26 → INTOOBSV 12-26 02:43 → MEDSUR 12-26 02:43
PROVIDERS: ADMIT Internal Medicine; ATTEND Internal Medicine

== ENCOUNTER 2021-11-17 16:12 | Inpatient (IN) ==
[2021-11-17] MEDS ORDERED: 0.9 % SODIUM CHLORIDE 500 ML IV ONE (16:40)
--- NOTE | 2021-11-17 16:40 | Emergency Department Note ---
HPI <Amy Moore PA-C - Last Filed: 11/17/21 20:11> General Chief complaint: Cold/Flu Symptoms Stated complaint: cold/flu Time Seen by Provider: 11/17/21 16:16 Source: patient Mode of arrival: wheelchair Limitations: no limitations History of Present Illness HPI Narrative: Narrative: 41-year-old male presents to the emergency department complaining of a 2-week history of cough and shortness of breath. His cough is mostly dry. He denies chest pain. He denies orthopnea. He has a history of CHF, but has not been swelling. He has had sweats and chills, but no fever that he is aware of. He complains of nausea with several episodes of vomiting. He denies abdominal pain. He has had multiple watery bowel movements. He complains of body aches. Related Data Home Medications Medication Instructions Recorded Confirmed cholestyramine (with sugar) 4 gram 4 g PO BID each 05/27/15 11/05/21 oral powder Accu-Chek 1 each FS AC 04/23/17 11/17/21 aspirin 81 mg tablet,delayed 81 mg PO DAILY 04/24/17 11/05/21 release insulin aspart U-100 100 unit/mL See Rx Instructions .ROUTE .COMPLEX 12/26/20 11/17/21 (3 mL) subcutaneous pen (Novolog Flexpen U-100 Insulin aspart) Dairy Relief PO ONCE PRN 02/26/21 11/05/21 Leg Cramp PO ONCE PRN 02/26/21 11/05/21 gabapentin 300 mg capsule 300 mg PO QHS 02/26/21 11/17/21 fluoxetine 40 mg capsule 60 mg PO DAILY cap 09/11/21 11/17/21 insulin glargine 100 unit/mL 55 unit SUB-Q BID ml 09/11/21 11/17/21 subcutaneous solution (Lantus U-100 Insulin) carvedilol 12.5 mg tablet 12.5 mg PO BID 11/05/21 11/17/21 losartan 100 mg tablet 50 mg PO QDAY 11/17/21 11/17/21 Previous Rx's Medication Instructions Recorded furosemide 40 mg tablet 40 mg PO BID #60 tab 06/13/21 empagliflozin 10 mg tablet 10 mg PO QAM #30 tab 10/08/21 Allergies Allergy/AdvReac Type Severity Reaction Status Date / Time Amoxicillin Allergy Intermediate Swelling, Verified 11/17/21 16:16 Rash ARTURO Inhibitors AdvReac Severe Other Verified 11/17/21 16:16 metformin AdvReac Intermediate Diarrhea Verified 11/17/21 16:16 silver-containing garments AdvReac Mild Redness of Uncoded 10/08/21 10:43 Skin Review of Systems <Amy Moore PA-C - Last Filed: 11/17/21 20:11> ROS ROS Narrative: Narrative: All systems ED: reviewed and negative except as stated. 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) H/O amputation of lesser toe (Chronic) Congestive heart failure (Acute) Chronic kidney disease, stage III (moderate) (Chronic) Edema (Chronic) Hypertensive renal disease (Chronic) Severe obstructive sleep apnea (Chronic) Diabetes mellitus, type II, insulin dependent (Chronic) Micturition syncope (Acute) Abnormal ANCA test (Acute) Chronic kidney disease, stage III (moderate) (Acute) Foot ulcer due to secondary DM (Chronic) Acute kidney injury (Chronic) Acute on chronic renal failure (Chronic) Sepsis affecting skin (Chronic) Sec DM wo cmp nt st uncn (Chronic) Contact dermatitis and other eczema, due to unspecified cause (Chronic) Chronic ulcer of skin (Chronic) Ulcer of lower limb (Chronic) Ulcer of other part of foot (Chronic) Dermatomycosis, unspecified (Chronic) Other specified disorder of skin (Chronic) Superficial injury of foot and toes (Chronic) Abrasion (Chronic) Other specified conditions influencing health status (Chronic) Anemia (Chronic) Obesity (Chronic) Cataracts, bilateral (Chronic) Cough (Chronic) Cellulitis of left lower limb (Chronic) Proteinuria (Chronic) Type 2 diabetes mellitus with foot ulcer (Chronic) 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) Other complications of skin graft (allograft) (autograft) (Chronic) Surgical operation with anastomosis, bypass or graft as the cause of abnormal reaction of the patient, or of later complication, without mention of misadventure at the time of the procedure (Chronic) Tinea unguium (Chronic) 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) prison (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 insulin (Chronic) 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) Heart failure, unspecified (Chronic) Hypertensive heart and chronic kidney disease with heart failure and stage 1 through stage 4 chronic kidney disease, or unspecified chronic kidney disease (Chronic) Tinea pedis (Chronic) ANTHONY (obstructive sleep apnea) (Chronic) Type 2 diabetes mellitus with neurological complications (Chronic) Type 2 diabetes mellitus with renal complication (Chronic) Diabetic neuropathy (Chronic) Diabetic foot ulcer (Chronic) Acute osteomyelitis of left foot (Chronic) Diabetic ulcer of left foot (Chronic) DM (diabetes mellitus), type 2 with peripheral vascular complications (Chronic) Type 2 diabetes mellitus with polyneuropathy (Chronic) 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, right eye (Chronic) 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, left eye (Chronic) Xerosis of skin (Chronic) CHF with right heart failure (Chronic) Dependent edema (Chronic) Obesity hypoventilation syndrome (Chronic) Depression, major, recurrent, moderate (Chronic) Cataract, nuclear sclerotic, both eyes (Chronic) On home oxygen therapy (Chronic) 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 (Chronic) Peripherally inserted central venous catheter in situ (Chronic) Hypoxia (Chronic) Productive cough (Chronic) Community acquired pneumonia (Acute) CHF exacerbation (Acute) Hypertensive heart and kidney disease w/ CKD (chronic kidney disease) (Chronic) Type 2 DM with CKD stage 3 and hypertension (Chronic) Pneumonia due to 2019 novel coronavirus (Acute) Acute hyperglycemia (Acute) Diabetes mellitus out of control (Acute) No-show for appointment (Acute) Cellulitis (Acute) Diabetic ulcer of right thigh associated with type 2 diabetes mellitus, limited to breakdown of skin (Acute) Closed hematoma of left kidney (Acute) Diabetes mellitus with diabetic nephropathy (Acute) Influenza A (Acute) CHF (congestive heart failure) (Acute) Acute renal failure (Acute) Medical History (Updated 11/17/21 @ 20:11 by Amy Moore PA-C) Abnormal ANCA test Doubt this has anything to do with his renal disease, performed basis of biopsy Abrasion Abrasion or friction burn without mention of injection Acquired absence of left foot Acquired absence of right leg below knee Acute osteomyelitis of left foot Amputation of right lower extremity below knee 2012 Anemia Cataract, nuclear sclerotic, both eyes Cataracts, bilateral Cellulitis of left lower limb CHF with right heart failure Chronic kidney disease, stage III (moderate) Best described as diabetic nephropathy Slowly progressive loss of GFR Chronic kidney disease, stage III (moderate) Chronic ulcer of skin Congestive heart failure Contact dermatitis and other eczema, due to unspecified cause Cough Dependent edema Depression 2012 Depression, major, recurrent, moderate Dermatomycosis, unspecified Diabetes mellitus type 1 2000 Diabetic foot ulcer Diabetic neuropathy Diabetic ulcer of left foot DM (diabetes mellitus), type 2 with peripheral vascular complications Edema Heart failure, unspecified Hyperkalemia Combination of high-dose losartan, uncontrolled blood pressure sugar of greater than 400, and potassium release as renal hematoma resolves Hyperlipidemia Hypertension, essential Hypertensive heart and chronic kidney disease with heart failure and stage 1 through stage 4 chronic kidney disease, or unspecified chronic kidney disease Stable GFR between 30 and 40 cc/min Nonnephrotic range proteinuria Hypertensive heart and kidney disease w/ CKD (chronic kidney disease) Blood pressure well controlled with current medications Hypertensive renal disease Hypoxia prison (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 aspirin buttermaker (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 insulin Micturition syncope Morbid obesity Non-pressure chronic ulcer of other part of left foot with necrosis of bone Obesity Obesity hypoventilation syndrome On home oxygen therapy ANTHONY (obstructive sleep apnea) Other complications of skin graft (allograft) (autograft) Other specified conditions influencing health status Other specified disorder of skin Peripherally inserted central venous catheter in situ Productive cough Proteinuria Sec DM wo cmp nt st uncn Superficial injury of foot and toes Surgical operation with anastomosis, bypass or graft as the cause of abnormal reaction of the patient, or of later complication, without mention of misadventure at the time of the procedure Tinea pedis Tinea unguium Type 2 diabetes mellitus with diabetic chronic kidney disease Nonnephrotic range proteinuria on low-dose ARB suggests an element of diabetic renal disease Type 2 diabetes mellitus with foot ulcer Type 2 diabetes mellitus with neurological complications Type 2 diabetes mellitus with polyneuropathy Type 2 diabetes mellitus with renal complication 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, left eye 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, right eye Type 2 DM with CKD stage 3 and hypertension Patient's blood pressure well controlled with multiple medications. Goal BP 130/80 With his current diuresis his blood pressure is on the low side so I would reduce his losartan to 1/2 tablet once a day Ulcer of lower limb Ulcer of other part of foot Xerosis of skin Foot Surgical History H/O amputation of lesser toe 2010 middle left toe Lower limb amputation status (03/26/17) Third toe, left foot, 2011 Fourth/fifth toe amputation on left, 03/26/17 Lower limb amputation, below knee (12/28/12) Right Status post nail surgery (05/20/16) Toenail removal, left great and 4th, non permanent Family History Mother Arthritis Seizure Disorder of thyroid Diabetes mellitus Tuberculosis Vision problems Father Diabetes mellitus Essential hypertension Myocardial Infarction Cerebrovascular accident (CVA) Heart disease Kidney disease Tuberculosis High cholesterol Sister Migraine Disorder of thyroid Family/Other Tuberculosis Sibling, unspecified Social History Smoking Status: Never smoker Alcohol Intake Frequency: does not drink Substance Use: does not use Exam <Amy Moore PA-C - Last Filed: 11/17/21 20:11> Narrative Narrative: Narrative: General Limitations: no limitations General appearance: Present alert and obese Head Head: Present atraumatic and normocephalic Eye Eye: Present PERRL ENT ENT: Present mucous membranes moist and TM's normal bilaterally; Absent nasal congestion Neck Neck: Present normal inspection; Absent lymphadenopathy Chest Chest: Present normal inspection Respiratory Respiratory: Present normal lung sounds bilaterally and other (Patient coughs with inspiration.) Cardiovascular Cardiovascular: Present regular rate, normal rhythm and normal heart sounds Adbominal Abdominal: Present soft; Absent tenderness Other Other information: Right BKA. No left leg swelling. Course <Amy Moore PA-C - Last Filed: 11/17/21 20:11> Vital Signs Vital signs: Vital Signs Temperature 98.6 F 11/17/21 16:13 Pulse Rate 93 H 11/17/21 16:13 Respiratory Rate 30 H 11/17/21 16:13 Blood Pressure 144/96 11/17/21 16:13 Pulse Oximetry (%) 93 11/17/21 16:13 Temperature 98.1 F 11/18/21 04:00 Pulse Rate 88 11/18/21 04:00 Respiratory Rate 22 11/18/21 04:00 Blood Pressure 130/68 11/18/21 04:00 Pulse Oximetry (%) 92 11/18/21 04:00 [facility] <Amy Moore PA-C - Last Filed: 11/17/21 20:11> [facility] Narrative Medical decision making narrative: Narrative: Patient is treated with oxygen and IV fluids. He was treated with only 500 mL of IV normal saline due to his history of CHF and risk of fluid overload. Oxygen on room air was as low as 85%. He was started on oxygen 2 L via nasal cannula. Chest x-ray, CBC, CMP, blood cultures, lactate, and BNP were ordered. Chest x-ray shows Mild patchy airspace disease in the mid and lower lungs. This could represent edema from mild CHF or infiltrate. Labs were reviewed per the electronic health record. Influenza A was positive. Because of the possible edema and elevated BNP he was treated with IV Lasix 40 mg. He was also treated with IV Rocephin for possible pneumonia. EKG shows normal sinus rhythm at the rate of 87, normal intervals, no ST segment changes. I have spoken with the hospitalist who agrees to admit this patient. Lab Data Result diagrams: 11/17/21 16:53 11/17/21 16:53 Labs: Lab Results 11/17/21 11/17/21 11/17/21 Range/Units 16:53 16:53 16:53 WBC 18.8 H (4.5-11.0) K/mcL RBC 5.01 (4.63-6.08) M/mcL Hgb 13.6 L (13.7-17.5) g/dL Hct 44.9 (40.1-51.0) % MCV 89.6 (80.0-100.0) fL MCH 27.1 (26.0-34.0) pg MCHC 30.3 L (31.0-36.0) g/dL RDW 14.6 H (11.5-14.5) % Plt Count 366 (140-440) K/mcL MPV 10.3 (7.4-10.4) fL Neut % (Auto) 90.2 H (38.0-78.0) % Lymph % (Auto) 3.2 L (15.5-49.0) % Mchenry % (Auto) 6.2 (1.0-12.0) % Eos % (Auto) 0.2 (0.0-7.0) % Baso % (Auto) 0.2 (0.0-2.0) % Lymph # (Auto) 0.60 L (1.50-4.80) K/mcL Mchenry # (Auto) 1.16 H (0.10-0.90) K/mcL Eos # (Auto) 0.04 (0.00-0.70) K/mcL Baso # (Auto) 0.04 (0.00-0.30) K/mcL Absolute Neutrophils 16.93 H (1.80-8.00) K/mcL VBG Lactic Acid 2.0 (0.5-2.0) mmol/L Sodium 130 L (133-145) mmol/L Potassium 5.6 H (3.3-5.1) mmol/L Chloride 97 (96-108) mmol/L Carbon Dioxide 20 L (22-30) mmol/L Anion Gap 13.0 (8.0-16.0) BUN 55 H (6-20) mg/dL Creatinine 2.8 H (0.7-1.2) mg/dL GFR Calculation 26 Glucose 162 H (70-105) mg/dL Calcium 9.0 (8.6-10.4) mg/dL Total Bilirubin 0.3 (0.1-1.0) mg/dL AST 12 (<40) U/L ALT 12 (<40) U/L Alkaline Phosphatase 118 H (39-117) U/L NT-Pro-B Natriuret Pep 01381.0 H (<125.0) pg/mL Total Protein 7.1 (5.9-8.4) gm/dL Albumin 2.5 L (3.2-5.2) gm/dL Globulin 4.6 H (2.2-3.7) gm/dL Albumin/Globulin Ratio 0.5 L (1.0-2.3) ED POC Tests ED POC Tests: NIRANJAN - Influenza A Positive NIRANJAN - Influenza B Negative NIRANJAN - SARS Antigen Negative Discharge Plan Patient/Caregiver Discharge Instructions Pt seen by [facility]/PA only: Yes Clinical Impression: Influenza A, CHF (congestive heart failure), Acute renal failure Patient Disposition: Xfer As Inpt ([facility]) Discharge Date/Time: 11/17/21 21:22
--- NOTE | 2021-11-17 16:57 | XRay Report ---
CLINICAL INFORMATION: Cough COMPARISON: 12/25/2020 TECHNIQUE: PA and Lateral views FINDINGS: The heart and mediastinum are unremarkable. This mild distention of pulmonary vasculature.. Mild patchy airspace disease is present in both mid and lower lungs.. There are no effusions. The bones and soft tissues are within normal limits. IMPRESSION: Mild patchy airspace disease in the mid and lower lungs. This could represent edema from mild CHF or infiltrate. Note: If there is any clinical support for CHF-including BNP, consider diuretic trial followed by repeat two view upright chest x-ray to reassess the lungs. Interpreted and Authenticated by: Daniele Landis 11/17/21
[2021-11-17 17:46] LABS: Basophils # (Auto) 0.04 K/mcL (0.00-0.30); Basophils % (Auto) 0.2 % (0.0-2.0); Eosinophils # (Auto) 0.04 K/mcL (0.00-0.70); Eosinophils % (Auto) 0.2 % (0.0-7.0); Hematocrit 44.9 % (40.1-51.0); Hemoglobin 13.6 g/dL (13.7-17.5); Lymphocytes % (Auto) 3.2 % (15.5-49.0); Mean Cell Volume 89.6 fL (80.0-100.0); Mean Corpuscular HGB Conc 30.3 g/dL (31.0-36.0); Mean Platelet Volume 10.3 fL (7.4-10.4); Monocytes # (Auto) 1.16 K/mcL (0.10-0.90); Monocytes % (Auto) 6.2 % (1.0-12.0); Neutrophils % (Auto) 90.2 % (38.0-78.0); Platelet Count 366 K/mcL (140-440); RBC 5.01 M/mcL (4.63-6.08); Red Cell Distribution Width 14.6 % (11.5-14.5); WBC 18.8 K/mcL (4.5-11.0)
[2021-11-17 18:05] LABS: ALT/SGPT 12 U/L (<40); AST/SGOT 12 U/L (<40); Albumin 2.5 gm/dL (3.2-5.2); Albumin/Globulin Ratio 0.5 (1.0-2.3); Alkaline Phosphatase 118 U/L (39-117); Bilirubin,Total 0.3 mg/dL (0.1-1.0); Blood Urea Nitrogen 55 mg/dL (6-20); Carbon Dioxide 20 mmol/L (22-30); Chloride 97 mmol/L (96-108); Globulin 4.6 gm/dL (2.2-3.7); Glomerular Filtration Rate 26; Glucose 162 mg/dL (70-105)
[2021-11-17] MEDS ORDERED: FUROSEMIDE 40 MG/4 ML VIAL IV ONE (18:43)
[2021-11-17] MEDS ORDERED: cefTRIAXone 1 GM VIAL IV ONE (19:13)
[2021-11-17] MEDS ORDERED: OSELTAMIVIR PHOSPHATE 75 MG CAPSULE PO ONE (20:01)
[2021-11-17] MEDS ORDERED: ONDANSETRON 4 MG/2 ML VIAL IV PRN (21:02)
[2021-11-17] MEDS ORDERED: ACETAMINOPHEN 325 MG TABLET PO PRN (21:05)
[2021-11-17] MEDS ORDERED: IPRATROPIUM/ALBUTEROL 3 ML AMPUL.NEB NEB PRN (21:05)
[2021-11-17] MEDS ORDERED: PROCHLORPERAZINE 10 MG/2 ML VIAL IV PRN (21:05)
[2021-11-17] MEDS: 0.9 % SODIUM CHLORIDE 10 ML SYRINGE IV SCH (22:10)
[2021-11-17] MEDS: 0.9 % SODIUM CHLORIDE 1,000 ML IV SCH (22:58)
[2021-11-17] MEDS: AZITHROMYCIN 500 MG in DEXTROSE 5% IN WATER 250 ML IV SCH (22:58)
[2021-11-18] MEDS: 0.9 % SODIUM CHLORIDE 10 ML SYRINGE IV SCH ×3 (04:11→21:36)
[2021-11-18 06:32] LABS: Basophils # (Auto) 0.03 K/mcL (0.00-0.30); Basophils % (Auto) 0.2 % (0.0-2.0); Eosinophils # (Auto) 0.04 K/mcL (0.00-0.70); Eosinophils % (Auto) 0.2 % (0.0-7.0); Hematocrit 40.9 % (40.1-51.0); Hemoglobin 12.6 g/dL (13.7-17.5); Lymphocytes # (Auto) 0.67 K/mcL (1.50-4.80); Lymphocytes % (Auto) 3.7 % (15.5-49.0); Mean Cell Volume 88.7 fL (80.0-100.0); Mean Corpuscular HGB Conc 30.8 g/dL (31.0-36.0); Mean Platelet Volume 10.1 fL (7.4-10.4); Monocytes # (Auto) 1.18 K/mcL (0.10-0.90); Monocytes % (Auto) 6.5 % (1.0-12.0); Neutrophils % (Auto) 89.4 % (38.0-78.0); Platelet Count 363 K/mcL (140-440); RBC 4.61 M/mcL (4.63-6.08); Red Cell Distribution Width 14.8 % (11.5-14.5); WBC 18.2 K/mcL (4.5-11.0)
[2021-11-18 06:52] LABS: ALT/SGPT 10 U/L (<40); AST/SGOT 13 U/L (<40); Albumin/Globulin Ratio 0.5 (1.0-2.3); Alkaline Phosphatase 111 U/L (39-117); Bilirubin,Total 0.2 mg/dL (0.1-1.0); Blood Urea Nitrogen 55 mg/dL (6-20); Calcium 8.5 mg/dL (8.6-10.4); Carbon Dioxide 17 mmol/L (22-30); Chloride 100 mmol/L (96-108); Globulin 4.2 gm/dL (2.2-3.7); Glomerular Filtration Rate 26; Glucose 158 mg/dL (70-105)
[2021-11-18] MEDS: OSELTAMIVIR PHOSPHATE 30 MG CAPSULE PO SCH ×2 (10:04→21:29)
[2021-11-18] MEDS: PANTOPRAZOLE 40 MG TABLET PO SCH (10:04)
[2021-11-18] MEDS: cefTRIAXone 2 GM in DEXTROSE 5% IN WATER 50 ML IV SCH (10:05)
[2021-11-18] MEDS: DOCUSATE SODIUM 100 MG CAPSULE PO SCH ×2 (10:05→21:28)
[2021-11-18] MEDS: HEPARIN 5,000 UNIT/ML VIAL SQ SCH ×2 (10:05→21:28)
--- NOTE | 2021-11-18 11:13 | Nephrology Consult Note ---
HPI Data of Consult Patient: known to practice within the last 3 years Consult date: 11/18/21 Primary Care Provider: Nery Santos Consult Narrative Patient Information: Note initiated : 11/18/21 at 11:12 am Service Date, if different from initiated Date: [URI/Flu like Sx] Patient: Johnson Pedraza 41 y/o M admitted on 11/17/21 for cold/flu. Chief Complaint: [] Reason for consult: ARF on CKD 3 cc:: CC: Teri Ocampo MD 41 year-old man with past medical history of: Diabetes mellitus, A1C cannot be found. Serum glucose in 130-180s range till this lab draw recently, now 300 to 400 range diabetic neuropathy Right BKA, in 2013 Fourth and fifth toe amputation of left foot in 2016; and third toe of left foot in 2011 Yesterday, he presented to the emergency department complaining of a 2-week history of cough and shortness of breath. His cough is mostly dry. He denies chest pain. He denies orthopnea. He has a history of CHF, but has not been swelling. He has had sweats and chills, but no fever that he is aware of. He complains of nausea with several episodes of vomiting. He denies abdominal pain. He has had multiple watery bowel movements. He complains of body aches. Mild patchy airspace disease in the mid and lower lungs. This could represent edema from mild CHF or infiltrate. Vital Signs Temp Pulse Pulse Resp BP BP Pulse Ox 11/18/21 08:00 36.7 C 89 117/69 97 11/18/21 04:00 36.7 C 88 22 130/68 92 11/17/21 23:46 36.8 C 86 24 H 117/78 97 11/17/21 22:53 96 11/17/21 22:30 37.1 C 87 20 122/76 96 11/17/21 21:32 37.1 C 87 20 122/76 96 11/17/21 21:06 84 94 11/17/21 20:42 85 95 11/17/21 19:50 87 94 11/17/21 19:46 84 127/72 93 11/17/21 19:40 86 126/66 94 11/17/21 19:17 86 93 11/17/21 19:16 86 132/77 93 11/17/21 19:01 87 132/76 92 11/17/21 18:46 87 128/73 94 11/17/21 18:31 125/74 11/17/21 18:16 87 131/76 94 11/17/21 18:01 85 118/74 92 11/17/21 17:48 85 92 11/17/21 17:46 84 118/77 91 11/17/21 17:31 123/71 11/17/21 17:16 85 118/76 94 11/17/21 17:04 91 H 130/72 94 11/17/21 16:43 88 L 11/17/21 16:33 90 147/82 91 11/17/21 16:13 37.0 C 93 H 30 H 144/96 93 Intake and Output 11/17/21 11/18/21 11/18/21 21:59 05:59 13:59 Intake Total 500 730 Output Total 600 Balance -100 730 Intake: IV 500 250 Sodium Chloride 0.9% 500 ml @ 500 Wide Open IV B[facility] ONE Rx#: [id number] Zithromax 500 mg In Dextrose 5% 250 in Water 250 ml @ 250 mls/hr IV Q24H [facility] Rx#:[id number] Oral 480 Output: Void Amount 600 Other: Urine Appearance Sediment Urine Color Dark Yellow Urine Odor Strong Stool Size Moderate Stool Color Brown Stool Consistency Liquid # Voids 1 # Bowel Movements 1 Weight 167.512 kg He was referred to ID clinic by Dr. Zamora [wound care], for concerns that whether or not he has an active infection, and if he needs antibiotic therapy. At time of visit patient was sitting comfortably, had normal vital signs on check-in including normal blood pressure and absence of fever. Due to neuropathy he does not have any sensation below his ankle. He reported no symptoms pertaining to his left foot wound. He stays the wound has been present since last year, and he has received almost a 8 week course of IV antibiotics, followed by oral antibiotics since February of last year. He is currently on oral doxycycline, and also has received Oritavancin off and on [prescribed by wound care], last dose on December 27, 2017. He uses a prosthesis for his right lower extremity, and has special boots for his left foot. He gets a football dressing once a week which is changed at wound care. Does not report using any antiseptics at home for cleaning his foot or changing his dressing. He denies any fever, chills, recent trauma to the foot, contact of the wound with pets. On being asked about his diabetes, he reports he takes insulin [2 types], and his blood sugars range around 130-150s. On being asked about personal hygiene, he says it is difficult for him to take a shower because of the dressing, but he does try other ways to clean himself every day. Over the past 3 years is estimated urine protein losses are 0.25 to 1 g/day based on random urine protein to creatinine ratios. Due to confusion of suspected DM nephropathy and a moderate titer (+)KENN, the patient underwent a percutaneous renal biopsy which provided ample evidence of DM and no suggestion of SLE nephritis. Serum Creatinine Impression: Essentially stable GFR with his fourth episode of acute decline in GFR in the past 5 years. He has biopsy-proven diabetic nephropathy and has been ignoring any of his KENN results as he had no bearing on his renal function. His current hospitalization in mild decline in GFR either represents decompensated congestive heart failure, or prerenal azotemia perhaps due to diuretics, RAASI therapy and viral pneumonia. procalciton and proBNP will help d/dx but WBC suggests infection/inflammation > CHF. 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) Abnormal ANCA test (Acute) Hypertensive heart and chronic kidney disease with heart failure and stage 1 through stage 4 chronic kidney disease, or unspecified chronic kidney disease (Chronic) Cellulitis (Acute) Diabetic ulcer of right thigh associated with type 2 diabetes mellitus, limited to breakdown of skin (Acute) Diabetic neuropathy (Chronic) DM (diabetes mellitus), type 2 with peripheral vascular complications (Chronic) Chronic kidney disease, stage III (moderate) (Chronic) Hypertensive heart and kidney disease w/ CKD (chronic kidney disease) (Chronic) Type 2 DM with CKD stage 3 and hypertension (Chronic) Hyperkalemia (Chronic) Hyperlipidemia (Chronic) Hypertension, essential (Chronic) Morbid obesity (Chronic) Depression (Chronic) Amputation of right lower extremity below knee (Chronic) H/O amputation of lesser toe (Chronic) Congestive heart failure (Acute) Edema (Chronic) Hypertensive renal disease (Chronic) Severe obstructive sleep apnea (Chronic) Diabetes mellitus, type II, insulin dependent (Chronic) Micturition syncope (Acute) Chronic kidney disease, stage III (moderate) (Acute) Foot ulcer due to secondary DM (Chronic) Acute kidney injury (Chronic) Acute on chronic renal failure (Chronic) Sepsis affecting skin (Chronic) Sec DM wo cmp nt st uncn (Chronic) Contact dermatitis and other eczema, due to unspecified cause (Chronic) Chronic ulcer of skin (Chronic) Ulcer of lower limb (Chronic) Ulcer of other part of foot (Chronic) Dermatomycosis, unspecified (Chronic) Other specified disorder of skin (Chronic) Superficial injury of foot and toes (Chronic) Abrasion (Chronic) Other specified conditions influencing health status (Chronic) Anemia (Chronic) Obesity (Chronic) Cataracts, bilateral (Chronic) Cough (Chronic) Cellulitis of left lower limb (Chronic) Proteinuria (Chronic) Type 2 diabetes mellitus with foot ulcer (Chronic) 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) Other complications of skin graft (allograft) (autograft) (Chronic) Surgical operation with anastomosis, bypass or graft as the cause of abnormal reaction of the patient, or of later complication, without mention of misadventure at the time of the procedure (Chronic) Tinea unguium (Chronic) 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) custodial (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 insulin (Chronic) Heart failure, unspecified (Chronic) Tinea pedis (Chronic) ANTHONY (obstructive sleep apnea) (Chronic) Type 2 diabetes mellitus with neurological complications (Chronic) Type 2 diabetes mellitus with renal complication (Chronic) Diabetic foot ulcer (Chronic) Acute osteomyelitis of left foot (Chronic) Diabetic ulcer of left foot (Chronic) Type 2 diabetes mellitus with polyneuropathy (Chronic) 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, right eye (Chronic) 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, left eye (Chronic) Xerosis of skin (Chronic) CHF with right heart failure (Chronic) Dependent edema (Chronic) Obesity hypoventilation syndrome (Chronic) Depression, major, recurrent, moderate (Chronic) Cataract, nuclear sclerotic, both eyes (Chronic) On home oxygen therapy (Chronic) 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 (Chronic) Peripherally inserted central venous catheter in situ (Chronic) Hypoxia (Chronic) Productive cough (Chronic) Community acquired pneumonia (Acute) CHF exacerbation (Acute) Pneumonia due to 2019 novel coronavirus (Acute) Acute hyperglycemia (Acute) Diabetes mellitus out of control (Acute) No-show for appointment (Acute) Medical History (Updated 11/18/21 @ 15:57 by Teddy Bae MD) Abnormal ANCA test Doubt this has anything to do with his renal disease, performed basis of biopsy Abrasion Abrasion or friction burn without mention of injection Acquired absence of left foot Acquired absence of right leg below knee Acute osteomyelitis of left foot Amputation of right lower extremity below knee 2012 Anemia Cataract, nuclear sclerotic, both eyes Cataracts, bilateral Cellulitis of left lower limb CHF with right heart failure Chronic kidney disease, stage III (moderate) Best described as diabetic nephropathy Slowly progressive loss of GFR Chronic kidney disease, stage III (moderate) Chronic ulcer of skin Congestive heart failure Contact dermatitis and other eczema, due to unspecified cause Cough Dependent edema Depression 2013 Depression, major, recurrent, moderate Dermatomycosis, unspecified Diabetes mellitus type 1 2000 Diabetic foot ulcer Diabetic neuropathy Diabetic ulcer of left foot DM (diabetes mellitus), type 2 with peripheral vascular complications Edema Heart failure, unspecified Hyperkalemia Combination of high-dose losartan, uncontrolled blood pressure sugar of greater than 400, and potassium release as renal hematoma resolves Hyperlipidemia Hypertension, essential Hypertensive heart and chronic kidney disease with heart failure and stage 1 through stage 4 chronic kidney disease, or unspecified chronic kidney disease Stable GFR between 30 and 40 cc/min Nonnephrotic range proteinuria Hypertensive heart and kidney disease w/ CKD (chronic kidney disease) Blood pressure well controlled with current medications Hypertensive renal disease Hypoxia custodial (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 aspirin 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 service (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 insulin Micturition syncope Morbid obesity Non-pressure chronic ulcer of other part of left foot with necrosis of bone Obesity Obesity hypoventilation syndrome On home oxygen therapy ANTHONY (obstructive sleep apnea) Other complications of skin graft (allograft) (autograft) Other specified conditions influencing health status Other specified disorder of skin Peripherally inserted central venous catheter in situ Productive cough Proteinuria Sec DM wo cmp nt st uncn Superficial injury of foot and toes Surgical operation with anastomosis, bypass or graft as the cause of abnormal reaction of the patient, or of later complication, without mention of misadventure at the time of the procedure Tinea pedis Tinea unguium Type 2 diabetes mellitus with diabetic chronic kidney disease Nonnephrotic range proteinuria on low-dose ARB suggests an element of diabetic renal disease Type 2 diabetes mellitus with foot ulcer Type 2 diabetes mellitus with neurological complications Type 2 diabetes mellitus with polyneuropathy Type 2 diabetes mellitus with renal complication 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, left eye 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, right eye Type 2 DM with CKD stage 3 and hypertension Patient's blood pressure well controlled with multiple medications. Goal BP 130/80 With his current diuresis his blood pressure is on the low side so I would reduce his losartan to 1/2 tablet once a day Ulcer of lower limb Ulcer of other part of foot Xerosis of skin Foot Surgical History H/O amputation of lesser toe 2010 middle left toe Lower limb amputation status (03/26/17) Third toe, left foot, 2011 Fourth/fifth toe amputation on left, 03/26/17 Lower limb amputation, below knee (12/28/12) Right Status post nail surgery (05/20/16) Toenail removal, left great and 4th, non permanent Family History Mother Arthritis Seizure Disorder of thyroid Diabetes mellitus Tuberculosis Vision problems Father Diabetes mellitus Essential hypertension Myocardial Infarction Cerebrovascular accident (CVA) Heart disease Kidney disease Tuberculosis High cholesterol Sister Migraine Disorder of thyroid Family/Other Tuberculosis Sibling, unspecified Social History marital status: single occupational status: disabled alcohol intake frequency: does not drink substance use type: does not use MEDS/ALLERGIES Home Medications and Allergies Home Medications Medication Instructions Recorded Confirmed Type Accu-Chek 1 each FS AC 04/23/17 11/17/21 History insulin aspart U-100 100 unit/mL See Rx Instructions .ROUTE .COMPLEX 12/26/20 11/17/21 History (3 mL) subcutaneous pen (Novolog Flexpen U-100 Insulin aspart) gabapentin 300 mg capsule 300 mg PO QHS 02/26/21 11/17/21 History furosemide 40 mg tablet 40 mg PO BID #60 tab 06/13/21 11/17/21 Rx fluoxetine 40 mg capsule 40 mg PO DAILY cap 09/11/21 11/18/21 History insulin glargine 100 unit/mL 60 unit SUB-Q BID ml 09/11/21 11/18/21 History subcutaneous solution (Lantus U-100 Insulin) empagliflozin 10 mg tablet 10 mg PO QAM #30 tab 10/08/21 11/17/21 Rx carvedilol 12.5 mg tablet 12.5 mg PO BID 11/05/21 11/17/21 History losartan 100 mg tablet 50 mg PO QDAY 11/17/21 11/17/21 History aspirin 325 mg tablet 325 mg PO QDAY 11/18/21 11/18/21 History fluoxetine 20 mg capsule 20 mg PO QDAY 11/18/21 11/18/21 History Allergies Allergy/AdvReac Type Severity Reaction Status Date / Time Amoxicillin Allergy Intermediate Swelling, Verified 11/17/21 16:16 Rash ARTURO Inhibitors AdvReac Severe Other Verified 11/17/21 16:16 metformin AdvReac Intermediate Diarrhea Verified 11/17/21 16:16 silver-containing garments AdvReac Mild Redness of Uncoded 10/08/21 10:43 Skin Physical Examination Vital Signs Vital signs: Temp Pulse Resp BP Pulse Ox 36.7 C 89 22 117/69 97 11/18/21 08:00 11/18/21 08:00 11/18/21 04:00 11/18/21 08:00 11/18/21 08:00 EENT EENT: ATNC, PERRL and mucous membranes dry Neck Neck: no JVD and no carotid bruit Respiratory Respiratory: course breath sounds and rhonchi Cardiovascular Cardiology: no rub, no gallops and edema Gastrointestinal Gastrointestinal: normoactive bowel sounds, no tenderness and obese Integumentary Integumentary: no rash Neurologic Neurologic: no focal deficit, no asterixis, alert and oriented x3 and CN 3-12 intact Musculoskeletal Musculoskeletal: deformities (right BKA) Psychiatric Psychiatric: mood/affect appropriate Results Lab Results Result Diagrams: 11/18/21 05:41 11/18/21 05:41 Lab results: Most recent lab results Calcium 8.5 mg/dL (8.6-10.4) L 11/18/21 05:41 Magnesium 2.4 mg/dL (1.6-2.5) 11/18/21 05:41 A/P Assessment and plan (1) Diabetes mellitus with diabetic nephropathy: Assessment and plan: Biopsy proved DM. No evidence of SLE on Bx Plan: ARB and SGLT 2 inhibitor therapy Avoid NSAIDS As BP < 130/80, decrease Losartan from 100 to 50 mg po qD Trend labs Status: Chronic (2) Influenza A: Assessment and plan: Hydrate and Acetaminophen Non toxic Status: Acute Time Spent With Patient Time: Total time spent is greater than 50% in coordination of care (as documented) at patient's floor/unit and/or counseling patient:
[2021-11-18] MEDS ORDERED: DEXTROSE 50% 50 ML VIAL IV PRN (12:25)
[2021-11-18] MEDS ORDERED: DEXTROSE 31 GM ORAL.SUSP PO PRN (12:25)
[2021-11-18 13:20] LABS: Complement C3 123.4 mg/dL (90.0-180.0)
[2021-11-18 13:41] LABS: Ferritin 737.5 ng/mL (30.0-400.0)
[2021-11-18] MEDS: AZITHROMYCIN 500 MG in DEXTROSE 5% IN WATER 250 ML IV SCH (13:59)
[2021-11-18] MEDS: 0.9 % SODIUM CHLORIDE 1,000 ML IV SCH (14:00)
[2021-11-18] MEDS: CARVEDILOL 12.5 MG TABLET PO SCH ×2 (14:00→21:29)
--- NOTE | 2021-11-18 16:41 | Internal Med History&Physical ---
HPI History of Present Illness Patient information: Note initiated : 11/17/21 at 8:36 pm Service Date, if different from initiated Date:11/17/2021 Patient: Johnson Pedraza a 41 y/o M admitted on 11/17/21 for cold/flu. Chief Complaint: [] History of present illness: Mr. Pedraza is a 41 year old M This is a 41-year-old gentleman with a history of diabetic nephropathy, status post BKA, morbid obesity was present with complaining of 2 weeks history of co ugh shortness of breath he denied any sputum production he denied any chest pain he denied any worsening shortness of breath patient has history of CHF dilated cardiomyopathy with ejection fraction of 50%. Patient reported history of chills and sweats no fever recorded also complaining of nausea and episodes of vomiting and diarrhea. His work-up in the ED showed evidence of worsening renal function with a baseline 1.8 and today 2.8 His influenza came back positive With the persistent hypoxia patient was admitted to the hospital for further management Constitutional Constitutional: Present chills, fatigue, lethargy, malaise and weakness EENT Eyes: Absent irritation, loss of vision, requires corrective lenses or tunnel vision Ears: Absent ear discharge, ear pain or tinnitus Nose, mouth and throat: Present nasal discharge; Absent mouth pain, sinus pressure or tongue swelling Cardiovascular Cardiovascular: Present dyspnea on exertion and edema; Absent chest pain with activity Respiratory Respiratory: Present cough and dyspnea on exertion; Absent stridor, chest congestion or excessive phlegm production Gastrointestinal Gastrointestinal: Present belching, diarrhea, nausea and vomiting Musculoskeletal Musculoskeletal: Present muscle cramps and myalgias; Absent back pain Neurological Neurological: Absent memory loss, radicular pain or syncope PFSH PFSH All Active Problems (Updated 11/18/21 @ 15:57 by Teddy Bae MD) Hyperkalemia (Chronic) Hyperlipidemia (Chronic) Hypertension, essential (Chronic) Morbid obesity (Chronic) Depression (Chronic) Amputation of right lower extremity below knee (Chronic) H/O amputation of lesser toe (Chronic) Congestive heart failure (Acute) Chronic kidney disease, stage III (moderate) (Chronic) Edema (Chronic) Hypertensive renal disease (Chronic) Severe obstructive sleep apnea (Chronic) Diabetes mellitus, type II, insulin dependent (Chronic) Micturition syncope (Acute) Abnormal ANCA test (Acute) Chronic kidney disease, stage III (moderate) (Acute) Foot ulcer due to secondary DM (Chronic) Acute kidney injury (Chronic) Acute on chronic renal failure (Chronic) Sepsis affecting skin (Chronic) Sec DM wo cmp nt st uncn (Chronic) Contact dermatitis and other eczema, due to unspecified cause (Chronic) Chronic ulcer of skin (Chronic) Ulcer of lower limb (Chronic) Ulcer of other part of foot (Chronic) Dermatomycosis, unspecified (Chronic) Other specified disorder of skin (Chronic) Superficial injury of foot and toes (Chronic) Abrasion (Chronic) Other specified conditions influencing health status (Chronic) Anemia (Chronic) Obesity (Chronic) Cataracts, bilateral (Chronic) Cough (Chronic) Cellulitis of left lower limb (Chronic) Proteinuria (Chronic) Type 2 diabetes mellitus with foot ulcer (Chronic) 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) Other complications of skin graft (allograft) (autograft) (Chronic) Surgical operation with anastomosis, bypass or graft as the cause of abnormal reaction of the patient, or of later complication, without mention of misadventure at the time of the procedure (Chronic) Tinea unguium (Chronic) 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) FCI (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 insulin (Chronic) 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) Heart failure, unspecified (Chronic) Hypertensive heart and chronic kidney disease with heart failure and stage 1 through stage 4 chronic kidney disease, or unspecified chronic kidney disease (Chronic) Tinea pedis (Chronic) ANTHONY (obstructive sleep apnea) (Chronic) Type 2 diabetes mellitus with neurological complications (Chronic) Type 2 diabetes mellitus with renal complication (Chronic) Diabetic neuropathy (Chronic) Diabetic foot ulcer (Chronic) Acute osteomyelitis of left foot (Chronic) Diabetic ulcer of left foot (Chronic) DM (diabetes mellitus), type 2 with peripheral vascular complications (Chronic) Type 2 diabetes mellitus with polyneuropathy (Chronic) 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, right eye (Chronic) 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, left eye (Chronic) Xerosis of skin (Chronic) CHF with right heart failure (Chronic) Dependent edema (Chronic) Obesity hypoventilation syndrome (Chronic) Depression, major, recurrent, moderate (Chronic) Cataract, nuclear sclerotic, both eyes (Chronic) On home oxygen therapy (Chronic) 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) Peripherally inserted central venous catheter in situ (Chronic) Hypoxia (Chronic) Productive cough (Chronic) Community acquired pneumonia (Acute) CHF exacerbation (Acute) Hypertensive heart and kidney disease w/ CKD (chronic kidney disease) (Chronic) Type 2 DM with CKD stage 3 and hypertension (Chronic) Pneumonia due to 2019 novel coronavirus (Acute) Acute hyperglycemia (Acute) Diabetes mellitus out of control (Acute) No-show for appointment (Acute) Cellulitis (Acute) Diabetic ulcer of right thigh associated with type 2 diabetes mellitus, limited to breakdown of skin (Acute) Closed hematoma of left kidney (Acute) Diabetes mellitus with diabetic nephropathy (Chronic) Influenza A (Acute) CHF (congestive heart failure) (Acute) Acute renal failure (Acute) Medical History (Updated 11/18/21 @ 15:57 by Teddy Bae MD) Abnormal ANCA test Doubt this has anything to do with his renal disease, performed basis of biopsy Abrasion Abrasion or friction burn without mention of injection Acquired absence of left foot Acquired absence of right leg below knee Acute osteomyelitis of left foot Amputation of right lower extremity below knee 2012 Anemia Cataract, nuclear sclerotic, both eyes Cataracts, bilateral Cellulitis of left lower limb CHF with right heart failure Chronic kidney disease, stage III (moderate) Best described as diabetic nephropathy Slowly progressive loss of GFR Chronic kidney disease, stage III (moderate) Chronic ulcer of skin Congestive heart failure Contact dermatitis and other eczema, due to unspecified cause Cough Dependent edema Depression 2013 Depression, major, recurrent, moderate Dermatomycosis, unspecified Diabetes mellitus type 1 2000 Diabetic foot ulcer Diabetic neuropathy Diabetic ulcer of left foot DM (diabetes mellitus), type 2 with peripheral vascular complications Edema Heart failure, unspecified Hyperkalemia Combination of high-dose losartan, uncontrolled blood pressure sugar of greater than 400, and potassium release as renal hematoma resolves Hyperlipidemia Hypertension, essential Hypertensive heart and chronic kidney disease with heart failure and stage 1 through stage 4 chronic kidney disease, or unspecified chronic kidney disease Stable GFR between 30 and 40 cc/min Nonnephrotic range proteinuria Hypertensive heart and kidney disease w/ CKD (chronic kidney disease) Blood pressure well controlled with current medications Hypertensive renal disease Hypoxia 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 Micturition syncope Morbid obesity Non-pressure chronic ulcer of other part of left foot with necrosis of bone Obesity Obesity hypoventilation syndrome On home oxygen therapy ANTHONY (obstructive sleep apnea) Other complications of skin graft (allograft) (autograft) Other specified conditions influencing health status Other specified disorder of skin Peripherally inserted central venous catheter in situ Productive cough Proteinuria Sec DM wo cmp nt st uncn Superficial injury of foot and toes Surgical operation with anastomosis, bypass or graft as the cause of abnormal reaction of the patient, or of later complication, without mention of misadventure at the time of the procedure Tinea pedis Tinea unguium Type 2 diabetes mellitus with diabetic chronic kidney disease Nonnephrotic range proteinuria on low-dose ARB suggests an element of diabetic renal disease Type 2 diabetes mellitus with foot ulcer Type 2 diabetes mellitus with neurological complications Type 2 diabetes mellitus with polyneuropathy Type 2 diabetes mellitus with renal complication 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, left eye 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, right eye Type 2 DM with CKD stage 3 and hypertension Patient's blood pressure well controlled with multiple medications. Goal BP 130/80 With his current diuresis his blood pressure is on the low side so I would reduce his losartan to 1/2 tablet once a day Ulcer of lower limb Ulcer of other part of foot Xerosis of skin Foot Surgical History H/O amputation of lesser toe 2010 middle left toe Lower limb amputation status (03/26/17) Third toe, left foot, 2011 Fourth/fifth toe amputation on left, 03/26/17 Lower limb amputation, below knee (12/28/12) Right Status post nail surgery (05/20/16) Toenail removal, left great and 4th, non permanent Family History Mother Arthritis Seizure Disorder of thyroid Diabetes mellitus Tuberculosis Vision problems Father Diabetes mellitus Essential hypertension Myocardial Infarction Cerebrovascular accident (CVA) Heart disease Kidney disease Tuberculosis High cholesterol Sister Migraine Disorder of thyroid Family/Other Tuberculosis Sibling, unspecified Social History marital status: single occupational status: disabled alcohol intake frequency: does not drink substance use type: does not use MEDS/ALLERGIES Home Medications and Allergies Home Medications Medication Instructions Recorded Confirmed Type Accu-Chek 1 each FS AC 04/23/17 11/17/21 History insulin aspart U-100 100 unit/mL See Rx Instructions .ROUTE .COMPLEX 12/26/20 11/17/21 History (3 mL) subcutaneous pen (Novolog Flexpen U-100 Insulin aspart) gabapentin 300 mg capsule 300 mg PO QHS 02/26/21 11/17/21 History furosemide 40 mg tablet 40 mg PO BID #60 tab 06/13/21 11/17/21 Rx fluoxetine 40 mg capsule 40 mg PO DAILY cap 09/11/21 11/18/21 History insulin glargine 100 unit/mL 60 unit SUB-Q BID ml 09/11/21 11/18/21 History subcutaneous solution (Lantus U-100 Insulin) empagliflozin 10 mg tablet 10 mg PO QAM #30 tab 10/08/21 11/17/21 Rx carvedilol 12.5 mg tablet 12.5 mg PO BID 11/05/21 11/17/21 History losartan 100 mg tablet 50 mg PO QDAY 11/17/21 11/17/21 History aspirin 325 mg tablet 325 mg PO QDAY 11/18/21 11/18/21 History fluoxetine 20 mg capsule 20 mg PO QDAY 11/18/21 11/18/21 History Allergies Allergy/AdvReac Type Severity Reaction Status Date / Time Amoxicillin Allergy Intermediate Swelling, Verified 11/17/21 16:16 Rash ARTURO Inhibitors AdvReac Severe Other Verified 11/17/21 16:16 metformin AdvReac Intermediate Diarrhea Verified 11/17/21 16:16 silver-containing garments AdvReac Mild Redness of Uncoded 10/08/21 10:43 Skin EXAM Constitutional Vitals: Temp Pulse Resp BP Pulse Ox 98.6 F 82 22 118/68 93 11/18/21 12:00 11/18/21 12:00 11/18/21 12:00 11/18/21 12:00 11/18/21 12:00 General appearance: mild distress and morbidly obese Head Head exam: Present atraumatic, normal inspection and normocephalic Eye Eye exam: Present EOMI and PERRL; Absent nystagmus ENT ENT exam: Present mucous membranes dry and normal exam Expanded Neck Exam Neck exam: Absent anterior neck swelling, tenderness or thyroid mass Respiratory Respiratory exam: Present rales; Absent accessory muscle use, respiratory distress, stridor or wheezes Cardiovascular Cardiovascular exam: Absent irregular rhythm, +S3, +S4 or tachycardia GI/Abdominal GI/Abdominal exam: Present normal bowel sounds, soft and distended Expanded GI/Abdominal Exam GI/Abdominal exam: Absent ascites Extremities Exam Extremities exam: Present full ROM and normal inspection; Absent calf tenderness Expanded Upper Extremity Exam General: Present normal inspection; Absent abrasion or foreign body Back Exam Back exam: Present normal inspection; Absent CVA tenderness (L), CVA tenderness (R) or muscle spasm Neurological Exam Neurological exam: Present alert, CN II-XII intact, oriented X3 and reflexes normal; Absent abnormal gait, altered or motor sensory deficit Skin Skin exam: Absent abrasion, mottled or petechiae DATA Data Completed and Pending Labs: Labs from last 24 hours 11/18/21 11/18/21 11/18/21 12:09 12:09 12:09 WBC RBC Hgb Hct MCV MCH MCHC RDW Plt Count MPV Neut % (Auto) Lymph % (Auto) [place] % (Auto) Eos % (Auto) Baso % (Auto) Lymph # (Auto) [place] # (Auto) Eos # (Auto) Baso # (Auto) Absolute Neutrophils ESR VBG Lactic Acid Sodium Potassium Chloride Carbon Dioxide Anion Gap BUN Creatinine GFR Calculation Glucose Calcium Magnesium Ferritin Total Bilirubin AST ALT Alkaline Phosphatase C-Reactive Protein 30.20 H NT-Pro-B Natriuret Pep 7321.0 H Total Protein Albumin Globulin Albumin/Globulin Ratio Procalcitonin 1.02 H Urine Urea Nitrogen Complement C3 123.4 Complement C4 29.7 11/18/21 11/18/21 11/18/21 12:09 12:09 05:41 WBC RBC Hgb Hct MCV MCH MCHC RDW Plt Count MPV Neut % (Auto) Lymph % (Auto) [place] % (Auto) Eos % (Auto) Baso % (Auto) Lymph # (Auto) [place] # (Auto) Eos # (Auto) Baso # (Auto) Absolute Neutrophils ESR 117 H VBG Lactic Acid Sodium 131 L Potassium 5.2 H Chloride 100 Carbon Dioxide 17 L Anion Gap 14.0 BUN 55 H Creatinine 2.8 H GFR Calculation 26 Glucose 158 H Calcium 8.5 L Magnesium 2.4 Ferritin 737.5 H Total Bilirubin 0.2 AST 13 ALT 10 Alkaline Phosphatase 111 C-Reactive Protein NT-Pro-B Natriuret Pep Total Protein 6.2 Albumin 2.0 L Globulin 4.2 H Albumin/Globulin Ratio 0.5 L Procalcitonin Urine Urea Nitrogen Pending Complement C3 Complement C4 11/18/21 11/17/21 11/17/21 05:41 16:53 16:53 WBC 18.2 H RBC 4.61 L Hgb 12.6 L Hct 40.9 MCV 88.7 MCH 27.3 MCHC 30.8 L RDW 14.8 H Plt Count 363 MPV 10.1 Neut % (Auto) 89.4 H Lymph % (Auto) 3.7 L [place] % (Auto) 6.5 Eos % (Auto) 0.2 Baso % (Auto) 0.2 Lymph # (Auto) 0.67 L [place] # (Auto) 1.18 H Eos # (Auto) 0.04 Baso # (Auto) 0.03 Absolute Neutrophils 16.25 H ESR VBG Lactic Acid 2.0 Sodium 130 L Potassium 5.6 H Chloride 97 Carbon Dioxide 20 L Anion Gap 13.0 BUN 55 H Creatinine 2.8 H GFR Calculation 26 Glucose 162 H Calcium 9.0 Magnesium Ferritin Total Bilirubin 0.3 AST 12 ALT 12 Alkaline Phosphatase 118 H C-Reactive Protein NT-Pro-B Natriuret Pep 08264.0 H Total Protein 7.1 Albumin 2.5 L Globulin 4.6 H Albumin/Globulin Ratio 0.5 L Procalcitonin Urine Urea Nitrogen Complement C3 Complement C4 11/17/21 16:53 WBC 18.8 H RBC 5.01 Hgb 13.6 L Hct 44.9 MCV 89.6 MCH 27.1 MCHC 30.3 L RDW 14.6 H Plt Count 366 MPV 10.3 Neut % (Auto) 90.2 H Lymph % (Auto) 3.2 L [place] % (Auto) 6.2 Eos % (Auto) 0.2 Baso % (Auto) 0.2 Lymph # (Auto) 0.60 L [place] # (Auto) 1.16 H Eos # (Auto) 0.04 Baso # (Auto) 0.04 Absolute Neutrophils 16.93 H ESR VBG Lactic Acid Sodium Potassium Chloride Carbon Dioxide Anion Gap BUN Creatinine GFR Calculation Glucose Calcium Magnesium Ferritin Total Bilirubin AST ALT Alkaline Phosphatase C-Reactive Protein NT-Pro-B Natriuret Pep Total Protein Albumin Globulin Albumin/Globulin Ratio Procalcitonin Urine Urea Nitrogen Complement C3 Complement C4 A/P Narrative Plan of Treatment: Acute renal failure on CKD Diabetic nephropathy Patient had significant volume depletion with diarrhea and continued use of diuretics Will continue IV hydration Nephrology consult Monitor renal function Influenza A infection Acute hypoxic respiratory failure Started him on Tamiflu renally dosed with 30 mg twice daily Monitor for any worsening hypoxia His hypoxia is possibly combination of obesity hypoventilation, sleep apnea, congestive heart failure and the new influenza infection No significant evidence of secondary pneumonia or ARDS-Closely monitor him History of chronic systolic and dilated cardiomyopathy with ejection fraction 50% Hold the diuretics as there is no significant evidence of acute pulmonary edema or congestive heart failure causing hypoxia His findings on the chest x-ray could be chronic or due to the new influenza Type 2 diabetes mellitus Diabetic nephropathy Status post right BKA Restart his home insulin regimen we will be cautious with his worsening renal function Sliding scale insulin Morbid obesity and obesity hypoventilation Continue CPAP Essential hypertension Continue home medications DVT prophylaxis-subcu heparin CODE STATUS-full code Expect length of stay-1-2 midnights 11/17/2021 Time Spent With Patient Time: Total time spent is greater than 50% in coordination of care (as documented) at patient's floor/unit and/or counseling patient:
--- NOTE | 2021-11-18 16:45 | Internal Med Progress Note ---
SUBJECTIVE Subjective Patient information: Note initiated : 11/18/21 at 4:42 pm Service Date, if different from initiated Date: [] Patient: Johnson Pedraza 41 y/o M admitted on 11/17/21 for cold/flu. Chief Complaint: [] Interval history: This is a 41-year-old gentleman with a history of diabetic nephropathy, status post BKA, morbid obesity was present with complaining of 2 weeks history of cough shortness of breath he denied any sputum production he denied any chest pain he denied any worsening shortness of breath patient has history of CHF di lated cardiomyopathy with ejection fraction of 50%. Patient reported history of chills and sweats no fever recorded also complaining of nausea and episodes of vomiting and diarrhea. His work-up in the ED showed evidence of worsening renal function with a baseline 1.8 and today 2.8 His influenza came back positive With the persistent hypoxia patient was admitted to the hospital for further management 11/18 Patient's symptoms improving no shortness of breath Discussed with nephrology and continuing IV hydration Renal function improving Constitutional Vitals: Vital Signs Temp Pulse Resp BP Pulse Ox 98.6 F 81 22 104/49 95 11/18/21 16:00 11/18/21 16:00 11/18/21 16:00 11/18/21 16:00 11/18/21 16:00 Period Temp Pulse Resp BP Sys/Harris Pulse Ox Last 24 Hr 98.0 F-98.7 F 81-91 20-24 104-132/49-78 88-97 Intake and Output 11/18/21 11/18/21 11/18/21 05:59 13:59 21:59 Intake Total 730 1410 320 Output Total 600 Balance 730 810 320 Weight 369 lb 4.8 oz Patient Weight 11/19/21 05:59 Weight 369 lb 4.8 oz Intake & Output: Intake & Output 11/18/21 11/18/21 11/18/21 05:59 13:59 21:59 Intake Total 730 1410 320 Output Total 600 Balance 730 810 320 Weight 369 lb 4.8 oz Intake: IV 250 1050 Sodium Chloride 0.9% 1,000 ml @ 1000 75 mls/hr IV .[id number] [facility] Rx#: [id number] Zithromax 500 mg In Dextrose 5% 250 in Water 250 ml @ 250 mls/hr IV Q24H [facility] Rx#:[id number] Rocephin 2 gm In Dextrose 5% in 50 Water 50 ml @ 100 mls/hr IV DAILY [facility] Rx#:[id number] Oral 480 360 320 Output: Urine/Stool Mix 600 Other: Meal Lunch Lunch Percent of Meal Consumed 100% 50% Feeding Ability Assist with Tray Set Up Stool Size Moderate Large Stool Color Brown Brown Stool Consistency Liquid Liquid # Voids 1 # Bowel Movements 1 General appearance: morbidly obese Head Head exam: Present atraumatic, normal inspection and normocephalic Neck Neck exam: Present normal inspection; Absent lymphadenopathy or tenderness Respiratory Respiratory exam: Present rales; Absent accessory muscle use, respiratory distress, rhonchi, stridor or wheezes Cardiovascular Cardiovascular exam: Absent bradycardia, irregular rhythm, +S3 or +S4 GI/Abdominal GI/Abdominal exam: Present normal bowel sounds, soft and distended; Absent guarding or tenderness Neurological Exam Neurological exam: Present alert, CN II-XII intact, oriented X3 and reflexes normal; Absent motor sensory deficit OBJ DATA Labs CBC & Chem 7: 11/18/21 05:41 11/18/21 05:41 Labs: Abnormal Lab Results 11/18/21 11/18/21 11/18/21 12:09 12:09 12:09 WBC RBC Hgb MCHC RDW Neut % (Auto) Lymph % (Auto) Lymph # (Auto) [place] # (Auto) Absolute Neutrophils ESR 117 H Sodium Potassium Carbon Dioxide BUN Creatinine Glucose Calcium Ferritin Alkaline Phosphatase C-Reactive Protein 30.20 H NT-Pro-B Natriuret Pep 7321.0 H Albumin Globulin Albumin/Globulin Ratio Procalcitonin 1.02 H 11/18/21 11/18/21 11/18/21 12:09 05:41 05:41 WBC 18.2 H RBC 4.61 L Hgb 12.6 L MCHC 30.8 L RDW 14.8 H Neut % (Auto) 89.4 H Lymph % (Auto) 3.7 L Lymph # (Auto) 0.67 L [place] # (Auto) 1.18 H Absolute Neutrophils 16.25 H ESR Sodium 131 L Potassium 5.2 H Carbon Dioxide 17 L BUN 55 H Creatinine 2.8 H Glucose 158 H Calcium 8.5 L Ferritin 737.5 H Alkaline Phosphatase C-Reactive Protein NT-Pro-B Natriuret Pep Albumin 2.0 L Globulin 4.2 H Albumin/Globulin Ratio 0.5 L Procalcitonin 11/17/21 11/17/21 16:53 16:53 WBC 18.8 H RBC Hgb 13.6 L MCHC 30.3 L RDW 14.6 H Neut % (Auto) 90.2 H Lymph % (Auto) 3.2 L Lymph # (Auto) 0.60 L [place] # (Auto) 1.16 H Absolute Neutrophils 16.93 H ESR Sodium 130 L Potassium 5.6 H Carbon Dioxide 20 L BUN 55 H Creatinine 2.8 H Glucose 162 H Calcium Ferritin Alkaline Phosphatase 118 H C-Reactive Protein NT-Pro-B Natriuret Pep 80268.0 H Albumin 2.5 L Globulin 4.6 H Albumin/Globulin Ratio 0.5 L Procalcitonin Meds: Medications Acetaminophen (Acetaminophen 325 Mg Tablet) 650 mg PO Q6HP PRN; Protocol PRN Reason: Per Pain Protocol/Fever > 101 Albuterol/Ipratropium (Ipratropium/Albuterol 3 Ml Ampul.Neb) 3 ml NEB Q4HRT PRN PRN Reason: Wheezing Aspirin (Aspirin 325 Mg Enteric Coated Tablet) 325 mg PO QDAY [facility] Carvedilol (Carvedilol 12.5 Mg Tablet) 12.5 mg PO BID [facility] Last Admin: 11/18/21 14:00 Dose: 12.5 mg Documented by: Dextrose (Dextrose 50% 50 Ml Vial) 0 ml IV UD PRN PRN Reason: Per Sliding Scale Diagnostic Test (Pha) (Accu-Chek 1 Each Strip) 1 each FS ACHS [facility] Docusate Sodium (Docusate Sodium 100 Mg Capsule) 100 mg PO BID [facility] Last Admin: 11/18/21 10:05 Dose: Not Given Documented by: Fluoxetine HCl (Fluoxetine Hcl 20 Mg Capsule) 40 mg PO DAILY [facility] Gabapentin (Gabapentin 300 Mg Capsule) 300 mg PO QHS [facility] Glucose (Dextrose 31 Gm Oral.Susp) 15 gm PO PRN PRN PRN Reason: Hypoglycemia Heparin Sodium (Porcine) (Heparin 5,000 Unit/Ml Vial) 5,000 unit SQ Q12 [facility] Last Admin: 11/18/21 10:05 Dose: 5,000 unit Documented by: Sodium Chloride (Sodium Chloride 0.9%) 1,000 mls @ 75 mls/hr IV .[id number] [facility] Stop: 11/18/21 23:54 Last Admin: 11/18/21 14:00 Dose: 75 mls/hr Documented by: Ceftriaxone Sodium 2 gm/ (Dextrose) 50 mls @ 100 mls/hr IV DAILY [facility] Last Infusion: 11/18/21 10:48 Dose: Infused Documented by: Azithromycin 500 mg/ Dextrose 250 mls @ 250 mls/hr IV Q24H [facility]; Protocol Stop: 11/19/21 22:59 Last Admin: 11/18/21 13:59 Dose: 250 mls/hr Documented by: Insulin Glargine (Insulin Glargine, Human 1 Unit/0.01 Ml) 60 unit SQ BID [facility] Insulin Human Lispro (Insulin Lispro 1 Unit/0.01 Ml Unit) 0 unit SQ ACHS [facility]; Protocol Losartan Potassium (Losartan 50 Mg Tablet) 50 mg PO QDAY [facility] Ondansetron HCl (Ondansetron 4 Mg/2 Ml Vial) 4 mg IV Q6HP PRN PRN Reason: Nausea And Vomiting Oseltamivir Phosphate (Oseltamivir Phosphate 30 Mg Capsule) 30 mg PO BID [facility] Last Admin: 11/18/21 10:04 Dose: 30 mg Documented by: Pantoprazole Sodium (Pantoprazole 40 Mg Tablet) 40 mg PO QAMAC [facility] Last Admin: 11/18/21 10:04 Dose: 40 mg Documented by: Empagliflozin 10 Mg (Tablet) 10 dose PO QAM [facility] Prochlorperazine (Prochlorperazine 10 Mg/2 Ml Vial) 5 mg IV Q4HP PRN PRN Reason: Nausea And Vomiting Senna (Sennosides 1 Tablet) 2 tab PO HS [facility] Sodium Chloride (0.9 % Sodium Chloride 10 Ml Syringe) 10 ml IV Q8 [facility] Last Admin: 11/18/21 14:00 Dose: Not Given Documented by: A/P Narrative Plan of Treatment: Acute renal failure on CKD Diabetic nephropathy Patient had significant volume depletion with diarrhea and continued use of diuretics Will continue IV hydration Nephrology consulted Renal function improving Will continue IV hydration and monitor for hypoxia Influenza A infection Acute hypoxic respiratory failure Started him on Tamiflu renally dosed with 30 mg twice daily Monitor for any worsening hypoxia His hypoxia is possibly combination of obesity hypoventilation, sleep apnea, congestive heart failure and the new influenza infection No significant evidence of secondary pneumonia or ARDS-Closely monitor him History of chronic systolic and dilated cardiomyopathy with ejection fraction 50% Hold the diuretics as there is no significant evidence of acute pulmonary edema or congestive heart failure causing hypoxia His findings on the chest x-ray could be chronic or due to the new influenza Type 2 diabetes mellitus Diabetic nephropathy Status post right BKA Restart his home insulin regimen we will be cautious with his worsening renal function Sliding scale insulin Morbid obesity and obesity hypoventilation Continue CPAP Essential hypertension Continue home medications DVT prophylaxis-subcu heparin CODE STATUS-full code Expect length of stay-1-2 midnights Time Spent With Patient Time: Total time spent is greater than 50% in coordination of care (as documented) at patient's floor/unit and/or counseling patient:
[2021-11-18] MEDS: INSULIN LISPRO 1 UNIT/0.01 ML UNIT SQ SCH ×2 (16:49→21:33)
--- NOTE | 2021-11-18 18:14 | EKG ---
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
[2021-11-18] MEDS ORDERED: SENNOSIDES 1 TABLET PO SCH (21:00)
[2021-11-18] MEDS ORDERED: GABAPENTIN 300 MG CAPSULE PO SCH (21:00)
[2021-11-18] MEDS: INSULIN GLARGINE, HUMAN 1 UNIT/0.01 ML SQ SCH (21:33)
[2021-11-19 06:16] LABS: Basophils # (Auto) 0.04 K/mcL (0.00-0.30); Basophils % (Auto) 0.2 % (0.0-2.0); Eosinophils # (Auto) 0.13 K/mcL (0.00-0.70); Eosinophils % (Auto) 0.7 % (0.0-7.0); Hematocrit 39.6 % (40.1-51.0); Hemoglobin 12.1 g/dL (13.7-17.5); Lymphocytes # (Auto) 0.81 K/mcL (1.50-4.80); Lymphocytes % (Auto) 4.6 % (15.5-49.0); Mean Cell Volume 89.6 fL (80.0-100.0); Mean Corpuscular HGB Conc 30.6 g/dL (31.0-36.0); Mean Platelet Volume 10.2 fL (7.4-10.4); Monocytes # (Auto) 1.19 K/mcL (0.10-0.90); Monocytes % (Auto) 6.7 % (1.0-12.0); Neutrophils % (Auto) 87.8 % (38.0-78.0); Platelet Count 349 K/mcL (140-440); RBC 4.42 M/mcL (4.63-6.08); WBC 17.6 K/mcL (4.5-11.0)
[2021-11-19 06:43] LABS: ALT/SGPT 12 U/L (<40); AST/SGOT 14 U/L (<40); Albumin 1.9 gm/dL (3.2-5.2); Albumin/Globulin Ratio 0.5 (1.0-2.3); Alkaline Phosphatase 139 U/L (39-117); Bilirubin,Total 0.2 mg/dL (0.1-1.0); Blood Urea Nitrogen 49 mg/dL (6-20); Calcium 8.3 mg/dL (8.6-10.4); Carbon Dioxide 17 mmol/L (22-30); Chloride 98 mmol/L (96-108); Glomerular Filtration Rate 25; Glucose 296 mg/dL (70-105)
[2021-11-19] MEDS: 0.9 % SODIUM CHLORIDE 10 ML SYRINGE IV SCH ×2 (06:47→15:00)
[2021-11-19] MEDS: PANTOPRAZOLE 40 MG TABLET PO SCH (07:58)
[2021-11-19] MEDS: INSULIN LISPRO 1 UNIT/0.01 ML UNIT SQ SCH ×2 (07:59→11:29)
--- NOTE | 2021-11-19 08:02 | Nephrology Progress Note ---
SUBJECTIVE Subjective Patient information: Note initiated : 11/19/21 at 8:01 am Service Date, if different from initiated Date: [] Patient: Johnson Pedraza 41 y/o M admitted on 11/17/21 for cold/flu. Chief Complaint: [Feels sick] Principal diagnosis: DM nephropathy Interval history: Vital Signs Temp Pulse Resp BP BP BP Pulse Ox 11/19/21 04:32 37.1 C 93 H 24 H 137/90 95 11/19/21 01:32 36.9 C 117/85 94 11/18/21 23:46 37.3 C H 84 24 H 90/47 90 11/18/21 19:21 37.2 C 88 26 H 127/75 95 11/18/21 16:00 37.0 C 81 22 104/49 95 11/18/21 12:00 37.0 C 82 22 118/68 93 Intake and Output 11/18/21 11/19/21 11/19/21 21:59 05:59 13:59 Intake Total 2009 200 Output Total 1050 Balance 960 200 Intake: Oral 2009 200 Output: Void Amount 550 Urine/Stool Mix 500 Other: Meal Dinner Percent of Meal Consumed 100% Urine Appearance Clear Urine Color Bright Yellow Stool Size Small Stool Color Brown Stool Consistency Liquid Weight 165.516 kg Serum Creatinine Pertinent ROS: better appetite wants to go home Constitutional Vitals: Vital Signs Temp Pulse Resp BP Pulse Ox 37.1 C 93 H 24 H 137/90 95 11/19/21 04:32 11/19/21 04:32 11/19/21 04:32 11/19/21 04:32 11/19/21 04:32 Period Temp Pulse Resp BP Sys/Harris Pulse Ox Last 24 Hr 36.9 C-37.3 C 81-93 22-26 90-137/47-90 90-95 Intake and Output 11/18/21 11/19/21 11/19/21 21:59 05:59 13:59 Intake Total 2009 200 Output Total 1050 Balance 960 200 Weight 165.516 kg Intake & Output: Intake & Output 11/18/21 11/19/21 11/19/21 21:59 05:59 13:59 Intake Total 2009 200 Output Total 1050 Balance 960 200 Weight 165.516 kg Intake: Oral 2009 200 Output: Void Amount 550 Urine/Stool Mix 500 Other: Meal Dinner Percent of Meal Consumed 100% Urine Appearance Clear Urine Color Bright Yellow Stool Size Small Stool Color Brown Stool Consistency Liquid General appearance: disheveled, no acute distress and obese Respiratory Respiratory exam: Present rhonchi Cardiovascular Cardiovascular exam: Present +S1 and +S2 GI/Abdominal GI/Abdominal exam: Present normal bowel sounds Extremities Exam Additional comments: right bka Neurological Exam Neurological exam: Present CN II-XII intact and oriented X3 Psychiatric Psychiatric exam: Present normal affect Skin Skin exam: Absent rash A/P Assessment and plan (1) Influenza A: Status: Acute (2) Type 2 diabetes mellitus with diabetic chronic kidney disease: Status: Chronic Comment: Nonnephrotic range proteinuria on low-dose ARB suggests an element of diabetic renal disease Qualifiers: Diabetes mellitus prison insulin use: with prison use Chronic kidney disease stage: stage 2 (mild) Qualified Code(s): E11.22 - Type 2 diabetes mellitus with diabetic chronic kidney disease; N18.2 - Chronic kidney disease, stage 2 (mild); Z79.4 - USP (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 insulin Plan OK for D/C Follow up in early November Labs ordered Hold ARB Time Spent With Patient Time: Total time spent is greater than 50% in coordination of care (as documented) at patient's floor/unit and/or counseling patient:
[2021-11-19] MEDS: cefTRIAXone 2 GM in DEXTROSE 5% IN WATER 50 ML IV SCH (08:15)
[2021-11-19] MEDS: INSULIN GLARGINE, HUMAN 1 UNIT/0.01 ML SQ SCH (08:45)
[2021-11-19] MEDS: HEPARIN 5,000 UNIT/ML VIAL SQ SCH (08:46)
[2021-11-19] MEDS: CARVEDILOL 12.5 MG TABLET PO SCH (08:46)
[2021-11-19] MEDS: OSELTAMIVIR PHOSPHATE 30 MG CAPSULE PO SCH (08:46)
[2021-11-19] MEDS: DOCUSATE SODIUM 100 MG CAPSULE PO SCH (08:47)
[2021-11-19] MEDS: AZITHROMYCIN 500 MG in DEXTROSE 5% IN WATER 250 ML IV SCH (08:49)
[2021-11-19] MEDS ORDERED: ASPIRIN 325 MG ENTERIC COATED TABLET PO SCH (09:00)
[2021-11-19] MEDS ORDERED: LOSARTAN 50 MG TABLET PO SCH (09:00)
[2021-11-19] MEDS ORDERED: FLUoxetine HCL 20 MG CAPSULE PO SCH (09:00)
[2021-11-19] MEDS ORDERED: Empagliflozin 10 mg tablet PO SCH (09:00)
--- NOTE | 2021-11-19 12:09 | Discharge Summary ---
Discharge Provider Provider IMPORTANT FOLLOW-UP INFORMATION FOR PCP: Patient information: Note initiated : 11/19/21 at 12:06 pm Service Date, if different from initiated Date: [] Patient: Johnson Pedraza 41 y/o M admitted on 11/17/21 for cold/flu. Chief Complaint: [] Date of admission: 11/17/21 21:22 Discharge date: 11/19/21 Primary care physician: Nery Santos Consults: 11/17/21 Consult to Physician [CONS] Stat Comment: Consulting Provider: Teri Ocampo Reason For Exam: Physician to Consult COURSE Hospital Course Hospital course: 41-year-old gentleman with a history of diabetic nephropathy, status post BKA, morbid obesity was present with complaining of 2 weeks history of cough shortness of breath he denied any sputum production he denied any chest pain he denied any worsening shortness of breath patient has history of CHF dilated cardiomyopathy with ejection fraction of 50%. Patient reported history of chills and sweats no fever recorded also complaining of nausea and episodes of vomiting and diarrhea. His work-up in the ED showed evidence of worsening renal function with a baseline 1.8 and today 2.8 His influenza came back positive With the persistent hypoxia patient was admitted to the hospital for further management 11/18 Patient's symptoms improving no shortness of breath Discussed with nephrology and continuing IV hydration Renal function improving 11/19 Patient's oxygenation improving still needing 1 to 2 L of nasal cannula oxygen His creatinine is 2.9 continued having good urine output-discussed with the hydroelectric production technician and according to the hydroelectric production technician his creatinine is all over the place and recommended stopping his losartan and outpatient follow-up. IV fluids discontinued Discussed with the patient and he wanted to be discharged home Patient will be discharged on Tamiflu 30 mg twice daily for 3 more days, cefdinir 300 mg daily for 5 more days and azithromycin for 2 more days Patient's Lasix was discontinued and this needs to be reevaluated by primary care as he is euvolemic now and with her worsening renal failure He also needs to follow-up with the hydroelectric production technician in 1 to 2 weeks Acute renal failure on CKD Diabetic nephropathy Patient had significant volume depletion with diarrhea and continued use of diuretics Will continue IV hydration Nephrology consulted and patient's creatinine is 2.6 and today it is 2.9 and a ccording to nephrology his renal function has been all over the place and and recommended he can be discharged and managed outpatient Discontinue IV fluids Discontinue losartan Holding Lasix because of worsening renal function and dehydration This needs to be reevaluated by primary care and/or nephrology in 1 to 2 weeks Influenza A infection Acute hypoxic respiratory failure Started him on Tamiflu renally dosed with 30 mg twice daily Monitor for any worsening hypoxia His hypoxia is possibly combination of obesity hypoventilation, sleep apnea, congestive heart failure and the new influenza infection No significant evidence of secondary pneumonia or ARDS Plan Patient is clinically feeling better Still needing 1 to 2 L of nasal cannula oxygen Will do home O2 eval Continue Tamiflu for 3 more days Continue cefdinir 300 mg daily and azithromycin for 2 more days History of chronic systolic and dilated cardiomyopathy with ejection fraction 50% Hold the diuretics as there is no significant evidence of acute pulmonary edema or congestive heart failure causing hypoxia His findings on the chest x-ray could be chronic or due to the new influenza Type 2 diabetes mellitus Diabetic nephropathy Status post right BKA Restart his home insulin regimen we will be cautious with his worsening renal function Sliding scale insulin Morbid obesity and obesity hypoventilation Continue CPAP Essential hypertension Continue home medications Discharge diagnosis: Acute hypoxic respiratory failure, acute renal failure Time Spent with Patient Time attestation: Total time spent providing and/or coordinating discharge services: Time spent: Greater than 30 minutes EXAM Constitutional Vitals: Temp Pulse Resp BP Pulse Ox 98.3 F 87 24 H 137/79 95 11/19/21 08:00 11/19/21 08:00 11/19/21 08:00 11/19/21 08:00 11/19/21 08:00 General appearance: no acute distress and obese Head Head exam: Present atraumatic, normal inspection and normocephalic Eye Eye exam: Present PERRL; Absent conjunctival injection or nystagmus ENT ENT exam: Present mucous membranes moist, normal external ear exam and normal oropharynx Neck Neck exam: Present full ROM; Absent normal inspection or tenderness Respiratory Respiratory exam: Present decreased breath sounds and rales; Absent accessory muscle use or respiratory distress Cardiovascular Cardiovascular exam: Present normal rate and rhythm; Absent JVD, RRR or +S4 GI/Abdominal GI/Abdominal exam: Present normal bowel sounds, soft and distended Neurological Exam Neurological exam: Present alert, CN II-XII intact, oriented X3 and reflexes normal; Absent abnormal gait or motor sensory deficit Discharge Data Data Completed and Pending Labs on day of discharge: Labs from last 24 hours 11/19/21 11/19/21 11/18/21 05:15 05:15 20:44 WBC 17.6 H RBC 4.42 L Hgb 12.1 L Hct 39.6 L MCV 89.6 MCH 27.4 MCHC 30.6 L RDW 15.0 H Plt Count 349 MPV 10.2 Neut % (Auto) 87.8 H Lymph % (Auto) 4.6 L [place] % (Auto) 6.7 Eos % (Auto) 0.7 Baso % (Auto) 0.2 Lymph # (Auto) 0.81 L [place] # (Auto) 1.19 H Eos # (Auto) 0.13 Baso # (Auto) 0.04 Absolute Neutrophils 15.46 H ESR Sodium 127 L Potassium 5.0 Chloride 98 Carbon Dioxide 17 L Anion Gap 12.0 BUN 49 H Creatinine 2.9 H GFR Calculation 25 Glucose 296 H Calcium 8.3 L Magnesium 2.5 Ferritin Total Bilirubin 0.2 AST 14 ALT 12 Alkaline Phosphatase 139 H C-Reactive Protein NT-Pro-B Natriuret Pep Total Protein 5.9 Albumin 1.9 L Globulin 4.0 H Albumin/Globulin Ratio 0.5 L Procalcitonin Ur Random Creatinine 136.6 Ur Random Sodium Urine Urea Nitrogen Complement C3 Complement C4 11/18/21 11/18/21 11/18/21 20:43 12:09 12:09 WBC RBC Hgb Hct MCV MCH MCHC RDW Plt Count MPV Neut % (Auto) Lymph % (Auto) [place] % (Auto) Eos % (Auto) Baso % (Auto) Lymph # (Auto) [place] # (Auto) Eos # (Auto) Baso # (Auto) Absolute Neutrophils ESR Sodium Potassium Chloride Carbon Dioxide Anion Gap BUN Creatinine GFR Calculation Glucose Calcium Magnesium Ferritin Total Bilirubin AST ALT Alkaline Phosphatase C-Reactive Protein NT-Pro-B Natriuret Pep Total Protein Albumin Globulin Albumin/Globulin Ratio Procalcitonin 1.02 H Ur Random Creatinine Ur Random Sodium 22 Urine Urea Nitrogen Complement C3 123.4 Complement C4 29.7 11/18/21 11/18/21 11/18/21 12:09 12:09 12:09 WBC RBC Hgb Hct MCV MCH MCHC RDW Plt Count MPV Neut % (Auto) Lymph % (Auto) [place] % (Auto) Eos % (Auto) Baso % (Auto) Lymph # (Auto) [place] # (Auto) Eos # (Auto) Baso # (Auto) Absolute Neutrophils ESR 117 H Sodium Potassium Chloride Carbon Dioxide Anion Gap BUN Creatinine GFR Calculation Glucose Calcium Magnesium Ferritin 737.5 H Total Bilirubin AST ALT Alkaline Phosphatase C-Reactive Protein 30.20 H NT-Pro-B Natriuret Pep 7321.0 H Total Protein Albumin Globulin Albumin/Globulin Ratio Procalcitonin Ur Random Creatinine Ur Random Sodium Urine Urea Nitrogen 705 Complement C3 Complement C4 Preliminary micro results at discharge 11/17/21 17:00 Blood Culture - Preliminary Blood 11/17/21 16:53 Blood Culture - Preliminary Blood Discharge Plan Patient/Caregiver Discharge Instructions Activity: increase activity as tolerated Diet: Renal/Consistent Carbs Activity Restrictions/Additional Instructions: Follow-up with the primary care in 1 week Follow-up with nephrology in 1 to 2 weeks Prescriptions: New cefdinir 300 mg capsule 300 mg PO QDAY 5 Days Qty: 5 0RF azithromycin 500 mg tablet 500 mg PO QDAY 2 Days Qty: 2 0RF Rx Instructions: start on day 2 of therapy oseltamivir [Tamiflu] 30 mg capsule 30 mg PO BID 3 Days Qty: 6 0RF Discontinued furosemide 40 mg tablet 40 mg PO BID Qty: 60 11RF Rx Instructions: Alert patient of new pill strength, needs only 1 tablet BID to achieve 40 mg BID losartan 100 mg tablet 50 mg PO QDAY 0RF Rx Instructions: 1/2 (100mg) = 50 mg PO daily; No Action empagliflozin 10 mg tablet 10 mg PO QAM Qty: 30 11RF Rx Instructions: Replaces metformin (that caused diarrhea). Stop metolazone. May cause dehydration Lantus U-100 Insulin 100 unit/mL solution 60 unit SUB-Q BID 0RF gabapentin 300 mg capsule 300 mg PO QHS 0RF fluoxetine 40 mg capsule 40 mg PO DAILY 0RF Label Comments: Per the patient is having a dose increase by PCP to 60 mg daily carvedilol 12.5 mg tablet 12.5 mg PO BID 0RF Accu-Chek 1 EACH strip 1 each FS AC 0RF insulin aspart U-100 [Novolog Flexpen U-100 Insulin] 100 unit/mL (3 mL) insulin pen See Rx Instructions .ROUTE .COMPLEX 0RF Rx Instructions: per sliding scale aspirin 325 mg Tablet 325 mg PO QDAY 0RF fluoxetine 20 mg Capsule 20 mg PO QDAY 0RF Other Ambulatory Orders: Home Oxygen Order (Routine) Location: None Selected Ordered By: Teri Ocampo Follow Up Plan Follow up with: Nery Santos MD [Primary Care Provider] - Patient Disposition: Home, Self-Care Plan of Treatment: 41-year-old gentleman with a history of diabetic nephropathy, status post BKA, m orbid obesity was present with complaining of 2 weeks history of cough shortness of breath he denied any sputum production he denied any chest pain he denied any worsening shortness of breath patient has history of CHF dilated cardiomyopathy with ejection fraction of 50%. Patient reported history of chills and sweats no fever recorded also complaining of nausea and episodes of vomiting and diarrhea. His work-up in the ED showed evidence of worsening renal function with a baseline 1.8 and today 2.8 His influenza came back positive With the persistent hypoxia patient was admitted to the hospital for further management 11/18 Patient's symptoms improving no shortness of breath Discussed with nephrology and continuing IV hydration Renal function improving 11/19 Patient's oxygenation improving still needing 1 to 2 L of nasal cannula oxygen His creatinine is 2.9 continued having good urine output-discussed with the hydroelectric production technician and according to the hydroelectric production technician his creatinine is all over the place and recommended stopping his losartan and outpatient follow-up. IV fluids discontinued Discussed with the patient and he wanted to be discharged home Patient will be discharged on Tamiflu 30 mg twice daily for 3 more days, cefdinir 300 mg daily for 5 more days and azithromycin for 2 more days Patient's Lasix was discontinued and this needs to be reevaluated by primary care as he is euvolemic now and with her worsening renal failure He also needs to follow-up with the hydroelectric production technician in 1 to 2 weeks Acute renal failure on CKD Diabetic nephropathy Patient had significant volume depletion with diarrhea and continued use of diuretics Will continue IV hydration Nephrology consulted and patient's creatinine is 2.6 and today it is 2.9 and according to nephrology his renal function has been all over the place and and recommended he can be discharged and managed outpatient Discontinue IV fluids Discontinue losartan Holding Lasix because of worsening renal function and dehydration This needs to be reevaluated by primary care and/or nephrology in 1 to 2 weeks Influenza A infection Acute hypoxic respiratory failure Started him on Tamiflu renally dosed with 30 mg twice daily Monitor for any worsening hypoxia His hypoxia is possibly combination of obesity hypoventilation, sleep apnea, congestive heart failure and the new influenza infection No significant evidence of secondary pneumonia or ARDS Plan Patient is clinically feeling better Still needing 1 to 2 L of nasal cannula oxygen Will do home O2 eval Continue Tamiflu for 3 more days Continue cefdinir 300 mg daily and azithromycin for 2 more days History of chronic systolic and dilated cardiomyopathy with ejection fraction 50% Hold the diuretics as there is no significant evidence of acute pulmonary edema or congestive heart failure causing hypoxia His findings on the chest x-ray could be chronic or due to the new influenza Type 2 diabetes mellitus Diabetic nephropathy Status post right BKA Restart his home insulin regimen we will be cautious with his worsening renal function Sliding scale insulin Morbid obesity and obesity hypoventilation Continue CPAP Essential hypertension Continue home medications Prognosis: Serious Rehab Potential: Serious I certify that the patient requires SNF services: No Overall status at discharge: patient is progressing back to baseline Discharge Orders: Discharge Order (Routine); Ordered 11/19/21 Ordered By: Teri Ocampo
== END 2021-11-19 16:50 | disposition home or self-care (01) | DRG 189 ==
LOC: ED 16:12 → MEDSUR 21:22
PROVIDERS: ADMIT Internal Medicine; ATTEND Internal Medicine

== ENCOUNTER 2024-02-16 18:20 | Inpatient (IN) ==
[2024-02-16 19:23] LABS: Basophils # (Auto) 0.03 K/mcL (0.00-0.30); Basophils % (Auto) 0.3 % (0.0-2.0); Eosinophils # (Auto) 0.09 K/mcL (0.00-0.70); Eosinophils % (Auto) 0.9 % (0.0-7.0); Hematocrit 49.6 % (40.1-51.0); Hemoglobin 15.1 g/dL (13.7-17.5); Lymphocytes # (Auto) 0.61 K/mcL (1.50-4.80); Lymphocytes % (Auto) 5.8 % (15.5-49.0); Mean Cell Volume 92.5 fL (80.0-100.0); Mean Corpuscular HGB Conc 30.4 g/dL (31.0-36.0); Mean Platelet Volume 12.3 fL (8.8-12.5); Monocytes # (Auto) 0.84 K/mcL (0.10-0.90); Neutrophils % (Auto) 84.2 % (38.0-78.0); Platelet Count 101 K/mcL (140-440); RBC 5.36 M/mcL (4.63-6.08); WBC 10.5 K/mcL (4.5-11.0)
[2024-02-16 19:47] LABS: ALT/SGPT 10 U/L (<40); AST/SGOT 12 U/L (<40); Albumin 3.3 gm/dL (3.2-5.2); Albumin/Globulin Ratio 1.2 (1.0-2.3); Alkaline Phosphatase 149 U/L (39-117); Bilirubin,Total 0.5 mg/dL (0.1-1.0); Blood Urea Nitrogen 40 mg/dL (6-20); Calcium 7.5 mg/dL (8.6-10.4); Carbon Dioxide 16 mmol/L (22-30); Chloride 83 mmol/L (96-108); Globulin 2.8 gm/dL (2.2-3.7); Glomerular Filtration Rate 27; Glucose 1194 mg/dL (70-105); Potassium 6.1 mmol/L (3.3-5.1); Sodium 114 mmol/L (133-145)
[2024-02-16] MEDS: INSULIN REGULAR, HUMAN 50 UNIT in 0.9 % SODIUM CHLORIDE 99.5 ML IV SCH (20:20)
[2024-02-16] MEDS: INSULIN REGULAR, HUMAN 1 UNIT/0.01 ML UNIT IV ONE (20:20)
[2024-02-16] MEDS: 0.9 % SODIUM CHLORIDE 1,000 ML IV ONE ×2 (20:20→22:39)
[2024-02-16 20:26] LABS: ABG Methemoglobin 0.3 % (0.4-1.5); Total Hemoglobin 16.5 gm/Dl (13.5-16.5); VBG Base Excess -9 (-2-3); VBG HCO3 18.5 mmol/L (24.0-28.0); VBG Oxygen Saturation 85.4 % (40.0-70.0); VBG PCO2 45.4 mmHg (41.0-51.0); VBG PH 7.23 U (7.32-7.42); VBG Total CO2 19.9 mmol/L (25.0-29.0)
[2024-02-16 22:22] LABS: Blood Urea Nitrogen 40 mg/dL (6-20); Calcium 7.5 mg/dL (8.6-10.4); Carbon Dioxide 18 mmol/L (22-30); Chloride 89 mmol/L (96-108); Glomerular Filtration Rate 27; Glucose 992 mg/dL (70-105); Potassium 5.4 mmol/L (3.3-5.1); Sodium 120 mmol/L (133-145)
[2024-02-16] MEDS ORDERED: 0.9 % SODIUM CHLORIDE 1,000 ML IV SCH (22:45)
[2024-02-16 23:22] LABS: Estimated Average Glucose(eAG) 367 mg/dL; Hemoglobin A1C 14.4 % Hgb (4.0-6.0)
[2024-02-17 00:45] LABS: Sodium, Urine Random < 20 mmol/L
[2024-02-17 00:47] LABS: Blood Urea Nitrogen 40 mg/dL (6-20); Calcium 7.8 mg/dL (8.6-10.4); Carbon Dioxide 18 mmol/L (22-30); Chloride 94 mmol/L (96-108); Glomerular Filtration Rate 27; Glucose 605 mg/dL (70-105); Sodium 125 mmol/L (133-145)
[2024-02-17 00:51] LABS: Appearance,Urine CLOUDY (Clear); Bilirubin,Urine Negative (Negative); Color,Urine STRAW; Culture Indicated,Urine No; Glucose,Urine (UA) >=500 mg/dL (Negative); Ketones,Urine Negative (Negative); Leukocyte Esterase,Urine Negative /uL (Negative); Mucus,Urine FEW /hpf; Nitrate,Urine Negative (Negative); Protein,Urine 30 mg/dL (Negative); Specific Gravity,Urine 1.021 (1.000-1.035); Urine Blood 0.03 mg/dL (Negative); Urine RBC 4 /hpf (0-3); Urine Squamous Epithelial Cell < 1 /hpf (0-4); Urine Transitional Epi Cells < 1 /hpf (0-2); Urine WBC < 1 /hpf (0-4); Urobilinogen,Urine Negative
[2024-02-17 00:59] LABS: Osmolality,Urine 435 mOSM/kg (80-1000)
[2024-02-17] MEDS ORDERED: ONDANSETRON 4 MG/2 ML VIAL IV PRN (02:11)
[2024-02-17] MEDS ORDERED: SENNOSIDES 1 TABLET PO PRN (02:11)
[2024-02-17] MEDS: 0.9 % SODIUM CHLORIDE 1,000 ML IV SCH (02:21)
[2024-02-17 03:20] LABS: ABG Methemoglobin 0.2 % (0.4-1.5); Total Hemoglobin 16.7 gm/Dl (13.5-16.5); VBG Base Excess -8 (-2-3); VBG HCO3 18.2 mmol/L (24.0-28.0); VBG Oxygen Saturation 87.7 % (40.0-70.0); VBG PCO2 38.7 mmHg (41.0-51.0); VBG PH 7.29 U (7.32-7.42); VBG PO2 58.3 mmHg (25.0-40.0); VBG Total CO2 19.4 mmol/L (25.0-29.0)
[2024-02-17 03:34] LABS: Blood Urea Nitrogen 41 mg/dL (6-20); Calcium 7.9 mg/dL (8.6-10.4); Carbon Dioxide 19 mmol/L (22-30); Chloride 96 mmol/L (96-108); Glomerular Filtration Rate 26; Glucose 476 mg/dL (70-105); Potassium 4.8 mmol/L (3.3-5.1); Sodium 126 mmol/L (133-145)
[2024-02-17] MEDS: 0.9 % SODIUM CHLORIDE 10 ML SYRINGE IV SCH (06:02)
[2024-02-17 06:08] LABS: ABG Methemoglobin 0.2 % (0.4-1.5); VBG Base Excess -8 (-2-3); VBG Oxygen Saturation 90.2 % (40.0-70.0); VBG PCO2 37.2 mmHg (41.0-51.0); VBG PO2 76.8 mmHg (25.0-40.0); VBG Total CO2 19.1 mmol/L (25.0-29.0)
[2024-02-17 06:16] LABS: Basophils # (Auto) 0.03 K/mcL (0.00-0.30); Basophils % (Auto) 0.3 % (0.0-2.0); Eosinophils % (Auto) 0.9 % (0.0-7.0); Hematocrit 47.2 % (40.1-51.0); Hemoglobin 14.8 g/dL (13.7-17.5); Lymphocytes # (Auto) 1.28 K/mcL (1.50-4.80); Lymphocytes % (Auto) 11.4 % (15.5-49.0); Mean Cell Volume 90.4 fL (80.0-100.0); Mean Corpuscular HGB Conc 31.4 g/dL (31.0-36.0); Mean Platelet Volume 11.8 fL (8.8-12.5); Monocytes # (Auto) 0.86 K/mcL (0.10-0.90); Monocytes % (Auto) 7.6 % (1.0-12.0); Neutrophils % (Auto) 79.3 % (38.0-78.0); Platelet Count 105 K/mcL (140-440); RBC 5.22 M/mcL (4.63-6.08); Red Cell Distribution Width 14.6 % (11.5-14.5); WBC 11.3 K/mcL (4.5-11.0)
[2024-02-17] MEDS: INSULIN REGULAR, HUMAN 1 UNIT/0.01 ML UNIT IV ONE ×2 (07:38→18:30)
[2024-02-17] MEDS: INSULIN REGULAR, HUMAN 50 UNIT in 0.9 % SODIUM CHLORIDE 99.5 ML IV SCH (08:04)
[2024-02-17] MEDS: INSULIN GLARGINE, HUMAN 1 UNIT/0.01 ML SQ SCH ×2 (08:53→20:24)
[2024-02-17] MEDS: HEPARIN 5,000 UNIT/ML VIAL SQ SCH (08:54)
[2024-02-17] MEDS: INSULIN REGULAR, HUMAN 1 UNIT/0.01 ML UNIT IV SCH ×2 (08:54→20:04)
[2024-02-17 10:46] LABS: ABG Methemoglobin 0.2 % (0.4-1.5); Total Hemoglobin 16.1 gm/Dl (13.5-16.5); VBG Base Excess -7 (-2-3); VBG PCO2 39.8 mmHg (41.0-51.0); VBG PO2 116.2 mmHg (25.0-40.0); VBG Total CO2 20.2 mmol/L (25.0-29.0)
[2024-02-17 11:12] LABS: Blood Urea Nitrogen 41 mg/dL (6-20); Calcium 7.8 mg/dL (8.6-10.4); Carbon Dioxide 20 mmol/L (22-30); Chloride 101 mmol/L (96-108); Glomerular Filtration Rate 28; Glucose 284 mg/dL (70-105); Potassium 4.2 mmol/L (3.3-5.1); Sodium 132 mmol/L (133-145)
[2024-02-17] MEDS ORDERED: DEXTROSE 31 GM ORAL.SUSP PO PRN (12:07)
[2024-02-17] MEDS ORDERED: DEXTROSE 50% 50 ML VIAL IV PRN (12:07)
[2024-02-17] MEDS: INSULIN LISPRO 1 UNIT/0.01 ML UNIT SQ SCH (14:53)
[2024-02-17] MEDS ORDERED: INSULIN LISPRO 1 UNIT/0.01 ML UNIT SQ SCH (17:00)
[2024-02-17] MEDS: INSULIN REGULAR, HUMAN 1 UNIT/0.01 ML UNIT ONE (20:03)
[2024-02-17] MEDS: GABAPENTIN 300 MG CAPSULE PO SCH (20:25)
[2024-02-18] MEDS: ACETAMINOPHEN 325 MG TABLET PO PRN (00:04)
[2024-02-18 05:46] LABS: Basophils # (Auto) 0.04 K/mcL (0.00-0.30); Basophils % (Auto) 0.4 % (0.0-2.0); Eosinophils % (Auto) 2.7 % (0.0-7.0); Hematocrit 48.2 % (40.1-51.0); Hemoglobin 14.9 g/dL (13.7-17.5); Lymphocytes # (Auto) 1.51 K/mcL (1.50-4.80); Lymphocytes % (Auto) 13.6 % (15.5-49.0); Mean Cell Volume 91.8 fL (80.0-100.0); Mean Corpuscular HGB Conc 30.9 g/dL (31.0-36.0); Mean Platelet Volume 11.4 fL (8.8-12.5); Monocytes # (Auto) 1.04 K/mcL (0.10-0.90); Monocytes % (Auto) 9.4 % (1.0-12.0); Neutrophils % (Auto) 73.3 % (38.0-78.0); Platelet Count 124 K/mcL (140-440); RBC 5.25 M/mcL (4.63-6.08); Red Cell Distribution Width 14.6 % (11.5-14.5); WBC 11.1 K/mcL (4.5-11.0)
[2024-02-18 06:24] LABS: ALT/SGPT < 5 U/L (<40); AST/SGOT 13 U/L (<40); Albumin/Globulin Ratio 1.1 (1.0-2.3); Alkaline Phosphatase 115 U/L (39-117); Bilirubin,Direct < 0.2 mg/dL (0-0.3); Bilirubin,Total 0.5 mg/dL (0.1-1.0); Blood Urea Nitrogen 39 mg/dL (6-20); Carbon Dioxide 19 mmol/L (22-30); Chloride 106 mmol/L (96-108); Globulin 2.8 gm/dL (2.2-3.7); Glomerular Filtration Rate 35; Glucose 186 mg/dL (70-105); Lactate Dehydrogenase 132 U/L (135-225); Phosphorous 2.8 mg/dL (2.5-4.5); Potassium 4.6 mmol/L (3.3-5.1); Sodium 134 mmol/L (133-145); Triglycerides 95 mg/dL (<150)
[2024-02-18] MEDS: INSULIN LISPRO 1 UNIT/0.01 ML UNIT SQ SCH ×2 (08:13→16:58)
[2024-02-18] MEDS: LEVOFLOXACIN 750 MG TABLET PO SCH (10:00)
[2024-02-18] MEDS: FLUoxetine HCL 20 MG CAPSULE PO SCH (10:00)
[2024-02-18] MEDS: DOXYCYCLINE HYCLATE 100 MG TABLET.ORL PO SCH (10:00)
[2024-02-18] MEDS: ASPIRIN 325 MG ENTERIC COATED TABLET PO SCH (10:00)
[2024-02-18] MEDS: LACTATED RINGERS 1,000 ML IV SCH (10:10)
[2024-02-18] MEDS: CARVEDILOL 6.25 MG TABLET PO SCH (14:25)
[2024-02-18] MEDS: amLODIPine 10 MG TABLET PO SCH (14:25)
[2024-02-18] MEDS: INSULIN REGULAR, HUMAN 1 UNIT/0.01 ML UNIT IV SCH (14:29)
[2024-02-18] MEDS: INSULIN REGULAR, HUMAN 1 UNIT/0.01 ML UNIT IV ONE (19:33)
[2024-02-18] MEDS: INSULIN REGULAR, HUMAN 1 UNIT/0.01 ML UNIT ONE (19:40)
[2024-02-18] MEDS: INSULIN GLARGINE, HUMAN 1 UNIT/0.01 ML SQ SCH (20:55)
[2024-02-19 06:43] LABS: Basophils # (Auto) 0.03 K/mcL (0.00-0.30); Basophils % (Auto) 0.3 % (0.0-2.0); Eosinophils # (Auto) 0.12 K/mcL (0.00-0.70); Hematocrit 46.3 % (40.1-51.0); Hemoglobin 14.5 g/dL (13.7-17.5); Lymphocytes % (Auto) 11.4 % (15.5-49.0); Mean Cell Volume 90.6 fL (80.0-100.0); Mean Corpuscular HGB Conc 31.3 g/dL (31.0-36.0); Mean Platelet Volume 11.3 fL (8.8-12.5); Monocytes # (Auto) 1.15 K/mcL (0.10-0.90); Monocytes % (Auto) 10.1 % (1.0-12.0); Neutrophils % (Auto) 76.6 % (38.0-78.0); Platelet Count 132 K/mcL (140-440); RBC 5.11 M/mcL (4.63-6.08); Red Cell Distribution Width 14.4 % (11.5-14.5); WBC 11.4 K/mcL (4.5-11.0)
[2024-02-19 07:07] LABS: ALT/SGPT < 5 U/L (<40); AST/SGOT 14 U/L (<40); Albumin 2.9 gm/dL (3.2-5.2); Alkaline Phosphatase 111 U/L (39-117); Bilirubin,Direct < 0.2 mg/dL (0-0.3); Bilirubin,Total 0.5 mg/dL (0.1-1.0); Blood Urea Nitrogen 40 mg/dL (6-20); Calcium 8.1 mg/dL (8.6-10.4); Carbon Dioxide 19 mmol/L (22-30); Chloride 104 mmol/L (96-108); Glomerular Filtration Rate 33; Glucose 204 mg/dL (70-105); Lactate Dehydrogenase 158 U/L (135-225); Phosphorous 2.6 mg/dL (2.5-4.5); Sodium 133 mmol/L (133-145); Triglycerides 85 mg/dL (<150); Uric Acid 8.6 mg/dL (2.5-8.0)
[2024-02-19] MEDS: INSULIN LISPRO 1 UNIT/0.01 ML UNIT SQ SCH (07:22)
[2024-02-19] MEDS: INSULIN GLARGINE, HUMAN 1 UNIT/0.01 ML SQ SCH (08:12)
[2024-02-19] MEDS: Empagliflozin [Jardiance] 25 mg tablet PO SCH (08:16)
[2024-02-19] MEDS: TAMSULOSIN 0.4 MG CAPSULE PO SCH (20:28)
[2024-02-19] MEDS: TAMSULOSIN 0.4 MG CAPSULE PO ONE (20:31)
[2024-02-20 09:07] LABS: Basophils # (Auto) 0.03 K/mcL (0.00-0.30); Basophils % (Auto) 0.3 % (0.0-2.0); Eosinophils # (Auto) 0.13 K/mcL (0.00-0.70); Eosinophils % (Auto) 1.3 % (0.0-7.0); Hematocrit 48.9 % (40.1-51.0); Hemoglobin 15.2 g/dL (13.7-17.5); Lymphocytes # (Auto) 0.62 K/mcL (1.50-4.80); Lymphocytes % (Auto) 6.2 % (15.5-49.0); Mean Cell Volume 91.1 fL (80.0-100.0); Mean Corpuscular HGB Conc 31.1 g/dL (31.0-36.0); Monocytes # (Auto) 0.85 K/mcL (0.10-0.90); Monocytes % (Auto) 8.5 % (1.0-12.0); Neutrophils % (Auto) 83.1 % (38.0-78.0); Platelet Count 144 K/mcL (140-440); RBC 5.37 M/mcL (4.63-6.08)
[2024-02-20 09:16] LABS: Blood Urea Nitrogen 47 mg/dL (6-20); Calcium 8.3 mg/dL (8.6-10.4); Carbon Dioxide 21 mmol/L (22-30); Chloride 102 mmol/L (96-108); Glomerular Filtration Rate 31; Glucose 194 mg/dL (70-105); Sodium 134 mmol/L (133-145)
[2024-02-21] MEDS ORDERED: metroNIDAZOLE 500 MG TABLET PO SCH (14:00)
== END 2024-02-21 15:44 | disposition home or self-care (01) | DRG 638 ==
LOC: ED 18:20 → ICU 02-17 02:03 → MEDSUR 02-20 20:35
PROVIDERS: ADMIT Internal Medicine; ATTEND Student in an Organized Health Care Education/Training Program